=== PATIENT | female | born 1950 | race Caucasian/White ===

== ENCOUNTER 2016-11-18 12:02 | Emergency (ER) | payer MEDICARE, MEDICAID ==
[2016-11-18] MEDS ORDERED: SODIUM CHLORIDE 0.9% 1,000 ML IV ONE (12:18)
[2016-11-18] MEDS ORDERED: IOPAMIDOL-300 100 ML VIAL IVP ONE (14:05)
[2016-11-18] MEDS ORDERED: metroNIDAZOLE 250 MG TABLET PO STA (16:40)
[2016-11-18] MEDS ORDERED: CIPROFLOXACIN 250 MG TABLET PO STA (16:40)
[2016-11-18] MEDS ORDERED: metroNIDAZOLE 250 MG TABLET PO ONE (16:45)
[2016-11-18] MEDS ORDERED: CIPROFLOXACIN 250 MG TABLET PO ONE (16:45)
== END 2016-11-18 17:10 | disposition home or self-care (01) ==
DX: K52.9 Noninfective gastroenteritis and colitis, unspecified (principal); I45.10 Unspecified right bundle-branch block; R03.0 Elevated blood-pressure reading, without diagnosis of hypertension; K44.9 Diaphragmatic hernia without obstruction or gangrene; K64.4 Residual hemorrhoidal skin tags
CPT/HCPCS: 36415; 74174; 80053; 81003; 83605; 83690; 85025; 86850; 86900; 86901; 93005; 93010; 99284; A9270; Q9967

== ENCOUNTER 2016-11-20 08:56 | Outpatient (CLI) | payer MEDICAID, MEDICARE | END 2016-11-20 08:57 | disposition home or self-care (01) | DX: R19.7 Diarrhea, unspecified (principal) ==

== ENCOUNTER 2018-07-19 14:41 | Outpatient (CLI) | payer MEDICARE ==
[2018-07-19 19:26] LABS: BASOPHILS # (AUTO) 0.1 10^3/uL (0.0-0.1); EOSINOPHILS # (AUTO) 0.2 10^3/uL (0.0-0.7); EOSINOPHILS % (AUTO) 2.2 %; HGB - HEMOGLOBIN 14.6 g/dL (12.0-16.0); LYMPHOCYTES # (AUTO) 0.8 10^3/uL (1.5-3.5); LYMPHOCYTES % (AUTO) 10.8 %; MEAN CORPUSCULAR HEMOGLOBIN 29.5 pg (27.0-31.0); MEAN CORPUSCULAR HGB CONC 31.9 g/dL (32.0-36.0); MEAN CORPUSCULAR VOLUME 92.3 fL (81.0-99.0); MONOCYTES # (AUTO) 0.4 10^3/uL (0.0-1.0); MONOCYTES % (AUTO) 5.7 %; NEUTROPHILS # (AUTO) 6.1 10^3/uL (1.5-6.6); NEUTROPHILS % (AUTO) 80.3 %; PLT - PLATELET COUNT 256 10^3/uL (130-450); RED BLOOD COUNT 4.94 10^6/uL (4.20-5.40); RED CELL DISTRIBUTION WIDTH 13.5 % (12.0-15.0); WHITE BLOOD COUNT 7.7 x10^3/uL (4.8-10.8)
[2018-07-19 19:50] LABS: BUN - BLOOD UREA NITROGEN 14 mg/dL (6-20); CALCIUM 9.1 mg/dL (8.5-10.3); CARBON DIOXIDE - CO2 29 mmol/L (21-32); CHLORIDE 99 mmol/L (101-111); CHOL/HDL RATIO 3.4 (<4.4); CHOLESTEROL 188 mg/dL; CREATININE 0.7 mg/dL (0.4-1.0); GFR - MDRD 83 (>89); GLUCOSE 109 mg/dL (70-100); HDL CHOLESTEROL 55 mg/dL; LDL CHOLESTEROL,CALCULATED 120 mg/dL; LDL/HDL RATIO 2.2 (<4.4); SODIUM 136 mmol/L (135-145); VLDL CHOLESTEROL 13 mg/dL
== END 2018-07-19 23:59 | disposition home or self-care (01) ==
LOC: LAB.N 14:41
PROVIDERS: ATTEND Physician Assistant Medical
DX: Z00.00 Encounter for general adult medical examination without abnormal findings (principal); I10 Essential (primary) hypertension
CPT/HCPCS: 36415; 80048; 80061; 83721; 84443; 85025

== ENCOUNTER 2019-08-09 13:16 | Emergency (ER) | payer MEDICARE ==
[2019-08-09 13:30] VITALS: BP 215/100
[2019-08-09] MEDS ORDERED: ERYTHROMYCIN BASE DR 250 MG TABLET PO STA (13:35)
--- NOTE | 2019-08-09 13:38 | ED Physician Documentation ---
PD HPI WOUND RECHECK - Stated complaint Stated Complaint: R FINGER INJ - Chief complaint Chief Complaint: Wound - Histroy obtained from History obtained from: Patient (She has recurrent paronychia due to cutting her nails too short and has had 1 for the last 3 days on the right index finger. No fevers.) PD PAST MEDICAL HISTORY - Past Surgical History Past Surgical History: Yes General: Appendectomy HEENT: Tonsil/Adenoidectomy - Present Medications Home Medications: Ambulatory Orders Medication Instructions Recorded Confirmed Ciprofloxacin HCl [Cipro] 500 mg PO BID #19 tablet 11/18/16 Metronidazole [Flagyl] 500 mg PO BID #20 tablet 11/18/16 Saccharomyces Boulardii [Florastor] 250 mg PO BID #40 capsule 11/18/16 Erythromycin Base [Oni-Tab] 500 mg PO TID #30 tablet. 08/09/19 - Allergies Allergies/Adverse Reactions: Allergies Allergy/AdvReac Type Severity Reaction Status Date / Time Penicillins Allergy Unknown Verified 08/09/19 13:23 - Social History Does the pt smoke?: No Smoking Status: Never smoker Does the pt drink ETOH?: No Does the pt have substance abuse?: No PD ED PE NORMAL - Vitals Vital signs reviewed: Yes - General General: Alert and oriented X 3, Other (Blood pressure is noted, she has a prescription waiting for her at the pharmacy for her blood pressure medicines, she has not taken them today.) - Extremities Extremities: Other (She is a paronychia of the ulnar side of the right index finger) - Neuro Neuro: Alert and oriented X 3, Normal speech Results - Vitals Vitals: Vital Signs - 24 hr 08/09/19 13:23 Temperature 36.6 C Heart Rate 103 H Respiratory 16 Rate Blood Pressure 215/100 H O2 Saturation 96 Oxygen O2 Source Room air Procedures - Abscess I&D (location) R 2nd finger paronychia Preparation: Topical spray Incision: Incised with scalpel, Purulent drainage, Culture obtained Other: Pt tolerated well, Dressing applied, Antibiotic prescribed Departure - Departure Disposition: 01 Home, Self Care Clinical Impression: Paronychia Condition: Good Record reviewed to determine appropriate education?: Yes Instructions: ED Fingernail Infec Prescriptions: Erythromycin Base [Oni-Tab] 500 mg PO TID #30 tablet. Comments: We are performing a wound culture, the results should be done in 48-72 hours. If antibiotic change is necessary we will call you. Return if worse in the meantime, especially if you develop increased pain, fevers, cannot keep down the medication. Otherwise follow-up with your physician in approximately 2-3 days. Your blood pressure was elevated today on check into the emergency department. This does not mean that you have hypertension, it is a common phenomenon to come to the emergency department and have elevated blood pressure. I recommend that you see your primary care physician within the week to have it rechecked when you are feeling better.
== END 2019-08-09 14:00 | disposition home or self-care (01) ==
LOC: ED 13:16
DX: L03.011 Cellulitis of right finger (principal); Z88.0 Allergy status to penicillin; R03.0 Elevated blood-pressure reading, without diagnosis of hypertension
CPT/HCPCS: 10060; 87070; 87181; 87205; 99281; 99283; A9270

== ENCOUNTER 2020-04-02 10:22 | Inpatient (IN) | payer MEDICAID, MEDICARE ==
[2020-04-02 11:13] LABS: BASOPHILS % (AUTO) 0.5 %; LYMPHOCYTES # (AUTO) 0.6 10^3/uL (1.5-3.5); MEAN CORPUSCULAR HEMOGLOBIN 29.8 pg (27.0-31.0); MEAN CORPUSCULAR HGB CONC 32.4 g/dL (32.0-36.0); MEAN CORPUSCULAR VOLUME 91.9 fL (81.0-99.0); MEAN PLATELET VOLUME 9.7 fL (7.9-10.8); MONOCYTES # (AUTO) 0.3 10^3/uL (0.0-1.0); MONOCYTES % (AUTO) 3.3 %; NEUTROPHILS # (AUTO) 7.8 10^3/uL (1.5-6.6); NEUTROPHILS % (AUTO) 88.7 %; PLT - PLATELET COUNT 235 10^3/uL (130-450); WHITE BLOOD COUNT 8.8 x10^3/uL (4.8-10.8)
[2020-04-02 11:23] LABS: ALBUMIN/GLOBULIN RATIO 1.1 (1.0-2.2); BILIRUBIN,TOTAL 0.7 mg/dL (0.2-1.0); CALCIUM 9.3 mg/dL (8.5-10.3); CREATININE 0.9 mg/dL (0.4-1.0); TOTAL PROTEIN 7.6 g/dL (6.7-8.2)
--- NOTE | 2020-04-02 11:42 | ED Physician Documentation ---
PD HPI ABD PAIN - Stated complaint Stated Complaint: ABD PX/CONSTIPATED/VOMITING - Chief complaint Chief Complaint: Abd Pain - History obtained from History obtained from: Patient - History of Present Illness Timing - onset: How many days ago (3-4) Timing - duration: Days (3-4) Timing - details: Gradual onset Quality: Cramping, Aching (The patient says she has had diminished stool for the last week or so but still having bowel movements. She states she had had little to no bowel movement over the last 2 to 3 days and feeling lower abdominal cramping. Last night nausea and vomiting couple times.), Fullness/distended (for 2 days) Location: Other (lower abd) Radiation: Lower back. No: Chest Improved by: Laying still. No: Eating Worsened by: Eating, Moving. No: Breathing Associated symptoms: Nausea, Vomiting (couple times since last night), Constipation (for 2-3 days, with less output for maybe just a week. Normal BMs prior to that.). No: Fever, Diarrhea Similar symptoms before: Diagnosis (She states the lower abdominal cramping is similar to an episode of diverticulitis she had about 3 years ago) Recently seen: Not recently seen Review of Systems Constitutional: denies: Fever, Chills Nose: denies: Rhinorrhea / runny nose, Congestion Throat: denies: Sore throat Cardiac: denies: Chest pain / pressure Respiratory: denies: Dyspnea, Cough GI: reports: Abdominal Pain, Nausea, Vomiting, Constipation. denies: Diarrhea, Hematemesis, Bloody / black stool : denies: Dysuria Neurologic: reports: Generalized weakness. denies: Focal weakness, Numbness, Near syncope, Headache PD PAST MEDICAL HISTORY - Past Medical History Past Medical History: No Cardiovascular: None Endocrine/Autoimmune: None GI: Diverticulitis (One episode in 2017 treated nonsurgically) - Past Surgical History Past Surgical History: Yes General: Appendectomy HEENT: Tonsil/Adenoidectomy - Present Medications Home Medications: Ambulatory Orders Medication Instructions Recorded Confirmed Ciprofloxacin HCl [Cipro] 500 mg PO BID #19 tablet 11/18/16 Saccharomyces Boulardii [Florastor] 250 mg PO BID #40 capsule 11/18/16 metroNIDAZOLE [Flagyl] 500 mg PO BID #20 tablet 11/18/16 Erythromycin Base [Oni-Tab] 500 mg PO TID #30 tablet.dr 08/09/19 - Allergies Allergies/Adverse Reactions: Allergies Allergy/AdvReac Type Severity Reaction Status Date / Time Penicillins Allergy Unknown Verified 04/02/20 10:36 - Living Situation Living Situation: reports: Alone Living Arrangement: reports: At home - Social History Does the pt smoke?: No Smoking Status: Never smoker Does the pt drink ETOH?: No Does the pt have substance abuse?: No PD ED PE NORMAL - Vitals Vital signs reviewed: Yes - General General: Alert and oriented X 3, Well developed/nourished - HEENT HEENT: Moist mucous membranes, Pharynx benign - Cardiac Cardiac: RRR, No murmur - Respiratory Respiratory: Clear bilaterally - Abdomen Abdomen: Soft, No organomegaly, Other (Tender in the lower abdomen with some d istention. Bowel sounds are present and hyperactive. No percussion or rebound tenderness). No: Normal bowel sounds - Female Female : Deferred - Rectal Rectal: Deferred - Back Back: No CVA TTP - Derm Derm: Normal color - Extremities Extremities: No tenderness to palpate, Normal ROM s pain, No edema, No calf tenderness / cord - Neuro Neuro: Alert and oriented X 3, No motor deficit, Normal speech Results - Vitals Vitals: Vital Signs - 24 hr 04/02/20 04/02/20 10:29 14:00 Temperature 36.6 C Heart Rate 105 H 100 Respiratory 18 18 Rate Blood Pressure 167/111 H 193/110 H O2 Saturation 96 99 Oxygen O2 Source Room air - Labs Labs: Laboratory Tests 04/02/20 04/02/20 04/02/20 11:04 11:04 11:46 WBC 8.8 RBC 4.70 Hgb 14.0 Hct 43.2 MCV 91.9 MCH 29.8 MCHC 32.4 RDW 13.0 Plt Count 235 MPV 9.7 Neut # (Auto) 7.8 H Lymph # (Auto) 0.6 L Gooding # (Auto) 0.3 Eos # (Auto) 0.0 Baso # (Auto) 0.0 Absolute Nucleated RBC 0.00 Nucleated RBC % 0.0 Sodium 135 Potassium 3.9 Chloride 97 L Carbon Dioxide 26 Anion Gap 12.0 BUN 13 Creatinine 0.9 Estimated GFR (MDRD) 62 L Glucose 122 H Calcium 9.3 Total Bilirubin 0.7 AST 15 ALT 12 Alkaline Phosphatase 63 Total Protein 7.6 Albumin 4.0 Globulin 3.6 Albumin/Globulin Ratio 1.1 Lipase 20 L Urine Color DARK YELLOW Urine Clarity CLEAR Urine pH 5.0 Ur Specific Lithia >=1.030 H Urine Protein TRACE Urine Glucose (UA) NEGATIVE Urine Ketones 40 H Urine Occult Blood SMALL H Urine Nitrite NEGATIVE Urine Bilirubin NEGATIVE Urine Urobilinogen 0.2 (NORMAL) Ur Leukocyte Esterase NEGATIVE Urine RBC 0-5 Urine WBC 0-3 Ur Squamous Epith Cells FEW Squamous Amorphous Sediment Rare Urine Bacteria Few Ur Microscopic Review INDICATED Urine Culture Comments NOT INDICATED - Rads (name of study) abd CT Radiology: Prelim report reviewed (Circumferential wall thickening and i nflammation without any stranding in the mid sigmoid. Upstream partial bowel obstruction pattern. No perforation or abscess), See rad report PD MEDICAL DECISION MAKING - ED course Complexity details: reviewed results (There is some circumferential swelling and narrowing in the mid sigmoid located similar to an area of diverticulitis 3 years ago. She had been having normal stools up until just this past week so sounds like an acute infectious process rather than a malignant process), considered differential (Several days to a week at most of decreased stool output but largely just 3 days of abdominal lower pains with bloating and now today nausea and vomiting since last night), d/w patient Departure - Departure Disposition: 66 [facility] DC/Xfer Clinical Impression: Acute colitis Partial bowel obstruction Qualifiers: Intestinal obstruction type: other intestinal obstruction Qualified Code(s): K56.690 - Other partial intestinal obstruction Condition: Stable Record reviewed to determine appropriate education?: Yes
[2020-04-02 11:59] LABS: GLUCOSE, URINE (UA) NEGATIVE (NEGATIVE); KETONES,URINE (UA) 40 mg/dL (NEGATIVE); LEUKOCYTE ESTERASE, URINE NEGATIVE (NEGATIVE); NITRITE,URINE NEGATIVE (NEGATIVE); OCCULT BLOOD,URINE SMALL (NEGATIVE); PROTEIN,URINE TRACE mg/dL (NEGATIVE); UROBILINOGEN,URINE 0.2 (NORMAL) E.U./dL (NORMAL)
[2020-04-02] MEDS ORDERED: MORPHINE 2 MG/ML CARPUJECT IVP STA (12:00)
[2020-04-02] MEDS ORDERED: ONDANSETRON 4 MG/2 ML VIAL IVP STA (12:00)
[2020-04-02] MEDS ORDERED: SODIUM CHLORIDE 0.9% 1,000 ML IV STA (12:00)
[2020-04-02 12:02] LABS: CLARITY,URINE CLEAR (CLEAR)
[2020-04-02 12:03] LABS: BILIRUBIN,URINE NEGATIVE (NEGATIVE); ICTOTEST,URINE NEGATIVE
[2020-04-02 12:17] LABS: AMORPHOUS SEDIMENT,UR Rare /LPF; BACTERIA,URINE Few /HPF (None Seen); RBC,URINE 0-5 /HPF (0-5); SQUAMOUS EPITHELIAL CELL,UR FEW Squamous (<= Few)
[2020-04-02] MEDS ORDERED: IOVERSOL 320 100 ML VIAL IVP ONE ×2 (12:31→15:12)
--- NOTE | 2020-04-02 13:10 | CT Report ---
PROCEDURE: Abdomen/Pelvis W INDICATIONS: lower abd pain, cramps, vomiting CONTRAST: IV CONTRAST: Optiray 320 ml: 100 PO CONTRAST: *NO PO CONTRAST TECHNIQUE: After the administration of IV contrast, 5 mm thick sections acquired from the diaphragms to the symp hysis. 5 mm thick coronal and sagittal reformats were acquired. For radiation dose reduction, the f ollowing was used: automated exposure control, adjustment of mA and/or kV according to patient size. COMPARISON: 11/18/2016. FINDINGS: Image quality: Excellent. ABDOMEN: Lung bases: Heart size is normal. Large hiatal hernia is again seen with compressive atelectasis in posterior medial aspect of left lung base. Herniation sac contains stomach and long segment of trans verse colon. No pleural effusion or pneumothorax. Solid organs: Liver and spleen are normal in size and enhancement. Gallbladder is within normal alvarez its Biliary system is non dilated. Pancreas enhances normally. No adrenal nodules. Kidneys demons trate normal size and enhancement, without hydronephrosis. Peritoneum and bowel: Air and fluid distended distal small bowel loops and colon loops are seen with fecal material seen in dependent portion of distended colonic loops extending to the level of proxima l to mid sigmoid colon with suggestion of circumferential wall thickening and high-grade stenosis inv olving 9 cm segment of mid to distal sigmoid colon. No significant adjacent mesenteric fat stranding is seen. Finding is concerning for circumferential mass involving sigmoid colon versus inflammatory o r infectious colitis in this region with resultant distal colonic obstruction at this level. No perit kapadia free fluid or free air. Nodes and vessels: No retroperitoneal or mesenteric adenopathy by size criteria. Aorta and inferior vena cava are normal in size. Miscellaneous: No ventral hernias. PELVIS: Genitourinary: Bladder wall thickness is normal. Miscellaneous: No inguinal hernias or adenopathy. Bones: No suspicious bony lesions. No vertebral body compression fractures. Degenerative disc disea se throughout lower thoracic and lumbar spine is seen. IMPRESSION: 1. 9 cm segment of high-grade stenosis involving mid to distal sigmoid colon with suggestion of marke d circumferential wall thickening and resultant distal colonic obstruction at this level. Finding is concerning for circumferential mass in this area versus changes related to infectious or inflammatory colitis. Endoscopic correlation is recommended. 2. No other area of abnormal bowel wall thickening. No free fluid or free air. 3. Large hiatal hernia containing stomach lumen and a segment of transverse colon. No evidence of inc arceration. Reviewed by: Bernardo Simpson MD on 04/02/2020 1:09 PM PDT Approved by: Bernardo Simpson MD on 04/02/2020 1:09 PM PDT Station ID: [id number]
[2020-04-02] MEDS ORDERED: KETOROLAC 30 MG/ML VIAL IVP STA (13:45)
[2020-04-02] MEDS ORDERED: cefTRIAXone 1 GM VIAL IVP STA (13:45)
[2020-04-02] MEDS ORDERED: metroNIDAZOLE 500 MG/100 ML 500 MG/100 ML BAG IV ONE (13:45)
[2020-04-02] MEDS ORDERED: PROCHLORPERAZINE 10 MG/2 ML VIAL IVP PRN (15:08)
[2020-04-02 15:42] LABS: INR 1.2 (0.8-1.2); PT - PROTHROMBIN TIME 13.5 secs (9.9-12.6)
--- NOTE | 2020-04-02 15:46 | PHARMACY PROGRESS NOTE ---
- Best Possible Medication History Admit Date and Time: 04/02/20 1505 Processed by: Pharmacy Medication History completed: Yes Patient Interview: Completed Secondary Source(s): Pharmacy records, Insurance records (PATIENT INTERVIEWED BY [employer]. PATIENT ABLE TO CONFIRM HOME MEDICATIONS. PATIENT ALSO STATES SHE TAKES OTC IRON, POTASSIUM, AND GARLIC ) As the person ultimately responsible for medication therapy, providers are able to order a medication from an existing home medication list in [facility] via the "Reconcile Routine" prior to Confirmation of that medication by student support advisor. Such practice is discouraged except when the physician, in their clinical judgment, deems that a medical need exists for a medication without regard to previous use.
[2020-04-02] MEDS ORDERED: D5NS W/20 MEQ KCL 1,000 ML IV SCH (16:00)
[2020-04-02] MEDS: D5NS W/20 MEQ KCL 1,000 ML IV SCH (16:21)
[2020-04-02] MEDS: ONDANSETRON 4 MG/2 ML VIAL IVP PRN (16:21)
[2020-04-02] MEDS: SODIUM CHLORIDE FLUSH 0.9% 10 ML SYRINGE IVP SCH (16:21)
[2020-04-02] MEDS ORDERED: BENZOCAINE SPRAY MM PRN (16:26)
--- NOTE | 2020-04-02 19:44 | HISTORY & PHYSICAL EXAMINATION ---
Chief Complaint - Chief Complaint Chief Complaint: Abdominal pain History of Present Illness - Admitted From Admitted From:: Home - History Obtained From Records Reviewed: Yes History obtained from: Patient, ER Physician, EMR - History of Present Illness HPI Comment/Other: This is a 69-year-old female with a past medical history significant for hype rtension, iron deficiency anemia who presents today complaining of lower abdominal pain and constipation. She states her symptoms began about 5 days ago but over the past 2 days she has severe lower abdominal cramping and pain that has been a 10 out of 10. She has had associated constipation and had a bowel movement in 2 days. She reports no nausea but has had multiple episodes of nonbloody emesis. She currently feels that her pain has improved. She reports a similar episode about 3 years ago but that it felt a little bit different at that time. She was supposed to get a colonoscopy then but unfortunately due to insurance problems, she never followed up and has never had a colonoscopy in her life. She reports a prior history of appendectomy otherwise no other surgical history. She is adopted and is unaware of her family history. She reports no weight loss. In the emergency department, she underwent a CT of the abdomen and pelvis which showed a 9 cm segment of high-grade stenosis involving the mid to distal sigmoid colon with suggestion of marked circumferential wall thickening and resultant distal colonic obstruction. This was concerning for a circumferential mass versus infectious or inflammatory colitis. She was given ceftriaxone and Flagyl IV as well as Toradol. Given these findings, medicine was consulted for admission. I did discuss goals of care with patient she would like to be a full code. History - Past Medical History Cardiovascular: reports: Hypertension Respiratory: reports: None Neuro: reports: None Endocrine/Autoimmune: reports: None GI: reports: None : reports: None Psych: reports: None Musculoskeletal: reports: None Derm: reports: None MRSA Hx?: No - Past Surgical History General: reports: Appendectomy HEENT: reports: Tonsil/Adenoidectomy - Family & Social History Family History Comment/Other: She is adopted and is unaware of her family histo ry. Living arrangement: At home Living Situation: Alone Social History Notes: She has lived in [facility] for over 30 years. 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 She does not smoke and denies any alcohol use or illicit drug use. Meds/Allgy - Home Medications Home Medications: Ambulatory Orders Medication Instructions Recorded Confirmed Aspirin EC [Ecotrin] 81 mg PO DAILY 04/02/20 04/02/20 Ferrous Sulfate 325 mg PO DAILY 04/02/20 04/02/20 Lisinopril [Zestril] 60 mg PO DAILY 04/02/20 04/02/20 hydroCHLOROthiazide 25 mg PO DAILY 04/02/20 04/02/20 [Hydrochlorothiazide] - Allergies Allergies/Adverse Reactions: Allergies Allergy/AdvReac Type Severity Reaction Status Date / Time Penicillins Allergy Unknown Verified 04/02/20 10:36 Review of Systems - Constitutional Constitutional: reports: Poor appetite. denies: Fatigue, Fever, Chills, Malaise, Weight loss - Ears, Nose & Throat Ears, Nose & Throat: reports: Sore throat. denies: Nasal discharge, Nasal c ongestion - Cardiovascular Cariovascular: reports: Lightheadedness. denies: Chest pain, Edema - Respiratory Respiratory: reports: SOB at rest - Gastrointestinal Gastrointestinal: reports: Abdominal pain, Constipation, Change in bowel habits, Vomiting, Bloating, Poor appetite. denies: Diarrhea, Black stools, Bloody stools, Nausea - Genitourinary Genitourinary: denies: Dysuria, Frequency - Neurological Neurological: reports: General weakness, Dizziness. denies: Focal weakness, Numbness - Hematologic/Lymphatic Hematologic/Lymphatic: reports: Anemia. denies: Bleeding tendencies - All Other Systems All Other Systems: reports: Reviewed and negative Prior Level of Functionality: She is independent with her ADLs. Exam - Vital Signs Reviewed Vital Signs: Yes Vital Signs: Vital Signs x48h Temp Pulse Pulse Resp BP BP Pulse Ox 04/02/20 17:11 37.1 C 100 18 98 04/02/20 15:46 37.1 C 108 H 18 184/113 H 97 04/02/20 15:24 100 18 171/111 H 100 04/02/20 14:00 100 18 193/110 H 99 - Physical Exam General Appearance: positive: Alert, Mild distress Eyes Bilateral: positive: Normal inspection, Conjunctivae nml ENT: positive: ENT inspection nml Neck: positive: Nml inspection Respiratory: positive: No respiratory distress. negative: Wheezes, Rales Cardiovascular: positive: No murmur, Tachycardia. negative: Systolic murmur Abdomen: positive: Tenderness (Mild tenderness in the left lower quadrant and suprapubic region.), Abnml bowel sounds (Hypoactive bowel sounds.). negative: Non-tender, Guarding, Rebound Skin: positive: No rash, Warm, Dry Extremities: positive: Full ROM, No pedal edema Neurologic/Psychiatric: positive: Oriented x3, Motor nml. negative: Disoriented to person, Disoriented to place, Disoriented to time Conclusion/Plan - Problem List (1) Partial bowel obstruction Conclusion/Plan: She presents with abdominal cramping and emesis along with constipation. Imaging is concerning for high-grade stenosis in the mid to distal sigmoid colon which could be due to a mass or infectious/inflammatory colitis. She has had a similar episode in the past but has never had a colonoscopy. We will empirically start her on ceftriaxone and Flagyl IV for possible infectious colit is. Maintain n.p.o. status. Controlled morphine IV as needed. Zofran as needed for nausea. Continue IV fluids. General surgery consult for likely colonoscopy. Qualifiers: Intestinal obstruction type: other intestinal obstruction Qualified Code(s): K56.690 - Other partial intestinal obstruction (2) Hypertension Conclusion/Plan: Her blood pressures currently elevated with systolic in the 160s to 170s. Given she is n.p.o., we will start her on labetalol IV every 4 hours as needed. We will resume her home medications when she is taking p.o. Qualifiers: Hypertension type: essential hypertension Qualified Code(s): I10 - Essential (primary) hypertension (3) History of iron deficiency Conclusion/Plan: Hemoglobin is stable. We will continue her on iron supplementation once she is taking p.o. - Lab Results Lab results reviewed: Yes Fish Bones: 04/02/20 11:04 04/02/20 11:04 - Diagnostic Imaging Results Diagnostic Imaging Results: positive: Final report reviewed Core Measures - Anticipated LOS I expect patient to be DC'd or transferred within 96 hours.: Yes - Issues Hospital Issues and Management Plan: 69-year-old female presents with abdominal pain found to have a partial bowel obstruction on imaging of the sigmoid colon. Concern is for infectious/enteric colitis or an underlying mass. Will admit for IV antibiotics and general surgery consult for colonoscopy. - DVT/VTE - Prophylaxis VTE/DVT Device ordered at admit?: Yes VTE/DVT Prophylaxis med ordered at admit?: Yes
[2020-04-02] MEDS ORDERED: MORPHINE 2 MG/ML CARPUJECT IVP PRN (19:47)
[2020-04-02] MEDS ORDERED: LABETALOL 20 MG/4 ML SYRINGE IVP PRN ×2 (20:04→22:00)
[2020-04-02] MEDS: metroNIDAZOLE 500 MG/100 ML 500 MG/100 ML BAG IV SCH (21:49)
[2020-04-02] MEDS: FAMOTIDINE 20 MG/2 ML SYRINGE IVP SCH (21:49)
[2020-04-03] MEDS: SODIUM CHLORIDE FLUSH 0.9% 10 ML SYRINGE IVP SCH ×3 (01:07→16:02)
[2020-04-03] MEDS: D5NS W/20 MEQ KCL 1,000 ML IV SCH ×2 (01:59→12:52)
[2020-04-03] MEDS: ONDANSETRON 4 MG/2 ML VIAL IVP PRN ×3 (02:21→16:02)
[2020-04-03 05:48] LABS: BASOPHILS % (AUTO) 0.3 %; HGB - HEMOGLOBIN 14.5 g/dL (12.0-16.0); LYMPHOCYTES # (AUTO) 0.6 10^3/uL (1.5-3.5); LYMPHOCYTES % (AUTO) 4.7 %; MEAN CORPUSCULAR HEMOGLOBIN 30.1 pg (27.0-31.0); MEAN CORPUSCULAR HGB CONC 32.7 g/dL (32.0-36.0); MEAN CORPUSCULAR VOLUME 92.1 fL (81.0-99.0); MEAN PLATELET VOLUME 9.5 fL (7.9-10.8); MONOCYTES # (AUTO) 0.5 10^3/uL (0.0-1.0); MONOCYTES % (AUTO) 3.9 %; NEUTROPHILS # (AUTO) 11.9 10^3/uL (1.5-6.6); NEUTROPHILS % (AUTO) 90.6 %; PLT - PLATELET COUNT 268 10^3/uL (130-450); RED BLOOD COUNT 4.81 10^6/uL (4.20-5.40); RED CELL DISTRIBUTION WIDTH 13.2 % (12.0-15.0); WHITE BLOOD COUNT 13.1 x10^3/uL (4.8-10.8)
[2020-04-03 05:59] LABS: CALCIUM 8.9 mg/dL (8.5-10.3); CREATININE 0.7 mg/dL (0.4-1.0)
[2020-04-03] MEDS: metroNIDAZOLE 500 MG/100 ML 500 MG/100 ML BAG IV SCH ×3 (06:03→21:10)
[2020-04-03] MEDS: hydrALAZINE INJ 20 MG/ML VIAL IVP PRN (06:07)
[2020-04-03] MEDS: SODIUM CHLORIDE FLUSH 0.9% 10 ML SYRINGE IVP PRN ×2 (06:11→06:19)
[2020-04-03] MEDS: FAMOTIDINE 20 MG/2 ML SYRINGE IVP SCH ×2 (09:26→21:11)
[2020-04-03] MEDS: ENOXAPARIN 40 MG/0.4 ML SYRINGE SUBQ SCH (09:27)
[2020-04-03] MEDS: cefTRIAXone 1 GM in SODIUM CHLORIDE 0.9% MINIBAG 100 ML IV SCH (09:27)
[2020-04-03] MEDS ORDERED: PEG 3350/NA SULF,BICARB,CL/KCL 4,000 ML BOTTLE PO ONE (13:56)
--- NOTE | 2020-04-03 15:39 | PROVIDER PROGRESS NOTE ---
Assessment/Plan - Problem List (1) Partial bowel obstruction Qualifiers: Intestinal obstruction type: other intestinal obstruction Qualified Code(s): K56.690 - Other partial intestinal obstruction Assessment/Plan: Patient report abdominal pain is better control, she had a big bowel movement in the morning then she had several small bowel movements. Imaging is concerning for high-grade stenosis in the mid to distal sigmoid colon which could be due to a mass or infectious/inflammatory colitis. GI surgeon plan to have colonoscopy on tomorrow. Continue pain control, continue antiemesis as needed, continue intravenous IV fluids. (2) HTN We will continue home medication lisinopril and HCTZ, Continue vital signs monitor, Continue IV labetalol every 4 hours as needed. (3) History of iron deficiency Conclusion/Plan: Hemoglobin is stable. We will continue her on iron supplementation once she is taking p.o. - Current Meds Current Meds: Current Medications Generic Name Dose Route Start Last Admin Trade Name Freq PRN Reason Stop Dose Admin Benzocaine 1 sprays 04/02/20 16:26 04/02/20 16:30 Hurricaine MM 1 spr Q4HR PRN Administration Mouth Sore Pain Enoxaparin Sodium 40 mg 04/03/20 09:00 04/03/20 09:27 Lovenox SUBQ 40 mg DAILY YASMEEN Administration Famotidine 20 mg 04/02/20 21:00 04/03/20 09:26 Pepcid IVP 20 mg BID YASMEEN Administration Hydralazine HCl 10 mg 04/02/20 22:00 04/03/20 06:07 Apresoline Inj IVP 10 mg Q4HR PRN Administration NEEDED PER PROVIDER ORDERS Ceftriaxone Sodium 1 gm/ 100 mls @ 200 mls/hr 04/03/20 09:00 04/03/20 10:00 Sodium Chloride IV Infused DAILY YASMEEN Infusion Metronidazole 500 mg in 100 mls @ 100 mls/hr 04/02/20 22:00 04/03/20 14:52 Flagyl 500 Mg/100 Ml IV Infused Q8H YASMEEN Infusion Potassium Chloride/Dextrose/Sod Cl 1,000 mls @ 125 mls/hr 04/02/20 16:00 04/03/20 14:53 IV 125 mls/hr .Q8H YASMEEN Infusion Ondansetron HCl 4 mg 04/02/20 15:08 08/18/20 09:25 Zofran Inj IVP 4 mg Q6HR PRN Administration Nausea / Vomiting Sodium Chloride 10 ml 04/02/20 15:08 04/03/20 06:19 Normal Saline Flush 0.9% IVP 10 ml PRN PRN Administration NEEDED PER PROVIDER ORDERS Sodium Chloride 10 ml 04/02/20 17:00 04/03/20 07:53 Normal Saline Flush 0.9% IVP 10 ml 0100,0900,1700 YASMEEN Administration - Lab Result Fish Bone Diagrams: 04/03/20 05:30 04/03/20 05:30 - Additional Planning My Orders: My Active Orders 04/03/20 16:00 lisinopriL [Zestril] 60 mg PO DAILY 04/04/20 09:00 Aspirin EC [Ecotrin] 81 mg PO DAILY hydroCHLOROthiazide [Hydrodiuril] 25 mg PO DAILY Subjective - Subjective Patient Reports: Feeling Better Objective Vital Signs: Vital Signs - 24 hr 04/02/20 04/02/20 04/02/20 15:46 17:11 19:56 Temperature 37.1 C 37.1 C Heart Rate 100 Heart Rate [ 108 H 101 H Brachial] Respiratory 18 18 Rate Blood Pressure Blood Pressure 184/113 H 173/86 H [Left Brachial artery] Blood Pressure [Right Brachial artery] O2 Saturation 97 98 04/02/20 04/02/20 04/02/20 20:46 20:52 20:55 Temperature 36.7 C Heart Rate Heart Rate [ 98 84 84 Brachial] Respiratory 18 Rate Blood Pressure Blood Pressure 189/93 H 145/85 H [Left Brachial artery] Blood Pressure 145/85 H [Right Brachial artery] O2 Saturation 97 04/02/20 04/02/20 04/02/20 21:00 21:05 21:10 Temperature Heart Rate Heart Rate [ 83 82 89 Brachial] Respiratory Rate Blood Pressure Blood Pressure [Left Brachial artery] Blood Pressure 145/85 H 164/83 H 154/92 H [Right Brachial artery] O2 Saturation 04/02/20 04/02/20 04/02/20 21:25 21:48 22:50 Temperature Heart Rate Heart Rate [ 84 85 Brachial] Respiratory Rate Blood Pressure Blood Pressure [Left Brachial artery] Blood Pressure 183/87 H 192/85 H 149/99 H [Right Brachial artery] O2 Saturation 04/03/20 04/03/20 04/03/20 00:48 05:47 05:51 Temperature 37.5 C 37.4 C Heart Rate Heart Rate [ 88 99 Brachial] Respiratory 18 16 Rate Blood Pressure Blood Pressure 161/92 H 178/91 H 164/90 H [Left Brachial artery] Blood Pressure [Right Brachial artery] O2 Saturation 94 93 04/03/20 04/03/20 04/03/20 06:07 06:16 06:21 Temperature Heart Rate Heart Rate [ 86 Brachial] Respiratory Rate Blood Pressure 207/95 H Blood Pressure 201/94 H 181/96 H [Left Brachial artery] Blood Pressure [Right Brachial artery] O2 Saturation 04/03/20 04/03/20 04/03/20 06:26 06:32 06:37 Temperature Heart Rate Heart Rate [ Brachial] Respiratory Rate Blood Pressure 167/87 H Blood Pressure 177/81 H 168/81 H [Left Brachial artery] Blood Pressure [Right Brachial artery] O2 Saturation 04/03/20 04/03/20 04/03/20 06:46 07:54 10:35 Temperature 37.2 C 37.2 C Heart Rate 91 Heart Rate [ 91 Brachial] Respiratory 18 18 Rate Blood Pressure Blood Pressure 167/87 H 157/85 H [Left Brachial artery] Blood Pressure [Right Brachial artery] O2 Saturation 93 94 04/03/20 11:30 Temperature 36.3 C L Heart Rate Heart Rate [ 87 Brachial] Respiratory 18 Rate Blood Pressure Blood Pressure 167/99 H [Left Brachial artery] Blood Pressure [Right Brachial artery] O2 Saturation 99 Oxygen O2 Source Room air I&O (Last 24 Hrs): Intake and Output Totals x24h 04/01/20 04/02/20 04/03/20 23:59 23:59 23:59 Intake Total 7062.824 6417.500 Output Total 100 Balance 0993.100 0111.500 General: Alert, Oriented x3, No acute distress HEENT: Atraumatic Neck: Supple Lymphatic: no adenopathy Neuro: Alert, Non Focal, Oriented Times 3 Cardiovascular: Regular rate, Normal S1, Normal S2 Respiratory: Chest non-tender, No respiratory distress, Breath sounds nml Abdomen: Normal bowel sounds, Soft, No tenderness Extremities: Normal pulses - Results Results: Laboratory Results WBC 13.1 x10^3/uL (4.8-10.8) H 04/03/20 05:30 RBC 4.81 10^6/uL (4.20-5.40) 04/03/20 05:30 Hgb 14.5 g/dL (12.0-16.0) 04/03/20 05:30 Hct 44.3 % (37.0-47.0) 04/03/20 05:30 MCV 92.1 fL (81.0-99.0) 04/03/20 05:30 MCH 30.1 pg (27.0-31.0) 04/03/20 05:30 MCHC 32.7 g/dL (32.0-36.0) 04/03/20 05:30 RDW 13.2 % (12.0-15.0) 04/03/20 05:30 Plt Count 268 10^3/uL (130-450) 04/03/20 05:30 MPV 9.5 fL (7.9-10.8) 04/03/20 05:30 Neut # (Auto) 11.9 10^3/uL (1.5-6.6) H 04/03/20 05:30 Lymph # (Auto) 0.6 10^3/uL (1.5-3.5) L 04/03/20 05:30 [place] # (Auto) 0.5 10^3/uL (0.0-1.0) 04/03/20 05:30 Eos # (Auto) 0.0 10^3/uL (0.0-0.7) 04/03/20 05:30 Baso # (Auto) 0.0 10^3/uL (0.0-0.1) 04/03/20 05:30 Absolute Nucleated RBC 0.00 x10^3/uL 04/03/20 05:30 Nucleated RBC % 0.0 /100WBC 04/03/20 05:30 PT 13.5 secs (9.9-12.6) H 04/02/20 11:04 INR 1.2 (0.8-1.2) 04/02/20 11:04 Sodium 135 mmol/L (135-145) 04/03/20 05:30 Potassium 4.4 mmol/L (3.5-5.0) 04/03/20 05:30 Chloride 105 mmol/L (101-111) 04/03/20 05:30 Carbon Dioxide 22 mmol/L (21-32) 04/03/20 05:30 Anion Gap 8.0 (6-13) 04/03/20 05:30 BUN 12 mg/dL (6-20) 04/03/20 05:30 Creatinine 0.7 mg/dL (0.4-1.0) 04/03/20 05:30 Estimated GFR (MDRD) 83 (>89) L 04/03/20 05:30 Glucose 177 mg/dL (70-100) H 04/03/20 05:30 Calcium 8.9 mg/dL (8.5-10.3) 04/03/20 05:30 Total Bilirubin 0.7 mg/dL (0.2-1.0) 04/02/20 11:04 AST 15 IU/L (10-42) 04/02/20 11:04 ALT 12 IU/L (10-60) 04/02/20 11:04 Alkaline Phosphatase 63 IU/L (42-121) 04/02/20 11:04 Total Protein 7.6 g/dL (6.7-8.2) 04/02/20 11:04 Albumin 4.0 g/dL (3.2-5.5) 04/02/20 11:04 Globulin 3.6 g/dL (2.1-4.2) 04/02/20 11:04 Albumin/Globulin Ratio 1.1 (1.0-2.2) 04/02/20 11:04 Lipase 20 U/L (22-51) L 04/02/20 11:04 Urine Color DARK YELLOW 04/02/20 11:46 Urine Clarity CLEAR (CLEAR) 04/02/20 11:46 Urine pH 5.0 PH (5.0-7.5) 04/02/20 11:46 Ur Specific [place] >=1.030 (1.002-1.030) H 04/02/20 11:46 Urine Protein TRACE mg/dL (NEGATIVE) 04/02/20 11:46 Urine Glucose (UA) NEGATIVE mg/dL (NEGATIVE) 04/02/20 11:46 Urine Ketones 40 mg/dL (NEGATIVE) H 04/02/20 11:46 Urine Occult Blood SMALL (NEGATIVE) H 04/02/20 11:46 Urine Nitrite NEGATIVE (NEGATIVE) 04/02/20 11:46 Urine Bilirubin NEGATIVE (NEGATIVE) 04/02/20 11:46 Urine Urobilinogen 0.2 (NORMAL) E.U./dL (NORMAL) 04/02/20 11:46 Ur Leukocyte Esterase NEGATIVE (NEGATIVE) 04/02/20 11:46 Urine RBC 0-5 /HPF (0-5) 04/02/20 11:46 Urine WBC 0-3 /HPF (0-5) 04/02/20 11:46 Ur Squamous Epith Cells FEW Squamous (<= Few) 04/02/20 11:46 Amorphous Sediment Rare /LPF 04/02/20 11:46 Urine Bacteria Few /HPF (None Seen) 04/02/20 11:46 Ur Microscopic Review INDICATED 04/02/20 11:46 Urine Culture Comments NOT INDICATED 04/02/20 11:46 ABX Reporting Has patient been on IV antibiotics over the past 48 hours?: Yes Current Medications - Current Medications Current Medications: Active Medications Aspirin (Ecotrin) 81 mg PO DAILY [facility] Benzocaine (Hurricaine) 1 sprays MM Q4HR PRN PRN Reason: Mouth Sore Pain Last Admin: 04/02/20 16:30 Dose: 1 spr Documented by: Enoxaparin Sodium (Lovenox) 40 mg SUBQ DAILY [facility] Last Admin: 04/03/20 09:27 Dose: 40 mg Documented by: Famotidine (Pepcid) 20 mg IVP BID [facility] Last Admin: 04/03/20 09:26 Dose: 20 mg Documented by: Ferrous Sulfate (Feosol) 325 mg PO DAILY [facility] Hydralazine HCl (Apresoline Inj) 10 mg IVP Q4HR PRN PRN Reason: NEEDED PER PROVIDER ORDERS Last Admin: 04/03/20 06:07 Dose: 10 mg Documented by: Hydrochlorothiazide (Hydrodiuril) 25 mg PO DAILY [facility] Ceftriaxone Sodium 1 gm/ (Sodium Chloride) 100 mls @ 200 mls/hr IV DAILY [facility] Last Infusion: 04/03/20 10:00 Dose: Infused Documented by: Metronidazole (Flagyl 500 Mg/100 Ml) 500 mg in 100 mls @ 100 mls/hr IV Q8H [facility] Last Infusion: 04/03/20 14:52 Dose: Infused Documented by: Potassium Chloride/Dextrose/Sod Cl () 1,000 mls @ 125 mls/hr IV .Q8H [facility] Last Infusion: 04/03/20 14:53 Dose: 125 mls/hr Documented by: Labetalol HCl (Trandate Syringe) 10 mg IVP Q2HR PRN PRN Reason: NEEDED PER PROVIDER ORDERS Lisinopril (Zestril) 60 mg PO DAILY [facility] Morphine Sulfate (Morphine (Carpuject)) 2 mg IVP Q2HR PRN PRN Reason: PAIN Ondansetron HCl (Zofran Inj) 4 mg IVP Q6HR PRN PRN Reason: Nausea / Vomiting Last Admin: 04/03/20 09:25 Dose: 4 mg Documented by: Prochlorperazine Edisylate (Compazine Inj) 10 mg IVP Q6HR PRN PRN Reason: Nausea / Vomiting Sodium Chloride (Normal Saline Flush 0.9%) 10 ml IVP PRN PRN PRN Reason: NEEDED PER PROVIDER ORDERS Last Admin: 04/03/20 06:19 Dose: 10 ml Documented by: Sodium Chloride (Normal Saline Flush 0.9%) 10 ml IVP 0100,0900,1700 [facility] Last Admin: 04/03/20 07:53 Dose: 10 ml Documented by: Aspirin EC [Ecotrin] 81 mg PO DAILY 04/02/20 Ferrous Sulfate 325 mg PO DAILY 04/02/20 Lisinopril [Zestril] 60 mg PO DAILY 04/02/20 hydroCHLOROthiazide [Hydrochlorothiazide] 25 mg PO DAILY 04/02/20
[2020-04-03] MEDS: lisinopriL 20 MG TABLET PO SCH (16:02)
[2020-04-03] MEDS ORDERED: SODIUM CHLORIDE 0.9% 1,000 ML IV SCH (19:00)
--- NOTE | 2020-04-03 19:17 | CONSULTATION NOTE ---
Referring Provider Name of Referring Provider:: Dr. Tima Davis Consult Date: 04/03/20 Chief Complaint - Chief Complaint Chief Complaint: Constipation, nausea and vomiting History of Present Illness - Admitted From Admitted From:: ED - History Obtained From Records Reviewed: provider's notes from this and prior admission History obtained from: patient and provider notes Exam Limitations: none - History of Present Illness HPI Comment/Other: Nimco is a 69 year old lady who was admitted to the Hospitalist service last evening after presenting to the ED with nausea, vomiting, and constipation. Shortly after admission, she had a large bowel movement and the nausea began to improve. She reports she has had constant diarrhea for the past 3 or 4 years. She was seen in our hospital in November of 2016. She presented at that time with abdominal pain and lower GI hemorrhage. CT scan during that admission revealed a 20 segment of inflammation in the sigmoid colon. She was discharged after the episode with referral for colonoscopy. She reports it was scheduled but "life happened" and the colonoscopy was cancelled. She has had frequent lower abdominal pain since that time. She says that over the past couple of years, it has been increasingly difficulty to have a bowel movement and, when she does, it is almost always diarrhea. At the time of her presentation to our ED, CT revealed a 9 cm high grade stricture in the sigmoid colon. There is no evidence of metastatic disease. I have been consulted regarding colonoscopy during this admission. Nimco is not aware of any family history of colorectal cancer. History - Past Medical History Cardiovascular: reports: Hypertension Respiratory: reports: None Neuro: reports: None Endocrine/Autoimmune: reports: None GI: reports: None : reports: None HEENT: reports: Chronic vision loss, Other (Very concerned about vision loss and has a preop appointment scheduled for cataract extraction) Psych: reports: None Musculoskeletal: reports: None Derm: reports: None MRSA Hx?: No - Past Surgical History General: reports: Appendectomy HEENT: reports: Tonsil/Adenoidectomy - Family & Social History Family History Comment/Other: She is adopted and is unaware of her family history. Living arrangement: At home Living Situation: Alone Social History Notes: She has lived in [facility] for over 30 years. 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 She does not smoke and denies any alcohol use or illicit drug use. Meds/Allgy - Home Medications Home Medications: Ambulatory Orders Medication Instructions Recorded Confirmed Aspirin EC [Ecotrin] 81 mg PO DAILY 04/02/20 04/02/20 Ferrous Sulfate 325 mg PO DAILY 04/02/20 04/02/20 Lisinopril [Zestril] 60 mg PO DAILY 04/02/20 04/02/20 hydroCHLOROthiazide 25 mg PO DAILY 04/02/20 04/02/20 [Hydrochlorothiazide] - Allergies Allergies/Adverse Reactions: Allergies Allergy/AdvReac Type Severity Reaction Status Date / Time Penicillins Allergy Unknown Verified 04/02/20 10:36 Review of Systems - Constitutional Constitutional: reports: Fatigue - Eyes Eyes: reports: Other (glare) - Cardiovascular Cariovascular: reports: Lightheadedness, Decr. exercise tolerance. denies: Palpitations, Chest pain, Edema - Respiratory Respiratory: denies: Cough, Wheezing - Gastrointestinal Gastrointestinal: reports: Abdominal pain, Diarrhea, Change in bowel habits, Nausea, Vomiting - Genitourinary Genitourinary: denies: Dysuria, Urgency, Flank pain - Neurological Neurological: denies: Focal weakness - All Other Systems All Other Systems: reports: Reviewed and negative Exam - Vital Signs Vital Signs: Vital Signs x48h Temp Pulse Resp BP Pulse Ox 04/03/20 17:15 95 160/90 H 04/03/20 15:46 36.9 C 104 H 20 184/104 H 95 04/03/20 11:30 36.3 C L 87 18 167/99 H 99 - Physical Exam General Appearance: positive: No acute distress, Alert Eyes Bilateral: positive: Normal inspection ENT: positive: ENT inspection nml Neck: positive: Nml inspection Respiratory: positive: Chest non-tender, No respiratory distress, Breath sounds nml Cardiovascular: positive: Regular rate & rhythm, No murmur Peripheral Pulses: positive: 0 Abdomen: positive: Tenderness (periumbilical), Other (Hyperactive bowel tones). negative: Guarding, Rebound, Mass Back: positive: Nml inspection. negative: CVA tenderness (R), CVA tenderness (L) Skin: positive: Color nml Extremities: positive: Non-tender Neurologic/Psychiatric: positive: Oriented x3 Conclusion and Plan - Lab Results Laboratory Results 04/03/20 05:30: Sodium 135, Potassium 4.4, Chloride 105, Carbon Dioxide 22, Anion Gap 8.0, BUN 12, Creatinine 0.7, Estimated GFR (MDRD) 83 L, Glucose 177 H, Calcium 8.9 04/03/20 05:30: WBC 13.1 H, RBC 4.81, Hgb 14.5, Hct 44.3, MCV 92.1, MCH 30.1, MCHC 32.7, RDW 13.2, Plt Count 268, MPV 9.5, Neut # (Auto) 11.9 H, Lymph # (Auto) 0.6 L, [place] # (Auto) 0.5, Eos # (Auto) 0.0, Baso # (Auto) 0.0, Absolute Nucleated RBC 0.00, Nucleated RBC % 0.0 04/02/20 11:46: Urine Color DARK YELLOW, Urine Clarity CLEAR, Urine pH 5.0, Ur Specific [place] >=1.030 H, Urine Protein TRACE, Urine Glucose (UA) NEGATIVE, Urine Ketones 40 H, Urine Occult Blood SMALL H, Urine Nitrite NEGATIVE, Urine Bilirubin NEGATIVE, Urine Urobilinogen 0.2 (NORMAL), Ur Leukocyte Esterase NEGATIVE, Urine RBC 0-5, Urine WBC 0-3, Ur Squamous Epith Cells FEW Squamous, Amorphous Sediment Rare, Urine Bacteria Few, Ur Microscopic Review INDICATED, Urine Culture Comments NOT INDICATED 04/02/20 11:04: PT 13.5 H, INR 1.2 04/02/20 11:04: Sodium 135, Potassium 3.9, Chloride 97 L, Carbon Dioxide 26, Anion Gap 12.0, BUN 13, Creatinine 0.9, Estimated GFR (MDRD) 62 L, Glucose 122 H, Calcium 9.3, Total Bilirubin 0.7, AST 15, ALT 12, Alkaline Phosphatase 63, Total Protein 7.6, Albumin 4.0, Globulin 3.6, Albumin/Globulin Ratio 1.1, Lipase 20 L 04/02/20 11:04: WBC 8.8, RBC 4.70, Hgb 14.0, Hct 43.2, MCV 91.9, MCH 29.8, MCHC 32.4, RDW 13.0, Plt Count 235, MPV 9.7, Neut # (Auto) 7.8 H, Lymph # (Auto) 0.6 L, [place] # (Auto) 0.3, Eos # (Auto) 0.0, Baso # (Auto) 0.0, Absolute Nucleated RBC 0.00, Nucleated RBC % 0.0 - Diagnostic Imaging Results Diagnostic Imaging Results: positive: Final report reviewed Diagnostic Imaging Results Comments: As per HPI - Diagnosis Diagnosis: Sigmoid colon stricture of unknown etiology - Plan Plan: Gentle bowel prep today with plans for colonoscopy in the AM. The procedure is scheduled for 729
[2020-04-03] MEDS: KETOROLAC 15 MG/ML VIAL IVP PRN (21:39)
[2020-04-04] MEDS: SODIUM CHLORIDE FLUSH 0.9% 10 ML SYRINGE IVP SCH ×3 (01:54→19:44)
[2020-04-04 06:07] LABS: BASOPHILS # (AUTO) 0.1 10^3/uL (0.0-0.1); BASOPHILS % (AUTO) 0.7 %; EOSINOPHILS % (AUTO) 0.5 %; LYMPHOCYTES # (AUTO) 0.8 10^3/uL (1.5-3.5); LYMPHOCYTES % (AUTO) 9.3 %; MEAN CORPUSCULAR HEMOGLOBIN 30.8 pg (27.0-31.0); MEAN CORPUSCULAR HGB CONC 32.8 g/dL (32.0-36.0); MEAN CORPUSCULAR VOLUME 94.1 fL (81.0-99.0); MEAN PLATELET VOLUME 9.7 fL (7.9-10.8); MONOCYTES # (AUTO) 0.7 10^3/uL (0.0-1.0); MONOCYTES % (AUTO) 8.7 %; NEUTROPHILS # (AUTO) 6.8 10^3/uL (1.5-6.6); NEUTROPHILS % (AUTO) 80.3 %; PLT - PLATELET COUNT 265 10^3/uL (130-450); RED BLOOD COUNT 4.54 10^6/uL (4.20-5.40); RED CELL DISTRIBUTION WIDTH 13.6 % (12.0-15.0); WHITE BLOOD COUNT 8.4 x10^3/uL (4.8-10.8)
[2020-04-04 06:18] LABS: CALCIUM 8.8 mg/dL (8.5-10.3); CREATININE 0.7 mg/dL (0.4-1.0)
[2020-04-04] MEDS: metroNIDAZOLE 500 MG/100 ML 500 MG/100 ML BAG IV SCH (07:00)
--- NOTE | 2020-04-04 07:33 | ANESTHESIA ---
Pre-Anesthesia VS, & Labs - Diagnosis Diagnosis Sigmoid colon stricture of unknown etiology - Procedure colonoscopy Vital Signs: Temp Pulse Resp BP Pulse Ox 37.2 C 94 16 142/97 H 94 04/04/20 03:33 04/04/20 03:33 04/04/20 03:33 04/04/20 03:33 04/04/20 03:33 Height 5 ft 5 in Weight (kg) 74.5 kg Body Mass Index 27.3 - NPO >8 hours - Is Patient ?: No - Lab Results Current Lab Results: Laboratory Tests 04/04/20 05:50: Sodium 136, Potassium 4.1, Chloride 107, Carbon Dioxide 22, Anion Gap 7.0, BUN 12, Creatinine 0.7, Estimated GFR (MDRD) 83 L, Glucose 132 H, Calcium 8.8 04/04/20 05:50: WBC 8.4, RBC 4.54, Hgb 14.0, Hct 42.7, MCV 94.1, MCH 30.8, MCHC 32.8, RDW 13.6, Plt Count 265, MPV 9.7, Neut # (Auto) 6.8 H, Lymph # (Auto) 0.8 L, [place] # (Auto) 0.7, Eos # (Auto) 0.0, Baso # (Auto) 0.1, Absolute Nucleated RBC 0.00, Nucleated RBC % 0.0 04/03/20 05:30: Sodium 135, Potassium 4.4, Chloride 105, Carbon Dioxide 22, Anion Gap 8.0, BUN 12, Creatinine 0.7, Estimated GFR (MDRD) 83 L, Glucose 177 H, Calcium 8.9 04/03/20 05:30: WBC 13.1 H, RBC 4.81, Hgb 14.5, Hct 44.3, MCV 92.1, MCH 30.1, MCHC 32.7, RDW 13.2, Plt Count 268, MPV 9.5, Neut # (Auto) 11.9 H, Lymph # (Auto) 0.6 L, [place] # (Auto) 0.5, Eos # (Auto) 0.0, Baso # (Auto) 0.0, Absolute Nucleated RBC 0.00, Nucleated RBC % 0.0 04/02/20 11:04: PT 13.5 H, INR 1.2 04/02/20 11:04: Sodium 135, Potassium 3.9, Chloride 97 L, Carbon Dioxide 26, Anion Gap 12.0, BUN 13, Creatinine 0.9, Estimated GFR (MDRD) 62 L, Glucose 122 H , Calcium 9.3, Total Bilirubin 0.7, AST 15, ALT 12, Alkaline Phosphatase 63, Total Protein 7.6, Albumin 4.0, Globulin 3.6, Albumin/Globulin Ratio 1.1, Lipase 20 L 04/02/20 11:04: WBC 8.8, RBC 4.70, Hgb 14.0, Hct 43.2, MCV 91.9, MCH 29.8, MCHC 32.4, RDW 13.0, Plt Count 235, MPV 9.7, Neut # (Auto) 7.8 H, Lymph # (Auto) 0.6 L, [place] # (Auto) 0.3, Eos # (Auto) 0.0, Baso # (Auto) 0.0, Absolute Nucleated RBC 0.00, Nucleated RBC % 0.0 Fish Bones: 04/04/20 05:50 04/04/20 05:50 Home Medications and Allergies Home Medications: Ambulatory Orders Aspirin EC [Ecotrin] 81 mg PO DAILY 04/02/20 Ferrous Sulfate 325 mg PO DAILY 04/02/20 Lisinopril [Zestril] 60 mg PO DAILY 04/02/20 hydroCHLOROthiazide [Hydrochlorothiazide] 25 mg PO DAILY 04/02/20 Active Medications Aspirin (Ecotrin) 81 mg PO DAILY [facility] Benzocaine (Hurricaine) 1 sprays MM Q4HR PRN PRN Reason: Mouth Sore Pain Last Admin: 04/02/20 16:30 Dose: 1 spr Documented by: Enoxaparin Sodium (Lovenox) 40 mg SUBQ DAILY [facility] Last Admin: 04/03/20 09:27 Dose: 40 mg Documented by: Famotidine (Pepcid) 20 mg IVP BID [facility] Last Admin: 04/03/20 21:11 Dose: 20 mg Documented by: Ferrous Sulfate (Feosol) 325 mg PO DAILY [facility] Hydralazine HCl (Apresoline Inj) 10 mg IVP Q4HR PRN PRN Reason: NEEDED PER PROVIDER ORDERS Last Admin: 04/03/20 06:07 Dose: 10 mg Documented by: Hydrochlorothiazide (Hydrodiuril) 25 mg PO DAILY [facility] Ceftriaxone Sodium 1 gm/ (Sodium Chloride) 100 mls @ 200 mls/hr IV DAILY [facility] Last Infusion: 04/03/20 10:00 Dose: Infused Documented by: Metronidazole (Flagyl 500 Mg/100 Ml) 500 mg in 100 mls @ 100 mls/hr IV Q8H [facility] Last Admin: 04/04/20 07:00 Dose: 100 mls/hr Documented by: Sodium Chloride (Normal Saline 0.9%) 1,000 mls @ 83.333 mls/hr IV .Q12H [facility] Last Infusion: 04/03/20 22:11 Dose: 83 mls/hr Documented by: Ketorolac Tromethamine (Toradol Inj (15mg)) 15 mg IVP Q6HR PRN PRN Reason: PAIN Stop: 04/08/20 17:15 Last Admin: 04/03/20 21:39 Dose: 15 mg Documented by: Labetalol HCl (Trandate Syringe) 10 mg IVP Q2HR PRN PRN Reason: NEEDED PER PROVIDER ORDERS Lisinopril (Zestril) 60 mg PO DAILY [facility] Last Admin: 04/03/20 16:02 Dose: 60 mg Documented by: Morphine Sulfate (Morphine (Carpuject)) 2 mg IVP Q2HR PRN PRN Reason: PAIN Ondansetron HCl (Zofran Inj) 4 mg IVP Q6HR PRN PRN Reason: Nausea / Vomiting Last Admin: 04/03/20 16:02 Dose: 4 mg Documented by: Prochlorperazine Edisylate (Compazine Inj) 10 mg IVP Q6HR PRN PRN Reason: Nausea / Vomiting Last Admin: 04/03/20 21:39 Dose: 10 mg Documented by: Sodium Chloride (Normal Saline Flush 0.9%) 10 ml IVP PRN PRN PRN Reason: NEEDED PER PROVIDER ORDERS Last Admin: 04/03/20 06:19 Dose: 10 ml Documented by: Sodium Chloride (Normal Saline Flush 0.9%) 10 ml IVP 0100,0900,1700 [facility] Last Admin: 04/04/20 01:54 Dose: Not Given Documented by: Aspirin EC [Ecotrin] 81 mg PO DAILY 04/02/20 Ferrous Sulfate 325 mg PO DAILY 04/02/20 Lisinopril [Zestril] 60 mg PO DAILY 04/02/20 hydroCHLOROthiazide [Hydrochlorothiazide] 25 mg PO DAILY 04/02/20 Allergies/Adverse Reactions: Allergies Allergy/AdvReac Type Severity Reaction Status Date / Time Penicillins Allergy Unknown Verified 04/02/20 10:36 Anes History & Medical History - Anesthetic History Anesthesia Complications: reports: No previous complications - Medical History Cardiovascular: reports: Hypertension Pulmonary: reports: None Gastrointestinal: reports: None Urinary: reports: None Neuro: reports: None Musculoskeletal: reports: None Endocrine/Autoimmune: reports: None Blood Disorders: reports: None Skin: reports: None Smoking Status: Former smoker - Surgical History General: Appendectomy Eyes Ears Nose Throat (EENT): Tonsil/Adenoidectomy Exam General: Alert Dental: WNL Mouth Opening: Greater than 4 Fingerbreadths Neck Mobility: Normal Mallampati classification: II Respiratory: Lungs clear Cardiovascular: Regular rate Plan Anesthesia Type: MAC Consent for Procedure(s) Verified and Reviewed: Yes Code Status: Attempt Resuscitation ASA classification: 2-Mild systemic disease Is this case an emergency?: No
[2020-04-04] MEDS ORDERED: PROPOFOL 200 MG/20 ML VIAL IVP ONE ×2 (07:46→13:50)
[2020-04-04] MEDS ORDERED: KETAMINE 500 MG/10 ML VIAL IVP ONE (07:46)
[2020-04-04] MEDS ORDERED: LIDOCAINE-MPF 2% 5 ML VIAL IM ONE (07:46)
--- NOTE | 2020-04-04 08:31 | ANESTHESIA POST OP EVALUATION ---
Anesthesia Post Eval - Post Anesthesia Eval Vitals: Last Vital Signs Temp 36.8 C 04/04/20 08:28 Pulse 106 H 04/04/20 08:28 Resp 20 04/04/20 08:28 BP 146/81 H 04/04/20 08:28 Pulse Ox 91 L 04/04/20 08:28 CV Function Including HR & BP: positive: Stable Pain Control: positive: Satisfactory Nausea & Vomiting: positive: Negative Mental Status: positive: Baseline Respiratory Status: Airway Patent Hydration Status: Satisfactory Anesthesia Complications: positive: None
[2020-04-04] MEDS ORDERED: METOPROLOL 5 MG/5 ML VIAL IVP PRN (08:51)
[2020-04-04] MEDS ORDERED: FERROUS SULFATE 325 MG TABLET PO SCH (09:00)
[2020-04-04] MEDS ORDERED: D5.45NS W/20 MEQ KCL 1,000 ML IV SCH ×2 (09:00→12:01)
[2020-04-04] MEDS: ENOXAPARIN 40 MG/0.4 ML SYRINGE SUBQ SCH (09:05)
--- NOTE | 2020-04-04 09:14 | PROVIDER PROGRESS NOTE ---
Subjective - Prog Note Date Prog Note Date: 04/04/20 Prog Note Time: 09:04 - Subjective Pt reports feeling: Worse Subjective: Attempted colonoscopy revealed and very tight and impassable stricture at 35 cm in the sigmoid colon. Mucosa was hyperglandular in appearance. I have recommended urgent sigmoid colectomy this afternoon with diverting ileostomy. Objective - Vital Signs/Intake & Output Vital Signs: Vital Signs x48h Temp Pulse Resp BP Pulse Ox 04/04/20 08:28 36.8 C 106 H 20 146/81 H 91 L 04/04/20 07:40 36.4 C L 103 H 18 159/99 H 92 04/04/20 03:33 37.2 C 94 16 142/97 H 94 Intake & Output: Intake & Output 04/01/20 04/02/20 04/03/20 04/04/20 23:59 23:59 23:59 23:59 Intake Total 0990.116 4824.389 831.783 Output Total 550 Balance 0593.073 6752.389 831.783 - Lab Results Fish Bones: 04/04/20 05:50 04/04/20 05:50 Other Labs: Lab Results x24hrs 04/04/20 04/04/20 04/04/20 Range/Units 05:50 05:50 05:50 WBC 8.4 (4.8-10.8) x10^3/uL RBC 4.54 (4.20-5.40) 10^6/uL Hgb 14.0 (12.0-16.0) g/dL Hct 42.7 (37.0-47.0) % MCV 94.1 (81.0-99.0) fL MCH 30.8 (27.0-31.0) pg MCHC 32.8 (32.0-36.0) g/dL RDW 13.6 (12.0-15.0) % Plt Count 265 (130-450) 10^3/uL MPV 9.7 (7.9-10.8) fL Neut # (Auto) 6.8 H (1.5-6.6) 10^3/uL Lymph # (Auto) 0.8 L (1.5-3.5) 10^3/uL [place] # (Auto) 0.7 (0.0-1.0) 10^3/uL Eos # (Auto) 0.0 (0.0-0.7) 10^3/uL Baso # (Auto) 0.1 (0.0-0.1) 10^3/uL Absolute Nucleated RBC 0.00 x10^3/uL Nucleated RBC % 0.0 /100WBC Sodium 136 (135-145) mmol/L Potassium 4.1 (3.5-5.0) mmol/L Chloride 107 (101-111) mmol/L Carbon Dioxide 22 (21-32) mmol/L Anion Gap 7.0 (6-13) BUN 12 (6-20) mg/dL Creatinine 0.7 (0.4-1.0) mg/dL Estimated GFR (MDRD) 83 L (>89) Glucose 132 H (70-100) mg/dL Calcium 8.8 (8.5-10.3) mg/dL Troponin I High Sens 18.9 H* (2.3-14.8) ng/L
[2020-04-04] MEDS: FAMOTIDINE 20 MG/2 ML SYRINGE IVP SCH ×2 (09:40→21:23)
[2020-04-04] MEDS: cefTRIAXone 1 GM in SODIUM CHLORIDE 0.9% MINIBAG 100 ML IV SCH (09:40)
[2020-04-04] MEDS: lisinopriL 20 MG TABLET PO SCH (10:00)
[2020-04-04] MEDS: hydroCHLOROthiazide 25 MG TABLET PO SCH (10:00)
[2020-04-04] MEDS: ASPIRIN EC 81 MG TABLET PO SCH (10:00)
[2020-04-04] MEDS: ONDANSETRON 4 MG/2 ML VIAL IVP PRN (10:06)
--- NOTE | 2020-04-04 10:58 | PROVIDER PROGRESS NOTE ---
Subjective - Prog Note Date Prog Note Date: 04/04/20 - Subjective Pt reports feeling: Worse Subjective: Patient reported she still feel some abdominal pain and discomfortable on her abdomen. She denies chest pain, fever, chill. Patient reported she had emesis on yesterday but she does not have emesis on today. Patient denies history of cardiac problem including she has no GA or CAD in her history. She report she was adopted so she does not know her family medical history. She did report she has murmur for many years. Patient's troponin, EKG, echo was ordered. Current Medications - Current Medications Current Medications: Active Medications Aspirin (Ecotrin) 81 mg PO DAILY [facility] Last Admin: 04/04/20 10:00 Dose: 81 mg Documented by: Benzocaine (Hurricaine) 1 sprays MM Q4HR PRN PRN Reason: Mouth Sore Pain Last Admin: 04/02/20 16:30 Dose: 1 spr Documented by: Enoxaparin Sodium (Lovenox) 40 mg SUBQ DAILY [facility] Last Admin: 04/04/20 09:05 Dose: Not Given Documented by: Famotidine (Pepcid) 20 mg IVP BID [facility] Last Admin: 04/04/20 09:40 Dose: 20 mg Documented by: Ferrous Sulfate (Feosol) 325 mg PO DAILY [facility] Last Admin: 04/04/20 10:00 Dose: 325 mg Documented by: Hydralazine HCl (Apresoline Inj) 10 mg IVP Q4HR PRN PRN Reason: NEEDED PER PROVIDER ORDERS Last Admin: 04/03/20 06:07 Dose: 10 mg Documented by: Hydrochlorothiazide (Hydrodiuril) 25 mg PO DAILY [facility] Last Admin: 04/04/20 10:00 Dose: 25 mg Documented by: Ceftriaxone Sodium 1 gm/ (Sodium Chloride) 100 mls @ 200 mls/hr IV DAILY [facility] Last Infusion: 04/04/20 10:15 Dose: Infused Documented by: Metronidazole (Flagyl 500 Mg/100 Ml) 500 mg in 100 mls @ 100 mls/hr IV Q8H [facility] Last Infusion: 04/04/20 08:00 Dose: Infused Documented by: Potassium Chloride/Dextrose/Sod Cl (D5.45ns W/20 Meq Kcl) 1,000 mls @ 100 mls/hr IV .Q10H [facility] Stop: 04/05/20 04:59 Last Infusion: 04/04/20 10:15 Dose: 100 mls/hr Documented by: Ketorolac Tromethamine (Toradol Inj (15mg)) 15 mg IVP Q6HR PRN PRN Reason: PAIN Stop: 04/08/20 17:15 Last Admin: 04/03/20 21:39 Dose: 15 mg Documented by: Labetalol HCl (Trandate Syringe) 10 mg IVP Q2HR PRN PRN Reason: NEEDED PER PROVIDER ORDERS Lisinopril (Zestril) 60 mg PO DAILY [facility] Last Admin: 04/04/20 10:00 Dose: 60 mg Documented by: Metoprolol Tartrate (Lopressor Inj) 5 mg IVP Q6H PRN PRN Reason: Tachycardia Morphine Sulfate (Morphine (Carpuject)) 2 mg IVP Q2HR PRN PRN Reason: PAIN Ondansetron HCl (Zofran Inj) 4 mg IVP Q6HR PRN PRN Reason: Nausea / Vomiting Last Admin: 04/04/20 10:06 Dose: 4 mg Documented by: Prochlorperazine Edisylate (Compazine Inj) 10 mg IVP Q6HR PRN PRN Reason: Nausea / Vomiting Last Admin: 04/03/20 21:39 Dose: 10 mg Documented by: Sodium Chloride (Normal Saline Flush 0.9%) 10 ml IVP PRN PRN PRN Reason: NEEDED PER PROVIDER ORDERS Last Admin: 04/03/20 06:19 Dose: 10 ml Documented by: Sodium Chloride (Normal Saline Flush 0.9%) 10 ml IVP 0100,0900,1700 [facility] Last Admin: 04/04/20 09:35 Dose: 10 ml Documented by: Aspirin EC [Ecotrin] 81 mg PO DAILY 04/02/20 Ferrous Sulfate 325 mg PO DAILY 04/02/20 Lisinopril [Zestril] 60 mg PO DAILY 04/02/20 hydroCHLOROthiazide [Hydrochlorothiazide] 25 mg PO DAILY 04/02/20 Objective - Vital Signs/Intake & Output Vital Signs: Vital Signs x48h Temp Pulse Resp BP Pulse Ox 04/04/20 10:00 97 182/95 H 04/04/20 08:28 36.8 C 106 H 20 146/81 H 91 L 04/04/20 07:40 36.4 C L 103 H 18 159/99 H 92 04/04/20 03:33 37.2 C 94 16 142/97 H 94 Intake & Output: Intake & Output 04/01/20 04/02/20 04/03/20 04/04/20 23:59 23:59 23:59 23:59 Intake Total 9354.912 2689.389 1019.783 Output Total 550 Balance 2494.213 9013.389 1019.783 - Objective General Appearance: positive: Alert, Mild distress. negative: Lethargic Eyes Bilateral: positive: Normal inspection, PERRL, No lid inflammation ENT: positive: ENT inspection nml, No signs of dehydration. negative: Purulent nasal drainage Neck: positive: Nml inspection, Thyroid nml, Trachea midline. negative: T hyromegaly, Stiff neck, Tracheal deviation Respiratory: positive: Chest non-tender, No respiratory distress, Breath sounds nml. negative: Wheezes, Rales, Rhonchi Cardiovascular: positive: Regular rate & rhythm, Systolic murmur. negative: No murmur, Tachycardia, Bradycardia Peripheral Pulses: 2+ Radial (R), 2+ Radial (L), 2+ Dorsalis pedis (R), 2+ Dorsalis pedis (L) Abdomen: positive: Non-tender, Nml bowel sounds, No distention. negative: Tenderness, Guarding, Rebound Back: positive: Nml inspection. negative: CVA tenderness (R), CVA tenderness (L) Skin: positive: Color nml, No rash, Warm, Dry. negative: Cyanosis, Diaphoresis, Pallor Extremities: positive: Non-tender, Full ROM, Nml appearance. negative: Calf ten derness, Nini's sign/cords Neurologic/Psychiatric: positive: Oriented x3, Motor nml, Sensation nml, Mood/affect nml. negative: Weakness, Sensory loss, Facial droop, Slurred/abnml speech, Depressed mood/affect - Lab Results Fish Bones: 04/04/20 05:50 04/04/20 05:50 Other Labs: Lab Results x24hrs 04/04/20 04/04/20 04/04/20 Range/Units 05:50 05:50 05:50 WBC 8.4 (4.8-10.8) x10^3/uL RBC 4.54 (4.20-5.40) 10^6/uL Hgb 14.0 (12.0-16.0) g/dL Hct 42.7 (37.0-47.0) % MCV 94.1 (81.0-99.0) fL MCH 30.8 (27.0-31.0) pg MCHC 32.8 (32.0-36.0) g/dL RDW 13.6 (12.0-15.0) % Plt Count 265 (130-450) 10^3/uL MPV 9.7 (7.9-10.8) fL Neut # (Auto) 6.8 H (1.5-6.6) 10^3/uL Lymph # (Auto) 0.8 L (1.5-3.5) 10^3/uL [place] # (Auto) 0.7 (0.0-1.0) 10^3/uL Eos # (Auto) 0.0 (0.0-0.7) 10^3/uL Baso # (Auto) 0.1 (0.0-0.1) 10^3/uL Absolute Nucleated RBC 0.00 x10^3/uL Nucleated RBC % 0.0 /100WBC Sodium 136 (135-145) mmol/L Potassium 4.1 (3.5-5.0) mmol/L Chloride 107 (101-111) mmol/L Carbon Dioxide 22 (21-32) mmol/L Anion Gap 7.0 (6-13) BUN 12 (6-20) mg/dL Creatinine 0.7 (0.4-1.0) mg/dL Estimated GFR (MDRD) 83 L (>89) Glucose 132 H (70-100) mg/dL Calcium 8.8 (8.5-10.3) mg/dL Troponin I High Sens 18.9 H* (2.3-14.8) ng/L ABX Reporting Has patient been on IV antibiotics over the past 48 hours?: Yes Assessment/Plan - Problem List (1) Partial bowel obstruction Impression: 04/04 Per surgeon report, she attempted to have a colonoscopy for patient but patient has very tight and impassable stricture in the sigmoid colon. surgeon recommended urgent sigmoid colectomy this afternoon with diverting ileostomy. O rder PICC line for patient, Patient might need TPN status post of surgery. NPO with intravenous IV fluids. Will follow up with s/p care for surgery. (2)pre-operation assessment Patient report she has no previous cardiac medical hx beside of HTN. revised cardiac risk index (Bogdan Criteria) is 0.9%, low risk. pt's troponin, EKG and ECHO were ordered (3)heart murmur Patient report she had hx of heart murmur. ECHO is ordered. 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 (4) HTN We will continue home medication lisinopril and HCTZ, Continue vital signs monitor, Continue IV hydralazine PRN. (5) History of iron deficiency Conclusion/Plan: Hemoglobin is stable. We will continue her on iron supplementation once she is taking p.o. Qualifiers: Intestinal obstruction type: other intestinal obstruction Qualified Code(s): K56.690 - Other partial intestinal obstruction
--- NOTE | 2020-04-04 11:13 | ANESTHESIA ---
Pre-Anesthesia VS, & Labs - Diagnosis Diagnosis Sigmoid colon stricture of unknown etiology - Procedure Sigmoid Colectomy, ope ileostomy Vital Signs: Temp Pulse Resp BP Pulse Ox 36.8 C 97 20 182/95 H 91 L 04/04/20 08:28 04/04/20 10:00 04/04/20 08:28 04/04/20 10:00 04/04/20 08:28 Height 5 ft 5 in Weight (kg) 74.5 kg Body Mass Index 27.3 - NPO >8 hours - Is Patient ?: No - Lab Results Current Lab Results: Laboratory Tests 04/04/20 05:50: Troponin I High Sens 18.9 H* 04/04/20 05:50: Sodium 136, Potassium 4.1, Chloride 107, Carbon Dioxide 22, Anion Gap 7.0, BUN 12, Creatinine 0.7, Estimated GFR (MDRD) 83 L, Glucose 132 H, Calcium 8.8 04/04/20 05:50: WBC 8.4, RBC 4.54, Hgb 14.0, Hct 42.7, MCV 94.1, MCH 30.8, MCHC 32.8, RDW 13.6, Plt Count 265, MPV 9.7, Neut # (Auto) 6.8 H, Lymph # (Auto) 0.8 L, [place] # (Auto) 0.7, Eos # (Auto) 0.0, Baso # (Auto) 0.1, Absolute Nucleated RBC 0.00, Nucleated RBC % 0.0 04/03/20 05:30: Sodium 135, Potassium 4.4, Chloride 105, Carbon Dioxide 22, Anion Gap 8.0, BUN 12, Creatinine 0.7, Estimated GFR (MDRD) 83 L, Glucose 177 H, Calcium 8.9 04/03/20 05:30: WBC 13.1 H, RBC 4.81, Hgb 14.5, Hct 44.3, MCV 92.1, MCH 30.1, MCHC 32.7, RDW 13.2, Plt Count 268, MPV 9.5, Neut # (Auto) 11.9 H, Lymph # (Auto) 0.6 L, [place] # (Auto) 0.5, Eos # (Auto) 0.0, Baso # (Auto) 0.0, Absolute Nucleated RBC 0.00, Nucleated RBC % 0.0 04/02/20 11:04: PT 13.5 H, INR 1.2 04/02/20 11:04: Sodium 135, Potassium 3.9, Chloride 97 L, Carbon Dioxide 26, Anion Gap 12.0, BUN 13, Creatinine 0.9, Estimated GFR (MDRD) 62 L, Glucose 122 H , Calcium 9.3, Total Bilirubin 0.7, AST 15, ALT 12, Alkaline Phosphatase 63, Total Protein 7.6, Albumin 4.0, Globulin 3.6, Albumin/Globulin Ratio 1.1, Lipase 20 L 04/02/20 11:04: WBC 8.8, RBC 4.70, Hgb 14.0, Hct 43.2, MCV 91.9, MCH 29.8, MCHC 32.4, RDW 13.0, Plt Count 235, MPV 9.7, Neut # (Auto) 7.8 H, Lymph # (Auto) 0.6 L, [place] # (Auto) 0.3, Eos # (Auto) 0.0, Baso # (Auto) 0.0, Absolute Nucleated RBC 0.00, Nucleated RBC % 0.0 Lab results reviewed: Yes Fish Bones: 04/04/20 05:50 04/04/20 05:50 Home Medications and Allergies Home Medications: Ambulatory Orders Aspirin EC [Ecotrin] 81 mg PO DAILY 04/02/20 Ferrous Sulfate 325 mg PO DAILY 04/02/20 Lisinopril [Zestril] 60 mg PO DAILY 04/02/20 hydroCHLOROthiazide [Hydrochlorothiazide] 25 mg PO DAILY 04/02/20 Active Medications Aspirin (Ecotrin) 81 mg PO DAILY [facility] Last Admin: 04/04/20 10:00 Dose: 81 mg Documented by: Benzocaine (Hurricaine) 1 sprays MM Q4HR PRN PRN Reason: Mouth Sore Pain Last Admin: 04/02/20 16:30 Dose: 1 spr Documented by: Enoxaparin Sodium (Lovenox) 40 mg SUBQ DAILY [facility] Last Admin: 04/04/20 09:05 Dose: Not Given Documented by: Famotidine (Pepcid) 20 mg IVP BID [facility] Last Admin: 04/04/20 09:40 Dose: 20 mg Documented by: Ferrous Sulfate (Feosol) 325 mg PO DAILY [facility] Last Admin: 04/04/20 10:00 Dose: 325 mg Documented by: Hydralazine HCl (Apresoline Inj) 10 mg IVP Q4HR PRN PRN Reason: NEEDED PER PROVIDER ORDERS Last Admin: 04/03/20 06:07 Dose: 10 mg Documented by: Hydrochlorothiazide (Hydrodiuril) 25 mg PO DAILY [facility] Last Admin: 04/04/20 10:00 Dose: 25 mg Documented by: Ceftriaxone Sodium 1 gm/ (Sodium Chloride) 100 mls @ 200 mls/hr IV DAILY [facility] Last Infusion: 04/04/20 10:15 Dose: Infused Documented by: Metronidazole (Flagyl 500 Mg/100 Ml) 500 mg in 100 mls @ 100 mls/hr IV Q8H [facility] Last Infusion: 04/04/20 08:00 Dose: Infused Documented by: Potassium Chloride/Dextrose/Sod Cl (D5.45ns W/20 Meq Kcl) 1,000 mls @ 100 mls/hr IV .Q10H [facility] Stop: 04/05/20 04:59 Last Infusion: 04/04/20 10:15 Dose: 100 mls/hr Documented by: Ketorolac Tromethamine (Toradol Inj (15mg)) 15 mg IVP Q6HR PRN PRN Reason: PAIN Stop: 04/08/20 17:15 Last Admin: 04/03/20 21:39 Dose: 15 mg Documented by: Labetalol HCl (Trandate Syringe) 10 mg IVP Q2HR PRN PRN Reason: NEEDED PER PROVIDER ORDERS Lisinopril (Zestril) 60 mg PO DAILY [facility] Last Admin: 04/04/20 10:00 Dose: 60 mg Documented by: Metoprolol Tartrate (Lopressor Inj) 5 mg IVP Q6H PRN PRN Reason: Tachycardia Morphine Sulfate (Morphine (Carpuject)) 2 mg IVP Q2HR PRN PRN Reason: PAIN Ondansetron HCl (Zofran Inj) 4 mg IVP Q6HR PRN PRN Reason: Nausea / Vomiting Last Admin: 04/04/20 10:06 Dose: 4 mg Documented by: Prochlorperazine Edisylate (Compazine Inj) 10 mg IVP Q6HR PRN PRN Reason: Nausea / Vomiting Last Admin: 04/03/20 21:39 Dose: 10 mg Documented by: Sodium Chloride (Normal Saline Flush 0.9%) 10 ml IVP PRN PRN PRN Reason: NEEDED PER PROVIDER ORDERS Last Admin: 04/03/20 06:19 Dose: 10 ml Documented by: Sodium Chloride (Normal Saline Flush 0.9%) 10 ml IVP 0100,0900,1700 [facility] Last Admin: 04/04/20 09:35 Dose: 10 ml Documented by: Aspirin EC [Ecotrin] 81 mg PO DAILY 04/02/20 Ferrous Sulfate 325 mg PO DAILY 04/02/20 Lisinopril [Zestril] 60 mg PO DAILY 04/02/20 hydroCHLOROthiazide [Hydrochlorothiazide] 25 mg PO DAILY 04/02/20 Allergies/Adverse Reactions: Allergies Allergy/AdvReac Type Severity Reaction Status Date / Time Penicillins Allergy Unknown Verified 04/02/20 10:36 Anes History & Medical History - Anesthetic History Anesthesia Complications: reports: No previous complications Family history of Anesthesia Complications: Denies Family history of Malignant Hyperthermia: Denies - Medical History Cardiovascular: reports: Hypertension Pulmonary: reports: None Gastrointestinal: reports: None Urinary: reports: None Neuro: reports: None Musculoskeletal: reports: None Endocrine/Autoimmune: reports: None Blood Disorders: reports: None Skin: reports: None Smoking Status: Former smoker Psychosocial: reports: Other (history of etoh abuse and drug abuse) - Surgical History General: Appendectomy Eyes Ears Nose Throat (EENT): Tonsil/Adenoidectomy Exam General: Alert, Oriented x3, Cooperative, No acute distress Dental: Poor dentition Mouth Openin Fingerbreadth Neck Mobility: Normal Mallampati classification: II Respiratory: Lungs clear, Normal breath sounds, No respiratory distress, No accessory muscle use Cardiovascular: Regular rate, Normal S1, Normal S2 Plan Anesthesia Type: General (discussed and consented for PICC line placement), Epidural Regional Block: Per Surgeon's request for Post Op pain control Consent for Procedure(s) Verified and Reviewed: Yes Code Status: Attempt Resuscitation ASA classification: 3-Severe systemic disease (discussed and consented for PICC line placement as well.) Is this case an emergency?: No
[2020-04-04] MEDS: KETOROLAC 15 MG/ML VIAL IVP PRN (12:06)
[2020-04-04] MEDS: hydrALAZINE INJ 20 MG/ML VIAL IVP PRN (12:06)
[2020-04-04] MEDS ORDERED: MIDAZOLAM 2 MG/2 ML VIAL IVP ONE (13:50)
[2020-04-04] MEDS ORDERED: SODIUM CHLORIDE 0.9% 100ML 100 ML IV ONE (13:50)
[2020-04-04] MEDS ORDERED: fentaNYL 100 MCG/2 ML VIAL IVP ONE (13:50)
[2020-04-04] MEDS ORDERED: VASOPRESSIN 20 UNIT/ML VIAL IVP ONE (13:50)
[2020-04-04] MEDS ORDERED: ONDANSETRON 4 MG/2 ML VIAL IVP ONE (13:50)
[2020-04-04] MEDS ORDERED: PHENYLEPHRINE 10 MG/ML VIAL IV ONE (13:50)
[2020-04-04] MEDS ORDERED: DEXAMETHASONE 4 MG/ML VIAL IVP ONE (13:50)
[2020-04-04] MEDS ORDERED: HYDROmorphone 0.5 MG/0.5 ML SYRINGE IVP PRN (13:56)
[2020-04-04] MEDS ORDERED: METOCLOPRAMIDE 10 MG/2 ML VIAL IVP PRN (13:56)
[2020-04-04] MEDS ORDERED: ePHEDrine 50 MG/ML VIAL IVP PRN (13:56)
[2020-04-04] MEDS ORDERED: fentaNYL 100 MCG/2 ML VIAL IVP PRN (13:56)
[2020-04-04] MEDS ORDERED: NALOXONE 0.4 MG/ML VIAL IVP PRN (13:56)
[2020-04-04] MEDS ORDERED: ATROPINE ABBOJECT 1 MG/10 ML SYRINGE IVP PRN (13:56)
[2020-04-04] MEDS ORDERED: ONDANSETRON 4 MG/2 ML VIAL IVP PRN ×2 (13:56→16:27)
[2020-04-04] MEDS ORDERED: MORPHINE 2 MG/ML CARPUJECT IVP PRN (13:56)
[2020-04-04] MEDS ORDERED: LACTATED RINGERS 1,000 ML IV SCH (14:00)
[2020-04-04] MEDS ORDERED: CEFOTETAN DISODIUM 1 GM in SODIUM CHLORIDE 0.9% MINIBAG 100 ML IV ONE (14:40)
[2020-04-04] MEDS ORDERED: CEFOTETAN DISODIUM 1 GM VIAL ONE (14:50)
[2020-04-04] MEDS ORDERED: METHYLENE BLUE 0.5% 50 MG/10 ML AMPULE ONE (16:22)
[2020-04-04] MEDS ORDERED: NALBUPHINE 10 MG/ML AMP IVP PRN (16:27)
[2020-04-04] MEDS ORDERED: ROPIVACAINE 0.2% 200 MG/100 ML BAG EP PRN ×3 (16:27→20:54)
[2020-04-04] MEDS ORDERED: diphenhydrAMINE INJ 50 MG/ML VIAL IVP PRN (16:27)
[2020-04-04] MEDS ORDERED: ROPIVACAINE 0.2% 200 MG/100 ML BAG EP ONE (16:58)
[2020-04-04] MEDS ORDERED: ACETAMINOPHEN 1,000 MG/100 ML 100 ML IV ONE (17:25)
[2020-04-04] MEDS ORDERED: methocarbamoL 500 MG TABLET PO PRN (17:30)
[2020-04-04] MEDS ORDERED: METHYLENE BLUE 0.5% 50 MG/10 ML AMPULE IR ONE (17:49)
--- NOTE | 2020-04-04 18:12 | ANESTHESIA PROCEDURE NOTE ---
Anesth Central Line Template - Central Line Central Line Preparation: Consent Obtained, Time out completed, Ultrasound used, Sterile prep and drape Central line location: Right Basilic Central line type: PICC Double Lumen (Catheter length 42cm, 2cm exposed.) Central line catheter tip site resides: Superior vena cava (SVC) Central line aftercare: Secured, Placement confirmed, No complications, Pt tolerated well Other Info/Details: At the termination of the surgical procedure, a PICC line was placed as requested by surgeon for TPN. The right arm was prepped with chlorohexadine and full drape with sterile gown, gloves and mask utilized. The right basilic vein was identified under ultrasound and accessed with a 20G needle. Wire was advanced with ease. Sheath was placed, wire removed and a 42 cm 5Fr double lumen PICC was inserted. Tip tracker indicated the tip was directed to the heart and placement was confirmed using p-wave confirmation. Copy of p-wave confirmation is located on page 2 of the anesthesia record. PICC was secured with 2cm exposed (40cm in the body). All ports aspirate and flush with ease. Patient was awaken at the end of procedure.
[2020-04-04] MEDS ORDERED: LACTATED RINGERS 1,000 ML IV ONE ×2 (18:15→22:20)
--- NOTE | 2020-04-04 19:01 | ANESTHESIA POST OP EVALUATION ---
Anesthesia Post Eval - Post Anesthesia Eval Vitals: Last Vital Signs Temp 37.6 C H 04/04/20 18:54 Pulse 108 H 04/04/20 18:54 Resp 23 04/04/20 18:54 BP 131/90 H 04/04/20 18:54 Pulse Ox 94 04/04/20 18:54 CV Function Including HR & BP: positive: Stable Pain Control: positive: Satisfactory Nausea & Vomiting: positive: Negative Mental Status: positive: Baseline Respiratory Status: Airway Patent Hydration Status: Satisfactory Anesthesia Complications: positive: None
[2020-04-04] MEDS ORDERED: SODIUM CHLORIDE 0.9% 1,000 ML IV ONE ×2 (19:40→19:44)
[2020-04-04] MEDS: DEXTROSE 5%-0.9% NACL 1,000 ML IV SCH (19:45)
[2020-04-04] MEDS ORDERED: SODIUM CHLORIDE 0.9% 1,000 ML IV SCH (20:00)
[2020-04-04] MEDS: CEFOTETAN DISODIUM 1 GM in SODIUM CHLORIDE 0.9% MINIBAG 100 ML IV SCH (20:15)
[2020-04-04] MEDS: ROPIVACAINE 0.2% 200 MG/100 ML BAG EP PRN ×2 (20:57→20:59)
[2020-04-04] MEDS ORDERED: LACTATED RINGERS 500 ML IV ONE (21:15)
--- NOTE | 2020-04-04 21:50 | XRAY Report ---
PROCEDURE: Chest for Line Placement INDICATIONS: NGT TECHNIQUE: One view of the chest was acquired. COMPARISON: None FINDINGS: Surgical changes and devices: NG tube is seen projecting in left retrocardiac region. Lungs and pleura: There is suggestion of trace left pleural effusion versus pleural thickening. Left basilar atelectasis is noted. Mediastinum: Mediastinal contours appear normal. Heart size is enlarg ed. Bones and chest wall: Large hiatal hernia is seen. No suspicious bony lesions. Overlying soft tissue s appear unremarkable. IMPRESSION: NG tube tip is in stomach lumen with patient's known large hiatal hernia. No pneumothorax. Pleural th ickening versus trace pleural effusion and left lung base. Left basilar atelectasis. Reviewed by: Bernardo Simpson MD on 04/04/2020 9:49 PM PDT Approved by: Bernardo Simpson MD on 04/04/2020 9:49 PM PDT Station ID: [id number]
[2020-04-04] MEDS: GABAPENTIN 300 MG CAPSULE PO SCH (22:17)
[2020-04-05] MEDS: SODIUM CHLORIDE FLUSH 0.9% 10 ML SYRINGE IVP SCH ×3 (00:23→18:19)
[2020-04-05] MEDS: PHENOL THROAT SPRAY 177 ML MM PRN ×2 (03:50→07:41)
[2020-04-05 05:48] LABS: BASOPHILS % (AUTO) 0.2 %; EOSINOPHILS % (AUTO) 0.5 %; LYMPHOCYTES % (AUTO) 3.5 %; MEAN CORPUSCULAR HEMOGLOBIN 29.8 pg (27.0-31.0); MEAN CORPUSCULAR HGB CONC 31.2 g/dL (32.0-36.0); MEAN CORPUSCULAR VOLUME 95.7 fL (81.0-99.0); MEAN PLATELET VOLUME 9.9 fL (7.9-10.8); MONOCYTES % (AUTO) 4.5 %; PLT - PLATELET COUNT 178 10^3/uL (130-450); RED BLOOD COUNT 3.69 10^6/uL (4.20-5.40); RED CELL DISTRIBUTION WIDTH 13.8 % (12.0-15.0); WHITE BLOOD COUNT 13.1 x10^3/uL (4.8-10.8)
[2020-04-05 05:55] LABS: ABNORMAL LYMPHS % (MANUAL) 0 %
[2020-04-05 05:59] LABS: ALBUMIN 2.3 g/dL (3.2-5.5); ALKALINE PHOSPHATASE 31 IU/L (42-121); ALT ALANINE AMINOTRANSFERASE 11 IU/L (10-60); AST ASPARTATE AMINOTRANSFERASE 18 IU/L (10-42); BILIRUBIN,TOTAL 0.4 mg/dL (0.2-1.0); BUN - BLOOD UREA NITROGEN 12 mg/dL (6-20); CALCIUM 7.7 mg/dL (8.5-10.3); CARBON DIOXIDE - CO2 23 mmol/L (21-32); CHLORIDE 108 mmol/L (101-111); CREATININE 0.9 mg/dL (0.4-1.0); GLUCOSE 183 mg/dL (70-100); SODIUM 137 mmol/L (135-145); TOTAL PROTEIN 4.7 g/dL (6.7-8.2)
[2020-04-05 06:04] LABS: VBG PH 7.304 (7.31-7.41)
[2020-04-05] MEDS: CEFOTETAN DISODIUM 1 GM in SODIUM CHLORIDE 0.9% MINIBAG 100 ML IV SCH ×2 (06:20→18:17)
[2020-04-05] MEDS: DEXTROSE 5%-0.9% NACL 1,000 ML IV SCH ×3 (06:41→16:38)
[2020-04-05 07:17] LABS: BAND NEUTROPHILS % (MANUAL) 38 %; LYMPHOCYTES # (MANUAL) 0.4 10^3/uL (1.5-3.5); LYMPHOCYTES % (MANUAL) 1 %; METAMYELOCYTES % (MANUAL) 1 %; MONOCYTES # (MANUAL) 0.7 10^3/uL (0.0-1.0)
[2020-04-05 07:18] LABS: DIFFERENTIAL COMMENT MANUAL DIFFERENTIAL
[2020-04-05] MEDS: FAMOTIDINE 20 MG/2 ML SYRINGE IVP SCH ×2 (09:35→21:14)
[2020-04-05] MEDS: hydroCHLOROthiazide 25 MG TABLET PO SCH (09:35)
[2020-04-05] MEDS: ENOXAPARIN 40 MG/0.4 ML SYRINGE SUBQ SCH (09:35)
[2020-04-05] MEDS: GABAPENTIN 300 MG CAPSULE PO SCH ×2 (09:35→21:13)
[2020-04-05] MEDS: ASPIRIN EC 81 MG TABLET PO SCH (09:35)
--- NOTE | 2020-04-05 09:38 | XRAY Report ---
PROCEDURE: Chest 1 View X-Ray INDICATIONS: SOB TECHNIQUE: One view of the chest was acquired. COMPARISON: Prior CT abdomen/pelvis from 11/18/2016 documents a very large hiatal hernia behind the he art containing viscus. FINDINGS: Surgical changes and devices: There is what appears to be a PICC line from right-sided approach cross ing into the mediastinum area, and patient rotation and prominently reduced inspiratory volume render s accurate assessment for the exact tip positioning was not possible from this plain film. Additional ly an esophagogastric tube has an unusual course through the mid and lower chest, which is an expecte d circumstance given what appears to be a very large hiatal hernia containing viscus distorting the m ediastinum on the prior CT scanning. A thin radiodense line overlies the right chest diagonally, wrap ping over the left supraclavicular fossa, and extending downwards, indeterminant etiology. Please cor relate clinically. Lungs and pleura: No pleural effusions or pneumothorax. Lungs are difficult to accurately assess du e to reduced inspiratory volume, body habitus, and the distortion of the mediastinum by a very large hiatal hernia previously documented. Mediastinum: Mediastinal contours appear normal. Heart size is normal. Bones and chest wall: No suspicious bony lesions. Overlying soft tissues appear unremarkable. IMPRESSION: Limited evaluation of the chest as discussed above with prominent distortion of the mediastinum in th is patient who has a prior CT documenting presence of a very large viscus containing hiatal hernia oc cupying a significant portion of the lower chest. This causes prominent atelectasis, over the lower l eft hemithorax and a portion of the right medial lung base. This structure may produce impingement on the cardiac chambers, to the degree that cardiac function may be compromised. CT scanning of the lexx st and upper abdomen may be warranted depending on the clinical status. Reviewed by: Scott Tovar MD on 04/05/2020 9:36 AM PDT Approved by: Scott Tovar MD on 04/05/2020 9:36 AM PDT Station ID: [id number]
[2020-04-05] MEDS ORDERED: METOPROLOL TARTRATE 25 MG TABLET PO SCH ×2 (12:00→21:00)
[2020-04-05] MEDS ORDERED: ENOXAPARIN 80 MG/0.8 ML SYRINGE SUBQ SCH (12:00)
--- NOTE | 2020-04-05 12:35 | CT Report ---
PROCEDURE: CHEST WO INDICATIONS: SOB, large hiatal hernia, PICC if at location Additional information: Per discussion with the referring provider, patient underwent abdominal surge ry after the prior CT abdomen/pelvis from 04/02/2020. TECHNIQUE: Noncontrast 5 mm thick sections acquired from the pulmonary apices to the posterior costophrenic angl es. 7 mm thick coronal and sagittal MIP reformats were then acquired. For radiation dose reduction, the following was used: automated exposure control, adjustment of mA and/or kV according to patient size. COMPARISON: Chest radiograph dated 04/05/2020. CT abdomen/pelvis 04/02/2020. FINDINGS: Image quality: Excellent. Surgical items: a right PICC is seen terminating in appropriate position at the superior cavoatrial j unction. Lungs and pleura: Mild centrilobular emphysema is seen in the lung apices. Small bilateral pleural e ffusions are seen with atelectasis at the lung bases. Additionally, there is a large hiatal hernia wi th atelectasis of the adjacent portion of the left lung base. No acute airspace consolidation is seen . There is no pneumothorax. Central and peripheral airways are patent and normal in caliber. Mediastinum: The heart is anteriorly displaced. No significant compression of the cardiac chambers is seen. Coronary artery calcifications are noted. No pericardial effusion. No mediastinal adenopathy by size criteria. Thoracic aorta and central pulmonary arteries are normal in size. Bones and chest wall: No suspicious bony lesions. Mildly exaggerated thoracic kyphosis is seen witho ut a vertebral body compression fracture. No axillary or supraclavicular adenopathy by size criteria. A calcified lesion is seen in the left lobe of the thyroid. An additional low-density 1.3 cm nodule is seen in the right thyroid. Abdomen: A large hiatal hernia is present that contains the entirety of the stomach. Additionally, p eritoneal fat and a nondistended loop of large bowel are seen extending into the hiatal hernia. Mildl y distended loops of small bowel are seen in the included portions of the upper abdomen. Intra-abdomi nal free air is seen in the upper abdomen and extending into the hiatal hernia but is likely related to the recent abdominal surgery. IMPRESSION: 1. Right-sided PICC in appropriate position with tip at the right cavoatrial junction. 2. Large hiatal hernia contains the entire stomach and a nondistended loop of large bowel as well as peritoneal fat. Free air within the upper abdomen and within the hernia is likely related to the rec ent abdominal surgery. Mildly dilated loops of air-filled small bowel are again seen in the included left upper quadrant. 3. Small bilateral pleural effusions. There is atelectasis of the lung bases adjacent to the pleural effusions and the large hiatal hernia. 4. Calcified and noncalcified thyroid nodules are seen. [facility]. Reviewed by: Alonso Fuentes MD on 04/05/2020 12:34 PM PDT Approved by: Alonso Fuentes MD on 04/05/2020 12:34 PM PDT Station ID: [id number]
[2020-04-05] MEDS ORDERED: SODIUM CHLORIDE 0.9% 500 ML IV ONE (12:48)
--- NOTE | 2020-04-05 13:53 | PROVIDER PROGRESS NOTE ---
Subjective - Prog Note Date Prog Note Date: 04/05/20 - Subjective Pt reports feeling: Worse Subjective: Patient denies chest pain, fever, chill. Surgeon removal NG tubal, and start with clear diet. Nurse reported patient's blood pressure is low SBP at 85. ordered Patient troponin is 175. EKG did not reveal significant change from previous, Did not indicate ST variation. Patient was given a 500 bolus of normal saline and her blood pressure is rise to SBP 135, still with mild ST at HR 105. Patient is alert, orientated plus III. Discussed with the patient for the CODE STATUS, patient still want full code. Patient report she has no family member, she was adopted. She would like her friend lenore Garza as her decision- maker. consult with social worker masters to finish the DPOA file. Current Medications - Current Medications Current Medications: Active Medications Aspirin (Ecotrin) 81 mg PO DAILY [facility] Last Admin: 04/05/20 09:35 Dose: 81 mg Documented by: Atorvastatin Calcium (Lipitor) 40 mg PO QPM [facility] Benzocaine (Hurricaine) 1 sprays MM Q4HR PRN PRN Reason: Mouth Sore Pain Last Admin: 04/02/20 16:30 Dose: 1 spr Documented by: Enoxaparin Sodium (Lovenox) 80 mg SUBQ BID [facility] Famotidine (Pepcid) 20 mg IVP BID [facility] Last Admin: 04/05/20 09:35 Dose: 20 mg Documented by: Gabapentin (Neurontin) 300 mg PO BID [facility] Last Admin: 04/05/20 09:35 Dose: 300 mg Documented by: Hydralazine HCl (Apresoline Inj) 10 mg IVP Q4HR PRN PRN Reason: NEEDED PER PROVIDER ORDERS Last Admin: 04/04/20 12:06 Dose: 10 mg Documented by: Acetaminophen (Ofirmev) 100 mls @ 400 mls/hr IV Q6HR PRN PRN Reason: PAIN Cefotetan Disodium 1 gm/ (Sodium Chloride) 100 mls @ 200 mls/hr IV Q12H [facility] Stop: 04/05/20 18:00 Last Infusion: 04/05/20 07:00 Dose: Infused Documented by: Ropivacaine (Naropin 0.2%) 200 mg in 100 mls @ 0 mls/hr EP PRN PRN; Protocol PRN Reason: PAIN Dextrose/Sodium Chloride (D5ns) 1,000 mls @ 100 mls/hr IV .Q10H [facility] Stop: 04/06/20 03:59 Last Infusion: 04/05/20 13:50 Dose: 100 mls/hr Documented by: Labetalol HCl (Trandate Syringe) 10 mg IVP Q2HR PRN PRN Reason: NEEDED PER PROVIDER ORDERS Methocarbamol (Robaxin) 500 mg PO Q6HR PRN PRN Reason: Spasms Nalbuphine HCl (Nubain) 2.5 - 5 mg IVP Q4H PRN PRN Reason: Severe Itching Ondansetron HCl (Zofran Inj) 4 mg IVP Q6HR PRN PRN Reason: Nausea / Vomiting Last Admin: 04/04/20 10:06 Dose: 4 mg Documented by: Phenol/Menthol (Chloraseptic) 2 sprays MM Q2HR PRN PRN Reason: Throat Pain Last Admin: 04/05/20 07:41 Dose: 2 sprays Documented by: Prochlorperazine Edisylate (Compazine Inj) 10 mg IVP Q6HR PRN PRN Reason: Nausea / Vomiting Last Admin: 04/03/20 21:39 Dose: 10 mg Documented by: Sodium Chloride (Normal Saline Flush 0.9%) 10 ml IVP PRN PRN PRN Reason: NEEDED PER PROVIDER ORDERS Last Admin: 04/03/20 06:19 Dose: 10 ml Documented by: Sodium Chloride (Normal Saline Flush 0.9%) 10 ml IVP 0100,0900,1700 [facility] Last Admin: 04/05/20 09:35 Dose: 10 ml Documented by: Aspirin EC [Ecotrin] 81 mg PO DAILY 04/02/20 Ferrous Sulfate 325 mg PO DAILY 04/02/20 Lisinopril [Zestril] 60 mg PO DAILY 04/02/20 hydroCHLOROthiazide [Hydrochlorothiazide] 25 mg PO DAILY 04/02/20 Objective - Vital Signs/Intake & Output Vital Signs: Vital Signs x48h Temp Pulse Resp BP BP Pulse Ox 04/05/20 13:50 105 H 137/71 H 04/05/20 13:22 107 H 114/62 04/05/20 12:37 90/56 L 04/05/20 12:32 82/50 L 04/05/20 12:29 36.8 C 105 H 18 85/55 L 92 04/05/20 09:34 108 H 107/68 04/05/20 07:40 36.8 C 98 18 118/63 96 Intake & Output: Intake & Output 04/02/20 04/03/20 04/04/20 04/05/20 23:59 23:59 23:59 23:59 Intake Total 7886.681 9171.389 4402.175 1769.833 Output Total 637 887 7997 Balance 9629.280 7168.389 3907.175 366.833 - Objective General Appearance: positive: No acute distress, Alert. negative: Lethargic Eyes Bilateral: positive: Normal inspection, PERRL, No lid inflammation ENT: positive: ENT inspection nml, No signs of dehydration. negative: Purulent nasal drainage Neck: positive: Nml inspection, Thyroid nml, Trachea midline. negative: Thyromegaly, Stiff neck, Tracheal deviation Respiratory: positive: Chest non-tender, No respiratory distress. negative: Wheezes, Rales Cardiovascular: positive: Irregularly irregular, Tachycardia, Systolic murmur. negative: No murmur, Bradycardia Peripheral Pulses: 2+ Radial (R), 2+ Radial (L), 2+ Dorsalis pedis (R), 2+ Dorsalis pedis (L) Abdomen: positive: Non-tender, No distention, Other (diminished bowel sound). negative: Nml bowel sounds, Guarding, Rebound Back: positive: Nml inspection. negative: CVA tenderness (R), CVA tenderness (L) Skin: positive: No rash, Warm, Dry. negative: Cyanosis, Diaphoresis, Pallor Extremities: positive: Non-tender, Full ROM, Nml appearance. negative: Calf tenderness, Nini's sign/cords Neurologic/Psychiatric: positive: Oriented x3, Motor nml, Sensation nml, M ood/affect nml. negative: Weakness, Sensory loss, Facial droop, Slurred/abnml speech, Depressed mood/affect - Lab Results Fish Bones: 04/05/20 05:27 04/05/20 05:27 Other Labs: Lab Results x24hrs 04/05/20 04/05/20 04/05/20 Range/Units 10:45 05:42 05:27 WBC (4.8-10.8) x10^3/uL RBC (4.20-5.40) 10^6/uL Hgb (12.0-16.0) g/dL Hct (37.0-47.0) % MCV (81.0-99.0) fL MCH (27.0-31.0) pg MCHC (32.0-36.0) g/dL RDW (12.0-15.0) % Plt Count (130-450) 10^3/uL MPV (7.9-10.8) fL Neut # (Auto) Lymph # (Auto) [place] # (Auto) Eos # (Auto) Baso # (Auto) Absolute Nucleated RBC Total Counted Band Neuts % (Manual) (0 - 10) % Reactive Lymphs % (Man) % Abnorm Lymph % (Manual) % Metamyelocytes % ( - 0) % Nucleated RBC % Neutrophils # (Manual) (1.5-6.6) 10^3/uL Lymphocytes # (Manual) (1.5-3.5) 10^3/uL Monocytes # (Manual) (0.0-1.0) 10^3/uL Eosinophils # (Manual) (0-0.7) 10^3/uL Basophils # (Manual) (0-0.1) 10^3/uL Differential Comment VBG pH 7.304 L (7.31-7.41) Ionized Calcium 1.11 L (1.15-1.33) mmol/L Sodium (135-145) mmol/L Potassium (3.5-5.0) mmol/L Chloride (101-111) mmol/L Carbon Dioxide (21-32) mmol/L Anion Gap (6-13) BUN (6-20) mg/dL Creatinine (0.4-1.0) mg/dL Estimated GFR (MDRD) (>89) Glucose (70-100) mg/dL POC Whole Bld Glucose 175 H (70 - 100) mg/dL Calcium (8.5-10.3) mg/dL Total Bilirubin (0.2-1.0) mg/dL AST (10-42) IU/L ALT (10-60) IU/L Alkaline Phosphatase (42-121) IU/L Troponin I High Sens 175.1 H* (2.3-14.8) ng/L Total Protein (6.7-8.2) g/dL Albumin (3.2-5.5) g/dL Globulin (2.1-4.2) g/dL Albumin/Globulin Ratio (1.0-2.2) Carcinoembryonic Ag ng/mL 04/05/20 04/05/20 04/04/20 Range/Units 05:27 05:27 23:28 WBC 13.1 H (4.8-10.8) x10^3/uL RBC 3.69 L (4.20-5.40) 10^6/uL Hgb 11.0 L (12.0-16.0) g/dL Hct 35.3 L (37.0-47.0) % MCV 95.7 (81.0-99.0) fL MCH 29.8 (27.0-31.0) pg MCHC 31.2 L (32.0-36.0) g/dL RDW 13.8 (12.0-15.0) % Plt Count 178 (130-450) 10^3/uL MPV 9.9 (7.9-10.8) fL Neut # (Auto) Not Reportable Lymph # (Auto) Not Reportable [place] # (Auto) Not Reportable Eos # (Auto) Not Reportable Baso # (Auto) Not Reportable Absolute Nucleated RBC Not Reportable Total Counted 100 Band Neuts % (Manual) 38 H (0 - 10) % Reactive Lymphs % (Man) 2 % Abnorm Lymph % (Manual) 0 % Metamyelocytes % 1 H ( - 0) % Nucleated RBC % Not Reportable Neutrophils # (Manual) 11.9 H (1.5-6.6) 10^3/uL Lymphocytes # (Manual) 0.4 L (1.5-3.5) 10^3/uL Monocytes # (Manual) 0.7 (0.0-1.0) 10^3/uL Eosinophils # (Manual) 0.0 (0-0.7) 10^3/uL Basophils # (Manual) 0.0 (0-0.1) 10^3/uL Differential Comment MANUAL DIFFERENTIAL VBG pH (7.31-7.41) Ionized Calcium YES (1.15-1.33) mmol/L Sodium 137 (135-145) mmol/L Potassium 4.1 (3.5-5.0) mmol/L Chloride 108 (101-111) mmol/L Carbon Dioxide 23 (21-32) mmol/L Anion Gap 6.0 (6-13) BUN 12 (6-20) mg/dL Creatinine 0.9 (0.4-1.0) mg/dL Estimated GFR (MDRD) 62 L (>89) Glucose 183 H (70-100) mg/dL POC Whole Bld Glucose 138 H (70 - 100) mg/dL Calcium 7.7 L (8.5-10.3) mg/dL Total Bilirubin 0.4 (0.2-1.0) mg/dL AST 18 (10-42) IU/L ALT 11 (10-60) IU/L Alkaline Phosphatase 31 L (42-121) IU/L Troponin I High Sens (2.3-14.8) ng/L Total Protein 4.7 L (6.7-8.2) g/dL Albumin 2.3 L (3.2-5.5) g/dL Globulin 2.4 (2.1-4.2) g/dL Albumin/Globulin Ratio 1.0 (1.0-2.2) Carcinoembryonic Ag ng/mL / Range/Units 15:08 WBC (4.8-10.8) x10^3/uL RBC (4.20-5.40) 10^6/uL Hgb (12.0-16.0) g/dL Hct (37.0-47.0) % MCV (81.0-99.0) fL MCH (27.0-31.0) pg MCHC (32.0-36.0) g/dL RDW (12.0-15.0) % Plt Count (130-450) 10^3/uL MPV (7.9-10.8) fL Neut # (Auto) Lymph # (Auto) [place] # (Auto) Eos # (Auto) Baso # (Auto) Absolute Nucleated RBC Total Counted Band Neuts % (Manual) (0 - 10) % Reactive Lymphs % (Man) % Abnorm Lymph % (Manual) % Metamyelocytes % ( - 0) % Nucleated RBC % Neutrophils # (Manual) (1.5-6.6) 10^3/uL Lymphocytes # (Manual) (1.5-3.5) 10^3/uL Monocytes # (Manual) (0.0-1.0) 10^3/uL Eosinophils # (Manual) (0-0.7) 10^3/uL Basophils # (Manual) (0-0.1) 10^3/uL Differential Comment VBG pH (7.31-7.41) Ionized Calcium (1.15-1.33) mmol/L Sodium (135-145) mmol/L Potassium (3.5-5.0) mmol/L Chloride (101-111) mmol/L Carbon Dioxide (21-32) mmol/L Anion Gap (6-13) BUN (6-20) mg/dL Creatinine (0.4-1.0) mg/dL Estimated GFR (MDRD) (>89) Glucose (70-100) mg/dL POC Whole Bld Glucose (70 - 100) mg/dL Calcium (8.5-10.3) mg/dL Total Bilirubin (0.2-1.0) mg/dL AST (10-42) IU/L ALT (10-60) IU/L Alkaline Phosphatase (42-121) IU/L Troponin I High Sens (2.3-14.8) ng/L Total Protein (6.7-8.2) g/dL Albumin (3.2-5.5) g/dL Globulin (2.1-4.2) g/dL Albumin/Globulin Ratio (1.0-2.2) Carcinoembryonic Ag 1.4 ng/mL ABX Reporting Has patient been on IV antibiotics over the past 48 hours?: Yes Assessment/Plan - Problem List (1) Non-STEMI (non-ST elevated myocardial infarction) Impression: Patient Troponin is 175, S Blood pressure is down today 85. But the patient denies chest pain. EKG has no ST variation, as her baseline.Patient likely has NONSTEMI follow s/p surgery. Discussed the risk of ,including but not limited to acute MS or even cardiac collapse before the surgery with the patient, the patient wanted continue to have surgery on yesterday. Discussed CODE STATUS with the patient, patient want to continue to have full code. Continue aspirin, add Lovenox twice daily, Start with a statin. Because the patient blood pressure is low, we will hold metoprolol and other BP meds order 500 cc normal saline intravenous bolus for patient. Continue telemetry and vital signs monitor (2) Partial bowel obstruction Impression: 04/05,Patient had sigmoid colectomy on Yesterday. NG tube is removed on today. Patient was started with clear diet on today Per surgeon. Pain was controlled by FIELD PRODUCER pump. Continue follow-up with surgeon, Pain control, If patient can tolerate clear or even advance diet, We will hold TPN. 04/04 Per surgeon report, she attempted to have a colonoscopy for patient but patient has very tight and impassable stricture in the sigmoid colon. surgeon recommended urgent sigmoid colectomy this afternoon with diverting ileostomy. Order PICC line for patient, Patient might need TPN status post of surgery. NPO with intravenous IV fluids. Will follow up with s/p care for surgery. (3)pre-operation assessment Patient report she has no previous cardiac medical hx beside of HTN. revised cardiac risk index (Bogdan Criteria) is 0.9%, low risk. pt's troponin, EKG and ECHO were ordered (4)heart murmur Patient report she had hx of heart murmur. ECHO is ordered. called clinical laboratory technician and nia pt had ECHO done before surgery. (5) HTN 04/05, Patient blood pressure is low, Hold blood pressure medicine. Continue vital signs monitor. We will continue home medication lisinopril and HCTZ, Continue vital signs monitor, Continue IV hydralazine PRN. (6) History of iron deficiency Conclusion/Plan: Hemoglobin is stable. We will continue her on iron supplementation once she is taking p.o. (5) hx of alcohol abuse Patient report he have history of alcohol abuse, but he quit couple years ago. (2) Partial bowel obstruction Qualifiers: Intestinal obstruction type: other intestinal obstruction Qualified Code(s): K56.690 - Other partial intestinal obstruction
[2020-04-05] MEDS: ROPIVACAINE 0.2% 200 MG/100 ML BAG EP PRN ×2 (14:30→15:27)
--- NOTE | 2020-04-05 14:35 | ANESTHESIA PROCEDURE NOTE ---
Anesthesia Epidural Template - Patient Report Patient Reports: positive: Inadequate control (Patient has had episodes of hypotension. Rate had been turned down. Patient now reports pain.) - Exam Epidural Medication Information: Epidural Medications Medication Ropivicaine Continuous Infusion Rate (mL/ 5 hr) Demand Dose Setting 2 Bolus Amount 7 Infused Amount 25 - Plan Plan: positive: Other (Increased rate to 5ml/hr. Continue with same PCEA) - Other Comments Other Comments: Site clear.
--- NOTE | 2020-04-05 16:43 | OPERATIVE REPORT ---
Operative Report - General Admit Date: 04/02/20 Planned Procedure: Open sigmoid colectomy Pre-Op Diagnosis: Large bowel obstruction Procedure Performed: Open sigmoid colectomy with extensive lysis of adhesions (greater than 2 hours), coloproctostomy and loop ileostomy Post Op Diagnosis: Large bowel obstruction - Procedure Note Primary Surgeon: Brenda Secondary Surgeon: Michaela Anesthesia Provider: GARTH Mar Anesthesia Technique: Epidural, General ET tube Pathology: Segment of colon to pathology with attached mesentery Estimated Blood Loss (mL): 300 Drain/Tube Type: Andres drain (1 19French Andres in the pelvis) Indications: Near complete intestinal obstruction at 35 cm from the anal verge Findings: 1. Severe pelvic adhesive diseases with scarring and thickened tissue fusing the sigmoid colon to the bladder anteriorly and the pelvic floor. 2. No evidence of purulent peritonitis 3. No palpable or visible mesenteric adenopathy 4. Thickened and edematous small bowel Complications: None apparent - Other Other Information/Narrative: After obtaining informed consent, the patient was taken to the operating room and an epidural infusion catheter placed by anesthesia. She was placed in the supine position on the operating table with the legs placed in Morris stirrups. Following successful induction of general endotracheal anesthesia, appropriate padding of all bony prominences and placement of appropriate monitors, a loredo catheter was placed and the abdomen and perianal region was prepped and draped in the standard surgical fashion. A Time Out was held per S[facility]AP protocol. All elements of the surgical safety checklist were followed before, during and after the procedure. A midline incision was created from just above the umbilicus to the pubis and carried through the skin and subcutaneous tissue to reveal the fascia and then the peritoneum. The peritoneum was opened sharply revealing clear peritoneal fluid with no foul odor. The large Wilton retractor was placed in the patients abdominal cavity. The small bowel was notably distended and edematous. Examination of revealed no mass in the small bowel. The colon was examined from the cecum to the sigmoid colon and was without masses or lesions. No palpably enlarge lymph nodes or other lesions consistent with metastatic disease were appreciated. In the pelvis toward the right lateral pelvic side wall, a large, woody mass was appreciated. Further inspection revealed no natural tissues planes. We began a careful lysis of the surrounding adhesions to define the colonic structures, the right and left ureter, and the surface of the bladder. Owing to the hostile nature of the pelvis, we were not able to identify the inferior mesenteric artery or sigmoid artery with certainty. The window was created in the mesentery of la sigmoid colon at the junction of the descending and sigmoid colons. A 75 mm MILLY device was used to divide the colon at this location. The peritoneal reflection was opened sharply allowing us to determine that the affected portion of the sigmoid colon was folded on itself and adherent to the bladder and the right side of the pelvic floor. We continued our dissection for greater than 2 hours to free the colon from the surrounding structures. The sigmoid colon was finally delivered into the field with associated inflammatory tissue and scar. To get below the inflammed area, we elected to divide the sigmoid colon at the opened peritoneal reflection. The Ligasure was used to divide the mesentery of the sigmoid colon just beyond its root. The specimen was passed from the table. We now turned our attention to re-establishing the continuity of the GI tract. We addressed the proximal colon stump for length. The white line of Toldt was opened to provide greater length for a tension free anastamosis. We elected to perform an end to side stapled anastamosis using a 31 mm EEA stapling divice. An atraumatic bowel clamp was place proximal to the cut end of the colon. The end of the colon was then opened and decompressed successfully without spillage of intestinal contents into the wound. The anvil of the stapling device was place in the proximal end of the colon and it was reclosed with the MILLY stapler. Dr. Jennings went to position between the patients legs. The stapling device was lub ricated and passed into the anal canal and advance as far as possible into the rectum leaving a 4 cm blind pouch at the proximal end. The EEA stapler was opened and the probe passed through the anterior wall of the distal stump under direct vision. The EEA stapler was closed but we were unable to reach the appropriate tissue thickness for effective firing. The device was withdrawn and additional dissection undertaken to decrease the thickness of the desmoplastic tissue on the surface of the distal colon stump. The device was passed once again into the anal canal and the anvil attached. A reassuring click was heard. The device was closed and an appropriate tissue thickness was indicated by the green pippa on the device. The stapler was fired and then gently removed. It was immediately apparent that only the posterior wall was in tact. We performed the anterior wall was repaired with interrupted 3-0 Vicryl suture. The bowel clamp was released and the distal colon immediately filled with retained bowel prep. It appeared tension free, well vascularized and without leak. I decided at this time to perform a protective and diverting loop ileostomy. Diliute methylene blue was injected into the Loredo catheter to fill the bladder and the catheter was clamped. The abdomen was carefully inspected for blue dye and none was appreciated. The catheter us unclamped and allowed to drain. The wound was checked for hemostasis and irrigated with warm saline solution. It was aspirated free of all fluid and particulate matter. At a convenient site in the right upper quadrant, a circular portion of skin was removed and the subcutaneous tissue opened in a cruciate fashion to reveal the underlying muscle. The muscle was then pulled to each side with retractors revealed the posterior fascia. The surgeons had was placed in the abdominal cavity directly under the ostomy. The fascia and peritoneum were opened directly on the finger. The small Wilton retractro was place in this opening. The distal ileum was identified. A window was created in the mesentery just proximal to the cecum. A red rubber catheter was placed through this opening. This was used to deliver the ileum through the abdominal wall at the site of the small retractor in the right upper quadrant. The afferent and efferent limbs of the ileum were carefully noted. A complete lap and intrument count revealed all counts correct. The midline wound was closed in a running fashion with looped PDS suture and the skin closed with surgical skin clips. The midline incision was covered with a dry towel and the ostomy was addressed. The ostomy was opened horizontally and the afferent limb matured in the [place] fashion. The efferent limb was sewn to the dermis in an interrupted fashion. The red rubber catheter was trimmed and the end sewn together to create a small afognak. An ostomy applience was applied. A Aquacel dressing was applied to the midline incision. All sponge, needle and instrument counts were again correct at the conclusion of the case. The patient was allowed to awaken from anesthesia and taken to the post anesthesia care unit in good condition.
[2020-04-05] MEDS: METOPROLOL TARTRATE 25 MG TABLET PO SCH (18:18)
[2020-04-05] MEDS: ATORVASTATIN 40 MG TABLET PO SCH (21:13)
[2020-04-05] MEDS: ENOXAPARIN 80 MG/0.8 ML SYRINGE SUBQ SCH (21:14)
[2020-04-06] MEDS: ACETAMINOPHEN 1,000 MG/100 ML 100 ML IV PRN (00:03)
[2020-04-06] MEDS: SODIUM CHLORIDE FLUSH 0.9% 10 ML SYRINGE IVP SCH ×3 (00:03→20:18)
[2020-04-06] MEDS ORDERED: SODIUM CHLORIDE 0.9% 1,000 ML IV ONE (03:07)
[2020-04-06 05:43] LABS: BASOPHILS % (AUTO) 0.3 %; EOSINOPHILS # (AUTO) 0.1 10^3/uL (0.0-0.7); EOSINOPHILS % (AUTO) 1.2 %; HGB - HEMOGLOBIN 9.7 g/dL (12.0-16.0); LYMPHOCYTES # (AUTO) 0.7 10^3/uL (1.5-3.5); LYMPHOCYTES % (AUTO) 6.2 %; MEAN CORPUSCULAR HGB CONC 31.4 g/dL (32.0-36.0); MEAN CORPUSCULAR VOLUME 95.7 fL (81.0-99.0); MONOCYTES # (AUTO) 0.6 10^3/uL (0.0-1.0); NEUTROPHILS # (AUTO) 9.6 10^3/uL (1.5-6.6); NEUTROPHILS % (AUTO) 86.7 %; PLT - PLATELET COUNT 151 10^3/uL (130-450); RED BLOOD COUNT 3.23 10^6/uL (4.20-5.40); RED CELL DISTRIBUTION WIDTH 14.1 % (12.0-15.0)
[2020-04-06 05:52] LABS: CALCIUM 7.7 mg/dL (8.5-10.3); CREATININE 0.8 mg/dL (0.4-1.0)
[2020-04-06] MEDS: ENOXAPARIN 80 MG/0.8 ML SYRINGE SUBQ SCH ×2 (07:59→21:27)
[2020-04-06] MEDS: ASPIRIN EC 81 MG TABLET PO SCH (08:00)
[2020-04-06] MEDS: METOPROLOL TARTRATE 25 MG TABLET PO SCH ×3 (08:00→21:26)
[2020-04-06] MEDS: GABAPENTIN 300 MG CAPSULE PO SCH ×2 (08:00→21:25)
[2020-04-06] MEDS: FAMOTIDINE 20 MG/2 ML SYRINGE IVP SCH (08:01)
[2020-04-06] MEDS: ROPIVACAINE 0.2% 200 MG/100 ML BAG EP PRN (10:27)
--- NOTE | 2020-04-06 10:49 | PROVIDER PROGRESS NOTE ---
Subjective - General Admit Date: 04/02/20 Procedure Date: 04/04/20 Post Op Days: 2 Procedure Performed: Sigmoid colectomy and diverting ileostomy. - Review of Systems Wound/Incisions: positive: Dressing dry and intact, Other (ostomy is viable and working.) Drain Type: Andres Drain Output Description: serosanguinous General: positive: Weakness, Fatigue HEENT: negative: Headaches Pulmonary: positive: Shortness of breath Cardiovascular: positive: Dyspnea on exertion Gastrointestinal: positive: Other (No nausea. Mild abdominal pain but improved from last evening.). negative: Nausea, Vomiting All Other Systems: positive: Reviewed and negative - Other Other Information/Narrative: NSTEMI post op. Stable today. Pain is under control. Does not feel hungry. Objective - Patient Data Reviewed Vital Signs: Yes Vital Signs: Vital Signs x48h Temp Pulse Resp BP BP Pulse Ox 04/06/20 08:00 132/91 H 04/06/20 07:54 37.4 C 96 16 132/91 H 96 04/06/20 04:30 36.9 C 84 16 112/60 96 04/06/20 04:00 36.9 C 84 16 112/60 96 Intake & Output: Intake and Output Totals x24h 04/04/20 04/05/20 04/06/20 23:59 23:59 23:59 Intake Total 4402.175 3061.500 1700 Output Total 495 2668 470 Balance 3907.175 952.297 4486 - Lab Results Lab Results: 04/06/20 05:05 04/06/20 05:05 Other Lab Results: Lab Results x24hrs 04/06/20 04/06/20 04/05/20 Range/Units 05:05 05:05 22:50 WBC 11.0 H (4.8-10.8) x10^3/uL RBC 3.23 L (4.20-5.40) 10^6/uL Hgb 9.7 L (12.0-16.0) g/dL Hct 30.9 L (37.0-47.0) % MCV 95.7 (81.0-99.0) fL MCH 30.0 (27.0-31.0) pg MCHC 31.4 L (32.0-36.0) g/dL RDW 14.1 (12.0-15.0) % Plt Count 151 (130-450) 10^3/uL MPV 10.0 (7.9-10.8) fL Neut # (Auto) 9.6 H (1.5-6.6) 10^3/uL Lymph # (Auto) 0.7 L (1.5-3.5) 10^3/uL [place] # (Auto) 0.6 (0.0-1.0) 10^3/uL Eos # (Auto) 0.1 (0.0-0.7) 10^3/uL Baso # (Auto) 0.0 (0.0-0.1) 10^3/uL Absolute Nucleated RBC 0.00 x10^3/uL Nucleated RBC % 0.0 /100WBC Sodium 136 (135-145) mmol/L Potassium 3.6 (3.5-5.0) mmol/L Chloride 106 (101-111) mmol/L Carbon Dioxide 25 (21-32) mmol/L Anion Gap 5.0 L (6-13) BUN 15 (6-20) mg/dL Creatinine 0.8 (0.4-1.0) mg/dL Estimated GFR (MDRD) 71 L (>89) Glucose 106 H (70-100) mg/dL Calcium 7.7 L (8.5-10.3) mg/dL Troponin I High Sens 106.4 H* (2.3-14.8) ng/L 04/05/20 04/05/20 Range/Units 17:07 10:45 WBC (4.8-10.8) x10^3/uL RBC (4.20-5.40) 10^6/uL Hgb (12.0-16.0) g/dL Hct (37.0-47.0) % MCV (81.0-99.0) fL MCH (27.0-31.0) pg MCHC (32.0-36.0) g/dL RDW (12.0-15.0) % Plt Count (130-450) 10^3/uL MPV (7.9-10.8) fL Neut # (Auto) (1.5-6.6) 10^3/uL Lymph # (Auto) (1.5-3.5) 10^3/uL [place] # (Auto) (0.0-1.0) 10^3/uL Eos # (Auto) (0.0-0.7) 10^3/uL Baso # (Auto) (0.0-0.1) 10^3/uL Absolute Nucleated RBC x10^3/uL Nucleated RBC % /100WBC Sodium (135-145) mmol/L Potassium (3.5-5.0) mmol/L Chloride (101-111) mmol/L Carbon Dioxide (21-32) mmol/L Anion Gap (6-13) BUN (6-20) mg/dL Creatinine (0.4-1.0) mg/dL Estimated GFR (MDRD) (>89) Glucose (70-100) mg/dL Calcium (8.5-10.3) mg/dL Troponin I High Sens 120.0 H* 175.1 H* (2.3-14.8) ng/L - Current Medications Current Medications: Current Medications Generic Name Dose Route Start Last Admin Trade Name Freq PRN Reason Stop Dose Admin Aspirin 81 mg 04/04/20 09:00 04/06/20 08:00 Ecotrin PO 81 mg DAILY YASMEEN Administration Atorvastatin Calcium 40 mg 04/05/20 21:00 04/05/20 21:13 Lipitor PO 40 mg QPM YASMEEN Administration Benzocaine 1 sprays 04/02/20 16:26 04/02/20 16:30 Hurricaine MM 1 spr Q4HR PRN Administration Mouth Sore Pain Enoxaparin Sodium 80 mg 04/05/20 21:00 04/06/20 07:59 Lovenox SUBQ 80 mg BID YASMEEN Administration Famotidine 20 mg 04/02/20 21:00 04/06/20 08:01 Pepcid IVP 20 mg BID YASMEEN Administration Gabapentin 300 mg 04/04/20 21:00 04/06/20 08:00 Neurontin PO 300 mg BID YASMEEN Administration Hydralazine HCl 10 mg 04/02/20 22:00 04/04/20 12:06 Apresoline Inj IVP 10 mg Q4HR PRN Administration NEEDED PER PROVIDER ORDERS Acetaminophen 100 mls @ 400 mls/hr 04/04/20 17:25 04/06/20 00:18 Ofirmev IV Infused Q6HR PRN Infusion PAIN Ropivacaine 200 mg in 100 mls @ 0 mls/hr 04/05/20 14:33 04/06/20 10:27 Naropin 0.2% EP 100 mls/hr PRN PRN Administration PAIN Protocol Per Protocol Ondansetron HCl 4 mg 04/02/20 15:08 04/04/20 10:06 Zofran Inj IVP 4 mg Q6HR PRN Administration Nausea / Vomiting Phenol/Menthol 2 sprays 04/05/20 03:16 04/05/20 07:41 Chloraseptic MM 2 sprays Q2HR PRN Administration Throat Pain Prochlorperazine Edisylate 10 mg 04/02/20 15:08 04/03/20 21:39 Compazine Inj IVP 10 mg Q6HR PRN Administration Nausea / Vomiting Sodium Chloride 10 ml 04/02/20 15:08 04/03/20 06:19 Normal Saline Flush 0.9% IVP 10 ml PRN PRN Administration NEEDED PER PROVIDER ORDERS Sodium Chloride 10 ml 04/02/20 17:00 04/06/20 08:03 Normal Saline Flush 0.9% IVP 10 ml 0100,0900,1700 YASMEEN Administration - Physical Exam Wound/Incisions: positive: Dressing dry and intact General Appearance: positive: Lethargic Eyes Bilateral: positive: Normal inspection Neck: positive: Nml inspection Respiratory: positive: No respiratory distress Cardiovascular: positive: Regular rate & rhythm Abdomen: positive: Other (soft, distended, active bowel sounds, ostomy viable and working) ABX Reporting Has patient been on IV antibiotics over the past 48 hours?: Yes Impression/Plan - Problem List Problem List: 1. Appreciate Medicine service so much. 2. Will offer soft diet today. Patient says she is not hungry but Chocolate Ensure sounds good to her. 3. Antibiotics discontinued 4. Ostomy nurse consulted for teaching
[2020-04-06 11:22] LABS: MAGNESIUM 1.6 mg/dL (1.7-2.8); PHOSPHORUS 2.7 mg/dL (2.5-4.6)
[2020-04-06] MEDS: PIPERACILLIN/TAZOBACTAM 3.375 GM in SODIUM CHLORIDE 0.9% MINIBAG 100 ML IV SCH ×2 (13:27→20:18)
[2020-04-06] MEDS ORDERED: MAGNESIUM SULFATE 2 GRAM 2 GM/50 ML BAG IV ONE (13:31)
--- NOTE | 2020-04-06 13:34 | PROVIDER PROGRESS NOTE ---
Assessment/Plan - Problem List (1) Non-STEMI (non-ST elevated myocardial infarction) Assessment/Plan: 821,Patient reported she feel much better on today. Patient's hemodynamic is stable, blood pressure and HR is in the normal arrange. Patient denies chest pain. Troponin is the flat. We will continue baby aspirin, Lovenox, beta- shanda, statin. 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 But the patient denies chest pain. EKG has no ST variation, as her baseline.Patient likely has NONSTEMI follow s/p surgery. Discussed the risk of ,including but not limited to acute ME or even cardiac collapse before the surgery with the patient, the patient wanted continue to have surgery on yesterday. Discussed CODE STATUS with the patient, patient want to continue to have full code. Continue aspirin, add Lovenox twice daily, Start with a statin. Because the patient blood pressure is low, we will hold metoprolol and other BP meds order 500 cc normal saline intravenous bolus for patient. Continue telemetry and vital signs monitor (2) Partial bowel obstruction Impression: 821, This is day 2 of status post of surgery. Patient reported no passed gas or bowel movement yet. patient reported abdominal pain is controlled. Patient tolerated clear diet. We will continue follow-up with surgeon, Per surgeon recommendation, will add Ensure for patient. 04/05,Patient had sigmoid colectomy on Yesterday. NG tube is removed on today. Patient was started with clear diet on today Per surgeon. Pain was controlled by [employer] pump. Continue follow-up with surgeon, Pain control, If patient can tolerate clear or even advance diet, We will hold TPN. 04/04 Per surgeon report, she attempted to have a colonoscopy for patient but patient has very tight and impassable stricture in the sigmoid colon. surgeon re commended urgent sigmoid colectomy this afternoon with diverting ileostomy. Order PICC line for patient, Patient might need TPN status post of surgery. NPO with intravenous IV fluids. Will follow up with s/p care for surgery. (3)fever 04/06, Patient has low degree fever last night and a temperature 38.2, And a slightly elevated WBC. Unknown etiology to cause patient has a fever but this is day 2 status post of surgery. use Zosyn for patient now, add probiotics as well. We will add urinalysis, now pt has no respiratory distress. We will do blood culture. (4)pre-operation assessment Patient report she has no previous cardiac medical hx beside of HTN. revised cardiac risk index (Bogdan Criteria) is 0.9%, low risk. pt's troponin, EKG and ECHO were ordered (5) diastolic heart failure with heart murmur 821, patient was found to have moderate pulmonary hypertension and moderate abnormal pressure in right heart, and mild aortic stenosis. We will precaution fluids overloaded, will continue aspirin, beta-shanda, statin for patient. Patient report she had hx of heart murmur. ECHO is ordered. called scanning tech and hope pt had ECHO done before surgery. (6) HTN 04/05, Patient blood pressure is low, Hold blood pressure medicine. Continue vital signs monitor. We will continue home medication lisinopril and HCTZ, Continue vital signs monitor, Continue IV hydralazine PRN. (7) History of iron deficiency Conclusion/Plan: Hemoglobin is stable. We will continue her on iron supplementation once she is taking p.o. (8) hx of alcohol abuse Patient report he have history of alcohol abuse, but he quit couple years ago. (2) Partial bowel obstruction Qualifiers: Intestinal obstruction type: other intestinal obstruction Qualified Code(s): K56.690 - Other partial intestinal obstruction - Current Meds Current Meds: Current Medications Generic Name Dose Route Start Last Admin Trade Name Freq PRN Reason Stop Dose Admin Aspirin 81 mg 04/04/20 09:00 04/06/20 08:00 Ecotrin PO 81 mg DAILY YASMEEN Administration Atorvastatin Calcium 40 mg 04/05/20 21:00 04/05/20 21:13 Lipitor PO 40 mg QPM YASMEEN Administration Benzocaine 1 sprays 04/02/20 16:26 04/02/20 16:30 Hurricaine MM 1 spr Q4HR PRN Administration Mouth Sore Pain Enoxaparin Sodium 80 mg 04/05/20 21:00 04/06/20 07:59 Lovenox SUBQ 80 mg BID YASMEEN Administration Gabapentin 300 mg 04/04/20 21:00 04/06/20 08:00 Neurontin PO 300 mg BID YASMEEN Administration Hydralazine HCl 10 mg 04/02/20 22:00 04/04/20 12:06 Apresoline Inj IVP 10 mg Q4HR PRN Administration NEEDED PER PROVIDER ORDERS Acetaminophen 100 mls @ 400 mls/hr 04/04/20 17:25 04/06/20 00:18 Ofirmev IV Infused Q6HR PRN Infusion PAIN Ropivacaine 200 mg in 100 mls @ 0 mls/hr 04/05/20 14:33 04/06/20 10:27 Naropin 0.2% EP 100 mls/hr PRN PRN Administration PAIN Protocol Per Protocol Piperacillin Sod/Tazobactam 100 mls @ 25 mls/hr 04/06/20 12:00 04/06/20 13:27 Sod 3.375 gm/ Sodium Chloride IV 25 mls/hr Q8H YASMEEN Administration Metoprolol Tartrate 25 mg 04/06/20 09:00 04/06/20 13:26 Lopressor PO 12.5 mg BID YASMEEN Administration Ondansetron HCl 4 mg 04/02/20 15:08 04/04/20 10:06 Zofran Inj IVP 4 mg Q6HR PRN Administration Nausea / Vomiting Phenol/Menthol 2 sprays 04/05/20 03:16 04/05/20 07:41 Chloraseptic MM 2 sprays Q2HR PRN Administration Throat Pain Prochlorperazine Edisylate 10 mg 04/02/20 15:08 04/03/20 21:39 Compazine Inj IVP 10 mg Q6HR PRN Administration Nausea / Vomiting Sodium Chloride 10 ml 04/02/20 15:08 04/03/20 06:19 Normal Saline Flush 0.9% IVP 10 ml PRN PRN Administration NEEDED PER PROVIDER ORDERS Sodium Chloride 10 ml 04/02/20 17:00 04/06/20 08:03 Normal Saline Flush 0.9% IVP 10 ml 0100,0900,1700 YASMEEN Administration - Lab Result Fish Bone Diagrams: 04/06/20 05:05 04/06/20 05:05 - Additional Planning My Orders: My Active Orders 04/05/20 21:00 Atorvastatin [Lipitor] 40 mg PO QPM Enoxaparin [Lovenox] 80 mg SUBQ BID 04/06/20 08:17 Blood Culture [CULTURE, BLOOD #1] [] Urgent 04/06/20 08:19 Blood Culture [CULTURE, BLOOD #2] [] Urgent 04/06/20 09:00 Metoprolol Tartrate [Lopressor] 25 mg PO BID 04/06/20 10:24 Out of bed 3+ hours today [RC] TID 04/06/20 12:00 Piperacillin/Tazobactam [Zosyn] 3.375 gm Sodium Chloride 0.9% Minibag [Normal Saline 0.9% Minibag] 100 ml IV Q8H 04/06/20 13:31 Magnesium Sulfate 2 Gram [Magnesium Sulfate] 2 gm in 50 ml IV ONCE 04/06/20 17:00 Saccharomyces Boulardii [Florastor] 250 mg PO BIDWM 04/07/20 05:00 BMP - BASIC METABOLIC PANEL [CHEM] DAILYLAB CBC - COMP BLD CT W/AUTO DIFF [HEME] DAILYLAB 04/08/20 05:00 BMP - BASIC METABOLIC PANEL [CHEM] DAILYLAB CBC - COMP BLD CT W/AUTO DIFF [HEME] DAILYLAB 04/09/20 05:00 BMP - BASIC METABOLIC PANEL [CHEM] DAILYLAB CBC - COMP BLD CT W/AUTO DIFF [HEME] DAILYLAB 04/10/20 05:00 BMP - BASIC METABOLIC PANEL [CHEM] DAILYLAB CBC - COMP BLD CT W/AUTO DIFF [HEME] DAILYLAB Subjective - Subjective Patient Reports: Feeling Better Objective Vital Signs: Vital Signs - 24 hr 04/05/20 04/05/20 04/05/20 13:50 14:31 16:00 Temperature Heart Rate [ 105 H 105 H 111 H Brachial] Respiratory Rate Blood Pressure Blood Pressure 137/71 H 142/67 H 116/65 [Left Brachial artery] O2 Saturation 04/05/20 04/05/20 04/05/20 16:15 16:30 16:45 Temperature 36.8 C Heart Rate [ 111 H 110 H 108 H Brachial] Respiratory 16 Rate Blood Pressure Blood Pressure 104/63 108/59 L 100/54 L [Left Brachial artery] O2 Saturation 97 04/05/20 04/05/20 04/05/20 17:00 20:14 23:50 Temperature 36.3 C L 38.2 C H Heart Rate [ 111 H 94 91 Brachial] Respiratory 22 16 Rate Blood Pressure Blood Pressure 100/56 L 98/57 L 101/58 L [Left Brachial artery] O2 Saturation 99 95 04/06/20 04/06/20 04/06/20 00:00 00:48 04:00 Temperature 38.2 C H 36.9 C 36.9 C Heart Rate [ 91 84 Brachial] Respiratory 16 16 Rate Blood Pressure Blood Pressure 101/58 L 112/60 [Left Brachial artery] O2 Saturation 95 96 04/06/20 04/06/20 04/06/20 04:30 07:54 08:00 Temperature 36.9 C 37.4 C Heart Rate [ 84 96 Brachial] Respiratory 16 16 Rate Blood Pressure 132/91 H Blood Pressure 112/60 132/91 H [Left Brachial artery] O2 Saturation 96 96 04/06/20 13:08 Temperature 37.4 C Heart Rate [ 96 Brachial] Respiratory 22 Rate Blood Pressure Blood Pressure 114/74 [Left Brachial artery] O2 Saturation 93 Oxygen O2 Source Room air I&O (Last 24 Hrs): Intake and Output Totals x24h 04/04/20 04/05/20 04/06/20 23:59 23:59 23:59 Intake Total 4402.175 3061.500 1700 Output Total 495 2668 470 Balance 3907.175 055.013 3288 General: Alert, Oriented x3, No acute distress HEENT: Atraumatic Neck: Supple Lymphatic: no adenopathy Neuro: Alert, Non Focal, Oriented Times 3 Cardiovascular: Normal S1, Normal S2 Respiratory: Chest non-tender, No respiratory distress Abdomen: Normal bowel sounds, Soft Extremities: Normal pulses - Results Results: Laboratory Results WBC 11.0 x10^3/uL (4.8-10.8) H 04/06/20 05:05 RBC 3.23 10^6/uL (4.20-5.40) L 04/06/20 05:05 Hgb 9.7 g/dL (12.0-16.0) L 04/06/20 05:05 Hct 30.9 % (37.0-47.0) L 04/06/20 05:05 MCV 95.7 fL (81.0-99.0) 04/06/20 05:05 MCH 30.0 pg (27.0-31.0) 04/06/20 05:05 MCHC 31.4 g/dL (32.0-36.0) L 04/06/20 05:05 RDW 14.1 % (12.0-15.0) 04/06/20 05:05 Plt Count 151 10^3/uL (130-450) 04/06/20 05:05 MPV 10.0 fL (7.9-10.8) 04/06/20 05:05 Neut # (Auto) 9.6 10^3/uL (1.5-6.6) H 04/06/20 05:05 Lymph # (Auto) 0.7 10^3/uL (1.5-3.5) L 04/06/20 05:05 [place] # (Auto) 0.6 10^3/uL (0.0-1.0) 04/06/20 05:05 Eos # (Auto) 0.1 10^3/uL (0.0-0.7) 04/06/20 05:05 Baso # (Auto) 0.0 10^3/uL (0.0-0.1) 04/06/20 05:05 Absolute Nucleated RBC 0.00 x10^3/uL 04/06/20 05:05 Total Counted 100 04/05/20 05:27 Band Neuts % (Manual) 38 % (0-10) H 04/05/20 05:27 Reactive Lymphs % (Man) 2 % 04/05/20 05:27 Abnorm Lymph % (Manual) 0 % 04/05/20 05:27 Metamyelocytes % 1 % (-0) H 04/05/20 05:27 Nucleated RBC % 0.0 /100WBC 04/06/20 05:05 Neutrophils # (Manual) 11.9 10^3/uL (1.5-6.6) H 04/05/20 05:27 Lymphocytes # (Manual) 0.4 10^3/uL (1.5-3.5) L 04/05/20 05:27 Monocytes # (Manual) 0.7 10^3/uL (0.0-1.0) 04/05/20 05:27 Eosinophils # (Manual) 0.0 10^3/uL (0-0.7) 04/05/20 05:27 Basophils # (Manual) 0.0 10^3/uL (0-0.1) 04/05/20 05:27 Differential Comment MANUAL DIFFERENTIAL 04/05/20 05:27 PT 13.5 secs (9.9-12.6) H 04/02/20 11:04 INR 1.2 (0.8-1.2) 04/02/20 11:04 VBG pH 7.304 (7.31-7.41) L 04/05/20 05:27 Ionized Calcium 1.11 mmol/L (1.15-1.33) L 04/05/20 05:27 Sodium 136 mmol/L (135-145) 04/06/20 05:05 Potassium 3.6 mmol/L (3.5-5.0) 04/06/20 05:05 Chloride 106 mmol/L (101-111) 04/06/20 05:05 Carbon Dioxide 25 mmol/L (21-32) 04/06/20 05:05 Anion Gap 5.0 (6-13) L 04/06/20 05:05 BUN 15 mg/dL (6-20) 04/06/20 05:05 Creatinine 0.8 mg/dL (0.4-1.0) 04/06/20 05:05 Estimated GFR (MDRD) 71 (>89) L 04/06/20 05:05 Glucose 106 mg/dL (70-100) H 04/06/20 05:05 POC Whole Bld Glucose 175 mg/dL (70 - 100) H 04/05/20 05:42 Calcium 7.7 mg/dL (8.5-10.3) L 04/06/20 05:05 Ionized Calcium YES 04/05/20 05:27 Phosphorus 2.7 mg/dL (2.5-4.6) 04/06/20 11:00 Magnesium 1.6 mg/dL (1.7-2.8) L 04/06/20 11:00 Total Bilirubin 0.4 mg/dL (0.2-1.0) 04/05/20 05:27 AST 18 IU/L (10-42) 04/05/20 05:27 ALT 11 IU/L (10-60) 04/05/20 05:27 Alkaline Phosphatase 31 IU/L (42-121) L 04/05/20 05:27 Troponin I High Sens 117.5 ng/L (2.3-14.8) H* 04/06/20 11:00 Total Protein 4.7 g/dL (6.7-8.2) L 04/05/20 05:27 Albumin 2.3 g/dL (3.2-5.5) L 04/05/20 05:27 Globulin 2.4 g/dL (2.1-4.2) 04/05/20 05:27 Albumin/Globulin Ratio 1.0 (1.0-2.2) 04/05/20 05:27 Lipase 20 U/L (22-51) L 04/02/20 11:04 Carcinoembryonic Ag 1.4 ng/mL 04/04/20 15:08 Urine Color DARK YELLOW 04/02/20 11:46 Urine Clarity CLEAR (CLEAR) 04/02/20 11:46 Urine pH 5.0 PH (5.0-7.5) 04/02/20 11:46 Ur Specific [place] >=1.030 (1.002-1.030) H 04/02/20 11:46 Urine Protein TRACE mg/dL (NEGATIVE) 04/02/20 11:46 Urine Glucose (UA) NEGATIVE mg/dL (NEGATIVE) 04/02/20 11:46 Urine Ketones 40 mg/dL (NEGATIVE) H 04/02/20 11:46 Urine Occult Blood SMALL (NEGATIVE) H 04/02/20 11:46 Urine Nitrite NEGATIVE (NEGATIVE) 04/02/20 11:46 Urine Bilirubin NEGATIVE (NEGATIVE) 04/02/20 11:46 Urine Urobilinogen 0.2 (NORMAL) E.U./dL (NORMAL) 04/02/20 11:46 Ur Leukocyte Esterase NEGATIVE (NEGATIVE) 04/02/20 11:46 Urine RBC 0-5 /HPF (0-5) 04/02/20 11:46 Urine WBC 0-3 /HPF (0-5) 04/02/20 11:46 Ur Squamous Epith Cells FEW Squamous (<= Few) 04/02/20 11:46 Amorphous Sediment Rare /LPF 04/02/20 11:46 Urine Bacteria Few /HPF (None Seen) 04/02/20 11:46 Ur Microscopic Review INDICATED 04/02/20 11:46 Urine Culture Comments NOT INDICATED 04/02/20 11:46 ABX Reporting Has patient been on IV antibiotics over the past 48 hours?: Yes Current Medications - Current Medications Current Medications: Active Medications Aspirin (Ecotrin) 81 mg PO DAILY [facility] Last Admin: 04/06/20 08:00 Dose: 81 mg Documented by: Atorvastatin Calcium (Lipitor) 40 mg PO QPM [facility] Last Admin: 04/05/20 21:13 Dose: 40 mg Documented by: Benzocaine (Hurricaine) 1 sprays MM Q4HR PRN PRN Reason: Mouth Sore Pain Last Admin: 04/02/20 16:30 Dose: 1 spr Documented by: Enoxaparin Sodium (Lovenox) 80 mg SUBQ BID [facility] Last Admin: 04/06/20 07:59 Dose: 80 mg Documented by: Famotidine (Pepcid) 20 mg PO DAILY [facility] Gabapentin (Neurontin) 300 mg PO BID [facility] Last Admin: 04/06/20 08:00 Dose: 300 mg Documented by: Hydralazine HCl (Apresoline Inj) 10 mg IVP Q4HR PRN PRN Reason: NEEDED PER PROVIDER ORDERS Last Admin: 04/04/20 12:06 Dose: 10 mg Documented by: Acetaminophen (Ofirmev) 100 mls @ 400 mls/hr IV Q6HR PRN PRN Reason: PAIN Last Infusion: 04/06/20 00:18 Dose: Infused Documented by: Ropivacaine (Naropin 0.2%) 200 mg in 100 mls @ 0 mls/hr EP PRN PRN; Protocol PRN Reason: PAIN Last Admin: 04/06/20 10:27 Dose: 100 mls/hr Documented by: Piperacillin Sod/Tazobactam (Sod 3.375 gm/ Sodium Chloride) 100 mls @ 25 mls/hr IV Q8H [facility] Last Infusion: 04/06/20 14:45 Dose: Infused Documented by: Labetalol HCl (Trandate Syringe) 10 mg IVP Q2HR PRN PRN Reason: NEEDED PER PROVIDER ORDERS Methocarbamol (Robaxin) 500 mg PO Q6HR PRN PRN Reason: Spasms Metoprolol Tartrate (Lopressor) 25 mg PO BID [facility] Last Admin: 04/06/20 13:26 Dose: 12.5 mg Documented by: Nalbuphine HCl (Nubain) 2.5 - 5 mg IVP Q4H PRN PRN Reason: Severe Itching Ondansetron HCl (Zofran Inj) 4 mg IVP Q6HR PRN PRN Reason: Nausea / Vomiting Last Admin: 04/04/20 10:06 Dose: 4 mg Documented by: Phenol/Menthol (Chloraseptic) 2 sprays MM Q2HR PRN PRN Reason: Throat Pain Last Admin: 04/05/20 07:41 Dose: 2 sprays Documented by: Prochlorperazine Edisylate (Compazine Inj) 10 mg IVP Q6HR PRN PRN Reason: Nausea / Vomiting Last Admin: 04/03/20 21:39 Dose: 10 mg Documented by: Saccharomyces Boulardii (Florastor) 250 mg PO BIDWM [facility] Sodium Chloride (Normal Saline Flush 0.9%) 10 ml IVP PRN PRN PRN Reason: NEEDED PER PROVIDER ORDERS Last Admin: 04/03/20 06:19 Dose: 10 ml Documented by: Sodium Chloride (Normal Saline Flush 0.9%) 10 ml IVP 0100,0900,1700 [facility] Last Admin: 04/06/20 08:03 Dose: 10 ml Documented by: Aspirin EC [Ecotrin] 81 mg PO DAILY 04/02/20 Ferrous Sulfate 325 mg PO DAILY 04/02/20 Lisinopril [Zestril] 60 mg PO DAILY 04/02/20 hydroCHLOROthiazide [Hydrochlorothiazide] 25 mg PO DAILY 04/02/20
[2020-04-06 17:17] LABS: BILIRUBIN,URINE NEGATIVE (NEGATIVE); GLUCOSE, URINE (UA) NEGATIVE (NEGATIVE); KETONES,URINE (UA) NEGATIVE (NEGATIVE); LEUKOCYTE ESTERASE, URINE NEGATIVE (NEGATIVE); NITRITE,URINE NEGATIVE (NEGATIVE); OCCULT BLOOD,URINE LARGE (NEGATIVE); PH,URINE 5.5 PH (5.0-7.5); PROTEIN,URINE 30 mg/dL (NEGATIVE); UROBILINOGEN,URINE 0.2 (NORMAL) E.U./dL (NORMAL)
[2020-04-06] MEDS: SACCHAROMYCES BOULARDII 250 MG CAPSULE PO SCH (17:17)
[2020-04-06 17:31] LABS: BACTERIA,URINE Few /HPF (None Seen); CLARITY,URINE HAZY (CLEAR); RBC,URINE TNTC /HPF (0-5); SQUAMOUS EPITHELIAL CELL,UR RARE Squamous (<= Few); WBC CLUMPS,URINE PRESENT
[2020-04-06] MEDS: ATORVASTATIN 40 MG TABLET PO SCH (21:26)
[2020-04-07] MEDS: SODIUM CHLORIDE FLUSH 0.9% 10 ML SYRINGE IVP SCH ×3 (00:37→16:41)
[2020-04-07] MEDS: PIPERACILLIN/TAZOBACTAM 3.375 GM in SODIUM CHLORIDE 0.9% MINIBAG 100 ML IV SCH ×3 (03:38→19:44)
[2020-04-07] MEDS ORDERED: ROPIVACAINE EP ONE (04:04)
[2020-04-07] MEDS: ROPIVACAINE 0.2% 200 MG/100 ML BAG EP PRN ×2 (04:28→20:48)
[2020-04-07 06:51] LABS: BASOPHILS % (AUTO) 0.3 %; EOSINOPHILS # (AUTO) 0.3 10^3/uL (0.0-0.7); EOSINOPHILS % (AUTO) 2.6 %; HGB - HEMOGLOBIN 9.4 g/dL (12.0-16.0); LYMPHOCYTES # (AUTO) 0.7 10^3/uL (1.5-3.5); LYMPHOCYTES % (AUTO) 5.1 %; MEAN CORPUSCULAR HEMOGLOBIN 30.3 pg (27.0-31.0); MEAN CORPUSCULAR HGB CONC 32.2 g/dL (32.0-36.0); MEAN CORPUSCULAR VOLUME 94.2 fL (81.0-99.0); MONOCYTES # (AUTO) 0.6 10^3/uL (0.0-1.0); MONOCYTES % (AUTO) 4.3 %; NEUTROPHILS # (AUTO) 11.4 10^3/uL (1.5-6.6); PLT - PLATELET COUNT 179 10^3/uL (130-450); RED CELL DISTRIBUTION WIDTH 13.9 % (12.0-15.0); WHITE BLOOD COUNT 13.1 x10^3/uL (4.8-10.8)
[2020-04-07 07:00] LABS: CALCIUM 7.9 mg/dL (8.5-10.3); CREATININE 0.7 mg/dL (0.4-1.0)
[2020-04-07] MEDS: METOPROLOL TARTRATE 25 MG TABLET PO SCH ×2 (08:43→20:45)
[2020-04-07] MEDS: GABAPENTIN 300 MG CAPSULE PO SCH ×2 (08:43→20:47)
[2020-04-07] MEDS: FAMOTIDINE 20 MG TABLET PO SCH (08:44)
[2020-04-07] MEDS: MULTIVITAMIN W/MINERALS TABLET PO SCH (08:44)
[2020-04-07] MEDS: SACCHAROMYCES BOULARDII 250 MG CAPSULE PO SCH ×2 (08:44→16:41)
[2020-04-07] MEDS: ASPIRIN EC 81 MG TABLET PO SCH (08:44)
[2020-04-07] MEDS: ENOXAPARIN 80 MG/0.8 ML SYRINGE SUBQ SCH (08:45)
--- NOTE | 2020-04-07 10:27 | PROVIDER PROGRESS NOTE ---
Subjective - Prog Note Date Prog Note Date: 04/07/20 - Subjective Pt reports feeling: Improved (denies nausea. no appetite yet.) Objective - Vital Signs/Intake & Output Vital Signs: Vital Signs x48h Temp Pulse Resp BP Pulse Ox 04/07/20 08:16 36.9 C 91 20 142/73 H 94 04/07/20 04:03 37.3 C 90 16 131/71 H 95 Intake & Output: Intake & Output 04/04/20 04/05/20 04/06/20 04/07/20 23:59 23:59 23:59 23:59 Intake Total 4402.175 3061.500 2350 400 Output Total 495 2668 1775 1100 Balance 3907.175 393.500 575 -700 - Objective General Appearance: positive: No acute distress, Alert Eyes Bilateral: positive: Normal inspection, PERRL, EOMI ENT: positive: No signs of dehydration Neck: positive: No JVD Respiratory: positive: No respiratory distress Abdomen: positive: Non-tender, No distention, Other (stoma pink and working. bag nearly full thin liquid) Extremities: positive: No pedal edema Neurologic/Psychiatric: positive: Oriented x3 - Lab Results Fish Bones: 04/07/20 06:40 04/07/20 06:40 Other Labs: Lab Results x24hrs 04/07/20 04/07/20 04/07/20 Range/Units 06:40 06:40 05:40 WBC 13.1 H (4.8-10.8) x10^3/uL RBC 3.10 L (4.20-5.40) 10^6/uL Hgb 9.4 L (12.0-16.0) g/dL Hct 29.2 L (37.0-47.0) % MCV 94.2 (81.0-99.0) fL MCH 30.3 (27.0-31.0) pg MCHC 32.2 (32.0-36.0) g/dL RDW 13.9 (12.0-15.0) % Plt Count 179 (130-450) 10^3/uL MPV 10.0 (7.9-10.8) fL Neut # (Auto) 11.4 H (1.5-6.6) 10^3/uL Lymph # (Auto) 0.7 L (1.5-3.5) 10^3/uL [place] # (Auto) 0.6 (0.0-1.0) 10^3/uL Eos # (Auto) 0.3 (0.0-0.7) 10^3/uL Baso # (Auto) 0.0 (0.0-0.1) 10^3/uL Absolute Nucleated RBC 0.00 x10^3/uL Nucleated RBC % 0.0 /100WBC Sodium 134 L (135-145) mmol/L Potassium 3.5 (3.5-5.0) mmol/L Chloride 103 (101-111) mmol/L Carbon Dioxide 25 (21-32) mmol/L Anion Gap 6.0 (6-13) BUN 14 (6-20) mg/dL Creatinine 0.7 (0.4-1.0) mg/dL Estimated GFR (MDRD) 83 L (>89) Glucose 118 H (70-100) mg/dL Calcium 7.9 L (8.5-10.3) mg/dL Phosphorus (2.5-4.6) mg/dL Magnesium 1.9 (1.7-2.8) mg/dL Troponin I High Sens (2.3-14.8) ng/L Urine Color Urine Clarity (CLEAR) Urine pH (5.0-7.5) PH Ur Specific [place] (1.002-1.030) Urine Protein (NEGATIVE) mg/dL Urine Glucose (UA) (NEGATIVE) mg/dL Urine Ketones (NEGATIVE) mg/dL Urine Occult Blood (NEGATIVE) Urine Nitrite (NEGATIVE) Urine Bilirubin (NEGATIVE) Urine Urobilinogen (NORMAL) E.U./dL Ur Leukocyte Esterase (NEGATIVE) Urine RBC (0-5) /HPF Urine WBC (0-5) /HPF Urine WBC Clumps Ur Squamous Epith Cells (<= Few) Urine Bacteria (None Seen) /HPF Urine Culture Comments 04/06/20 04/06/20 04/06/20 Range/Units 17:00 11:00 11:00 WBC (4.8-10.8) x10^3/uL RBC (4.20-5.40) 10^6/uL Hgb (12.0-16.0) g/dL Hct (37.0-47.0) % MCV (81.0-99.0) fL MCH (27.0-31.0) pg MCHC (32.0-36.0) g/dL RDW (12.0-15.0) % Plt Count (130-450) 10^3/uL MPV (7.9-10.8) fL Neut # (Auto) (1.5-6.6) 10^3/uL Lymph # (Auto) (1.5-3.5) 10^3/uL [place] # (Auto) (0.0-1.0) 10^3/uL Eos # (Auto) (0.0-0.7) 10^3/uL Baso # (Auto) (0.0-0.1) 10^3/uL Absolute Nucleated RBC x10^3/uL Nucleated RBC % /100WBC Sodium (135-145) mmol/L Potassium (3.5-5.0) mmol/L Chloride (101-111) mmol/L Carbon Dioxide (21-32) mmol/L Anion Gap (6-13) BUN (6-20) mg/dL Creatinine (0.4-1.0) mg/dL Estimated GFR (MDRD) (>89) Glucose (70-100) mg/dL Calcium (8.5-10.3) mg/dL Phosphorus 2.7 (2.5-4.6) mg/dL Magnesium 1.6 L (1.7-2.8) mg/dL Troponin I High Sens 117.5 H* (2.3-14.8) ng/L Urine Color YELLOW Urine Clarity HAZY (CLEAR) Urine pH 5.5 (5.0-7.5) PH Ur Specific [place] >=1.030 H (1.002-1.030) Urine Protein 30 H (NEGATIVE) mg/dL Urine Glucose (UA) NEGATIVE (NEGATIVE) mg/dL Urine Ketones NEGATIVE (NEGATIVE) mg/dL Urine Occult Blood LARGE H (NEGATIVE) Urine Nitrite NEGATIVE (NEGATIVE) Urine Bilirubin NEGATIVE (NEGATIVE) Urine Urobilinogen 0.2 (NORMAL) (NORMAL) E.U./dL Ur Leukocyte Esterase NEGATIVE (NEGATIVE) Urine RBC TNTC H (0-5) /HPF Urine WBC 11-25 H (0-5) /HPF Urine WBC Clumps PRESENT Ur Squamous Epith Cells RARE Squamous (<= Few) Urine Bacteria Few (None Seen) /HPF Urine Culture Comments INDICATED Assessment/Plan - Problem List (1) Partial bowel obstruction Impression: Doing well after surgery now. continue present care. clears for now. path pending Qualifiers: Intestinal obstruction type: other intestinal obstruction Qualified Code(s): K56.690 - Other partial intestinal obstruction
--- NOTE | 2020-04-07 11:37 | PROVIDER PROGRESS NOTE ---
Subjective - Prog Note Date Prog Note Date: 04/07/20 Prog Note Time: 11:40 - Subjective Subjective: When I walked in this morning she was out of bed, slowly walk to the bedside commode with 2 person assist. Got out of the commode and then sat in her chair. The effort left her winded, but quickly recovered. Slightly diaphoretic requiring a tissue to wipe her face. Main complaint was incisional pain but is controlled by the epidural. Denies chest pain, palpitations. Tired. Ostomy bag has a slow steady input of stool. Current Medications - Current Medications Current Medications: Active Medications Aspirin (Ecotrin) 81 mg PO DAILY ON LICENSE OF [facility] Last Admin: 04/07/20 08:44 Dose: 81 mg Documented by: Atorvastatin Calcium (Lipitor) 40 mg PO QPM ON LICENSE OF [facility] Last Admin: 04/06/20 21:26 Dose: 40 mg Documented by: Benzocaine (Hurricaine) 1 sprays MM Q4HR PRN PRN Reason: Mouth Sore Pain Last Admin: 04/02/20 16:30 Dose: 1 spr Documented by: Enoxaparin Sodium (Lovenox) 80 mg SUBQ BID ON LICENSE OF [facility] Last Admin: 04/07/20 08:45 Dose: 80 mg Documented by: Famotidine (Pepcid) 20 mg PO DAILY ON LICENSE OF [facility] Last Admin: 04/07/20 08:44 Dose: 20 mg Documented by: Gabapentin (Neurontin) 300 mg PO BID ON LICENSE OF [facility] Last Admin: 04/07/20 08:43 Dose: 300 mg Documented by: Hydralazine HCl (Apresoline Inj) 10 mg IVP Q4HR PRN PRN Reason: NEEDED PER PROVIDER ORDERS Last Admin: 04/04/20 12:06 Dose: 10 mg Documented by: Acetaminophen (Ofirmev) 100 mls @ 400 mls/hr IV Q6HR PRN PRN Reason: PAIN Last Infusion: 04/06/20 00:18 Dose: Infused Documented by: Ropivacaine (Naropin 0.2%) 200 mg in 100 mls @ 0 mls/hr EP PRN PRN; Protocol PRN Reason: PAIN Last Admin: 04/07/20 04:28 Dose: 5 mls/hr Documented by: Piperacillin Sod/Tazobactam (Sod 3.375 gm/ Sodium Chloride) 100 mls @ 25 mls/hr IV Q8H ON LICENSE OF [facility] Last Infusion: 04/07/20 07:45 Dose: Infused Documented by: Labetalol HCl (Trandate Syringe) 10 mg IVP Q2HR PRN PRN Reason: NEEDED PER PROVIDER ORDERS Methocarbamol (Robaxin) 500 mg PO Q6HR PRN PRN Reason: Spasms Metoprolol Tartrate (Lopressor) 25 mg PO BID ON LICENSE OF [facility] Last Admin: 04/07/20 08:43 Dose: 25 mg Documented by: Multivitamins/Minerals (Theragran M) 1 tab PO DAILYWM ON LICENSE OF [facility] Last Admin: 04/07/20 08:44 Dose: 1 tab Documented by: Nalbuphine HCl (Nubain) 2.5 - 5 mg IVP Q4H PRN PRN Reason: Severe Itching Ondansetron HCl (Zofran Inj) 4 mg IVP Q6HR PRN PRN Reason: Nausea / Vomiting Last Admin: 04/04/20 10:06 Dose: 4 mg Documented by: Phenol/Menthol (Chloraseptic) 2 sprays MM Q2HR PRN PRN Reason: Throat Pain Last Admin: 04/05/20 07:41 Dose: 2 sprays Documented by: Prochlorperazine Edisylate (Compazine Inj) 10 mg IVP Q6HR PRN PRN Reason: Nausea / Vomiting Last Admin: 04/03/20 21:39 Dose: 10 mg Documented by: Saccharomyces Boulardii (Florastor) 250 mg PO BIDWM ON LICENSE OF [facility] Last Admin: 04/07/20 08:44 Dose: 250 mg Documented by: Sodium Chloride (Normal Saline Flush 0.9%) 10 ml IVP PRN PRN PRN Reason: NEEDED PER PROVIDER ORDERS Last Admin: 04/03/20 06:19 Dose: 10 ml Documented by: Sodium Chloride (Normal Saline Flush 0.9%) 10 ml IVP 0100,0900,1700 ON LICENSE OF [facility] Last Admin: 04/07/20 00:37 Dose: Not Given Documented by: Aspirin EC [Ecotrin] 81 mg PO DAILY 04/02/20 Ferrous Sulfate 325 mg PO DAILY 04/02/20 Lisinopril [Zestril] 60 mg PO DAILY 04/02/20 hydroCHLOROthiazide [Hydrochlorothiazide] 25 mg PO DAILY 04/02/20 Objective - Vital Signs/Intake & Output Reviewed Vital Signs: Yes Vital Signs: Vital Signs x48h Temp Pulse Resp BP Pulse Ox 04/07/20 08:16 36.9 C 91 20 142/73 H 94 04/07/20 04:03 37.3 C 90 16 131/71 H 95 Intake & Output: Intake & Output 04/04/20 04/05/20 04/06/20 04/07/20 23:59 23:59 23:59 23:59 Intake Total 4402.175 3061.500 2350 400 Output Total 495 2668 1775 1100 Balance 3907.175 393.500 575 -700 - Objective General Appearance: positive: Alert, Mild distress, Other (5 feet 5 inches female, 74.5 kg, slightly kyphotic posturing that may be due to her abdominal pain incision.) Eyes Bilateral: positive: PERRL ENT: positive: Pharynx nml, No signs of dehydration Neck: positive: No JVD. negative: Stiff neck Respiratory: positive: Chest non-tender. negative: Wheezes, Rales, Rhonchi Cardiovascular: positive: Regular rate & rhythm, Systolic murmur. negative: Gallop/S4, Friction rub Abdomen: positive: Nml bowel sounds, Other (Still with slightly distended abdominal wall.). negative: Guarding, Rebound Skin: positive: Warm, Diaphoresis, Pallor Extremities: positive: Non-tender, No pedal edema Neurologic/Psychiatric: positive: Oriented x3, CN's nml (2-12), Motor nml - Lab Results Fish Bones: 04/07/20 06:40 04/07/20 06:40 Other Labs: Lab Results x24hrs 04/07/20 04/07/20 04/07/20 Range/Units 06:40 06:40 05:40 WBC 13.1 H (4.8-10.8) x10^3/uL RBC 3.10 L (4.20-5.40) 10^6/uL Hgb 9.4 L (12.0-16.0) g/dL Hct 29.2 L (37.0-47.0) % MCV 94.2 (81.0-99.0) fL MCH 30.3 (27.0-31.0) pg MCHC 32.2 (32.0-36.0) g/dL RDW 13.9 (12.0-15.0) % Plt Count 179 (130-450) 10^3/uL MPV 10.0 (7.9-10.8) fL Neut # (Auto) 11.4 H (1.5-6.6) 10^3/uL Lymph # (Auto) 0.7 L (1.5-3.5) 10^3/uL [place] # (Auto) 0.6 (0.0-1.0) 10^3/uL Eos # (Auto) 0.3 (0.0-0.7) 10^3/uL Baso # (Auto) 0.0 (0.0-0.1) 10^3/uL Absolute Nucleated RBC 0.00 x10^3/uL Nucleated RBC % 0.0 /100WBC Sodium 134 L (135-145) mmol/L Potassium 3.5 (3.5-5.0) mmol/L Chloride 103 (101-111) mmol/L Carbon Dioxide 25 (21-32) mmol/L Anion Gap 6.0 (6-13) BUN 14 (6-20) mg/dL Creatinine 0.7 (0.4-1.0) mg/dL Estimated GFR (MDRD) 83 L (>89) Glucose 118 H (70-100) mg/dL Calcium 7.9 L (8.5-10.3) mg/dL Magnesium 1.9 (1.7-2.8) mg/dL Troponin I High Sens (2.3-14.8) ng/L Urine Color Urine Clarity (CLEAR) Urine pH (5.0-7.5) PH Ur Specific [place] (1.002-1.030) Urine Protein (NEGATIVE) mg/dL Urine Glucose (UA) (NEGATIVE) mg/dL Urine Ketones (NEGATIVE) mg/dL Urine Occult Blood (NEGATIVE) Urine Nitrite (NEGATIVE) Urine Bilirubin (NEGATIVE) Urine Urobilinogen (NORMAL) E.U./dL Ur Leukocyte Esterase (NEGATIVE) Urine RBC (0-5) /HPF Urine WBC (0-5) /HPF Urine WBC Clumps Ur Squamous Epith Cells (<= Few) Urine Bacteria (None Seen) /HPF Urine Culture Comments 04/06/20 04/06/20 Range/Units 17:00 11:00 WBC (4.8-10.8) x10^3/uL RBC (4.20-5.40) 10^6/uL Hgb (12.0-16.0) g/dL Hct (37.0-47.0) % MCV (81.0-99.0) fL MCH (27.0-31.0) pg MCHC (32.0-36.0) g/dL RDW (12.0-15.0) % Plt Count (130-450) 10^3/uL MPV (7.9-10.8) fL Neut # (Auto) (1.5-6.6) 10^3/uL Lymph # (Auto) (1.5-3.5) 10^3/uL [place] # (Auto) (0.0-1.0) 10^3/uL Eos # (Auto) (0.0-0.7) 10^3/uL Baso # (Auto) (0.0-0.1) 10^3/uL Absolute Nucleated RBC x10^3/uL Nucleated RBC % /100WBC Sodium (135-145) mmol/L Potassium (3.5-5.0) mmol/L Chloride (101-111) mmol/L Carbon Dioxide (21-32) mmol/L Anion Gap (6-13) BUN (6-20) mg/dL Creatinine (0.4-1.0) mg/dL Estimated GFR (MDRD) (>89) Glucose (70-100) mg/dL Calcium (8.5-10.3) mg/dL Magnesium (1.7-2.8) mg/dL Troponin I High Sens 117.5 H* (2.3-14.8) ng/L Urine Color YELLOW Urine Clarity HAZY (CLEAR) Urine pH 5.5 (5.0-7.5) PH Ur Specific [place] >=1.030 H (1.002-1.030) Urine Protein 30 H (NEGATIVE) mg/dL Urine Glucose (UA) NEGATIVE (NEGATIVE) mg/dL Urine Ketones NEGATIVE (NEGATIVE) mg/dL Urine Occult Blood LARGE H (NEGATIVE) Urine Nitrite NEGATIVE (NEGATIVE) Urine Bilirubin NEGATIVE (NEGATIVE) Urine Urobilinogen 0.2 (NORMAL) (NORMAL) E.U./dL Ur Leukocyte Esterase NEGATIVE (NEGATIVE) Urine RBC TNTC H (0-5) /HPF Urine WBC 11-25 H (0-5) /HPF Urine WBC Clumps PRESENT Ur Squamous Epith Cells RARE Squamous (<= Few) Urine Bacteria Few (None Seen) /HPF Urine Culture Comments INDICATED ABX Reporting Has patient been on IV antibiotics over the past 48 hours?: Yes Assessment/Plan - Problem List (1) Non-STEMI (non-ST elevated myocardial infarction) Impression: 04/06: Patient reported she feel much better on today. Patient's hemodynamic is stable, blood pressure and HR is in the normal arrange. Patient denies chest pain. Troponin is the flat. We will continue baby aspirin, Lovenox, beta- shanda, statin. 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 Pain is her main issue with regards to her incisional site. But no chest pain, palpitations. Gets diaphoretic with effort as she gets out of the bed and sits in the chair or tries to sit on the toilet. Tolerating statin, beta-shanda baby aspirin, and Lovenox. Telemetry stable. Blood pressure was 110 216 yesterday. 109 systolic at midnight. This morning 131/71. 95% on 1 L oxygen. Telemetry is sinus with occasional PVCs. Echocardiogram was done preopera tively and she had an ejection fraction of 75%, hyperdynamic and felt to be fluid depleted. Mild aortic stenosis at 31/17 mmHg. Aortic valve area 1.16 cm. Today there will be no new orders for this. Patient Troponin is 175, S Blood pressure is down today 85. But the patient denies chest pain. EKG has no ST variation, as her baseline.Patient likely has NONSTEMI follow s/p surgery. Discussed the risk of ,including but not limited to acute MO or even cardiac collapse before the surgery with the patient, the patient wanted continue to have surgery on yesterday. Discussed CODE STATUS with the patient, patient want to continue to have full code. Continue aspirin, add Lovenox twice daily, Start with a statin. Because the patient blood pressure is low, we will hold metoprolol and other BP meds order 500 cc normal saline intravenous bolus for patient. Continue telemetry and vital signs monitor (2) Partial bowel obstruction Impression: 04/07:Postoperative day #3. Putting quite a bit of stool through her bag. Sort of a slow steady leak. She is on clear liquids, Ensure. Pain is increased when she tries to get out of bed but otherwise controlled. No new orders from surgery.She is seen the ostomy teaching nurse yesterday and will see them today. Still having difficulty with that. Still clearly deconditioned and needing a two-person assist to get out of bed. We are hoping that she will be able to go home with home health and wound care. At this time she does not need enough therapy to warrant physical therapy. We will continue to assess 821, This is day 2 of status post of surgery. Patient reported no passed gas or bowel movement yet. patient reported abdominal pain is controlled. Patient tolerated clear diet. We will continue follow-up with surgeon, Per surgeon recommendation, will add Ensure for patient. 04/05,Patient had sigmoid colectomy on Yesterday. NG tube is removed on today. Patient was started with clear diet on today Per surgeon. Pain was controlled by GERMINATION WORKER pump. Continue follow-up with surgeon, Pain control, If patient can tolerate clear or even advance diet, We will hold TPN. 04/04 Per surgeon report, she attempted to have a colonoscopy for patient but patient has very tight and impassable stricture in the sigmoid colon. surgeon recommended urgent sigmoid colectomy this afternoon with diverting ileostomy. Order PICC line for patient, Patient might need TPN status post of surgery. NPO with intravenous IV fluids. Will follow up with s/p care for surgery. (3)fever 04/07:T-max April 05 was 38.2, that continued into the rehabilitation medicine physician hours of April 06. Since then her temperatures come down and the highest she has been is 37.3 today. Other than Tylenol, no further intervention. We worry about postsurgical complications such as pneumonia, UTI or bowel dehiscence. Abd exam stable. White cell count has remained elevated. 13.1 went to 11 yesterday and is back to 13.1 today. We will continue to monitor. Zosyn day #2. 04/06, Patient has low degree fever last night and a temperature 38.2, And a slightly elevated WBC. Unknown etiology to cause patient has a fever but this is day 2 status post of surgery. use Zosyn for patient now, add probiotics as well. We will add urinalysis, now pt has no respiratory distress. We will do blood culture. (4)pre-operation assessment Patient report she has no previous cardiac medical hx beside of HTN. revised cardiac risk index (Bogdan Criteria) is 0.9%, low risk. pt's troponin, EKG and ECHO were ordered (5) diastolic heart failure with Aortic stenosis 04/07: Overall fluid status as of this note is (+)[id number] with (-) 700cc this am. She is tachypneic w effort getting out of bed to bedside commode and then chair as I watch her but recovers quickly within a minute. She is on meds for NSTEMI. At home she was on Lisinopril/HCTZ. Will resume HCTZ. 821, patient was found to have moderate pulmonary hypertension and moderate abnormal pressure in right heart, and mild aortic stenosis. We will precaution fluids overloaded, will continue aspirin, beta-shanda, statin for patient. Patient report she had hx of heart murmur. ECHO is ordered. called project technician and hope pt had ECHO done before surgery. (6) HTN 04/07: 130s this am. On Lisinopril, betablocker, resume HCTZ. 04/05, Patient blood pressure is low, Hold blood pressure medicine. Continue vit al signs monitor. We will continue home medication lisinopril and HCTZ, Continue vital signs monitor, Continue IV hydralazine PRN. (7) History of iron deficiency Conclusion/Plan: Hemoglobin is stable. We will continue her on iron supplementation once she is taking p.o. (8) hx of alcohol abuse Patient report he have history of alcohol abuse, but he quit couple years ago.
[2020-04-07] MEDS: hydroCHLOROthiazide 25 MG TABLET PO SCH (13:11)
--- NOTE | 2020-04-07 13:17 | ANESTHESIA PROCEDURE NOTE ---
Anesthesia Epidural Template - Patient Report Patient Reports: positive: Pain controlled - Exam Epidural Medication Information: Epidural Medications Medication Ropivicaine Continuous Infusion Rate (mL/ 5 hr) Demand Dose Setting 2 Bolus Amount 7 Infused Amount 22 - Plan Plan: positive: Continue current management - Other Comments Other Comments: Pt awake and alert sitting up in bed for clear liquid lunch. Denies pain associated with incision but states she is tired of being in bed. VSS, able to move B LE. Sensory t-10. AM dose of Lovenox was given so unable to pull epidural at this time. Requested AM dose of Lovenox be held for cath removal tomorrow.
[2020-04-07] MEDS: SODIUM CHLORIDE 0.9% 500 ML IV PRN (19:45)
[2020-04-07] MEDS: ATORVASTATIN 40 MG TABLET PO SCH (20:47)
[2020-04-08] MEDS: SODIUM CHLORIDE FLUSH 0.9% 10 ML SYRINGE IVP SCH ×3 (02:34→16:17)
[2020-04-08] MEDS: PIPERACILLIN/TAZOBACTAM 3.375 GM in SODIUM CHLORIDE 0.9% MINIBAG 100 ML IV SCH ×3 (03:51→19:35)
[2020-04-08 04:51] LABS: BASOPHILS % (AUTO) 0.4 %; EOSINOPHILS # (AUTO) 0.4 10^3/uL (0.0-0.7); EOSINOPHILS % (AUTO) 3.3 %; HGB - HEMOGLOBIN 9.3 g/dL (12.0-16.0); LYMPHOCYTES # (AUTO) 0.8 10^3/uL (1.5-3.5); LYMPHOCYTES % (AUTO) 6.9 %; MEAN CORPUSCULAR HEMOGLOBIN 29.8 pg (27.0-31.0); MEAN CORPUSCULAR HGB CONC 32.4 g/dL (32.0-36.0); MEAN PLATELET VOLUME 9.6 fL (7.9-10.8); MONOCYTES # (AUTO) 0.6 10^3/uL (0.0-1.0); MONOCYTES % (AUTO) 5.6 %; NEUTROPHILS # (AUTO) 9.4 10^3/uL (1.5-6.6); PLT - PLATELET COUNT 208 10^3/uL (130-450); RED BLOOD COUNT 3.12 10^6/uL (4.20-5.40); RED CELL DISTRIBUTION WIDTH 13.6 % (12.0-15.0); WHITE BLOOD COUNT 11.4 x10^3/uL (4.8-10.8)
[2020-04-08 05:03] LABS: CALCIUM 8.1 mg/dL (8.5-10.3); CREATININE 0.7 mg/dL (0.4-1.0)
[2020-04-08] MEDS: FAMOTIDINE 20 MG TABLET PO SCH (07:46)
[2020-04-08] MEDS: METOPROLOL TARTRATE 25 MG TABLET PO SCH ×2 (07:46→20:29)
[2020-04-08] MEDS: SACCHAROMYCES BOULARDII 250 MG CAPSULE PO SCH ×2 (07:46→16:16)
[2020-04-08] MEDS: GABAPENTIN 300 MG CAPSULE PO SCH ×2 (07:46→20:29)
[2020-04-08] MEDS: hydroCHLOROthiazide 25 MG TABLET PO SCH (07:47)
[2020-04-08] MEDS: MULTIVITAMIN W/MINERALS TABLET PO SCH (07:47)
[2020-04-08] MEDS: ASPIRIN EC 81 MG TABLET PO SCH (07:47)
[2020-04-08] MEDS: POTASSIUM CHLOR 10 MEQ/100 ML 10 MEQ/100 ML BAG IV SCH ×4 (08:08→11:20)
[2020-04-08] MEDS: SODIUM CHLORIDE 0.9% 500 ML IV PRN (11:20)
[2020-04-08] MEDS ORDERED: MORPHINE 2 MG/ML CARPUJECT IVP PRN (11:36)
[2020-04-08] MEDS ORDERED: oxyCODONE 5 MG TABLET PO PRN (11:36)
[2020-04-08] MEDS ORDERED: HYDROcod/ACETAM 5/325 MG TABLET PO PRN (11:46)
--- NOTE | 2020-04-08 11:51 | PROVIDER PROGRESS NOTE ---
Subjective - Prog Note Date Prog Note Date: 04/08/20 - Subjective Pt reports feeling: Improved (appetite returning. is burping some) Objective - Vital Signs/Intake & Output Vital Signs: Vital Signs x48h Temp Pulse Resp BP Pulse Ox 04/08/20 11:22 37.2 C 87 18 137/72 H 94 04/08/20 07:41 36.9 C 97 18 150/85 H 92 04/08/20 04:03 36.9 C 93 20 131/99 H 95 Intake & Output: Intake & Output 04/05/20 04/06/20 04/07/20 04/08/20 23:59 23:59 23:59 23:59 Intake Total 3061.500 2350 745 916.667 Output Total 2668 1775 2435 2200 Balance 393.500 287 -3705 -8273.284 - Objective General Appearance: positive: No acute distress, Alert Eyes Bilateral: positive: PERRL, EOMI ENT: positive: No signs of dehydration Neck: positive: No JVD Respiratory: positive: No respiratory distress Abdomen: positive: Non-tender, No distention, Other (dressing c/d/i. demario scant sanguinous stoma pink) Neurologic/Psychiatric: positive: Oriented x3 - Lab Results Fish Bones: 04/08/20 04:35 04/08/20 04:35 Other Labs: Lab Results x24hrs 04/08/20 04/08/20 Range/Units 04:35 04:35 WBC 11.4 H (4.8-10.8) x10^3/uL RBC 3.12 L (4.20-5.40) 10^6/uL Hgb 9.3 L (12.0-16.0) g/dL Hct 28.7 L (37.0-47.0) % MCV 92.0 (81.0-99.0) fL MCH 29.8 (27.0-31.0) pg MCHC 32.4 (32.0-36.0) g/dL RDW 13.6 (12.0-15.0) % Plt Count 208 (130-450) 10^3/uL MPV 9.6 (7.9-10.8) fL Neut # (Auto) 9.4 H (1.5-6.6) 10^3/uL Lymph # (Auto) 0.8 L (1.5-3.5) 10^3/uL [place] # (Auto) 0.6 (0.0-1.0) 10^3/uL Eos # (Auto) 0.4 (0.0-0.7) 10^3/uL Baso # (Auto) 0.0 (0.0-0.1) 10^3/uL Absolute Nucleated RBC 0.00 x10^3/uL Nucleated RBC % 0.0 /100WBC Sodium 134 L (135-145) mmol/L Potassium 3.1 L (3.5-5.0) mmol/L Chloride 97 L (101-111) mmol/L Carbon Dioxide 28 (21-32) mmol/L Anion Gap 9.0 (6-13) BUN 12 (6-20) mg/dL Creatinine 0.7 (0.4-1.0) mg/dL Estimated GFR (MDRD) 83 L (>89) Glucose 114 H (70-100) mg/dL Calcium 8.1 L (8.5-10.3) mg/dL Assessment/Plan - Problem List (1) Partial bowel obstruction Impression: doing well. full liquid diet. discharge planning for [facility] facility she lives alone and has a diverting ileostomy. Qualifiers: Intestinal obstruction type: other intestinal obstruction Qualified Code(s): K56.690 - Other partial intestinal obstruction
[2020-04-08] MEDS ORDERED: ENOXAPARIN 80 MG/0.8 ML SYRINGE SUBQ SCH (12:00)
[2020-04-08] MEDS: ENOXAPARIN 80 MG/0.8 ML SYRINGE SUBQ SCH (16:16)
--- NOTE | 2020-04-08 18:10 | PROVIDER PROGRESS NOTE ---
Subjective - Prog Note Date Prog Note Date: 04/08/20 Prog Note Time: 18:14 - Subjective Pt reports feeling: No change Subjective: Valiantly working with nurses to get up out of bed. But ignoring her ostomy bag. Is too unsure and insecure to change it on her self and relying on nurses. Current Medications - Current Medications Current Medications: Active Medications Hydrocodone Bitart/Acetaminophen ([place] 5/325) 1 tab PO Q4HR PRN PRN Reason: PAIN Last Admin: 04/08/20 16:14 Dose: 1 tab Documented by: Aspirin (Ecotrin) 81 mg PO DAILY [facility] Last Admin: 04/08/20 07:47 Dose: 81 mg Documented by: Atorvastatin Calcium (Lipitor) 40 mg PO QPM [facility] Last Admin: 04/07/20 20:47 Dose: 40 mg Documented by: Benzocaine (Hurricaine) 1 sprays MM Q4HR PRN PRN Reason: Mouth Sore Pain Last Admin: 04/02/20 16:30 Dose: 1 spr Documented by: Enoxaparin Sodium (Lovenox) 80 mg SUBQ BID [facility] Last Admin: 04/08/20 16:16 Dose: 80 mg Documented by: Famotidine (Pepcid) 20 mg PO DAILY [facility] Last Admin: 04/08/20 07:46 Dose: 20 mg Documented by: Gabapentin (Neurontin) 300 mg PO BID [facility] Last Admin: 04/08/20 07:46 Dose: 300 mg Documented by: Hydralazine HCl (Apresoline Inj) 10 mg IVP Q4HR PRN PRN Reason: NEEDED PER PROVIDER ORDERS Last Admin: 04/04/20 12:06 Dose: 10 mg Documented by: Hydrochlorothiazide (Hydrodiuril) 25 mg PO DAILY [facility] Last Admin: 04/08/20 07:47 Dose: 25 mg Documented by: Acetaminophen (Ofirmev) 100 mls @ 400 mls/hr IV Q6HR PRN PRN Reason: PAIN Last Infusion: 04/06/20 00:18 Dose: Infused Documented by: Piperacillin Sod/Tazobactam (Sod 3.375 gm/ Sodium Chloride) 100 mls @ 25 mls/hr IV Q8H [facility] Last Infusion: 04/08/20 15:38 Dose: Infused Documented by: Sodium Chloride (Normal Saline 0.9%) 500 mls @ 0 mls/hr IV Q24H PRN PRN Reason: TKO RATE Last Admin: 04/08/20 11:20 Dose: 20 mls/hr Documented by: Labetalol HCl (Trandate Syringe) 10 mg IVP Q2HR PRN PRN Reason: NEEDED PER PROVIDER ORDERS Methocarbamol (Robaxin) 500 mg PO Q6HR PRN PRN Reason: Spasms Metoprolol Tartrate (Lopressor) 25 mg PO BID [facility] Last Admin: 04/08/20 07:46 Dose: 25 mg Documented by: Morphine Sulfate (Morphine (Carpuject)) 2 mg IVP Q2HR PRN PRN Reason: PAIN Multivitamins/Minerals (Theragran M) 1 tab PO DAILYWM [facility] Last Admin: 04/08/20 07:47 Dose: 1 tab Documented by: Nalbuphine HCl (Nubain) 2.5 - 5 mg IVP Q4H PRN PRN Reason: Severe Itching Ondansetron HCl (Zofran Inj) 4 mg IVP Q6HR PRN PRN Reason: Nausea / Vomiting Last Admin: 04/04/20 10:06 Dose: 4 mg Documented by: Oxycodone HCl (Roxicodone) 5 mg PO Q4HR PRN PRN Reason: PAIN Phenol/Menthol (Chloraseptic) 2 sprays MM Q2HR PRN PRN Reason: Throat Pain Last Admin: 04/05/20 07:41 Dose: 2 sprays Documented by: Prochlorperazine Edisylate (Compazine Inj) 10 mg IVP Q6HR PRN PRN Reason: Nausea / Vomiting Last Admin: 04/03/20 21:39 Dose: 10 mg Documented by: Saccharomyces Boulardii (Florastor) 250 mg PO BIDWM [facility] Last Admin: 04/08/20 16:16 Dose: 250 mg Documented by: Sodium Chloride (Normal Saline Flush 0.9%) 10 ml IVP PRN PRN PRN Reason: NEEDED PER PROVIDER ORDERS Last Admin: 04/03/20 06:19 Dose: 10 ml Documented by: Sodium Chloride (Normal Saline Flush 0.9%) 10 ml IVP 0100,0900,1700 [facility] Last Admin: 04/08/20 16:17 Dose: 10 ml Documented by: Aspirin EC [Ecotrin] 81 mg PO DAILY 04/02/20 Ferrous Sulfate 325 mg PO DAILY 04/02/20 Lisinopril [Zestril] 60 mg PO DAILY 04/02/20 hydroCHLOROthiazide [Hydrochlorothiazide] 25 mg PO DAILY 04/02/20 Objective - Vital Signs/Intake & Output Reviewed Vital Signs: Yes Vital Signs: Vital Signs x48h Temp Pulse Resp BP Pulse Ox 04/08/20 15:38 37.0 C 94 20 148/83 H 96 04/08/20 11:22 37.2 C 87 18 137/72 H 94 Intake & Output: Intake & Output 04/05/20 04/06/20 04/07/20 04/08/20 23:59 23:59 23:59 23:59 Intake Total 3061.500 2350 745 1896.667 Output Total 2668 1775 2435 3150 Balance 393.500 572 -2369 -1203.333 - Objective General Appearance: positive: No acute distress, Alert Eyes Bilateral: positive: PERRL ENT: positive: No signs of dehydration Neck: positive: No JVD. negative: Stiff neck Respiratory: positive: Chest non-tender. negative: Wheezes, Rales, Rhonchi Cardiovascular: positive: Regular rate & rhythm, Systolic murmur, Gallop/S4, Friction rub Abdomen: positive: No organomegaly, Nml bowel sounds, Tenderness, Other (Her ostomy has leaked several times in the last 48 hours. Unfortunately the anatomy of her abdominal wall is interfering with a good seal. We will see what ostomy nurse has for the patient tomorrow.) Skin: positive: Warm, Dry, Pallor Extremities: positive: Non-tender, No pedal edema Neurologic/Psychiatric: positive: Oriented x3, CN's nml (2-12), Motor nml - Lab Results Fish Bones: 04/08/20 04:35 04/08/20 04:35 Other Labs: Lab Results x24hrs 04/08/20 04/08/20 Range/Units 04:35 04:35 WBC 11.4 H (4.8-10.8) x10^3/uL RBC 3.12 L (4.20-5.40) 10^6/uL Hgb 9.3 L (12.0-16.0) g/dL Hct 28.7 L (37.0-47.0) % MCV 92.0 (81.0-99.0) fL MCH 29.8 (27.0-31.0) pg MCHC 32.4 (32.0-36.0) g/dL RDW 13.6 (12.0-15.0) % Plt Count 208 (130-450) 10^3/uL MPV 9.6 (7.9-10.8) fL Neut # (Auto) 9.4 H (1.5-6.6) 10^3/uL Lymph # (Auto) 0.8 L (1.5-3.5) 10^3/uL Villalba # (Auto) 0.6 (0.0-1.0) 10^3/uL Eos # (Auto) 0.4 (0.0-0.7) 10^3/uL Baso # (Auto) 0.0 (0.0-0.1) 10^3/uL Absolute Nucleated RBC 0.00 x10^3/uL Nucleated RBC % 0.0 /100WBC Sodium 134 L (135-145) mmol/L Potassium 3.1 L (3.5-5.0) mmol/L Chloride 97 L (101-111) mmol/L Carbon Dioxide 28 (21-32) mmol/L Anion Gap 9.0 (6-13) BUN 12 (6-20) mg/dL Creatinine 0.7 (0.4-1.0) mg/dL Estimated GFR (MDRD) 83 L (>89) Glucose 114 H (70-100) mg/dL Calcium 8.1 L (8.5-10.3) mg/dL ABX Reporting Has patient been on IV antibiotics over the past 48 hours?: Yes Assessment/Plan - Problem List (1) Non-STEMI (non-ST elevated myocardial infarction) Impression: 04/08: Still no chest pain. Lovenox will be stopped today.Epidural has been pulled. Lovenox was held for 24 hours before it was pulled. It is been 48 hours. Continue statin, beta-shanda. 04/07: Patient reported she feel much better on today. Patient's hemodynamic is stable, blood pressure and HR is in the normal arrange. Patient denies chest pain. Troponin is the flat. We will continue baby aspirin, Lovenox, beta- shanda, statin. 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 Pain is her main issue with regards to her incisional site. But no chest pain, palpitations. Gets diaphoretic with effort as she gets out of the bed and sits in the chair or tries to sit on the toilet. Tolerating statin, beta-shanda baby aspirin, and Lovenox. Telemetry stable. Blood pressure was 110 216 yesterday. 109 systolic at midnight. This morning 131/71. 95% on 1 L oxygen. Telemetry is sinus with occasional PVCs. Echocardiogram was done preoperatively and she had an ejection fraction of 75%, hyperdynamic and felt to be fluid depleted. Mild aortic stenosis at 31/17 mmHg. Aortic valve area 1.16 cm. Today there will be no new orders for this. Patient Troponin is 175, S Blood pressure is down today 85. But the patient chelsy es chest pain. EKG has no ST variation, as her baseline.Patient likely has NONSTEMI follow s/p surgery. Discussed the risk of ,including but not limited to acute PR or even cardiac collapse before the surgery with the patient, the patient wanted continue to have surgery on yesterday. Discussed CODE STATUS with the patient, patient want to continue to have full code. Continue aspirin, add Lovenox twice daily, Start with a statin. Because the patient blood pressure is low, we will hold metoprolol and other BP meds order 500 cc normal saline intravenous bolus for patient. Continue telemetry and vital signs monitor (2) Partial bowel obstruction Impression: 04/08:Postoperative day #4. Dr. Mary states that he thinks that she should be going to a intermediate facility and not home. She is not addressing her ostomy bag in spite of teaching. Does not want to do it. Still significantly weak. Cooperates with nurses very well. But not able to take care of her self. I have let discharge planning know. Epidural pulled today.On full liquid diet . 04/07:Postoperative day #3. Putting quite a bit of stool through her bag. Sort of a slow steady leak. She is on clear liquids, Ensure. Pain is increased when she tries to get out of bed but otherwise controlled. No new orders from surgery.She is seen the ostomy teaching nurse yesterday and will see them today. Still having difficulty with that. Still clearly deconditioned and needing a two-person assist to get out of bed. We are hoping that she will be able to go home with home health and wound care. At this time she does not need enough therapy to warrant physical therapy. We will continue to assess 821, This is day 2 of status post of surgery. Patient reported no passed gas or bowel movement yet. patient reported abdominal pain is controlled. Patient tolerated clear diet. We will continue follow-up with surgeon, Per surgeon recommendation, will add Ensure for patient. 04/05,Patient had sigmoid colectomy on Yesterday. NG tube is removed on today. Patient was started with clear diet on today Per surgeon. Pain was controlled by CLOUD ENGINEER pump. Continue follow-up with surgeon, Pain control, If patient can tolerate clear or even advance diet, We will hold TPN. 04/04 Per surgeon report, she attempted to have a colonoscopy for patient but patient has very tight and impassable stricture in the sigmoid colon. surgeon recommended urgent sigmoid colectomy this afternoon with diverting ileostomy. Order PICC line for patient, Patient might need TPN status post of surgery. NPO with intravenous IV fluids. Will follow up with s/p care for surgery. (3)fever 04/08: Started on Zosyn for fever. She is now day #3. White cell count is down to 11.4 today. No fever since April 06 noted. I will most likely continue for 5 days of empiric therapy and then stop. 04/07:T-max April 05 was 38.2, that continued into the circuit breaker mechanic hours of April 06. Since then her temperatures come down and the highest she has been is 37.3 today. Other than Tylenol, no further intervention. We worry about postsurgical complications such as pneumonia, UTI or bowel dehiscence. Abd exam stable. White cell count has remained elevated. 13.1 went to 11 yesterday and is back to 13.1 today. We will continue to monitor. Zosyn day #2. 04/06, Patient has low degree fever last night and a temperature 38.2, And a slightly elevated WBC. Unknown etiology to cause patient has a fever but this is day 2 status post of surgery. use Zosyn for patient now, add probiotics as well. We will add urinalysis, now pt has no respiratory distress. We will do blood culture. (4)pre-operation assessment Patient report she has no previous cardiac medical hx beside of HTN. revised cardiac risk index (Bogdan Criteria) is 0.9%, low risk. pt's troponin, EKG and ECHO were ordered (5) diastolic heart failure with Aortic stenosis 04/08: April 07, 2024 balance was -1690 cc. Today she is -1253 cc so far. Mobilizing fluids on her own. I did add hydrochlorothiazide and will keep that on board. Make sure that she does not get dehydrated. Labs today show a stable creatinine of 0.7. 04/07: Overall fluid status as of this note is (+)8680 with (-) 700cc this am. She is tachypneic w effort getting out of bed to bedside commode and then chair as I watch her but recovers quickly within a minute. She is on meds for NSTEMI. At home she was on Lisinopril/HCTZ. Will resume HCTZ. 821, patient was found to have moderate pulmonary hypertension and moderate abnormal pressure in right heart, and mild aortic stenosis. We will precaution fluids overloaded, will continue aspirin, beta-shanda, statin for patient. Patient report she had hx of heart murmur. ECHO is ordered. called psych tech and hope pt had ECHO done before surgery. (6) HTN 04/08:131 systolic ranging up to 150 systolic today. Staying in acceptable range for a postoperative patient. No change in medication today. 04/07: 130s this am. On Lisinopril, betablocker, resume HCTZ. 04/05, Patient blood pressure is low, Hold blood pressure medicine. Continue vital signs monitor. We will continue home medication lisinopril and HCTZ, Continue vital signs monitor, Continue IV hydralazine PRN. (7) History of iron deficiency Conclusion/Plan: Hemoglobin is stable. We will continue her on iron supplementation once she is taking p.o. (8) hx of alcohol abuse Patient report he have history of alcohol abuse, but he quit couple years ago. (9) Hypokalemia. Given 40 mEq this morning via rider. Will start daily p.o. supplementation of 20 mEq. Recheck tomorrow.
[2020-04-08] MEDS: ATORVASTATIN 40 MG TABLET PO SCH (20:29)
[2020-04-09] MEDS: ENOXAPARIN 80 MG/0.8 ML SYRINGE SUBQ SCH (00:25)
[2020-04-09] MEDS: SODIUM CHLORIDE FLUSH 0.9% 10 ML SYRINGE IVP SCH ×3 (00:28→17:07)
[2020-04-09] MEDS: PIPERACILLIN/TAZOBACTAM 3.375 GM in SODIUM CHLORIDE 0.9% MINIBAG 100 ML IV SCH (04:08)
[2020-04-09] MEDS: SODIUM CHLORIDE FLUSH 0.9% 10 ML SYRINGE IVP PRN ×4 (04:59→06:58)
[2020-04-09 05:17] LABS: BASOPHILS # (AUTO) 0.1 10^3/uL (0.0-0.1); BASOPHILS % (AUTO) 0.6 %; EOSINOPHILS # (AUTO) 0.6 10^3/uL (0.0-0.7); EOSINOPHILS % (AUTO) 6.3 %; HGB - HEMOGLOBIN 9.1 g/dL (12.0-16.0); LYMPHOCYTES # (AUTO) 0.9 10^3/uL (1.5-3.5); LYMPHOCYTES % (AUTO) 9.5 %; MEAN CORPUSCULAR HEMOGLOBIN 30.2 pg (27.0-31.0); MEAN CORPUSCULAR HGB CONC 32.9 g/dL (32.0-36.0); MEAN PLATELET VOLUME 9.6 fL (7.9-10.8); MONOCYTES # (AUTO) 0.8 10^3/uL (0.0-1.0); MONOCYTES % (AUTO) 8.3 %; NEUTROPHILS # (AUTO) 6.8 10^3/uL (1.5-6.6); NEUTROPHILS % (AUTO) 74.6 %; PLT - PLATELET COUNT 203 10^3/uL (130-450); RED BLOOD COUNT 3.01 10^6/uL (4.20-5.40); RED CELL DISTRIBUTION WIDTH 13.4 % (12.0-15.0); WHITE BLOOD COUNT 9.1 x10^3/uL (4.8-10.8)
[2020-04-09 05:26] LABS: CREATININE 0.7 mg/dL (0.4-1.0)
[2020-04-09] MEDS ORDERED: POTASSIUM CHLORIDE 20 MEQ TABLET PO ONE (06:22)
[2020-04-09] MEDS: POTASSIUM CHLOR 10 MEQ/100 ML 10 MEQ/100 ML BAG IV SCH ×4 (06:58→11:02)
[2020-04-09] MEDS: ACETAMINOPHEN 1,000 MG/100 ML 100 ML IV PRN (07:50)
[2020-04-09] MEDS: SACCHAROMYCES BOULARDII 250 MG CAPSULE PO SCH ×2 (07:57→17:07)
[2020-04-09] MEDS: MULTIVITAMIN W/MINERALS TABLET PO SCH (07:57)
[2020-04-09] MEDS: hydroCHLOROthiazide 25 MG TABLET PO SCH (09:56)
[2020-04-09] MEDS: GABAPENTIN 300 MG CAPSULE PO SCH ×2 (09:56→21:27)
[2020-04-09] MEDS: METOPROLOL TARTRATE 25 MG TABLET PO SCH ×2 (09:56→21:27)
[2020-04-09] MEDS: ASPIRIN EC 81 MG TABLET PO SCH (09:56)
[2020-04-09] MEDS: FAMOTIDINE 20 MG TABLET PO SCH (09:56)
[2020-04-09] MEDS: DIPHENOX/ATROPINE 2.5/0.025 MG TABLET PO PRN (12:47)
--- NOTE | 2020-04-09 13:43 | PROVIDER PROGRESS NOTE ---
Subjective - Prog Note Date Prog Note Date: 04/09/20 Prog Note Time: 13:50 - Subjective Subjective: alert, able to get up but can't quite get into bed. can get up to commode but can't get up out of it to bed. overwhelmed with ostomy training. just can't do it. no cp, no sob. just really tired and worn out. ostomy output just under 1500 cc for 24 hours. Current Medications - Current Medications Current Medications: Active Medications Hydrocodone Bitart/Acetaminophen ([place] 5/325) 1 tab PO Q4HR PRN PRN Reason: PAIN Last Admin: 04/08/20 16:14 Dose: 1 tab Documented by: Aspirin (Ecotrin) 81 mg PO DAILY [facility] Last Admin: 04/09/20 09:56 Dose: 81 mg Documented by: Atorvastatin Calcium (Lipitor) 40 mg PO QPM [facility] Last Admin: 04/08/20 20:29 Dose: 40 mg Documented by: Benzocaine (Hurricaine) 1 sprays MM Q4HR PRN PRN Reason: Mouth Sore Pain Last Admin: 04/02/20 16:30 Dose: 1 spr Documented by: Diphenoxylate HCl/Atropine (Lomotil) 1 tab PO QID PRN PRN Reason: Diarrhea Last Admin: 04/09/20 12:47 Dose: 1 tab Documented by: Famotidine (Pepcid) 20 mg PO DAILY [facility] Last Admin: 04/09/20 09:56 Dose: 20 mg Documented by: Gabapentin (Neurontin) 300 mg PO BID [facility] Last Admin: 04/09/20 09:56 Dose: 300 mg Documented by: Hydralazine HCl (Apresoline Inj) 10 mg IVP Q4HR PRN PRN Reason: NEEDED PER PROVIDER ORDERS Last Admin: 04/04/20 12:06 Dose: 10 mg Documented by: Hydrochlorothiazide (Hydrodiuril) 25 mg PO DAILY [facility] Last Admin: 04/09/20 09:56 Dose: 25 mg Documented by: Sodium Chloride (Normal Saline 0.9%) 500 mls @ 0 mls/hr IV Q24H PRN PRN Reason: TKO RATE Last Infusion: 04/09/20 00:29 Dose: 20 mls/hr Documented by: Labetalol HCl (Trandate Syringe) 10 mg IVP Q2HR PRN PRN Reason: NEEDED PER PROVIDER ORDERS Methocarbamol (Robaxin) 500 mg PO Q6HR PRN PRN Reason: Spasms Metoprolol Tartrate (Lopressor) 25 mg PO BID [facility] Last Admin: 04/09/20 09:56 Dose: 25 mg Documented by: Morphine Sulfate (Morphine (Carpuject)) 2 mg IVP Q2HR PRN PRN Reason: PAIN Multivitamins/Minerals (Theragran M) 1 tab PO DAILYWM [facility] Last Admin: 04/09/20 07:57 Dose: 1 tab Documented by: Nalbuphine HCl (Nubain) 2.5 - 5 mg IVP Q4H PRN PRN Reason: Severe Itching Ondansetron HCl (Zofran Inj) 4 mg IVP Q6HR PRN PRN Reason: Nausea / Vomiting Last Admin: 04/04/20 10:06 Dose: 4 mg Documented by: Oxycodone HCl (Roxicodone) 5 mg PO Q4HR PRN PRN Reason: PAIN Phenol/Menthol (Chloraseptic) 2 sprays MM Q2HR PRN PRN Reason: Throat Pain Last Admin: 04/05/20 07:41 Dose: 2 sprays Documented by: Prochlorperazine Edisylate (Compazine Inj) 10 mg IVP Q6HR PRN PRN Reason: Nausea / Vomiting Last Admin: 04/03/20 21:39 Dose: 10 mg Documented by: Saccharomyces Boulardii (Florastor) 250 mg PO BIDWM [facility] Last Admin: 04/09/20 07:57 Dose: 250 mg Documented by: Sodium Chloride (Normal Saline Flush 0.9%) 10 ml IVP PRN PRN PRN Reason: NEEDED PER PROVIDER ORDERS Last Admin: 04/09/20 06:58 Dose: 10 ml Documented by: Sodium Chloride (Normal Saline Flush 0.9%) 10 ml IVP 0100,0900,1700 [facility] Last Admin: 04/09/20 09:56 Dose: Not Given Documented by: Aspirin EC [Ecotrin] 81 mg PO DAILY 04/02/20 Ferrous Sulfate 325 mg PO DAILY 04/02/20 Lisinopril [Zestril] 60 mg PO DAILY 04/02/20 hydroCHLOROthiazide [Hydrochlorothiazide] 25 mg PO DAILY 04/02/20 Objective - Vital Signs/Intake & Output Reviewed Vital Signs: Yes Vital Signs: Vital Signs x48h Temp Pulse BP BP Pulse Ox 04/09/20 09:56 144/79 H 04/09/20 08:13 36.7 C 98 144/79 H 94 Intake & Output: Intake & Output 04/06/20 04/07/20 04/08/20 04/09/20 23:59 23:59 23:59 23:59 Intake Total 2350 745 2362.334 1530 Output Total 1775 2435 3640 2900 Balance 575 -1290 -1277.666 -1370 - Objective General Appearance: positive: No acute distress, Alert, Other (thin female looks older than stated age.) Eyes Bilateral: positive: PERRL, EOMI ENT: positive: No signs of dehydration Neck: positive: No JVD. negative: Stiff neck Respiratory: positive: Chest non-tender, No respiratory distress. negative: Wheezes, Rales, Rhonchi Cardiovascular: positive: Regular rate & rhythm, Tachycardia (when she gets up), Systolic murmur. negative: Gallop/S4, Friction rub Abdomen: positive: No organomegaly, Nml bowel sounds (at times hyperactive), Other (distension stable). negative: Guarding, Rebound Skin: positive: Warm, Dry, Pallor Extremities: positive: Full ROM, No pedal edema Neurologic/Psychiatric: positive: Oriented x3, CN's nml (2-12), Motor nml (just with diffuse generalized weakness) - Lab Results Fish Bones: 04/09/20 05:02 04/09/20 05:02 Other Labs: Lab Results x24hrs 04/09/20 04/09/20 04/09/20 Range/Units 05:02 05:02 05:00 WBC 9.1 (4.8-10.8) x10^3/uL RBC 3.01 L (4.20-5.40) 10^6/uL Hgb 9.1 L (12.0-16.0) g/dL Hct 27.7 L (37.0-47.0) % MCV 92.0 (81.0-99.0) fL MCH 30.2 (27.0-31.0) pg MCHC 32.9 (32.0-36.0) g/dL RDW 13.4 (12.0-15.0) % Plt Count 203 (130-450) 10^3/uL MPV 9.6 (7.9-10.8) fL Neut # (Auto) 6.8 H (1.5-6.6) 10^3/uL Lymph # (Auto) 0.9 L (1.5-3.5) 10^3/uL [place] # (Auto) 0.8 (0.0-1.0) 10^3/uL Eos # (Auto) 0.6 (0.0-0.7) 10^3/uL Baso # (Auto) 0.1 (0.0-0.1) 10^3/uL Absolute Nucleated RBC 0.00 x10^3/uL Nucleated RBC % 0.0 /100WBC Sodium 132 L (135-145) mmol/L Potassium 3.1 L (3.5-5.0) mmol/L Chloride 93 L (101-111) mmol/L Carbon Dioxide 33 H (21-32) mmol/L Anion Gap 6.0 (6-13) BUN 8 (6-20) mg/dL Creatinine 0.7 (0.4-1.0) mg/dL Estimated GFR (MDRD) 83 L (>89) Glucose 126 H (70-100) mg/dL Calcium 8.0 L (8.5-10.3) mg/dL Vitamin B12 228 (180-914) pg/mL Coronavirus (PCR) 04/08/20 Range/Units 13:35 WBC (4.8-10.8) x10^3/uL RBC (4.20-5.40) 10^6/uL Hgb (12.0-16.0) g/dL Hct (37.0-47.0) % MCV (81.0-99.0) fL MCH (27.0-31.0) pg MCHC (32.0-36.0) g/dL RDW (12.0-15.0) % Plt Count (130-450) 10^3/uL MPV (7.9-10.8) fL Neut # (Auto) (1.5-6.6) 10^3/uL Lymph # (Auto) (1.5-3.5) 10^3/uL [place] # (Auto) (0.0-1.0) 10^3/uL Eos # (Auto) (0.0-0.7) 10^3/uL Baso # (Auto) (0.0-0.1) 10^3/uL Absolute Nucleated RBC x10^3/uL Nucleated RBC % /100WBC Sodium (135-145) mmol/L Potassium (3.5-5.0) mmol/L Chloride (101-111) mmol/L Carbon Dioxide (21-32) mmol/L Anion Gap (6-13) BUN (6-20) mg/dL Creatinine (0.4-1.0) mg/dL Estimated GFR (MDRD) (>89) Glucose (70-100) mg/dL Calcium (8.5-10.3) mg/dL Vitamin B12 (180-914) pg/mL Coronavirus (PCR) NEGATIVE ABX Reporting Has patient been on IV antibiotics over the past 48 hours?: Yes Assessment/Plan - Problem List (1) Non-STEMI (non-ST elevated myocardial infarction) Impression: 04/09: no chest pain, 2-3 beats of wide complex tachycardia yesterday. no symptoms stop lovenox. continue statin and betablocker.. 04/08: Still no chest pain. Lovenox will be stopped today.Epidural has been pulled. Lovenox was held for 24 hours before it was pulled. It is been 48 hours. Continue statin, beta-shanda. 04/07: Patient reported she feel much better on today. Patient's hemodynamic is stable, blood pressure and HR is in the normal arrange. Patient denies chest pain. Troponin is the flat. We will continue baby aspirin, Lovenox, beta- shanda, statin. Continue telemetry and medical laboratory technologist patient. Pain is her main issue with regards to her incisional site. But no chest pain, palpitations. Gets diaphoretic with effort as she gets out of the bed and sits in the chair or tries to sit on the toilet. Tolerating statin, beta-shanda baby aspirin, and Lovenox. Telemetry stable. Blood pressure was 110 216 yesterday. 109 systolic at midnight. This morning 131/71. 95% on 1 L oxygen. Telemetry is sinus with occasional PVCs. Echocardiogram was done preoperatively and she had an ejection fraction of 75%, hyperdynamic and felt to be fluid depleted. Mild aortic stenosis at 31/17 mmHg. Aortic valve area 1.16 cm. Today there will be no new orders for this. Patient Troponin is 175, S Blood pressure is down today 85. But the patient denies chest pain. EKG has no ST variation, as her baseline.Patient likely has NONSTEMI follow s/p surgery. Discussed the risk of ,including but not limited to acute VT or even cardiac collapse before the surgery with the patient, the patient wanted continue to have surgery on yesterday. Discussed CODE STATUS with the patient, patient want to continue to have full code. Continue aspirin, add Lovenox twice daily, Start with a statin. Because the patient blood pressure is low, we will hold metoprolol and other BP meds order 500 cc normal saline intravenous bolus for patient. Continue telemetry and vital signs monitor (2) Partial bowel obstruction Impression: 04/09:POD #5. Dr. Gutierrez, today's surgeon agrees that she will need SNF. She is weak. I will advance diet. Order PT eval with OT. DC IVF and DC IV abx. From a surgical perspective she is almost ready to go. Wound will be looked at and if stable, may be ready for transfer to SNF tomorrow. 04/08:Postoperative day #4. Dr. Mary states that he thinks that she should be going to a long-term facility and not home. She is not addressing her ostomy bag in spite of teaching. Does not want to do it. Still significantly weak. Cooperates with nurses very well. But not able to take care of her self. I have let discharge planning know. Epidural pulled today.On full liquid diet. 04/07:Postoperative day #3. Putting quite a bit of stool through her bag. Sort of a slow steady leak. She is on clear liquids, Ensure. Pain is increased when she tries to get out of bed but otherwise controlled. No new orders from surgery.She is seen the ostomy teaching nurse yesterday and will see them today. Still having difficulty with that. Still clearly deconditioned and needing a two-person assist to get out of bed. We are hoping that she will be able to go home with home health and wound care. At this time she does not need enough therapy to warrant physical therapy. We will continue to assess 821, This is day 2 of status post of surgery. Patient reported no passed gas or bowel movement yet. patient reported abdominal pain is controlled. Patient tolerated clear diet. We will continue follow-up with surgeon, Per surgeon recommendation, will add Ensure for patient. 04/05,Patient had sigmoid colectomy on Yesterday. NG tube is removed on today. Patient was started with clear diet on today Per surgeon. Pain was controlled by WORKGROUP LEADER pump. Continue follow-up with surgeon, Pain control, If patient can tolerate clear or even advance diet, We will hold TPN. 04/04 Per surgeon report, she attempted to have a colonoscopy for patient but patient has very tight and impassable stricture in the sigmoid colon. surgeon recommended urgent sigmoid colectomy this afternoon with diverting ileostomy. Order PICC line for patient, Patient might need TPN status post of surgery. NPO with intravenous IV fluids. Will follow up with s/p care for surgery. (3)fever 04/09: Day #4 abx. I plannned to stop tomorrows after 5 days but pharmacy did stop it today. WBC 9.1 04/08: Started on Zosyn for fever. She is now day #3. White cell count is down to 11.4 today. No fever since April 06 noted. I will most likely continue for 5 days of empiric therapy and then stop. 04/07:T-max April 05 was 38.2, that continued into the legal secretary receptionist hours of April 06. Since then her temperatures come down and the highest she has been is 37.3 today. Other than Tylenol, no further intervention. We worry about postsurgical complications such as pneumonia, UTI or bowel dehiscence. Abd exam stable. White cell count has remained elevated. 13.1 went to 11 yesterday and is back to 13.1 today. We will continue to monitor. Zosyn day #2. 04/06, Patient has low degree fever last night and a temperature 38.2, And a slightly elevated WBC. Unknown etiology to cause patient has a fever but this is day 2 status post of surgery. use Zosyn for patient now, add probiotics as well. We will add urinalysis, now pt has no respiratory distress. We will do blood culture. (4)pre-operation assessment Patient report she has no previous cardiac medical hx beside of HTN. revised cardiac risk index (Bogdan Criteria) is 0.9%, low risk. pt's troponin, EKG and ECHO were ordered (5) diastolic heart failure with Aortic stenosis 04/09: April 08 balance was -1277 so she is definitely mobilizing. 144/79 BP with this so tolerating it. BUN/creat are stable. 04/08: April 07, 2024 balance was -1690 cc. Today she is -1253 cc so far. Mobilizing fluids on her own. I did add hydrochlorothiazide and will keep that on board. Make sure that she does not get dehydrated. Labs today show a stable creatinine of 0.7. 04/07: Overall fluid status as of this note is (+)8680 with (-) 700cc this am. She is tachypneic w effort getting out of bed to bedside commode and then chair as I watch her but recovers quickly within a minute. She is on meds for NSTEMI. At home she was on Lisinopril/HCTZ. Will resume HCTZ. 821, patient was found to have moderate pulmonary hypertension and moderate abnormal pressure in right heart, and mild aortic stenosis. We will precaution fluids overloaded, will continue aspirin, beta-shanda, statin for patient. Patient report she had hx of heart murmur. ECHO is ordered. called multimedia technician and hope pt had ECHO done before surgery. (6) HTN 04/09: stable BP. no change. 04/08:131 systolic ranging up to 150 systolic today. Staying in acceptable range for a postoperative patient. No change in medication today. 04/07: 130s this am. On Lisinopril, betablocker, resume HCTZ. 04/05, Patient blood pressure is low, Hold blood pressure medicine. Continue vital signs monitor. We will continue home medication lisinopril and HCTZ, Continue vital signs mon itor, Continue IV hydralazine PRN. (7) History of iron deficiency Conclusion/Plan: Hemoglobin is stable. We will continue her on iron supplementation once she is taking p.o. (8) hx of alcohol abuse Patient report he have history of alcohol abuse, but he quit couple years ago. (9) Hypokalemia. 04/09: still low at 3.1, will suplement again. 04/08: Given 40 mEq this morning via rider. Will start daily p.o. supplementation of 20 mEq. Recheck tomorrow.
--- NOTE | 2020-04-09 15:12 | PROVIDER PROGRESS NOTE ---
Subjective - General Admit Date: 04/02/20 Procedure Date: 04/04/20 Post Op Days: 5 Procedure Performed: Sigmoid colectomy and diverting ileostomy. - Review of Systems Wound/Incisions: positive: Dressing dry and intact Drain Type: Andres Drain Output Description: serosanguinous General: positive: Weakness, Fatigue HEENT: negative: Headaches Pulmonary: positive: Shortness of breath Cardiovascular: positive: Dyspnea on exertion Gastrointestinal: positive: Other (No nausea. Mild abdominal pain but improved from last evening.). negative: Nausea, Vomiting All Other Systems: positive: Reviewed and negative - Other Other Information/Narrative: Feeling much better than when I last saw her Thursday. She is bright and talkative. Trying to work with the ostomy nurse but still overwhelmed. Reports her abdominal pain is well controlled. Happy to go to retirement for a little while. Feels overwhelmed with it all and lives alone. Appetite is still a bit of an issue but is slowly returning. Still prefers Ensure to food but is free to try anything she would like. Objective - Patient Data Reviewed Vital Signs: Yes Vital Signs: Vital Signs x48h Temp Pulse BP BP BP Pulse Ox 04/09/20 14:00 36.6 C 91 113/80 98 04/09/20 09:56 144/79 H 04/09/20 08:13 36.7 C 98 144/79 H 94 Intake & Output: Intake and Output Totals x24h 04/07/20 04/08/20 04/09/20 23:59 23:59 23:59 Intake Total 745 2362.334 1530 Output Total 2435 3640 2900 Balance -1690 -1277.666 -1370 - Lab Results Lab Results: 04/09/20 05:02 04/09/20 05:02 Other Lab Results: Lab Results x24hrs 04/09/20 04/09/20 04/09/20 Range/Units 05:02 05:02 05:00 WBC 9.1 (4.8-10.8) x10^3/uL RBC 3.01 L (4.20-5.40) 10^6/uL Hgb 9.1 L (12.0-16.0) g/dL Hct 27.7 L (37.0-47.0) % MCV 92.0 (81.0-99.0) fL MCH 30.2 (27.0-31.0) pg MCHC 32.9 (32.0-36.0) g/dL RDW 13.4 (12.0-15.0) % Plt Count 203 (130-450) 10^3/uL MPV 9.6 (7.9-10.8) fL Neut # (Auto) 6.8 H (1.5-6.6) 10^3/uL Lymph # (Auto) 0.9 L (1.5-3.5) 10^3/uL [place] # (Auto) 0.8 (0.0-1.0) 10^3/uL Eos # (Auto) 0.6 (0.0-0.7) 10^3/uL Baso # (Auto) 0.1 (0.0-0.1) 10^3/uL Absolute Nucleated RBC 0.00 x10^3/uL Nucleated RBC % 0.0 /100WBC Sodium 132 L (135-145) mmol/L Potassium 3.1 L (3.5-5.0) mmol/L Chloride 93 L (101-111) mmol/L Carbon Dioxide 33 H (21-32) mmol/L Anion Gap 6.0 (6-13) BUN 8 (6-20) mg/dL Creatinine 0.7 (0.4-1.0) mg/dL Estimated GFR (MDRD) 83 L (>89) Glucose 126 H (70-100) mg/dL Calcium 8.0 L (8.5-10.3) mg/dL Vitamin B12 228 (180-914) pg/mL Coronavirus (PCR) 04/08/20 Range/Units 13:35 WBC (4.8-10.8) x10^3/uL RBC (4.20-5.40) 10^6/uL Hgb (12.0-16.0) g/dL Hct (37.0-47.0) % MCV (81.0-99.0) fL MCH (27.0-31.0) pg MCHC (32.0-36.0) g/dL RDW (12.0-15.0) % Plt Count (130-450) 10^3/uL MPV (7.9-10.8) fL Neut # (Auto) (1.5-6.6) 10^3/uL Lymph # (Auto) (1.5-3.5) 10^3/uL [place] # (Auto) (0.0-1.0) 10^3/uL Eos # (Auto) (0.0-0.7) 10^3/uL Baso # (Auto) (0.0-0.1) 10^3/uL Absolute Nucleated RBC x10^3/uL Nucleated RBC % /100WBC Sodium (135-145) mmol/L Potassium (3.5-5.0) mmol/L Chloride (101-111) mmol/L Carbon Dioxide (21-32) mmol/L Anion Gap (6-13) BUN (6-20) mg/dL Creatinine (0.4-1.0) mg/dL Estimated GFR (MDRD) (>89) Glucose (70-100) mg/dL Calcium (8.5-10.3) mg/dL Vitamin B12 (180-914) pg/mL Coronavirus (PCR) NEGATIVE - Current Medications Current Medications: Current Medications Generic Name Dose Route Start Last Admin Trade Name Freq PRN Reason Stop Dose Admin Hydrocodone Bitart/Acetaminophen 1 tab 04/08/20 11:46 04/08/20 16:14 [place] 5/325 PO 1 tab Q4HR PRN Administration PAIN Aspirin 81 mg 04/04/20 09:00 04/09/20 09:56 Ecotrin PO 81 mg DAILY YASME[facility] Administration Atorvastatin Calcium 40 mg 04/05/20 21:00 04/08/20 20:29 Lipitor PO 40 mg QPM YASME[facility] Administration Benzocaine 1 sprays 04/02/20 16:26 04/02/20 16:30 Hurricaine MM 1 spr Q4HR PRN Administration Mouth Sore Pain Diphenoxylate HCl/Atropine 1 tab 04/09/20 12:19 04/09/20 12:47 Lomotil PO 1 tab QID PRN Administration Diarrhea Famotidine 20 mg 04/07/20 09:00 04/09/20 09:56 Pepcid PO 20 mg DAILY YASMEEN Administration Gabapentin 300 mg 04/04/20 21:00 04/09/20 09:56 Neurontin PO 300 mg BID YASMEEN Administration Hydralazine HCl 10 mg 04/02/20 22:00 04/04/20 12:06 Apresoline Inj IVP 10 mg Q4HR PRN Administration NEEDED PER PROVIDER ORDERS Hydrochlorothiazide 25 mg 04/07/20 13:00 04/09/20 09:56 Hydrodiuril PO 25 mg DAILY [facility]AS[facility] Administration Sodium Chloride 500 mls @ 0 mls/hr 04/07/20 17:03 04/09/20 00:29 Normal Saline 0.9% IV 20 mls/hr Q24H PRN Infusion TKO RATE TKO Metoprolol Tartrate 25 mg 04/06/20 09:00 04/09/20 09:56 Lopressor PO 25 mg BID YASMEEN Administration Multivitamins/Minerals 1 tab 04/07/20 08:00 04/09/20 07:57 Theragran M PO 1 tab DAILYWM [facility] Administration Ondansetron HCl 4 mg 04/02/20 15:08 04/04/20 10:06 Zofran Inj IVP 4 mg Q6HR PRN Administration Nausea / Vomiting Phenol/Menthol 2 sprays 04/05/20 03:16 04/05/20 07:41 Chloraseptic MM 2 sprays Q2HR PRN Administration Throat Pain Prochlorperazine Edisylate 10 mg 04/02/20 15:08 04/03/20 21:39 Compazine Inj IVP 10 mg Q6HR PRN Administration Nausea / Vomiting Saccharomyces Boulardii 250 mg 04/06/20 17:00 04/09/20 07:57 Florastor PO 250 mg BIDWM [facility]AS[facility] Administration Sodium Chloride 10 ml 04/02/20 15:08 04/09/20 06:58 Normal Saline Flush 0.9% IVP 10 ml PRN PRN Administration NEEDED PER PROVIDER ORDERS Sodium Chloride 10 ml 04/02/20 17:00 04/09/20 09:56 Normal Saline Flush 0.9% IVP Not Given 0100,0900,1700 [facility] - Physical Exam Wound/Incisions: positive: Healing well General Appearance: positive: No acute distress Abdomen: positive: No distention, Other (Active bowel sounds and the ostomy is high output. It is just porximal to the cecum so I am hopeful it may slow down with time. It is viable and functioning and the red rubber catheter is still in place.) Skin: positive: Pallor Neurologic/Psychiatric: positive: Oriented x3 Impression/Plan - Problem List Problem List: Agree with all of Dr. Day's plans. She is ready for discharge to SNF for a surgical perspective.
[2020-04-09] MEDS ORDERED: ACETAMINOPHEN 325 MG TABLET PO PRN (16:22)
[2020-04-09] MEDS: ATORVASTATIN 40 MG TABLET PO SCH (21:27)
[2020-04-10 05:25] LABS: BASOPHILS # (AUTO) 0.1 10^3/uL (0.0-0.1); BASOPHILS % (AUTO) 0.5 %; EOSINOPHILS # (AUTO) 0.6 10^3/uL (0.0-0.7); EOSINOPHILS % (AUTO) 5.2 %; HGB - HEMOGLOBIN 9.6 g/dL (12.0-16.0); LYMPHOCYTES # (AUTO) 0.8 10^3/uL (1.5-3.5); LYMPHOCYTES % (AUTO) 7.2 %; MEAN CORPUSCULAR HEMOGLOBIN 30.3 pg (27.0-31.0); MEAN CORPUSCULAR HGB CONC 32.9 g/dL (32.0-36.0); MEAN CORPUSCULAR VOLUME 92.1 fL (81.0-99.0); MEAN PLATELET VOLUME 9.2 fL (7.9-10.8); MONOCYTES # (AUTO) 0.8 10^3/uL (0.0-1.0); MONOCYTES % (AUTO) 7.5 %; NEUTROPHILS # (AUTO) 8.7 10^3/uL (1.5-6.6); NEUTROPHILS % (AUTO) 78.7 %; PLT - PLATELET COUNT 261 10^3/uL (130-450); RED BLOOD COUNT 3.17 10^6/uL (4.20-5.40); RED CELL DISTRIBUTION WIDTH 13.6 % (12.0-15.0)
[2020-04-10] MEDS: SODIUM CHLORIDE FLUSH 0.9% 10 ML SYRINGE IVP SCH ×3 (05:34→16:41)
[2020-04-10 05:37] LABS: CALCIUM 8.4 mg/dL (8.5-10.3); CREATININE 0.6 mg/dL (0.4-1.0)
[2020-04-10] MEDS: GABAPENTIN 300 MG CAPSULE PO SCH (08:25)
[2020-04-10] MEDS: METOPROLOL TARTRATE 50 MG TABLET PO SCH ×2 (08:25→21:16)
[2020-04-10] MEDS: ASPIRIN EC 81 MG TABLET PO SCH (08:26)
[2020-04-10] MEDS: SACCHAROMYCES BOULARDII 250 MG CAPSULE PO SCH ×2 (08:26→16:41)
[2020-04-10] MEDS: MULTIVITAMIN W/MINERALS TABLET PO SCH (08:26)
[2020-04-10] MEDS: PSYLLIUM PACKET PO SCH ×2 (09:18→21:17)
[2020-04-10] MEDS: FAMOTIDINE 20 MG TABLET PO SCH (09:18)
[2020-04-10] MEDS ORDERED: CYANOCOBALAMIN 1,000 MCG/ML VIAL IM ONE (09:30)
[2020-04-10] MEDS ORDERED: SODIUM CHLORIDE 0.9% 250 ML IV ONE (11:15)
[2020-04-10] MEDS: SODIUM CHLORIDE FLUSH 0.9% 10 ML SYRINGE IVP PRN ×2 (11:15→13:39)
--- NOTE | 2020-04-10 12:03 | Discharge Plan ---
"Discharge Plan for SNF / [facility] - Discharge Plan And Transition Orders Problem Reviewed?: Yes Disposition: 03 SNF DC/Xfer Condition: Stable Allergies and Adverse Reactions: Allergies Allergy/AdvReac Type Severity Reaction Status Date / Time Penicillins Allergy Unknown Verified 04/02/20 10:36 - SNF / INTERMEDIATE Transition Orders Admit to (Facility): [facility] Discharge Diagnosis: 1) status post colectomy and diverting iliostomy for obstructing mass/partial bowel osbtruction 04/05, Day 5 post op Goal; euvolemic fluid balance with ostomy output Tolerating PO diet advance, 1.5 ostomy teaching: 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 Patient had been reluctant to be involved with ostomy. Still needs to become independent with care/ emptying/ monitoring contents/ volume etc. On 04/10 she is at least looking at ostomy bag, verbalizes understanding of need to monitor output volume and compensate with oral liquids (eventually will have ostomy takedown, at least 3 mos out 2) High output ostomy: as above added metamucil bid to bulk stool on 04/10 If in a few days that has not helped with adding bulk to output/ still liquid, can consider loperamide 4 mg bid or tid) or lomotil 2.5 mg tid with meals Is on H2 shanda to help reduce secretions Surgeon (Dr Gutierrez) noted resection just proximal to cecum so volume should reduce with time 3) postoperative NSTEMI Patient had NSTEMI after colostomy on 04/04, max troponin Preop echo Mild concentri LVH hyperdynamic systolic function w EF > 75%, Mild w/ peak/mean presure gradient , AoVa 1.69 Cm No WMA Post NSTEMI echo Was on lovenox x 5 days, stopped 24 hrs before epidural pulled Started ASA , statin, beta shanda Metoprolol dose was increased on 04/10 to 25 mg bid needs outpatient stess test and cardiology follow up 4) Deconditioning Patient evaluated by PT who recommended SNF Aortic stenosis; Mild on echo w/ A0V area 1.69 Reheck echo 1 year to rassess Medicare Certification Statement: I certify that Post Hospital snf care is medically necessary on a continuing basis for any of the conditions for which she/he is receiving care during hospitalization. Notify PCP of admission and forward orders to primary provider for signature. Other Notification Orders: Call PCP immediately if patient develops dyspnea, chest pain/tightness or edema. House Bowel Program: No Additional Bowel Program Orders: If no BM after 2 days, nurse may give M.O.M. 30ml PO PRN and/or ducolax Supp 1 ID and/or BRITTANY 250mg P.O., and/or senna 1-2 tabs PO. On day 3 nurse may give repeat above order until residents constipation is resolved. Annual Influenza Vaccine (between Apr 17 and November 14): Yes Two-step PPD per [facility] 248-235 or approved exception documents: Yes Treatments & Other Orders: Daily ostomy bag assessment for intactness. Daily wound check. Daily I/O and daily weights. Encourage PO Medication Orders: PLEASE REFER TO THE DISCHARGE MEDICATION LIST. - Diet Texture: Regular (4 oz Ensure Enlive with meals (3x day)) Liquids: Thin - Therapies | Activity Therapy: Evaluation | Treat if indicated: PT Rehabilitation Potential: Maximize functional status, Return to independent living Activity: Activity as Tolerated Weight Bearing: Full Weight Assistance Devices: Walker"
[2020-04-10] MEDS: SODIUM CHLORIDE 0.9% 1,000 ML IV SCH (13:39)
--- NOTE | 2020-04-10 13:43 | PROVIDER PROGRESS NOTE ---
Subjective - General Admit Date: 04/02/20 Procedure Date: 04/04/20 Post Op Days: 6 Procedure Performed: Sigmoid colectomy and diverting ileostomy. - Review of Systems Wound/Incisions: positive: Healing well Drain Type: Andres Drain Output Description: serosanguinous General: positive: Weakness, Fatigue HEENT: negative: Headaches Pulmonary: positive: Shortness of breath Cardiovascular: positive: Dyspnea on exertion Gastrointestinal: positive: Other (No nausea. Mild abdominal pain but improved from last evening.). negative: Nausea, Vomiting All Other Systems: positive: Reviewed and negative - Other Other Information/Narrative: Feeling better each day. Feels she is ready to go to SNF. Anxious for ostomy reversal but knows it will be a few weeks. Appetite is improving. We discussed her pathology which revealed acute and chronic diverticulitis with stricture. No malignancy. Nimco says she saved a brownie and a carton of milk to celebrate. Objective - Patient Data Reviewed Vital Signs: Yes Vital Signs: Vital Signs x48h Temp Pulse Pulse Pulse Resp BP BP 04/10/20 11:02 99 101/62 04/10/20 10:15 103 H 97 87/51 L 04/10/20 07:44 37.4 C 93 18 125/73 BP Pulse Ox 04/10/20 11:02 04/10/20 10:15 123/70 04/10/20 07:44 99 Intake & Output: Intake and Output Totals x24h 04/08/20 04/09/20 04/10/20 23:59 23:59 23:59 Intake Total 2362.334 1928 1184.333 Output Total 3640 4105 2200 Balance -1277.666 -2177 -1015.667 - Lab Results Lab Results: 04/10/20 05:10 04/10/20 05:10 Other Lab Results: Lab Results x24hrs 04/10/20 04/10/20 Range/Units 05:10 05:10 WBC 11.0 H (4.8-10.8) x10^3/uL RBC 3.17 L (4.20-5.40) 10^6/uL Hgb 9.6 L (12.0-16.0) g/dL Hct 29.2 L (37.0-47.0) % MCV 92.1 (81.0-99.0) fL MCH 30.3 (27.0-31.0) pg MCHC 32.9 (32.0-36.0) g/dL RDW 13.6 (12.0-15.0) % Plt Count 261 (130-450) 10^3/uL MPV 9.2 (7.9-10.8) fL Neut # (Auto) 8.7 H (1.5-6.6) 10^3/uL Lymph # (Auto) 0.8 L (1.5-3.5) 10^3/uL [place] # (Auto) 0.8 (0.0-1.0) 10^3/uL Eos # (Auto) 0.6 (0.0-0.7) 10^3/uL Baso # (Auto) 0.1 (0.0-0.1) 10^3/uL Absolute Nucleated RBC 0.00 x10^3/uL Nucleated RBC % 0.0 /100WBC Sodium 132 L (135-145) mmol/L Potassium 3.9 (3.5-5.0) mmol/L Chloride 93 L (101-111) mmol/L Carbon Dioxide 34 H (21-32) mmol/L Anion Gap 5.0 L (6-13) BUN 9 (6-20) mg/dL Creatinine 0.6 (0.4-1.0) mg/dL Estimated GFR (MDRD) 99 (>89) Glucose 120 H (70-100) mg/dL Calcium 8.4 L (8.5-10.3) mg/dL - Current Medications Current Medications: Current Medications Generic Name Dose Route Start Last Admin Trade Name Freq PRN Reason Stop Dose Admin Hydrocodone Bitart/Acetaminophen 1 tab 04/08/20 11:46 04/08/20 16:14 [place] 5/325 PO 1 tab Q4HR PRN Administration PAIN Aspirin 81 mg 04/04/20 09:00 04/10/20 08:26 Ecotrin PO 81 mg DAILY YASMEEN Administration Atorvastatin Calcium 40 mg 04/05/20 21:00 04/09/20 21:27 Lipitor PO 40 mg QPM YASMEEN Administration Benzocaine 1 sprays 04/02/20 16:26 04/02/20 16:30 Hurricaine MM 1 spr Q4HR PRN Administration Mouth Sore Pain Diphenoxylate HCl/Atropine 1 tab 04/09/20 12:19 04/09/20 12:47 Lomotil PO 1 tab QID PRN Administration Diarrhea Famotidine 20 mg 04/10/20 09:00 04/10/20 09:18 Pepcid PO 20 mg DAILY YASMEEN Administration Gabapentin 300 mg 04/04/20 21:00 04/10/20 08:25 Neurontin PO 300 mg BID YASMEEN Administration Hydralazine HCl 10 mg 04/02/20 22:00 04/04/20 12:06 Apresoline Inj IVP 10 mg Q4HR PRN Administration NEEDED PER PROVIDER ORDERS Sodium Chloride 500 mls @ 0 mls/hr 04/07/20 17:03 04/10/20 06:36 Normal Saline 0.9% IV Infused Q24H PRN Infusion TKO RATE TKO Sodium Chloride 1,000 mls @ 83.333 mls/hr 04/10/20 13:00 04/10/20 13:39 Normal Saline 0.9% IV 83.333 mls/hr .Q12H YASMEEN Administration Metoprolol Tartrate 50 mg 04/10/20 09:00 04/10/20 08:25 Lopressor PO 50 mg BID YASMEEN Administration Multivitamins/Minerals 1 tab 04/07/20 08:00 04/10/20 08:26 Theragran M PO 1 tab DAILYWM YASMEEN Administration Ondansetron HCl 4 mg 04/02/20 15:08 04/04/20 10:06 Zofran Inj IVP 4 mg Q6HR PRN Administration Nausea / Vomiting Phenol/Menthol 2 sprays 04/05/20 03:16 04/05/20 07:41 Chloraseptic MM 2 sprays Q2HR PRN Administration Throat Pain Prochlorperazine Edisylate 10 mg 04/02/20 15:08 04/03/20 21:39 Compazine Inj IVP 10 mg Q6HR PRN Administration Nausea / Vomiting Psyllium Hydrophilic Mucilloid 1 packet 04/10/20 09:00 04/10/20 09:18 Metamucil PO 1 packet BID YASMEEN Administration Saccharomyces Boulardii 250 mg 04/06/20 17:00 04/10/20 08:26 Florastor PO 250 mg BIDWM YASMEEN Administration Sodium Chloride 10 ml 04/02/20 15:08 04/10/20 13:39 Normal Saline Flush 0.9% IVP 10 ml PRN PRN Administration NEEDED PER PROVIDER ORDERS Sodium Chloride 10 ml 04/02/20 17:00 04/10/20 08:26 Normal Saline Flush 0.9% IVP 10 ml 0100,0900,1700 YASMEEN Administration - Physical Exam Wound/Incisions: positive: Healing well, Drainage (Serosanguinous and scant. The drain was removed and a dry dressing applied. Dressing over the midline wound was removed as well. Clean and well approximated. No erythema) General Appearance: positive: No acute distress, Alert Eyes Bilateral: positive: Normal inspection Respiratory: positive: Chest non-tender, No respiratory distress, Breath sounds nml Cardiovascular: positive: Regular rate & rhythm, No murmur Abdomen: positive: Other (Appropriately tender to palpation with active bowel sounds) Skin: positive: Color nml Extremities: positive: Non-tender Neurologic/Psychiatric: positive: Oriented x3 ABX Reporting Has patient been on IV antibiotics over the past 48 hours?: No Impression/Plan - Problem List Problem List: Chronic, recurrent diverticulitis with stricture and obstruction now status post sigmoid colectomy and diverting ileostomy. She is appropriate for discharge from a surgical perspective. I will see her back in my office in 2-4 weeks. At that time we can plan colonscopy and ostomy reversal.
[2020-04-10] MEDS: DIPHENOX/ATROPINE 2.5/0.025 MG TABLET PO SCH ×2 (13:44→21:17)
--- NOTE | 2020-04-10 14:00 | PROVIDER PROGRESS NOTE ---
Subjective - Prog Note Date Prog Note Date: 04/10/20 Prog Note Time: 14:07 (seen several x today) - Subjective Pt reports feeling: Improved ("look, I ate everything" (ate full breakfast x rubbery crust of maori toast" "I am looking at the ostomy, cant see it past my boobs", no nausea, no abd pain) Current Medications - Current Medications Current Medications: Active Medications Generic Name Dose Route Start Last Admin Trade Name Freq PRN Reason Stop Dose Admin Acetaminophen 650 mg 04/09/20 16:22 Tylenol PO Q4HR PRN Pain or Fever > 38C (100.4F) Hydrocodone Bitart/Acetaminophen 1 tab 04/08/20 11:46 04/08/20 16:14 [place] 5/325 PO 1 tab Q4HR PRN Administration PAIN Aspirin 81 mg 04/04/20 09:00 04/10/20 08:26 Ecotrin PO 81 mg DAILY YASMEEN Administration Atorvastatin Calcium 40 mg 04/05/20 21:00 04/09/20 21:27 Lipitor PO 40 mg QPM YASMEEN Administration Benzocaine 1 sprays 04/02/20 16:26 04/02/20 16:30 Hurricaine MM 1 spr Q4HR PRN Administration Mouth Sore Pain Diphenoxylate HCl/Atropine 1 tab 04/09/20 12:19 04/09/20 12:47 Lomotil PO 1 tab QID PRN Administration Diarrhea Diphenoxylate HCl/Atropine 1 tab 04/10/20 13:00 04/10/20 13:44 Lomotil PO 1 tab BID YASMEEN Administration Famotidine 20 mg 04/10/20 09:00 04/10/20 09:18 Pepcid PO 20 mg DAILY YASMEEN Administration Gabapentin 300 mg 04/04/20 21:00 04/10/20 08:25 Neurontin PO 300 mg BID YASMEEN Administration Hydralazine HCl 10 mg 04/02/20 22:00 04/04/20 12:06 Apresoline Inj IVP 10 mg Q4HR PRN Administration NEEDED PER PROVIDER ORDERS Sodium Chloride 500 mls @ 0 mls/hr 04/07/20 17:03 04/10/20 06:36 Normal Saline 0.9% IV Infused Q24H PRN Infusion TKO RATE TKO Sodium Chloride 1,000 mls @ 83.333 mls/hr 04/10/20 13:00 04/10/20 13:39 Normal Saline 0.9% IV 83.333 mls/hr .Q12H YASMEEN Administration Labetalol HCl 10 mg 04/02/20 22:00 Trandate Syringe IVP Q2HR PRN NEEDED PER PROVIDER ORDERS Methocarbamol 500 mg 04/04/20 17:30 Robaxin PO Q6HR PRN Spasms Metoprolol Tartrate 50 mg 04/10/20 09:00 04/10/20 08:25 Lopressor PO 50 mg BID YASMEEN Administration Morphine Sulfate 2 mg 04/08/20 11:36 Morphine (Carpuject) IVP Q2HR PRN PAIN Multivitamins/Minerals 1 tab 04/07/20 08:00 04/10/20 08:26 Theragran M PO 1 tab DAILYWM YASMEEN Administration Nalbuphine HCl 2.5 - 5 mg 04/04/20 16:27 Nubain IVP Q4H PRN Severe Itching Ondansetron HCl 4 mg 04/02/20 15:08 04/04/20 10:06 Zofran Inj IVP 4 mg Q6HR PRN Administration Nausea / Vomiting Oxycodone HCl 5 mg 04/08/20 11:36 Roxicodone PO Q4HR PRN PAIN Phenol/Menthol 2 sprays 04/05/20 03:16 04/05/20 07:41 Chloraseptic MM 2 sprays Q2HR PRN Administration Throat Pain Prochlorperazine Edisylate 10 mg 04/02/20 15:08 04/03/20 21:39 Compazine Inj IVP 10 mg Q6HR PRN Administration Nausea / Vomiting Psyllium Hydrophilic Mucilloid 1 packet 04/10/20 09:00 04/10/20 09:18 Metamucil PO 1 packet BID YASMEEN Administration Saccharomyces Boulardii 250 mg 04/06/20 17:00 04/10/20 08:26 Florastor PO 250 mg BIDWM YASMEEN Administration Sodium Chloride 10 ml 04/02/20 15:08 04/10/20 13:39 Normal Saline Flush 0.9% IVP 10 ml PRN PRN Administration NEEDED PER PROVIDER ORDERS Sodium Chloride 10 ml 04/02/20 17:00 04/10/20 08:26 Normal Saline Flush 0.9% IVP 10 ml 0100,0900,1700 YASMEEN Administration Aspirin EC [Ecotrin] 81 mg PO DAILY 04/02/20 Ferrous Sulfate 325 mg PO DAILY 04/02/20 Lisinopril [Zestril] 60 mg PO DAILY 04/02/20 hydroCHLOROthiazide [Hydrochlorothiazide] 25 mg PO DAILY 04/02/20 Objective - Vital Signs/Intake & Output Vital Signs: Vital Signs x48h Temp Pulse Pulse Pulse Resp BP BP 04/10/20 11:02 99 101/62 04/10/20 10:15 103 H 97 87/51 L 04/10/20 07:44 37.4 C 93 18 125/73 BP Pulse Ox 04/10/20 11:02 04/10/20 10:15 123/70 04/10/20 07:44 99 Intake & Output: Intake & Output 04/07/20 04/08/20 04/09/20 04/10/20 23:59 23:59 23:59 23:59 Intake Total 745 2362.334 1928 1184.333 Output Total 2435 3640 4105 2200 Balance -1690 -1277.666 -2177 -1015.667 - Objective General Appearance: positive: Alert (up in chair having finished breakfast) Eyes Bilateral: positive: Normal inspection, EOMI Respiratory: positive: Chest non-tender, No respiratory distress, Breath sounds nml Cardiovascular: positive: Regular rate & rhythm, Gallop/S4. negative: No murmur (2-3/6 mid peaking murmur S4 s1S2 (confirmed by Dr Reza)) Abdomen: positive: Non-tender, No distention, Other ( Right ostomy bag with watery brown stool, large volume, ostomy itself seen later w/ bag change by Eugenio Wilson, healthy (bag tape was not adhering medially initially. Subsequent to start of miralax, scheduled lomotil, stool much less watery late in day)). negative: Tenderness, Guarding (midline incision w/ sundar intact, no drinage, redness or tenderness) Back: negative: CVA tenderness (R), CVA tenderness (L) Skin: positive: Warm, Dry, Other (ostomy as above) Extremities: negative: No pedal edema Neurologic/Psychiatric: positive: Oriented x3, Motor nml, Mood/affect nml - Lab Results Fish Bones: 04/11/20 06:15 04/11/20 06:15 Other Labs: Lab Results x24hrs 04/10/20 04/10/20 Range/Units 05:10 05:10 WBC 11.0 H (4.8-10.8) x10^3/uL RBC 3.17 L (4.20-5.40) 10^6/uL Hgb 9.6 L (12.0-16.0) g/dL Hct 29.2 L (37.0-47.0) % MCV 92.1 (81.0-99.0) fL MCH 30.3 (27.0-31.0) pg MCHC 32.9 (32.0-36.0) g/dL RDW 13.6 (12.0-15.0) % Plt Count 261 (130-450) 10^3/uL MPV 9.2 (7.9-10.8) fL Neut # (Auto) 8.7 H (1.5-6.6) 10^3/uL Lymph # (Auto) 0.8 L (1.5-3.5) 10^3/uL [place] # (Auto) 0.8 (0.0-1.0) 10^3/uL Eos # (Auto) 0.6 (0.0-0.7) 10^3/uL Baso # (Auto) 0.1 (0.0-0.1) 10^3/uL Absolute Nucleated RBC 0.00 x10^3/uL Nucleated RBC % 0.0 /100WBC Sodium 132 L (135-145) mmol/L Potassium 3.9 (3.5-5.0) mmol/L Chloride 93 L (101-111) mmol/L Carbon Dioxide 34 H (21-32) mmol/L Anion Gap 5.0 L (6-13) BUN 9 (6-20) mg/dL Creatinine 0.6 (0.4-1.0) mg/dL Estimated GFR (MDRD) 99 (>89) Glucose 120 H (70-100) mg/dL Calcium 8.4 L (8.5-10.3) mg/dL Assessment/Plan - Problem List (1) Non-STEMI (non-ST elevated myocardial infarction) Impression: Impression: s/p NSTEMI after colonoscopy on 04/04. Max troponin was 175 . Was identified due to hypotension. There was no chest pain, sob, + diaphoresis No prior history . Preop echo; hyperdynamic EF, mild , no WMA No post event Echo Echo ordered today; ASA , beta blocjer and statin added after event Patient did elect to go ahead with colectomy, and tolerated subsequent surgery without difficulty Was on lovenox x 5 days, held x 24 hrs before epidural removed. 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 Midline incision healing well, seen by DR Gutierrez earlier. High output ostomy (see below) Deconditioned due to surgery, and NSTEMI; evaluated by PT and recommended SNF ([facility] planned, [facility]) Will continue ensure w/ meals Patient still needs to start actively participating in ostomy care. / has been reluctant # High output ileostomy Patient chemistry w/ progressive metabolic alkalosis, (bicarb 25-28-33-34 last 4 days) due to ostomy output also orthostatic this am. Although HCTZ was resumed due to volume overload post op, I/O greater out last 4 days (-1690, -1277, -2177, -1165) w/ ostomy output largely contributing (2025 ml stool 04/09, 1150 already today) Stop HCTZ has prn lomotil ordered but has only gotten 1 dose) -Added scheduled bid lomotil today (will increase to tid if no change in stool consistency) -Added metamucil bid for bulking no change in orthostatis after 250cc bolus, resuming fluid at 83 cc/hr. (metoprolol dose was increased due to HR ~ 100 post NSTEMI, likely compensatory HR w/ volume depletion; metop COULD be contributing to redued BP but suspect more likley due to volume will reeval later Addendum; Stool output much less watery late in day and orthostasis much improved #fever Patient had been empirically started on zosyn Day 2 post op for fever 38.2, mild leukocytosis, neg urine, neg evident pulm infxn, leukocytosis may have been related to surgery had inteded 5 days empiric ABX Zosyn stopped 04/09Stopped as no clear infection, neg cultures No recurrent fever, today 04/10 WBC 11K suspect due to hemoconcentration Recheck WBC in am # HTN 04/10; on lisinopril HCTZ at home As per #1; for NSTEMI; added BB, holding ACEI until establish BB dose, hold HCTZ due to high output ostomy As above, orthostasis today presumed due to volume depletion/ostomy loss Progress notes indicate on lisinopril (but held since 04/05 hypotension d/c prn iv hydralazien; no indication for acute BP lowering Continue to monitor # History of iron deficiency Conclusion/Plan: Resume home iron # Hypokalemia. due to GI losses from ileiostomy required supplementtion 04/08 40 meq, , 04/09 3.1 3.9 today following 20 meq yestrday (started daily 20 meq on 04/08 orders. Recheck in am. If successful slowing down ostomy output w/ lomotil, metamucil, will have reduced repletion needs
[2020-04-10] MEDS ORDERED: ACETAMINOPHEN 325 MG TABLET PO PRN (18:22)
[2020-04-10] MEDS ORDERED: GABAPENTIN 300 MG CAPSULE PO SCH (21:00)
[2020-04-10] MEDS: ATORVASTATIN 40 MG TABLET PO SCH (21:17)
[2020-04-11] MEDS: SODIUM CHLORIDE 0.9% 1,000 ML IV SCH (00:30)
[2020-04-11] MEDS: SODIUM CHLORIDE FLUSH 0.9% 10 ML SYRINGE IVP SCH ×2 (00:32→10:46)
[2020-04-11 06:29] LABS: HGB - HEMOGLOBIN 9.4 g/dL (12.0-16.0); MEAN CORPUSCULAR HEMOGLOBIN 29.8 pg (27.0-31.0); MEAN CORPUSCULAR HGB CONC 31.8 g/dL (32.0-36.0); MEAN PLATELET VOLUME 9.1 fL (7.9-10.8); RED BLOOD COUNT 3.15 10^6/uL (4.20-5.40); RED CELL DISTRIBUTION WIDTH 13.9 % (12.0-15.0); WHITE BLOOD COUNT 11.2 x10^3/uL (4.8-10.8)
[2020-04-11 06:39] LABS: CALCIUM 8.2 mg/dL (8.5-10.3); CREATININE 0.5 mg/dL (0.4-1.0)
[2020-04-11] MEDS ORDERED: FERROUS SULFATE 325 MG TABLET PO SCH (08:00)
[2020-04-11] MEDS ORDERED: GABAPENTIN 300 MG CAPSULE PO SCH ×2 (08:00→12:00)
[2020-04-11] MEDS: DIPHENOX/ATROPINE 2.5/0.025 MG TABLET PO SCH ×2 (08:09→14:10)
[2020-04-11] MEDS: FAMOTIDINE 20 MG TABLET PO SCH (08:09)
[2020-04-11] MEDS: SACCHAROMYCES BOULARDII 250 MG CAPSULE PO SCH (08:09)
[2020-04-11] MEDS: METOPROLOL TARTRATE 50 MG TABLET PO SCH (08:10)
[2020-04-11] MEDS: MULTIVITAMIN W/MINERALS TABLET PO SCH (08:11)
[2020-04-11] MEDS: DIPHENOX/ATROPINE 2.5/0.025 MG TABLET PO PRN (08:11)
[2020-04-11] MEDS: PSYLLIUM PACKET PO SCH (08:16)
[2020-04-11] MEDS: ASPIRIN EC 81 MG TABLET PO SCH (08:16)
[2020-04-11] MEDS ORDERED: SUMAtriptan 25 MG TABLET PO ONE (08:51)
--- NOTE | 2020-04-11 08:53 | PROVIDER PROGRESS NOTE ---
Subjective - Prog Note Date Prog Note Date: 04/11/20 Prog Note Time: 08:51 Current Medications - Current Medications Current Medications: Active Medications Generic Name Dose Route Start Last Admin Trade Name Freq PRN Reason Stop Dose Admin Acetaminophen 650 mg 04/09/20 16:22 04/10/20 16:40 Tylenol PO 650 mg Q4HR PRN Administration Pain or Fever > 38C (100.4F) Acetaminophen 650 mg 04/10/20 18:22 Tylenol PO Q4HR PRN Pain or Fever > 38C (100.4F) Hydrocodone Bitart/Acetaminophen 1 tab 04/08/20 11:46 04/08/20 16:14 [place] 5/325 PO 1 tab Q4HR PRN Administration PAIN Aspirin 81 mg 04/04/20 09:00 04/11/20 08:16 Ecotrin PO 81 mg DAILY YASMEEN Administration Atorvastatin Calcium 40 mg 04/05/20 21:00 04/10/20 21:17 Lipitor PO 40 mg QPM YASMEEN Administration Benzocaine 1 sprays 04/02/20 16:26 04/02/20 16:30 Hurricaine MM 1 spr Q4HR PRN Administration Mouth Sore Pain Diphenoxylate HCl/Atropine 1 tab 04/09/20 12:19 04/11/20 08:11 Lomotil PO 1 tab QID PRN Administration Diarrhea Diphenoxylate HCl/Atropine 1 tab 04/11/20 08:00 04/11/20 08:09 Lomotil PO 1 tab TID YASMEEN Administration Famotidine 20 mg 04/10/20 09:00 04/11/20 08:09 Pepcid PO 20 mg DAILY YASMEEN Administration Ferrous Sulfate 325 mg 04/11/20 08:00 04/11/20 08:11 Feosol PO 325 mg DAILYWM YASMEEN Administration Gabapentin 300 mg 04/11/20 08:00 04/11/20 08:11 Neurontin PO 300 mg 0800 YASMEEN Administration Gabapentin 300 mg 04/11/20 12:00 Neurontin PO 1200 YASMEEN Gabapentin 600 mg 04/10/20 21:00 04/10/20 21:17 Neurontin PO 600 mg QPM YASMEEN Administration Sodium Chloride 500 mls @ 0 mls/hr 04/07/20 17:03 04/10/20 06:36 Normal Saline 0.9% IV Infused Q24H PRN Infusion TKO RATE TKO Sodium Chloride 1,000 mls @ 83.333 mls/hr 04/10/20 13:00 04/11/20 00:30 Normal Saline 0.9% IV 83.333 mls/hr .Q12H YASMEEN Administration Labetalol HCl 10 mg 04/02/20 22:00 Trandate Syringe IVP Q2HR PRN NEEDED PER PROVIDER ORDERS Methocarbamol 500 mg 04/04/20 17:30 Robaxin PO Q6HR PRN Spasms Metoprolol Tartrate 50 mg 04/10/20 09:00 04/11/20 08:10 Lopressor PO 50 mg BID YASMEEN Administration Morphine Sulfate 2 mg 04/08/20 11:36 Morphine (Carpuject) IVP Q2HR PRN PAIN Multivitamins/Minerals 1 tab 04/07/20 08:00 04/11/20 08:11 Theragran M PO 1 tab DAILYWM YASMEEN Administration Nalbuphine HCl 2.5 - 5 mg 04/04/20 16:27 Nubain IVP Q4H PRN Severe Itching Ondansetron HCl 4 mg 04/02/20 15:08 04/04/20 10:06 Zofran Inj IVP 4 mg Q6HR PRN Administration Nausea / Vomiting Oxycodone HCl 5 mg 04/08/20 11:36 Roxicodone PO Q4HR PRN PAIN Phenol/Menthol 2 sprays 04/05/20 03:16 04/05/20 07:41 Chloraseptic MM 2 sprays Q2HR PRN Administration Throat Pain Prochlorperazine Edisylate 10 mg 04/02/20 15:08 04/03/20 21:39 Compazine Inj IVP 10 mg Q6HR PRN Administration Nausea / Vomiting Psyllium Hydrophilic Mucilloid 1 packet 04/10/20 09:00 04/11/20 08:16 Metamucil PO 1 packet BID YASMEEN Administration Saccharomyces Boulardii 250 mg 04/06/20 17:00 04/11/20 08:09 Florastor PO 250 mg BIDWM YASMEEN Administration Sodium Chloride 10 ml 04/02/20 15:08 04/10/20 13:39 Normal Saline Flush 0.9% IVP 10 ml PRN PRN Administration NEEDED PER PROVIDER ORDERS Sodium Chloride 10 ml 04/02/20 17:00 04/11/20 00:32 Normal Saline Flush 0.9% IVP Not Given 0100,0900,1700 YASMEEN Sumatriptan Succinate 25 mg 04/11/20 08:51 Imitrex PO 04/11/20 08:52 ONCE ONE Aspirin EC [Ecotrin] 81 mg PO DAILY 04/02/20 Ferrous Sulfate 325 mg PO DAILY 04/02/20 Lisinopril [Zestril] 60 mg PO DAILY 04/02/20 hydroCHLOROthiazide [Hydrochlorothiazide] 25 mg PO DAILY 04/02/20 Objective - Vital Signs/Intake & Output Vital Signs: Vital Signs x48h Temp Pulse Resp BP BP Pulse Ox 04/11/20 08:10 107/73 04/11/20 07:45 37.1 C 93 18 132/73 H 95 Intake & Output: Intake & Output 04/08/20 04/09/20 04/10/20 04/11/20 23:59 23:59 23:59 23:59 Intake Total 2362.334 1928 2950.719 707.777 Output Total 3640 4105 3800 1450 Balance -1277.666 -2177 -849.281 -742.223 - Lab Results Fish Bones: 04/11/20 06:15 04/11/20 06:15 Other Labs: Lab Results x24hrs 04/11/20 04/11/20 Range/Units 06:15 06:15 WBC 11.2 H (4.8-10.8) x10^3/uL RBC 3.15 L (4.20-5.40) 10^6/uL Hgb 9.4 L (12.0-16.0) g/dL Hct 29.6 L (37.0-47.0) % MCV 94.0 (81.0-99.0) fL MCH 29.8 (27.0-31.0) pg MCHC 31.8 L (32.0-36.0) g/dL RDW 13.9 (12.0-15.0) % Plt Count 324 (130-450) 10^3/uL MPV 9.1 (7.9-10.8) fL Sodium 134 L (135-145) mmol/L Potassium 4.4 (3.5-5.0) mmol/L Chloride 97 L (101-111) mmol/L Carbon Dioxide 30 (21-32) mmol/L Anion Gap 7.0 (6-13) BUN 13 (6-20) mg/dL Creatinine 0.5 (0.4-1.0) mg/dL Estimated GFR (MDRD) 122 (>89) Glucose 120 H (70-100) mg/dL Calcium 8.2 L (8.5-10.3) mg/dL
--- NOTE | 2020-04-11 09:12 | Discharge Plan ---
Discharge Plan Problem Reviewed?: Yes Disposition: 03 SNF DC/Xfer Condition: Stable Diet: Regular (Liquid intake, measure stool output, if liquid, Ms Kinsey should drink enough liquid to match at least 1/2 of stool output) Activity Restrictions: OOB to chair for meals Weight Bearing: Full Weight Plan of Treatment: (1) Non-STEMI (non-ST elevated myocardial infarction) Impression: Impression: s/p NSTEMI after colonoscopy on 04/04. Max troponin was 175 . Was identified due to hypotension and some diaphoresis, there was no associated chest pain, SOB, jaw or L arm pain No prior history of CAD . Preop echo; hyperdynamic EF,no WMA , mild AoVarea 1.69 cm, mean presure gradient 31mm/ 17mmHg , Repeat Echo post NSTEMI 04/10 ; continues w/ hyperdynamic EF, EF > 75%, No WMA On ASA, beta shanda (dose titrated to 50 mg bid on 04/10), statin Patient did elect to proceed w/ colectomy, and tolerated subsequent colectomy without complication Was on lovenox x 5 days, held x 24 hrs before epidural removed. Orthostasis noted 04/09 due to volume depletion from ostomy output ; see #3 Should have outpatient stress test once ostomy output stabilized. 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 Midline incision healing well, seen by DR Gutierrez earlier. High output o stomy (see below) Deconditioned due to surgery, and NSTEMI; evaluated by PT and recommended SNF ([facility] planned, ostomy supplies to be delivered to [facility]) Will continue ensure w/ meals Patient still needs to start actively participating in ostomy care. / has been reluctant # High output ileostomy (1) Non-STEMI (non-ST elevated myocardial infarction) Impression: Impression: s/p NSTEMI after colonoscopy on 04/04. Max troponin was 175 . Was identified due to hypotension. There was no chest pain, sob, + diaphoresis No prior history . Preop echo; hyperdynamic EF, mild , no WMA No post event Echo Echo ordered today; ASA , beta blocjer and statin added after event Patient did elect to go ahead with colectomy, and tolerated subseequen surgery without difficulty Was on lovenox x 5 days, held x 24 hrs before epidural removed. no ischemic symptoms, I suspect her orthostasis is related to volume depletion, (improved in afternoon w/ improved stool output see #2, echo still pending 04/07: Patient reported she feel much better on today. Patient's hemodynamic is stable, blood pressure and HR is in the normal arrange. Patient denies chest jordi n. Troponin is the flat. We will continue baby aspirin, Lovenox, beta-shanda, statin. 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 Pain is her main issue with regards to her incisional site. But no chest pain, palpitations. Gets diaphoretic with effort as she gets out of the bed and sits in the chair or tries to sit on the toilet. Tolerating statin, beta-shanda baby aspirin, and Lovenox. Telemetry stable. Blood pressure was 110 216 yesterday. 109 systolic at midnight. This morning 131/71. 95% on 1 L oxygen. Telemetry is sinus with occasional PVCs. Echocardiogram was done preoperatively and she had an ejection fraction of 75%, hyperdynamic and felt to be fluid depleted. Mild aortic stenosis at 31/17 mmHg. Aortic valve area 1.16 cm. Today there will be no new orders for this. 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 Midline incision healing well, seen by DR Gutierrez earlier. High output ostomy (see below) Deconditioned due to surgery, and NSTEMI; evaluated by PT and recommended SNF ([facility] planned, ostomy supplies to be delivered to [facility]) Will continue ensure w/ meals Patient still needs to start actively participating in ostomy care. / has been reluctant # High output ileostomy Patient chemistry w/ progressive metabolic alkalosis after diet advance, (bicarb 25-28-33-34 last 4 days) due to ostomy output and was also orthostatic 04/10 with mismatched I/O over several days (down ~ 6liters by 04/10) -lomotil startd on 04/10 and increased to TID scheduled dosing on 04/11 - Added metamucil bid for bulking HCTZ which was resumed post op stopped Gentle IVF overnight 04/10 with improving labs (bicarb 30 - no change in orthostatis after 250cc bolus, resuming fluid at 83 cc/hr. (metoprolol dose was increased due to HR ~ 100 post NSTEMI, likely compensatory HR w/ volume depletion; metop COULD be contributing to redued BP but suspect more likley due to volume will reeval later Addendum; Stool output much less watery late in day and orthostasis much improved #fever Patient had been empirically started on zosyn Day 2 post op for fever 38.2, mild leukocytosis, neg urine, neg evident pulm infxn, leukocytosis may have been related to surgery had inteded 5 days empiric ABX Zosyn stopped 04/09Stopped as no clear infection, neg cultures No recurrent fever, today 04/10 WBC 11K suspect due to hemoconcentration Recheck WBC in am # HTN 04/10; on lisinopril HCTZ at home As per #1; for NSTEMI; added BB, holding ACEI until establish BB dose, hold HCTZ due to high output ostomy As above, orthostasis today presumed due to volume depletion/ostomy loss Progress notes indicate on lisinopril (but held since 04/05 hypotension d/c prn iv hydralazien; no indication for acute BP lowering Continue to monitor # History of iron deficiency Conclusion/Plan: Resume home iron # Hypokalemia. due to GI losses from ileiostomy required supplementtion 04/08 40 meq, , 04/09 3.1 3.9 today following 20 meq yestrday (started daily 20 meq on 04/08 orders. Recheck in am. If successful slowing down ostomy output w/ lomotil, metamucil, will have reduced repletion needs chemistry w/ progressive metabolic alkalosis, (bicarb 25-28-33-34 last 4 days) due to ostomy output also orthostatic this am. Although HCTZ was resumed due to volume overload post op, I/O greater out last 4 days (-1690, -1277, -2177, -1165) w/ ostomy output largely contributing (2025 ml stool 04/09, 1150 already today) Stop HCTZ has prn lomotil ordered but has only gotten 1 dose) -Added scheduled bid lomotil today (will increase to tid if no change in stool consistency) -Added metamucil bid for bulking no change in orthostatis after 250cc bolus, resuming fluid at 83 cc/hr. (metoprolol dose was increased due to HR ~ 100 post NSTEMI, likely compensatory HR w/ volume depletion; metop COULD be contributing to redued BP but suspect more likley due to volume will reeval later Addendum; Stool output much less watery late in day and orthostasis much improved #fever Patient had been empirically started on zosyn Day 2 post op for fever 38.2, mild leukocytosis, neg urine, neg evident pulm infxn, leukocytosis may have been related to surgery had inteded 5 days empiric ABX Zosyn stopped 04/09Stopped as no clear infection, neg cultures No recurrent fever, today 04/10 WBC 11K suspect due to hemoconcentration Recheck WBC in am # HTN 04/10; on lisinopril HCTZ at home As per #1; for NSTEMI; added BB, holding ACEI until establish BB dose, hold HCTZ due to high output ostomy As above, orthostasis today presumed due to volume depletion/ostomy loss Progress notes indicate on lisinopril (but held since 04/05 hypotension d/c prn iv hydralazien; no indication for acute BP lowering Continue to monitor # History of iron deficiency Conclusion/Plan: Resume home iron # Hypokalemia. due to GI losses from ileiostomy required supplementtion 04/08 40 meq, , 04/09 3.1 3.9 today following 20 meq yestrday (started daily 20 meq on 04/08 orders. Recheck in am. If successful slowing down ostomy output w/ lomotil, metamucil, will have reduced repletion needs " No Smoking: If you smoke, Please STOP! Call for help. Follow-up with: JAY MUELLER MD [Primary Care Provider] -
[2020-04-11] MEDS ORDERED: LOPERAMIDE 2 MG CAPSULE PO PRN (10:03)
[2020-04-11] MEDS ORDERED: LOPERAMIDE 2 MG CAPSULE PO ONE (10:03)
--- NOTE | 2020-04-11 12:15 | Discharge Plan ---
Discharge Plan for SNF / [facility] - Discharge Plan And Transition Orders Problem Reviewed?: Yes Disposition: 03 SNF DC/Xfer Condition: Stable Allergies and Adverse Reactions: Allergies Allergy/AdvReac Type Severity Reaction Status Date / Time Penicillins Allergy Unknown Verified 04/02/20 10:36 Plan of Treatment: (1) Non-STEMI (non-ST elevated myocardial infarction) Impression: s/p NSTEMI after colonoscopy on 04/04. Max troponin was 175 . Was identified due to hypotension and some diaphoresis, there was no associated chest pain, SOB, jaw or L arm pain No prior history of CAD . Preop echo; hyperdynamic EF,no WMA , mild AoVarea 1.69 cm, mean presure gradient 31mm/ 17mmHg , Repeat Echo post NSTEMI 04/10 ; continues w/ hyperdynamic EF, EF > 75%, No WMA On ASA, beta shanda (dose titrated to 50 mg bid on 04/10), statin Patient did elect to proceed w/ colectomy, and tolerated subsequent colectomy without complication Was on lovenox x 5 days, held x 24 hrs before epidural removed. Orthostasis noted 04/09 due to volume depletion from ostomy output (not cardiac cause); see #3 Should have outpatient stress test once ostomy output stabilized. Dr. 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 Midline incision healing well, Per Dr Gutierrez, sundar can be removed in 10 days High output ostomy (see below) Patient still needs to start actively participating in ostomy care. / has been reluctant Due to habitus, ostomy with leaking issues at 3 :00 position; Tiffanie Pearson checking again before discharge Most recent ostomy nurse note Leaking 3:00, replaced w/1 pce ActiveLife, wide barrier ring, pressure held at 3:00. Peristomal skin intact. Still not emptying herself. Only able to send one ostomy bagbags withh patient.. [facility] will need to order # High output ileostomy Patient chemistry w/ progressive metabolic alkalosis after diet advance, (bicarb 25-28-33-34 last 4 days reflecting contraction) due to ostomy output and was also orthostatic 04/10 with mismatched I/O over several days (down ~ 6liters by 04/10) orthostasis much improved after IV fluids given 04/10-04/11 with improved labs (bicarb 30) -lomotil startd on 04/10 and increased to TID scheduled dosing on 04/11 - Added metamucil bid for bulking -Imodium started 04/10 HCTZ (previously a home med) had been resumedd post op was discontinued 04/10. Would recommend NOT resuming HCTZ until after ostomy take down if even needed Gentle IVF overnight 04/10 with improving labs (bicarb 30 Nutrition/ Angelique recommended replace ostomy volume output during waking hours every 6 hours with oral liquid intake (At least 1 32 oz bottle of gatorade is helpful as part of this fluid repletion (the rest can be water, broths, unsweetened tea etc) Patient given a dose of 1000mg IM B12 04/10. Will start 1000mg PO daily. Recheck B12 ~ 2 weeks # Physical Deconditioning Deconditioned due to surgery, and NSTEMI; evaluated by PT and recommended SNF Discharge to [facility] on 04/11, Will continue ensure w/ meals # Hypokalemia. due to GI losses from ileiostomy daily KCL 20 meq until ostomy output slows down consider recheck BMP by Thursday # HTN Hypertension not an issue currently was on lisinopril 60 daily and HCTZ pre admit HCTZ stopped due to high output ostomy Lisinopril on hold (was NSTEMI, not STEMI, so no absolute indication to resume) BP stable on metoprolol 50 mg po bid (for rate control post NSTEMI If SBP under 110, check orthostatics and evaluate I/O's Encourage PO fluid as above to match 1:1 # History of iron deficiency Conclusion/Plan: continues home iron #fever/leukocytosis Patient had been empirically started on zosyn Day 2 post op for fever 38.2, mild leukocytosis, neg urine, neg evident pulm infxn, leukocytosis may have been related to surgery had intended 5 days empiric ABX Zosyn stopped opped as no infection identified, neg cultures, WBC stable, unchanged at 11K, no bands Aortic Stenosis mild Repeat Echo ~ 1 yr " - SNF / INTERMEDIATE Transition Orders Admit to (Facility): [facility] Discharge Diagnosis: 1) perioperative NSTEMI stable 2) Day 6 s/p sigmoid colectomy and KADE and diverting ileostomy 3) High output ileostomy 4) hypokalemia 5) hypertension 6) Iron deficiency anemia Medicare Certification Statement: I certify that [facility] longterm care is medically necessary on a continuing basis for any of the conditions for which she/he is receiving care during hospitalization. Notify PCP of admission and forward orders to primary provider for signature. Weight on admission and: Weekly Other Notification Orders: Call PCP immediately if patient develops dyspnea, chest pain/tightness or edema. House Bowel Program: No Additional Bowel Program Orders: If no BM after 2 days, nurse may give M.O.M. 30ml PO PRN and/or ducolax Supp 1 [place] and/or BRITTANY 250mg P.O., and/or senna 1-2 tabs PO. On day 3 nurse may give repeat above order until residents constipation is resolved. Annual Influenza Vaccine (between Apr 17 and November 14): Yes Two-step PPD per [facility] [id number] or approved exception documents: Yes Treatments & Other Orders: Measure ostomy output every 6 hours during waking hours. Replace ostomy output 1:1 with PO liquid (as above 32 oz /1 quart of this replacement PO volume daily ideally in form of gatorade if a friend could get gatorade). Other liquid can be soup, broth, tea etc.1). Can removed sundar in 10 days (abdomen) per surgeon. If SBP is 110 or less, check orthostatics. - Taylor salt intake currently (or can add 3/4 tsp salt to gatorade daily). - Ostomy care; as per Ostomy nurse instructionsreplaced w/1 pce ActiveLife, wide barrier ring. - if problems with appliance fitting Ms. Kinsey can see [facility] as outpatient at [facility] for ostomy appliance refitting. Ostomy care as needed with 1 pce Active Life, wide barrier ring. Several bags sent with patient. If needed, Ms Kinsey can se CWOCN as outpatient at SNF for ostomy appliance refitting Lab Tests or X-ray Orders: BMP on Friday 04/13 (eval sodium , bicarb, K, renal function w/ ostomy output). Recheck serum B12 ~ 2 weeks to eval if high dose PO B12 effectively being absorbed Medication Orders: PLEASE REFER TO THE DISCHARGE MEDICATION LIST. Insulin Orders?: No - Medications New Prescriptions: Atorvastatin [Lipitor] 40 mg PO QPM #30 tablet - Diet Type: Regular Texture: Regular Liquids: Thin Supplements: Ensure Life with meals May have monthly special meal: Yes - Therapies | Activity Therapy: Evaluation | Treat if indicated: PT, OT Rehabilitation Potential: Maximize functional status, Return to independent living Activity: Activity as Tolerated Weight Bearing: Full Weight Assistance Devices: Walker Follow Up: Patient to follow up in surgery clinic in [address] Gutierrez (needs to be scheduled) As above, if [facility] able to remove sundar, per Dr Gutierrez ok to remove in 10 days ~ 04/20
[2020-04-11 14:15] VITALS: BP 115/63
--- NOTE | 2020-04-11 14:38 | Discharge Plan ---
Discharge Plan for SNF / [facility] - Discharge Plan And Transition Orders Disposition: 03 SNF DC/Xfer Condition: Stable Allergies and Adverse Reactions: Allergies Allergy/AdvReac Type Severity Reaction Status Date / Time Penicillins Allergy Unknown Verified 04/02/20 10:36 Plan of Treatment: (1) Non-STEMI (non-ST elevated myocardial infarction) Impression: s/p NSTEMI after colonoscopy on 04/04. Max troponin was 175 . Was identified due to hypotension and some diaphoresis, there was no associated chest pain, SOB, jaw or L arm pain No prior history of CAD . Preop echo; hyperdynamic EF,no WMA , mild AoVarea 1.69 cm, mean presure gradient 31mm/ 17mmHg , Repeat Echo post NSTEMI 04/10 ; continues w/ hyperdynamic EF, EF > 75%, No WMA On ASA, beta shanda (dose titrated to 50 mg bid on 04/10), statin Patient did elect to proceed w/ colectomy, and tolerated subsequent colectomy without complication Was on lovenox x 5 days, held x 24 hrs before epidural removed. Orthostasis noted 04/09 due to volume depletion from ostomy output (not cardiac cause); see #3 Should have outpatient stress test once ostomy output stabilized. Dr. 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 Midline incision healing well, Per Dr Gutierrez, sundar can be removed in 10 days High output ostomy (see below) Patient still needs to start actively participating in ostomy care. / has been reluctant Due to habitus, ostomy with leaking issues at 3 :00 position; Tiffanie Pearson checking again before discharge Most recent ostomy nurse note Leaking 3:00, replaced w/1 pce ActiveLife, wide barrier ring, pressure held at 3:00. Peristomal skin intact. Still not emptying herself. Only able to send one ostomy bagbags withh patient.. [facility] will need to order # High output ileostomy Patient chemistry w/ progressive metabolic alkalosis after diet advance, (bicarb 25-28-33-34 last 4 days reflecting contraction) due to ostomy output and was also orthostatic 04/10 with mismatched I/O over several days (down ~ 6liters by 04/10) orthostasis much improved after IV fluids given 04/10-04/11 with improved labs (bicarb 30) -lomotil startd on 04/10 and increased to TID scheduled dosing on 04/11 - Added metamucil bid for bulking -Imodium started 04/10 HCTZ (previously a home med) had been resumedd post op was discontinued 04/10. Would recommend NOT resuming HCTZ until after ostomy take down if even needed Gentle IVF overnight 04/10 with improving labs (bicarb 30 Nutrition/ Angelique recommended replace ostomy volume output during waking hours every 6 hours with oral liquid intake (At least 1 32 oz bottle of gatorade is helpful as part of this fluid repletion (the rest can be water, broths, unsweetened tea etc) Patient given a dose of 1000mg IM B12 04/10. Will start 1000mg PO daily. Recheck B12 ~ 2 weeks # Physical Deconditioning Deconditioned due to surgery, and NSTEMI; evaluated by PT and recommended SNF Discharge to [facility] on 04/11, Will continue ensure w/ meals # Hypokalemia. due to GI losses from ileiostomy daily KCL 20 meq until ostomy output slows down consider recheck BMP by Thursday # HTN Hypertension not an issue currently was on lisinopril 60 daily and HCTZ pre admit HCTZ stopped due to high output ostomy Lisinopril on hold (was NSTEMI, not STEMI, so no absolute indication to resume) BP stable on metoprolol 50 mg po bid (for rate control post NSTEMI If SBP under 110, check orthostatics and evaluate I/O's Encourage PO fluid as above to match 1:1 # History of iron deficiency Conclusion/Plan: continues home iron #fever/leukocytosis Patient had been empirically started on zosyn Day 2 post op for fever 38.2, mild leukocytosis, neg urine, neg evident pulm infxn, leukocytosis may have been related to surgery had intended 5 days empiric ABX Zosyn stopped opped as no infection identified, neg cultures, WBC stable, unchanged at 11K, no bands Aortic Stenosis mild Repeat Echo ~ 1 yr " - SNF / [facility] Transition Orders Medicare Certification Statement: I certify that [facility] senior living care is medically necessary on a continuing basis for any of the conditions for which she/he is receiving care during hospitalization. Notify PCP of admission and forward orders to primary provider for signature. Other Notification Orders: Call PCP immediately if patient develops dyspnea, chest pain/tightness or edema. Additional Bowel Program Orders: If no BM after 2 days, nurse may give M.O.M. 30ml PO PRN and/or ducolax Supp 1 [place] and/or BRITTANY 250mg P.O., and/or senna 1-2 tabs PO. On day 3 nurse may give repeat above order until residents constipation is resolved. Medication Orders: PLEASE REFER TO THE DISCHARGE MEDICATION LIST. - Medications New Prescriptions: Atorvastatin [Lipitor] 40 mg PO QPM #30 tablet - Diet Type: Regular
--- NOTE | 2020-04-11 17:47 | DISCHARGE SUMMARY ---
Discharge Summary Admit Date: 04/02/20 Discharge Date: 04/11/20 Discharging Provider: JAZMIN Serrano Primary Care Provider: Dr. Niles Bledsoe Code Status: Attempt Resuscitation Condition at Discharge: Stable Discharge Disposition: 03 SNF DC/Xfer Discharge Facility Name: [facility] - DIAGNOSES Admission Diagnoses: 1) Partial bowel obstruction 2) Hypertension 3) History of iron deficiency Discharge Diagnoses with Status of Each Condition: 1) Partial bowel obstruction resolved, found due to inflammatory diverticulitis, stricture 2) day 6 status post colostomy, extensive Lysis of adhesions and diverting ileostomy 3) NSTEMI; perioperative, stable, Echo; no WMA, normal EF,mild 4) high output ostomy; stable, improving, likely takedown surgery ~ 3 mos 5)) Hypertension; stable holding home ACEi and HCTZ now on metoprolol s/p perioperative NSTEMI 6) hypokalemia; stable, recheck BMP Thursday, on daily 20 meq KCL 7) History of iron deficiency stable , continues home iron 8)Fever; resolved, leukocytosis, WBC unchanged ~ 11K with no evident infection 9)Aortic Stenosis, mild, repeat echo ~ 1 yr - HPI History of Present Illness: This is a 69-year-old female with a past medical history significant for hypertension, iron deficiency anemia who presents today complaining of lower abdominal pain and constipation. She states her symptoms began about 5 days ago but over the past 2 days she has severe lower abdominal cramping and pain that has been a 10 out of 10. She has had associated constipation and had a bowel movement in 2 days. She reports no nausea but has had multiple episodes of nonbloody emesis. She currently feels that her pain has improved. She reports a similar episode about 3 years ago but that it felt a little bit different at that time. She was supposed to get a colonoscopy then but unfortunately due to insurance problems, she never followed up and has never had a colonoscopy in her life. She reports a prior history of appendectomy otherwise no other surgical history. She is adopted and is unaware of her family history. She reports no weight loss. In the emergency department, she underwent a CT of the abdomen and pelvis which showed a 9 cm segment of high-grade stenosis involving the mid to distal sigmoid colon with suggestion of marked circumferential wall thickening and resultant d istal colonic obstruction. This was concerning for a circumferential mass versus infectious or inflammatory colitis. She was given ceftriaxone and Flagyl IV as well as Toradol. Given these findings, medicine was consulted for admission. Full code discussed w/ patient on admission - CONSULTS | PROCEDURES Consultations: General surgery, Dr Gutierrez, Procedures: 04/04 unsuccessful colonoscopy due to stricture sigmoid colon (Dr Gutierrez) 04/04 sigmoid colectomy, Lysis of adhesions (required 2 hours), diverting ileostomy (Dr Gutierrez) - HOSPITAL COURSE Hospital Course: (1 Partial bowel obstruction due to active diverticulitis w/ fibroinflammatory mass s/p resection 04/05 Impression: 04/11 POD #7 04/04 sigmoid colectomy, extensive KADE (greater than 2 hrs) and diverting ileostomy (Surgeon attempted 04/04 colonoscopy w/ tight impassable stricture sigmoid colon) Pathology result 04/09; active dirverticulitis w/ fibroinflammmatory mass , No malignancy Epidural out 04/09 NG out 04/05 Oral/diet intake much improved after diet advance 04/09 from clears (but incre ased ostomy output . Midline incision healing well, Per Dr Gutierrez, sundar can be removed in 10 days High output ostomy (see below) Patient still needs to start actively participating in ostomy care. / has been reluctant Due to habitus, ostomy with leaking issues at 3 :00 position; Tiffanie Pearson checking again before discharge Most recent ostomy nurse note Leaking 3:00, replaced w/1 pce [employer], wide barrier ring, pressure held at 3:00. Peristomal skin intact. Still not emptying herself. Only able to send one ostomy bagbags withh patient.. [facility] will need to order 2 Non-STEMI (non-ST elevated myocardial infarction) Impression: s/p NSTEMI after surgery on 04/04. Max troponin was 175 on 04/05. Was identified due to hypotension and some diaphoresis, there was no associated chest pain, SOB, jaw or L arm pain No prior history of CAD . Preop echo; hyperdynamic EF,no WMA , mild AoVarea 1.69 cm, mean presure gradient 31mm/ 17mmHg , Repeat Echo post NSTEMI 04/10 ; continues w/ hyperdynamic EF, EF > 75%, No WMA On ASA, beta shanda (dose titrated to 50 mg bid on 04/10), statin Patient did elect to proceed w/ colectomy, and tolerated subsequent colectomy without complication Was on lovenox x 5 days, held x 24 hrs before epidural removed. Orthostasis noted 04/09 due to volume depletion from ostomy output (not cardiac cause); see #3 Should have outpatient stress test once ostomy output stabilized. Dr. Gutierrez anticipates takedown surgery ~ 3 mos 3 High output ileostomy Patient chemistry w/ progressive metabolic alkalosis after diet advance, (bicarb 25-28-33-34 last 4 days reflecting contraction) due to ostomy output and was also orthostatic 04/10 with mismatched I/O over several days (down ~ 6liters by 04/10) orthostasis much improved after IV fluids given 04/10-04/11 with improved labs (bicarb 30) -lomotil startd on 04/10 and increased to TID scheduled dosing on 04/11 - Added metamucil bid for bulking -Imodium started 04/10 HCTZ (previously a home med) had been resumedd post op was discontinued 04/10. Would recommend NOT resuming HCTZ until after ostomy take down if even needed Gentle IVF overnight 04/10 with improving labs (bicarb 30 Nutrition/ Angelique recommended replace ostomy volume output during waking hours every 6 hours with oral liquid intake (At least 1 32 oz bottle of gatorade is helpful as part of this fluid repletion (the rest can be water, broths, unsweetened tea etc) Patient given a dose of 1000mg IM B12 04/10. Will start 1000mg PO daily. Recheck B12 ~ 2 weeks 4 Physical Deconditioning Deconditioned due to surgery, and NSTEMI; evaluated by PT and recommended SNF Discharge to [facility] on 04/11, Will continue ensure w/ meals # Hypokalemia. due to GI losses from ileiostomy daily KCL 20 meq until ostomy output slows down consider recheck BMP by Thursday # HTN Hypertension not an issue currently was on lisinopril 60 daily and HCTZ pre admit HCTZ stopped due to high output ostomy Lisinopril on hold (was NSTEMI, not STEMI, so no absolute indication to resume) BP stable on metoprolol 50 mg po bid (for rate control post NSTEMI If SBP under 110, check orthostatics and evaluate I/O's Encourage PO fluid as above to match 1:1 # History of iron deficiency Conclusion/Plan: continues home iron #fever/leukocytosis Patient had been empirically started on zosyn Day 2 post op for fever 38.2, mild leukocytosis, neg urine, neg evident pulm infxn, leukocytosis may have been related to surgery had intended 5 days empiric ABX Zosyn stopped 04/09Stopped as no infection identified, neg cultures, WBC stable, unchanged at 11K, no bands Aortic Stenosis mild, Aortic valve area 1.69 cm, peak /catherine pressure gradient 31mm/17mmHg Repeat echo ~ 1 yr Code status; full code - ALLERGIES Allergies/Adverse Reactions: Allergies Allergy/AdvReac Type Severity Reaction Status Date / Time Penicillins Allergy Unknown Verified 04/02/20 10:36 - MEDICATIONS Home Medications: Ambulatory Orders Medication Instructions Recorded Confirmed Aspirin EC [Ecotrin] 81 mg PO DAILY 04/02/20 04/02/20 Ferrous Sulfate 325 mg PO DAILY 04/02/20 04/02/20 Acetaminophen [Tylenol] 650 mg PO Q4HR PRN tablet 04/11/20 Atorvastatin [Lipitor] 40 mg PO QPM #30 tablet 04/11/20 Cyanocobalamin [Vitamin B-12] 1,000 mcg PO DAILY tablet 04/11/20 Diphenoxylate/Atropine [Lomotil] 1 tab PO QID PRN tablet 04/11/20 Diphenoxylate/Atropine [Lomotil] 1 tab PO TID tablet 04/11/20 Famotidine [Pepcid] 20 mg PO DAILY tablet 04/11/20 Loperamide [Imodium] 2 mg PO QID PRN capsule 04/11/20 Metoprolol Tartrate [Lopressor] 50 mg PO BID tablet 04/11/20 Multivitamin W/Minerals [Theragran 1 tab PO DAILYWM tablet 04/11/20 M] Potassium Chloride [K-Dur] 20 meq PO DAILYWM tablet 04/11/20 Psyllium [Metamucil] 1 packet PO BID packet 04/11/20 - PHYSICAL EXAM AT DISCHARGE General Appearance: positive: No acute distress, Alert, Other (participates in conversation, animated) Eyes Bilateral: positive: PERRL, EOMI Neck: positive: Nml inspection Respiratory: positive: No respiratory distress, Breath sounds nml Cardiovascular: positive: Regular rate & rhythm, Systolic murmur (2/6 harsh midpeaking, S4S1S2, ), Other (no peripheral edema, + 2 radial, pedal pulses). negative: Extrasystoles, Tachycardia Peripheral Pulses: positive: 2+ Abdomen: positive: Nml bowel sounds, No distention, Other (ileostomy with 1000 cc out since midnight, some solid material, watery brown,ostomy leaking , wafer "bent" ~ 3:00 position, ). negative: Tenderness (midline sundar intact, no erythema, no drainage, small L lower abd incision w/ 2x2, no drainage) Skin: positive: Warm, Dry, Other (sundar intact midline incision abdomen, small 2x2 over R incision) Extremities: positive: Other (RUE PICC). negative: Pedal edema Neurologic/Psychiatric: positive: Oriented x3, Motor nml, Sensation nml, Mood/affect nml, Other (got up to bathroom without walker (advised to use walker)) - LABS Result Diagrams: 04/11/20 06:15 04/11/20 06:15 - DIAGNOSTIC IMAGING Diagnostic Imaging Results Comments: Preop echo; hyperdynamic EF,no WMA , mild AoVarea 1.69 cm, mean presure gradient 31mm/ 17mmHg , Repeat Echo post NSTEMI 04/10 ; continues w/ hyperdynamic EF, EF > 75%, No WMA 1: Abdomen / Pelvis CT 04/02 : 9 cm segment of high grade stenosis involving mid-distal sigmoid colon w/ suggestion of marked circumferential wall thickening and resulltant distal colonic obstruction at that level. Large hiatal hernia, heriation sac contains stomach and long segment of transverse colon. Air and d compressive atelectasis posterior left lung base, 2)Chest X ray; NG in stomach lumen, Tr left pleural effusion vs pleural thickening, L basilar atelectasis Chest X ray 04/05; PICC placement noted; due to patient rotation, and hiatal heria interfering w/ visualization PICC placement required CT scan to confirm placement at the superior cavoatrial junction Surgical Pathology from 04/04/2020 1) colonic diverticulosis, 2) Active diverticulitis w/ fibroinflammatory mass, 3) No malignancy, no colitis, no dysplasia - FOLLOW UP Follow Up: Patient to follow up with Dr. Gutierrez in 3 weeks in surgery clinic (needs to be scheduled) - TIME SPENT Time Spent in Discharge (Minutes): 50 (over 45 minutes arranging discharge needs, contacting surgeon re: follow up plan, discussing plan with nutrition for electrolyte and volume management with highoutput ostomy, contacting ostomy nurse as ostomy leaking still, modifiying treatment plan for discharge for highoutput ostomy)
[2020-04-12] MEDS ORDERED: POTASSIUM CHLORIDE 20 MEQ TABLET PO SCH (08:00)
[2020-04-12] MEDS ORDERED: CYANOCOBALAMIN 500 MCG TABLET PO SCH (09:00)
--- NOTE | 2020-04-12 11:27 | PROVIDER PROGRESS NOTE ---
Subjective - Prog Note Date Prog Note Date: 04/12/20 (late entry from 04/11) Prog Note Time: 11:25 - Subjective Pt reports feeling: No change (See full discharge summary dated 04/11 late entry progress note Patient without complaints, slept well, wasnt aware ostomy wafer had become loose again medial portion, no pain, no sob) Objective - Vital Signs/Intake & Output Intake & Output: Intake & Output 04/09/20 04/10/20 04/11/20 04/12/20 23:59 23:59 23:59 23:59 Intake Total 1928 2950.719 2347.777 Output Total 4105 3800 2350 Balance -2177 -849.281 -2.223 - Objective General Appearance: positive: Other (patient napping ~ noon, easily aroused to name, alert, oriented , aware of plans for day for [facility], indicates she can call a friend to bring [place] to [facility]) Eyes Bilateral: positive: Normal inspection, EOMI (eyes track evenly) Respiratory: positive: No respiratory distress, Breath sounds nml Cardiovascular: positive: Regular rate & rhythm (S4S1S2), Systolic murmur (2/6 mid peaking murmur), Other (radial pulses +2,) Abdomen: positive: Other (rounded abd, soft + BS, midline sundar unremarkable, R ostomy with small volume watery brown stool, some undigested food, sl dislodgement of ostomy wafer at 3:00, , surrounding skin unremakrable) Skin: positive: Warm, Dry, Other ( RUE picc) Extremities: negative: Pedal edema - Lab Results Fish Bones: 04/11/20 06:15 04/11/20 06:15 Assessment/Plan - Problem List (1) Non-STEMI (non-ST elevated myocardial infarction) Impression: See discharge summary for details on plan for [facility] Discharge post colost yamini/high output ileostomy, NSTEMI, Unintended medication given to patient; I discussed with Ms Kinsey that I noted that an order for gabapentin 600 mg po q pm, and 300 mg po q am had been ordered inadvertently into her record rather than the intended patient by myself on the pm of 04/10.. She (Ms Kinsey) did receive the PM dose 04/10, and the AM dose 04/11. She is oriented and appropriate and denies any sensation of confusion or grogginess having received those. She commented "we all make mistakes," and somewhat joked it may have been the reason she slept. I noted to her that even though she thankfully had no untoward effects from the medication, that that was an error on my part and that it was a reminder to remain vigilant when entering electronic orders, especially when looking thru multiple different patient electronic medical records to verify which patient's chart I am in when entering an isolated order.
== END 2020-04-11 15:09 | DRG 329 ==
LOC: ED 10:22 → MS2 15:05
PROVIDERS: ADMIT Internal Medicine; ATTEND Nurse Practitioner
PROC: 0DJD8ZZ Inspection of Lower Intestinal Tract, Via Natural or Artificial Opening Endoscopic (ICD-10-PCS; 2020-04-04)
PROC: 02HV33Z Insertion of Infusion Device into Superior Vena Cava, Percutaneous Approach (ICD-10-PCS; 2020-04-04)
PROC: 0DBN0ZZ Excision of Sigmoid Colon, Open Approach (ICD-10-PCS; principal; 2020-04-05)
PROC: 0DNW0ZZ Release Peritoneum, Open Approach (ICD-10-PCS; 2020-04-05)
PROC: 0D1B0Z4 Bypass Ileum to Cutaneous, Open Approach (ICD-10-PCS; 2020-04-05)
DX: K56.690 Other partial intestinal obstruction (principal); K52.9 Noninfective gastroenteritis and colitis, unspecified; Z87.19 Personal history of other diseases of the digestive system; K57.32 Diverticulitis of large intestine without perforation or abscess without bleeding; I21.4 Non-ST elevation (NSTEMI) myocardial infarction; K56.51 Intestinal adhesions [bands], with partial obstruction; E87.3 Alkalosis; K94.19 Other complications of enterostomy; I50.30 Unspecified diastolic (congestive) heart failure; D50.9 Iron deficiency anemia, unspecified; I35.0 Nonrheumatic aortic (valve) stenosis; E87.6 Hypokalemia; D72.829 Elevated white blood cell count, unspecified; R50.9 Fever, unspecified; I95.1 Orthostatic hypotension; K44.9 Diaphragmatic hernia without obstruction or gangrene; I11.0 Hypertensive heart disease with heart failure; I27.20 Pulmonary hypertension, unspecified; T42.6X1A Poisoning by other antiepileptic and sedative-hypnotic drugs, accidental (unintentional), initial encounter; Y92.230 Patient room in hospital as the place of occurrence of the external cause; E86.9 Volume depletion, unspecified; K57.30 Diverticulosis of large intestine without perforation or abscess without bleeding; R53.1 Weakness
CPT/HCPCS: 36415; 71045; 71250; 74177; 80048; 80053; 81001; 82330; 82378; 82607; 83690; 83735; 84100; 84484; 85025; 85027; 85610; 87040; 87086; 93005; 93306; 93308; 96365; 96375; 97161; 99284; 99285; A9270; C1751; J0131; J1650; J7120; Q9967; U0004; 81003

== ENCOUNTER 2020-04-13 08:00 | Outpatient (CLI) | payer MEDICARE ==
[2020-04-13 19:50] LABS: BASOPHILS # (AUTO) 0.1 10^3/uL (0.0-0.1); BASOPHILS % (AUTO) 0.6 %; EOSINOPHILS # (AUTO) 0.3 10^3/uL (0.0-0.7); EOSINOPHILS % (AUTO) 3.1 %; HGB - HEMOGLOBIN 9.8 g/dL (12.0-16.0); LYMPHOCYTES # (AUTO) 0.7 10^3/uL (1.5-3.5); LYMPHOCYTES % (AUTO) 7.1 %; MEAN CORPUSCULAR HEMOGLOBIN 29.5 pg (27.0-31.0); MEAN CORPUSCULAR HGB CONC 30.9 g/dL (32.0-36.0); MEAN CORPUSCULAR VOLUME 95.5 fL (81.0-99.0); MEAN PLATELET VOLUME 9.2 fL (7.9-10.8); MONOCYTES # (AUTO) 0.6 10^3/uL (0.0-1.0); MONOCYTES % (AUTO) 5.5 %; NEUTROPHILS # (AUTO) 8.5 10^3/uL (1.5-6.6); NEUTROPHILS % (AUTO) 82.2 %; PLT - PLATELET COUNT 548 10^3/uL (130-450); RED BLOOD COUNT 3.32 10^6/uL (4.20-5.40); RED CELL DISTRIBUTION WIDTH 14.1 % (12.0-15.0); WHITE BLOOD COUNT 10.3 x10^3/uL (4.8-10.8)
[2020-04-13 19:52] LABS: CALCIUM 8.7 mg/dL (8.5-10.3); CREATININE 0.6 mg/dL (0.4-1.0)
== END 2020-04-13 23:59 | disposition home or self-care (01) ==
LOC: LAB.R 08:00
PROVIDERS: ATTEND Family Medicine
DX: D64.9 Anemia, unspecified (principal); E87.5 Hyperkalemia
CPT/HCPCS: 80048; 82728; 85025

== ENCOUNTER 2020-04-23 07:00 | Outpatient (CLI) | payer MEDICARE ==
[2020-04-23 15:44] LABS: CALCIUM 9.1 mg/dL (8.5-10.3); CREATININE 0.8 mg/dL (0.4-1.0)
== END 2020-04-23 23:59 | disposition home or self-care (01) ==
LOC: LAB.R 07:00
DX: R19.8 Other specified symptoms and signs involving the digestive system and abdomen (principal); Z93.2 Ileostomy status
CPT/HCPCS: 80048; 85025

== ENCOUNTER 2020-04-24 08:00 | Outpatient (CLI) | payer MEDICARE ==
[2020-04-24 11:42] LABS: BASOPHILS # (AUTO) 0.1 10^3/uL (0.0-0.1); BASOPHILS % (AUTO) 0.7 %; EOSINOPHILS # (AUTO) 0.3 10^3/uL (0.0-0.7); EOSINOPHILS % (AUTO) 3.8 %; HGB - HEMOGLOBIN 10.8 g/dL (12.0-16.0); LYMPHOCYTES % (AUTO) 12.5 %; MEAN CORPUSCULAR HEMOGLOBIN 29.5 pg (27.0-31.0); MEAN CORPUSCULAR HGB CONC 31.1 g/dL (32.0-36.0); MEAN CORPUSCULAR VOLUME 94.8 fL (81.0-99.0); MONOCYTES # (AUTO) 0.6 10^3/uL (0.0-1.0); MONOCYTES % (AUTO) 7.4 %; NEUTROPHILS # (AUTO) 6.1 10^3/uL (1.5-6.6); NEUTROPHILS % (AUTO) 74.9 %; PLT - PLATELET COUNT 456 10^3/uL (130-450); RED BLOOD COUNT 3.66 10^6/uL (4.20-5.40); RED CELL DISTRIBUTION WIDTH 14.1 % (12.0-15.0); WHITE BLOOD COUNT 8.1 x10^3/uL (4.8-10.8)
== END 2020-04-24 23:59 | disposition home or self-care (01) ==
LOC: LAB.R 08:00
PROVIDERS: ATTEND Family Medicine
DX: E87.6 Hypokalemia (principal)
CPT/HCPCS: 85025

== ENCOUNTER 2020-05-23 09:58 | Outpatient (CLI) | payer MEDICARE | END 2020-05-23 09:59 | disposition home or self-care (01) | LOC: DI 09:58 | PROVIDERS: ATTEND Family Medicine | DX: I51.7 Cardiomegaly (principal) | CPT/HCPCS: 93306 ==

== ENCOUNTER 2020-10-18 06:27 | Day surgery (SDC) | payer MEDICARE, MEDICAID ==
[2020-10-18] MEDS ORDERED: LACTATED RINGERS 1,000 ML IV ONE ×2 (06:30→08:16)
[2020-10-18] MEDS ORDERED: PROPOFOL 500 MG/50 ML 500 MG/50 ML VIAL ONE (07:17)
[2020-10-18] MEDS ORDERED: LIDOCAINE-MPF 2% 5 ML VIAL ONE (07:17)
--- NOTE | 2020-10-18 07:22 | ANESTHESIA ---
Pre-Anesthesia VS, & Labs - Diagnosis ileostomy - Procedure colonoscopy Vital Signs: Temp Pulse Resp BP Pulse Ox 36.6 C 95 18 160/95 H 99 10/18/20 06:39 10/18/20 06:39 10/18/20 06:39 10/18/20 06:39 10/18/20 06:39 Height: 5 ft 3 in Weight (kg): 64 kg Body Mass Index: 25.0 BMI Classification: Overweight - NPO >8 hours - Is Patient ?: No Home Medications and Allergies Aspirin EC [Ecotrin] 81 mg PO DAILY 04/02/20 Ferrous Sulfate 325 mg PO DAILY 04/02/20 Allergies/Adverse Reactions: Allergies Allergy/AdvReac Type Severity Reaction Status Date / Time Penicillins Allergy Nausea Verified 10/12/20 12:34 Anes History & Medical History - Anesthetic History Family history of Anesthesia Complications: Denies Family history of Malignant Hyperthermia: Denies - Medical History Cardiovascular: reports: Hypertension, [place], Murmur Pulmonary: reports: Asthma Gastrointestinal: reports: None Urinary: reports: None Neuro: reports: None Musculoskeletal: reports: None Endocrine/Autoimmune: reports: None Blood Disorders: reports: None Skin: reports: None Smoking Status: Former smoker - Surgical History General: reports: Appendectomy, Bowel surgery, Colonoscopy Eyes Ears Nose Throat (EENT): reports: Tonsil/Adenoidectomy Orthopedic: reports: Arthroscopic surgery Exam Dental: WNL Mouth Openin Fingerbreadth Neck Mobility: Normal Mallampati classification: II Thyromental Distance: 4-6 cm Respiratory: Lungs clear Cardiovascular: Normal S1 Abdomen: Normal bowel sounds Extremities: No clubbing Neurological: Normal gait Mental/Cognitive Status: Alert/Oriented X3 Cognitive Status: Within normal limits Plan Anesthesia Type: Total IV Regional Block: Per Surgeon's request for Post Op pain control Consent for Procedure(s) Verified and Reviewed: Yes Code Status: Attempt Resuscitation ASA classification: 3-Severe systemic disease Is this case an emergency?: No
[2020-10-18] MEDS ORDERED: GLYCOPYRROLATE 1 MG/5 ML VIAL ONE (07:41)
[2020-10-18] MEDS ORDERED: IOVERSOL 320 100 ML VIAL IVP ONE ×2 (08:43→13:44)
[2020-10-18] MEDS ORDERED: IOPAMIDOL-300 50 ML VIAL ONE (08:43)
[2020-10-18 09:11] LABS: CREATININE 0.8 mg/dL (0.4-1.0)
[2020-10-18 09:20] VITALS: BP 165/97
--- NOTE | 2020-10-18 10:49 | ANESTHESIA POST OP EVALUATION ---
Anesthesia Post Eval - Post Anesthesia Eval Vitals: Last Vital Signs Temp 36.6 C 10/18/20 09:19 Pulse 65 10/18/20 09:19 Resp 17 10/18/20 09:19 BP 165/97 H 10/18/20 09:19 Pulse Ox 98 10/18/20 09:19 CV Function Including HR & BP: positive: Stable Pain Control: positive: Satisfactory Nausea & Vomiting: positive: Negative Mental Status: positive: Baseline Respiratory Status: Airway Patent Hydration Status: Satisfactory Anesthesia Complications: positive: None
--- NOTE | 2020-10-18 11:41 | CT Report ---
PROCEDURE: Abdomen/Pelvis W INDICATIONS: ileostomy status CONTRAST: IV CONTRAST: Optiray 320 ml: 100 PO CONTRAST: Isovue 300 ml50 TECHNIQUE: After the administration of intravenous, oral, and rectal contrast, 5 mm thick sections acquired from the diaphragms to the symphysis. 5 mm thick coronal and sagittal reformats were acquired. For radi ation dose reduction, the following was used: automated exposure control, adjustment of mA and/or kV according to patient size. COMPARISON: CT abdomen pelvis 04/02/2020. FINDINGS: Image quality: Excellent. ABDOMEN: Lung bases: There is a large hiatal hernia and elevation of the left hemidiaphragm redemonstrated wit h associated left basilar atelectasis. Heart size is normal. Solid organs: Evaluation of the liver demonstrates no focal hepatic lesions. Gallbladder appears wit hin normal limits without calcified gallstones. Biliary system is non dilated. The spleen is normal in size. Pancreas enhances normally without peripancreatic fat stranding or fluid collections. No di screte adrenal nodules. There is thickening of the left adrenal gland redemonstrated. Kidneys demonst rate no hydronephrosis. Peritoneum and bowel: Postsurgical changes are demonstrated status post partial sigmoid colectomy. T here is focal narrowing at the colonic end to side anastomosis consistent with a stricture. Rectal co ntrast is demonstrated extending proximally throughout the colon compatible with A right lower quadra nt diverting ileostomy is present. More proximal small bowel loops demonstrate mild fluid distention in the lower abdomen measuring up to approximately 3.7 cm which may reflect a mild stricture. No high -grade obstruction. A rectal tube is present. No free fluid or air. Nodes and vessels: No retroperitoneal or mesenteric adenopathy by size criteria. Aorta and inferior vena cava are normal in size. Miscellaneous: No ventral hernias. PELVIS: Genitourinary: Bladder wall thickness is normal. Miscellaneous: No inguinal hernias or adenopathy. Bones: No suspicious bony lesions. No vertebral body compression fractures. IMPRESSION: 1. Focal narrowing at the colonic anastomosis suggestive of at least a moderate stricture. 2. Diverting ileostomy demonstrated in the right lower quadrant with mild fluid distention of small b owel loops in the lower abdomen. Findings may reflect a mild stricture without evidence of high-grade obstruction. 3. Large hiatal hernia redemonstrated with left basilar atelectasis. Reviewed by: Oni Tyalor MD on 10/18/2020 10:40 AM [facility] Approved by: Oni Taylor MD on 10/18/2020 10:40 AM [place] Station ID: [id number]
[2020-10-18] MEDS ORDERED: IOPAMIDOL-300 50 ML VIAL PO ONE (13:44)
== END 2020-10-18 06:28 | disposition home or self-care (01) ==
LOC: SDS 06:27
PROVIDERS: ATTEND Surgery
DX: Z09 Encounter for follow-up examination after completed treatment for conditions other than malignant neoplasm (principal); K56.699 Other intestinal obstruction unspecified as to partial versus complete obstruction; Z93.2 Ileostomy status; Z87.19 Personal history of other diseases of the digestive system; I10 Essential (primary) hypertension; R01.1 Cardiac murmur, unspecified; J45.909 Unspecified asthma, uncomplicated; G40.909 Epilepsy, unspecified, not intractable, without status epilepticus; D51.8 Other vitamin B12 deficiency anemias; K21.9 Gastro-esophageal reflux disease without esophagitis; K44.9 Diaphragmatic hernia without obstruction or gangrene; F10.11 Alcohol abuse, in remission; F19.11 Other psychoactive substance abuse, in remission; Z20.822 Contact with and (suspected) exposure to COVID-19; E66.3 Overweight; Z68.25 Body mass index [BMI] 25.0-25.9, adult; Z79.82 Long term (current) use of aspirin; Z79.899 Other long term (current) drug therapy; I25.2 Old myocardial infarction; Z87.891 Personal history of nicotine dependence
CPT/HCPCS: 45330; 74177; 82565; J7120; Q9967; U0004; 81599

== ENCOUNTER 2020-10-22 06:24 | Inpatient (IN) | payer MEDICARE, MEDICAID ==
[2020-10-22] MEDS ORDERED: ceFAZolin 2 GM/50 ML 2 GM/50 ML BAG IV ONE (06:29)
[2020-10-22] MEDS ORDERED: LACTATED RINGERS 1,000 ML IV ONE (06:55)
--- NOTE | 2020-10-22 07:08 | ANESTHESIA ---
Pre-Anesthesia VS, & Labs - Diagnosis Ileosotomy status, anastamotic stricture - Procedure Ileosotomy closure Vital Signs: Temp Pulse Resp BP Pulse Ox 36.6 C 92 16 157/93 H 98 10/22/20 06:40 10/22/20 06:40 10/22/20 06:40 10/22/20 06:40 10/22/20 06:40 Height: 5 ft 3 in Weight (kg): 65.7 kg Body Mass Index: 25.6 BMI Classification: Overweight - NPO >8 hours - Is Patient ?: No - Lab Results Lab results reviewed: Yes Home Medications and Allergies Aspirin EC [Ecotrin] 81 mg PO DAILY 04/02/20 Ferrous Sulfate 325 mg PO DAILY 04/02/20 Allergies/Adverse Reactions: Allergies Allergy/AdvReac Type Severity Reaction Status Date / Time Penicillins Allergy Nausea Verified 10/12/20 12:34 Anes History & Medical History - Anesthetic History Anesthesia Complications: reports: No previous complications Family history of Anesthesia Complications: Denies Family history of Malignant Hyperthermia: Denies - Medical History Cardiovascular: reports: Hypertension, [place], Murmur Pulmonary: reports: Asthma, Shortness of breath Gastrointestinal: reports: None Urinary: reports: None Neuro: reports: None Musculoskeletal: reports: None Endocrine/Autoimmune: reports: None Blood Disorders: reports: None Skin: reports: None Smoking Status: Former smoker - Surgical History General: reports: Appendectomy, Bowel surgery, Colonoscopy Eyes Ears Nose Throat (EENT): reports: Tonsil/Adenoidectomy Orthopedic: reports: Arthroscopic surgery Results - Echo Results Echo Results: Report reviewed (EF 65-70%, mild ) Exam General: Alert, Oriented x3, Cooperative, No acute distress Dental: WNL Mouth Openin Fingerbreadth Neck Mobility: Normal Mallampati classification: II Respiratory: Lungs clear, Normal breath sounds, No respiratory distress, No accessory muscle use Cardiovascular: Regular rate, Other (murmur) Plan Anesthesia Type: General, Transverse Abdominis Plane (TAP) Block Regional Block: Per Surgeon's request for Post Op pain control Consent for Procedure(s) Verified and Reviewed: Yes Code Status: Attempt Resuscitation ASA classification: 3-Severe systemic disease Is this case an emergency?: No
[2020-10-22] MEDS ORDERED: PROPOFOL 500 MG/50 ML 500 MG/50 ML VIAL ONE ×3 (07:18→10:29)
[2020-10-22] MEDS ORDERED: LIDOCAINE-MPF 2% 5 ML VIAL ONE (07:19)
[2020-10-22] MEDS ORDERED: fentaNYL 100 MCG/2 ML VIAL IVP PRN (07:47)
[2020-10-22] MEDS ORDERED: METOCLOPRAMIDE 10 MG/2 ML VIAL IVP PRN (07:47)
[2020-10-22] MEDS ORDERED: MORPHINE 2 MG/ML CARPUJECT IVP PRN (07:47)
[2020-10-22] MEDS ORDERED: ATROPINE ABBOJECT 1 MG/10 ML SYRINGE IVP PRN ×2 (07:47→12:12)
[2020-10-22] MEDS ORDERED: HYDROmorphone 0.5 MG/0.5 ML SYRINGE IVP PRN (07:47)
[2020-10-22] MEDS ORDERED: ePHEDrine 50 MG/ML VIAL IVP PRN ×2 (07:47→12:12)
[2020-10-22] MEDS ORDERED: NALOXONE 0.4 MG/ML VIAL IVP PRN ×2 (07:47→12:12)
[2020-10-22] MEDS ORDERED: ONDANSETRON 4 MG/2 ML VIAL IVP PRN ×2 (07:47→11:20)
[2020-10-22] MEDS ORDERED: LACTATED RINGERS 1,000 ML IV SCH ×2 (08:00→11:29)
[2020-10-22] MEDS ORDERED: BUPIVACAINE 0.5% PF 30 ML VIAL ONE (08:32)
[2020-10-22] MEDS ORDERED: LIDOCAINE 2%-EPI 1:100000 20 ML MDV ONE (08:32)
[2020-10-22] MEDS ORDERED: IOPAMIDOL-300 50 ML VIAL ONE ×2 (08:50→08:57)
[2020-10-22] MEDS ORDERED: IOPAMIDOL-300 50 ML VIAL PO ONE (09:19)
[2020-10-22] MEDS ORDERED: fentaNYL 100 MCG/2 ML VIAL ONE (09:22)
[2020-10-22] MEDS ORDERED: LIDOCAINE MPF 2%-EPI 1:200000 20 ML VIAL SUBQ ONE ×2 (09:31)
[2020-10-22] MEDS ORDERED: BUPIVACAINE 0.5% PF 30 ML VIAL SUBQ ONE ×2 (09:31)
[2020-10-22] MEDS ORDERED: DEXAMETHASONE 4 MG/ML VIAL ONE (09:44)
[2020-10-22] MEDS ORDERED: ROCURONIUM 50 MG/5 ML VIAL ONE (09:44)
[2020-10-22] MEDS ORDERED: ONDANSETRON 4 MG/2 ML VIAL ONE (09:44)
[2020-10-22] MEDS ORDERED: ROPIVACAINE 0.5% PF 20 ML AMPULE ONE ×2 (09:45→11:03)
--- NOTE | 2020-10-22 10:05 | CT Report ---
PROCEDURE: Abdomen/Pelvis W INDICATIONS: Anastomotic dilation CONTRAST: IV CONTRAST: *NO IV CONTRAST PO CONTRAST: Isovue 300 ml50 TECHNIQUE: After the administration of rectal contrast, 5 mm thick sections acquired from the diaphragms to the symphysis. 5 mm thick coronal and sagittal reformats were acquired. For radiation dose reduction, t he following was used: automated exposure control, adjustment of mA and/or kV according to patient s ize. COMPARISON: CT abdomen and pelvis 10/18/2020, 04/02/2020. FINDINGS: Image quality: Excellent. ABDOMEN: Lung bases: Minimal left lung base atelectasis. No effusion. Heart size is normal. The visualized sto mach is located in the thoracic cavity. Left diaphragmatic hernia. Solid organs: Liver and spleen are normal in size. Gallbladder is unremarkable. Biliary system is non dilated. Pancreas is unremarkable. No adrenal nodules. Minimal thickening of the left adrenal g land. Kidneys are normal in size. No hydronephrosis. No kidney stones. Peritoneum and bowel: Rectal contrast was administered. No extravasation of rectal contrast is seen. No free air. There is mild presacral edema, increased. There is a rectal anastomosis which appears u nchanged. Stricture suspected at the rectal anastomosis, (). Distal colonic resection. Diverticul osis. Right lower quadrant diverting ileostomy. Rectal contrast flows into the right lower quadrant ostomy bag. No small bowel obstruction identified. There is equalization in the distal ileum. No ascites. Nodes and vessels: Small lymph nodes in the pelvis are seen, (6/33, 34). Aorta and inferior vena cav a are normal in size. Moderate calcified metastatic plaque. Miscellaneous: No ventral hernias. Ventral midline scar. PELVIS: Genitourinary: Bladder is mostly decompressed. Miscellaneous: No inguinal hernias or adenopathy. Bones: No suspicious bony lesions. No vertebral body compression fractures. IMPRESSION: 1. No extravasation of rectal contrast at the colorectal anastomosis. No free air is seen. Mild ya cral edema which is increased. 2. No obstruction is demonstrated. However, suspect stricture at the colorectal anastomosis. 3. Rectal contrast flows to the level of the right lower quadrant diverting ileostomy. 4. Left diaphragmatic/hiatal hernia. Reviewed by: Asher Toro MD on 10/22/2020 10:04 AM [facility] Approved by: Asher Toro MD on 10/22/2020 10:04 AM [facility] Station ID: [id number]
[2020-10-22] MEDS ORDERED: ACETAMINOPHEN 1,000 MG/100 ML 100 ML IV PRN (11:20)
[2020-10-22] MEDS ORDERED: HYDROmorphone 1 MG/ML CARPUJECT IVP PRN (11:20)
[2020-10-22] MEDS: LABETALOL 20 MG/4 ML SYRINGE IVP PRN ×2 (11:50→12:00)
[2020-10-22] MEDS ORDERED: SUGAMMADEX 200 MG/2 ML VIAL IVP ONE (11:51)
[2020-10-22] MEDS ORDERED: LABETALOL 20 MG/4 ML SYRINGE IVP ONE (11:59)
--- NOTE | 2020-10-22 12:09 | ANESTHESIA POST OP EVALUATION ---
Anesthesia Post Eval - Post Anesthesia Eval Vitals: Last Vital Signs Temp 36.5 C 10/22/20 11:40 Pulse 71 10/22/20 12:05 Resp 15 10/22/20 12:05 BP 179/87 H 10/22/20 12:05 Pulse Ox 92 10/22/20 12:05 CV Function Including HR & BP: positive: Stable Pain Control: positive: Satisfactory Nausea & Vomiting: positive: Negative Mental Status: positive: Baseline Respiratory Status: Airway Patent Hydration Status: Satisfactory Anesthesia Complications: positive: None
[2020-10-22] MEDS: methocarbamoL 500 MG TABLET PO SCH ×2 (13:01→21:10)
[2020-10-22] MEDS: METOPROLOL TARTRATE 50 MG TABLET PO SCH ×2 (13:01→21:10)
[2020-10-22] MEDS: KETOROLAC 30 MG/ML VIAL IVP SCH ×2 (13:01→18:24)
[2020-10-22] MEDS: ceFAZolin 2 GM/50 ML 2 GM/50 ML BAG IV SCH ×2 (13:02→21:11)
[2020-10-22] MEDS: SODIUM CHLORIDE FLUSH 0.9% 10 ML SYRINGE IVP PRN ×2 (13:08→18:24)
[2020-10-22] MEDS: SODIUM CHLORIDE FLUSH 0.9% 10 ML SYRINGE IVP SCH (16:15)
--- NOTE | 2020-10-22 16:33 | PHARMACY PROGRESS NOTE ---
- Best Possible Medication History Admit Date and Time: 10/22/2024 Processed by: Pharmacy Medication History completed: Yes Patient Interview: Completed Secondary Source(s): Pharmacy records, Insurance records As the person ultimately responsible for medication therapy, providers are able to order a medication from an existing home medication list in [facility] via the "Reconcile Routine" prior to Confirmation of that medication by client application support specialist. Such practice is discouraged except when the physician, in their clinical judgment, deems that a medical need exists for a medication without regard to previous use.
[2020-10-22] MEDS ORDERED: METOPROLOL TARTRATE 50 MG TABLET PO SCH (21:00)
[2020-10-22] MEDS: INSULIN ASPART 300 UNIT/3 ML PEN SUBQ SCH (21:09)
[2020-10-22] MEDS: PREGABALIN 25 MG CAPSULE PO SCH (21:10)
[2020-10-23] MEDS: KETOROLAC 30 MG/ML VIAL IVP SCH ×4 (00:41→17:45)
[2020-10-23] MEDS: SODIUM CHLORIDE FLUSH 0.9% 10 ML SYRINGE IVP SCH ×3 (00:41→17:45)
[2020-10-23 05:20] LABS: BASOPHILS % (AUTO) 0.5 %; EOSINOPHILS % (AUTO) 0.3 %; HCT - HEMATOCRIT 35.8 % (37.0-47.0); HGB - HEMOGLOBIN 10.9 g/dL (12.0-16.0); LYMPHOCYTES # (AUTO) 0.3 10^3/uL (1.5-3.5); LYMPHOCYTES % (AUTO) 8.2 %; MEAN CORPUSCULAR HEMOGLOBIN 29.5 pg (27.0-31.0); MEAN CORPUSCULAR HGB CONC 30.4 g/dL (32.0-36.0); MEAN PLATELET VOLUME 9.4 fL (7.9-10.8); MONOCYTES # (AUTO) 0.2 10^3/uL (0.0-1.0); MONOCYTES % (AUTO) 6.1 %; NEUTROPHILS # (AUTO) 3.3 10^3/uL (1.5-6.6); NEUTROPHILS % (AUTO) 84.6 %; PLT - PLATELET COUNT 196 10^3/uL (130-450); RED BLOOD COUNT 3.69 10^6/uL (4.20-5.40); RED CELL DISTRIBUTION WIDTH 13.4 % (12.0-15.0); WHITE BLOOD COUNT 3.9 x10^3/uL (4.8-10.8)
[2020-10-23 05:29] LABS: CALCIUM 8.3 mg/dL (8.5-10.3)
[2020-10-23] MEDS: PANTOPRAZOLE 40 MG VIAL IVP SCH (06:13)
[2020-10-23] MEDS: SODIUM CHLORIDE FLUSH 0.9% 10 ML SYRINGE IVP PRN ×2 (06:14→06:27)
[2020-10-23] MEDS: methocarbamoL 500 MG TABLET PO SCH ×3 (06:27→21:17)
[2020-10-23] MEDS: PREGABALIN 25 MG CAPSULE PO SCH ×2 (08:43→21:17)
[2020-10-23] MEDS: INSULIN ASPART 300 UNIT/3 ML PEN SUBQ SCH ×4 (08:43→21:13)
[2020-10-23] MEDS: METOPROLOL TARTRATE 50 MG TABLET PO SCH ×2 (08:43→21:18)
[2020-10-23] MEDS: POTASSIUM CHLORIDE 20 MEQ TABLET PO SCH (08:44)
[2020-10-23] MEDS: ENOXAPARIN 40 MG/0.4 ML SYRINGE SUBQ SCH (08:44)
--- NOTE | 2020-10-23 19:12 | OPERATIVE REPORT ---
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 Complications: None apparent - Other Other Information/Narrative: After obtaining informed consent, the patient is brought the operating room and placed in the supine position on the operating table. Following successful induction general endotracheal anesthesia, appropriate padding of all bony prominences, and placement of appropriate monitors the abdomen is prepped and draped in the standard surgical fashion. A timeout was held per scope protocol. All elements of the surgical safety checklist were followed before, during, and after the procedure. We began the procedure by infiltrating a mixture of local anesthetics around the existing ostomy. The ostomy was then sharply excised from the abdominal wall. All adhesions were lysed with Metzenbaum scissors under direct vision.Filmy intra-abdominal adhesions were appreciated.The ileum appeared to be well vascularized.It was delivered into the field and cautery used to excise the portion used to create an ostomy.This was passed from the table.A 55 mm MILLY stapling device was then used to create a anastomosis between the 2 halves of the ileum. A second load of the same stapler was passed across the remaining defect.The opening was then checked for patency.All staple lines were then oversewn with interrupted 3-0 Vicryl sutures.The mesenteric defect was closed as well.The wound was then checked for hemostasis and the abdominal cavity irrigated with 1 L of warm saline solution. The abdomen was aspirated free of all fluid and particulate matter. The fascia was then cleared of all peritoneum and intra-abdominal fat. The remaining defect in the abdominal wall was then closed with interrupted PDS sutures followed by a layer of interrupted Vicryl sutures, followed by a layer of nylon sutures.The final layer was packed intermittently with quarter inch Nu Gauze. A dry dressing was applied. All sponge, needle, and instrument counts were correct at the conclusion of the case. The patient was let awakened anesthesia without difficulty and taken to the postanesthesia care unit in good condition.
--- NOTE | 2020-10-23 19:16 | PROVIDER PROGRESS NOTE ---
Subjective - General Admit Date: 10/22/20 Procedure Date: 10/22/20 Post Op Days: 1 Procedure Performed: Ileostomy reversal - Review of Systems Wound/Incisions: positive: Healing well General: positive: No symptoms HEENT: positive: No symptoms Pulmonary: positive: No symptoms Cardiovascular: positive: No symptoms Gastrointestinal: positive: Flatus, Diarrhea. negative: Nausea, Vomiting, Abdominal pain Genitourinary: positive: No symptoms Musculoskeletal: positive: No symptoms Skin: positive: No symptoms Objective - Patient Data Vital Signs: Vital Signs x48h Temp Pulse Resp BP Pulse Ox 10/23/20 16:16 36.9 C 84 18 121/77 92 Weight: Weight 10/21/20 10/22/20 10/23/20 23:59 23:59 23:59 Weight (kg) 65.7 kg Intake & Output: Intake and Output Totals x24h 10/21/20 10/22/20 10/23/20 23:59 23:59 23:59 Intake Total 600 710 Output Total 210 850 Balance 390 -140 - Lab Results Lab Results: 10/23/20 05:02 10/23/20 05:02 Other Lab Results: Lab Results x24hrs 10/23/20 10/23/20 10/23/20 Range/Units 11:14 07:41 05:02 WBC (4.8-10.8) x10^3/uL RBC (4.20-5.40) 10^6/uL Hgb (12.0-16.0) g/dL Hct (37.0-47.0) % MCV (81.0-99.0) fL MCH (27.0-31.0) pg MCHC (32.0-36.0) g/dL RDW (12.0-15.0) % Plt Count (130-450) 10^3/uL MPV (7.9-10.8) fL Neut # (Auto) (1.5-6.6) 10^3/uL Lymph # (Auto) (1.5-3.5) 10^3/uL Ray # (Auto) (0.0-1.0) 10^3/uL Eos # (Auto) (0.0-0.7) 10^3/uL Baso # (Auto) (0.0-0.1) 10^3/uL Absolute Nucleated RBC x10^3/uL Nucleated RBC % /100WBC Sodium 133 L (135-145) mmol/L Potassium 4.0 (3.5-5.0) mmol/L Chloride 101 (101-111) mmol/L Carbon Dioxide 25 (21-32) mmol/L Anion Gap 7.0 (6-13) BUN 20 (6-20) mg/dL Creatinine 1.0 (0.4-1.0) mg/dL Estimated GFR (MDRD) 55 L (>89) Glucose 130 H (70-100) mg/dL POC Whole Bld Glucose 101 H 124 H (70 - 100) mg/dL Calcium 8.3 L (8.5-10.3) mg/dL 10/23/20 10/22/20 Range/Units 05:02 20:57 WBC 3.9 L (4.8-10.8) x10^3/uL RBC 3.69 L (4.20-5.40) 10^6/uL Hgb 10.9 L (12.0-16.0) g/dL Hct 35.8 L (37.0-47.0) % MCV 97.0 (81.0-99.0) fL MCH 29.5 (27.0-31.0) pg MCHC 30.4 L (32.0-36.0) g/dL RDW 13.4 (12.0-15.0) % Plt Count 196 (130-450) 10^3/uL MPV 9.4 (7.9-10.8) fL Neut # (Auto) 3.3 (1.5-6.6) 10^3/uL Lymph # (Auto) 0.3 L (1.5-3.5) 10^3/uL Ray # (Auto) 0.2 (0.0-1.0) 10^3/uL Eos # (Auto) 0.0 (0.0-0.7) 10^3/uL Baso # (Auto) 0.0 (0.0-0.1) 10^3/uL Absolute Nucleated RBC 0.00 x10^3/uL Nucleated RBC % 0.0 /100WBC Sodium (135-145) mmol/L Potassium (3.5-5.0) mmol/L Chloride (101-111) mmol/L Carbon Dioxide (21-32) mmol/L Anion Gap (6-13) BUN (6-20) mg/dL Creatinine (0.4-1.0) mg/dL Estimated GFR (MDRD) (>89) Glucose (70-100) mg/dL POC Whole Bld Glucose 138 H (70 - 100) mg/dL Calcium (8.5-10.3) mg/dL - Current Medications Current Medications: Current Medications Generic Name Dose Route Start Last Admin Trade Name Freq PRN Reason Stop Dose Admin Enoxaparin Sodium 40 mg 10/23/20 09:00 10/23/20 08:44 Enoxaparin 40 Mg/0.4 Ml Syringe SUBQ 40 mg DAILY YASMEEN Administration Insulin Aspart 1 - 9 unit 10/22/20 21:00 10/23/20 16:41 Insulin Aspart 300 Unit/3 Ml Pen SUBQ Not Given 0800,1200,1700,2100 YASMEEN Protocol Ketorolac Tromethamine 30 mg 10/22/20 12:00 10/23/20 17:45 Ketorolac 30 Mg/Ml Vial IVP 10/27/20 11:59 30 mg Q6H YASMEEN Administration Methocarbamol 500 mg 10/22/20 14:00 10/23/20 14:02 Methocarbamol 500 Mg Tablet PO Not Given Q8HR YASMEEN Metoprolol Tartrate 50 mg 10/22/20 13:00 10/23/20 08:43 Metoprolol Tartrate 50 Mg Tablet PO 50 mg BID YASMEEN Administration Pantoprazole Sodium 40 mg 10/23/20 07:00 10/23/20 06:13 Pantoprazole 40 Mg Vial IVP 40 mg QDAC YASMEEN Administration Potassium Chloride 20 meq 10/23/20 08:00 10/23/20 08:44 Potassium Chloride 20 Meq Tablet PO 20 meq DAILYWM YASMEEN Administration Pregabalin 75 mg 10/22/20 21:00 10/23/20 08:43 Pregabalin 25 Mg Capsule PO Not Given BID YASMEEN Sodium Chloride 10 ml 10/22/20 17:00 10/23/20 17:45 Sodium Chloride Flush 0.9% 10 Ml Syringe IVP 10 ml 0100,0900,1700 YASMEEN Administration Sodium Chloride 10 ml 10/22/20 11:20 10/23/20 06:27 Sodium Chloride Flush 0.9% 10 Ml Syringe IVP 10 ml PRN PRN Administration NEEDED PER PROVIDER ORDERS - Physical Exam Wound/Incisions: positive: Healing well General Appearance: positive: No acute distress, Alert Eyes Bilateral: positive: Normal inspection ENT: positive: Pharynx nml Neck: positive: Nml inspection, No JVD Respiratory: positive: Chest non-tender, No respiratory distress Cardiovascular: positive: Regular rate & rhythm Abdomen: positive: Nml bowel sounds, No distention Neurologic/Psychiatric: positive: Oriented x3 ABX Reporting Has patient been on IV antibiotics over the past 48 hours?: Yes Impression/Plan - Problem List Problem List: POD #1 after re-establishment of continuity of the GI tract with ileostomy reversal. She is doing remarkably well. She has been walking in the room and having bowel movements. Would like to advance diet. Reports pain is well controlled. 1. Regular diet 2. Increase ambulation 3. Remove packing in the AM and make a decision regarding continued packing. 4. Consider discharge in the next 24 to 48 hours if she continues to do well.
[2020-10-24] MEDS: SODIUM CHLORIDE FLUSH 0.9% 10 ML SYRINGE IVP SCH ×4 (00:35→23:59)
[2020-10-24] MEDS: KETOROLAC 30 MG/ML VIAL IVP SCH ×5 (00:36→23:57)
[2020-10-24] MEDS: PANTOPRAZOLE 40 MG VIAL IVP SCH (06:21)
[2020-10-24] MEDS: methocarbamoL 500 MG TABLET PO SCH ×3 (06:21→20:53)
[2020-10-24] MEDS: INSULIN ASPART 300 UNIT/3 ML PEN SUBQ SCH (07:59)
[2020-10-24] MEDS: FERROUS GLUCONATE 324 MG TABLET PO SCH (08:42)
[2020-10-24] MEDS: POTASSIUM CHLORIDE 20 MEQ TABLET PO SCH (08:42)
[2020-10-24] MEDS: ENOXAPARIN 40 MG/0.4 ML SYRINGE SUBQ SCH (08:42)
[2020-10-24] MEDS: METOPROLOL TARTRATE 50 MG TABLET PO SCH ×2 (08:42→20:51)
[2020-10-24] MEDS: PREGABALIN 25 MG CAPSULE PO SCH ×2 (08:43→20:53)
[2020-10-24] MEDS: SODIUM CHLORIDE FLUSH 0.9% 10 ML SYRINGE IVP PRN (23:59)
[2020-10-25] MEDS ORDERED: MIN OIL/DIMETHICON/COCONUT OIL 92 GM TUBE TOP PRN (00:12)
[2020-10-25] MEDS: methocarbamoL 500 MG TABLET PO SCH ×3 (05:46→21:00)
[2020-10-25] MEDS: PANTOPRAZOLE 40 MG VIAL IVP SCH (05:48)
[2020-10-25] MEDS: KETOROLAC 30 MG/ML VIAL IVP SCH ×2 (05:48→13:17)
[2020-10-25] MEDS: ENOXAPARIN 40 MG/0.4 ML SYRINGE SUBQ SCH (09:28)
[2020-10-25] MEDS: SODIUM CHLORIDE FLUSH 0.9% 10 ML SYRINGE IVP SCH ×3 (09:28→23:38)
[2020-10-25] MEDS: POTASSIUM CHLORIDE 20 MEQ TABLET PO SCH (09:29)
[2020-10-25] MEDS: FERROUS GLUCONATE 324 MG TABLET PO SCH (09:29)
[2020-10-25] MEDS: METOPROLOL TARTRATE 50 MG TABLET PO SCH ×2 (09:29→21:01)
[2020-10-25] MEDS: PREGABALIN 25 MG CAPSULE PO SCH ×2 (09:29→21:01)
[2020-10-25] MEDS ORDERED: HYDROmorphone 0.5 MG/0.5 ML SYRINGE IVP PRN (10:56)
[2020-10-25 11:29] LABS: BASOPHILS % (AUTO) 0.7 %; EOSINOPHILS % (AUTO) 1.8 %; HCT - HEMATOCRIT 37.6 % (37.0-47.0); HGB - HEMOGLOBIN 11.7 g/dL (12.0-16.0); LYMPHOCYTES % (AUTO) 5.8 %; MEAN CORPUSCULAR HEMOGLOBIN 29.8 pg (27.0-31.0); MEAN CORPUSCULAR HGB CONC 31.1 g/dL (32.0-36.0); MEAN CORPUSCULAR VOLUME 95.9 fL (81.0-99.0); MEAN PLATELET VOLUME 9.6 fL (7.9-10.8); MONOCYTES % (AUTO) 10.3 %; NEUTROPHILS % (AUTO) 80.7 %; PLT - PLATELET COUNT 226 10^3/uL (130-450); RED BLOOD COUNT 3.92 10^6/uL (4.20-5.40); RED CELL DISTRIBUTION WIDTH 13.5 % (12.0-15.0); WHITE BLOOD COUNT 8.9 x10^3/uL (4.8-10.8)
[2020-10-25 11:34] LABS: ABNORMAL LYMPHS % (MANUAL) 0 %
[2020-10-25 11:43] LABS: ALBUMIN 3.1 g/dL (3.2-5.5); ALBUMIN/GLOBULIN RATIO 0.8 (1.0-2.2); ALKALINE PHOSPHATASE 78 IU/L (42-121); ALT ALANINE AMINOTRANSFERASE 12 IU/L (10-60); AST ASPARTATE AMINOTRANSFERASE 17 IU/L (10-42); BILIRUBIN,TOTAL 0.6 mg/dL (0.2-1.0); BUN - BLOOD UREA NITROGEN 37 mg/dL (6-20); CALCIUM 8.5 mg/dL (8.5-10.3); CARBON DIOXIDE - CO2 21 mmol/L (21-32); CHLORIDE 101 mmol/L (101-111); CREATININE 1.5 mg/dL (0.4-1.0); GFR - MDRD 34 (>89); GLUCOSE 108 mg/dL (70-100); IONIZED CALCIUM IF INDICATED NO; POTASSIUM 4.6 mmol/L (3.5-5.0); SODIUM 132 mmol/L (135-145); TOTAL PROTEIN 6.9 g/dL (6.7-8.2)
[2020-10-25 12:08] LABS: BAND NEUTROPHILS % (MANUAL) 24 %; EOSINOPHILS # (MANUAL) 0.1 10^3/uL (0-0.7); LYMPHOCYTES # (MANUAL) 0.3 10^3/uL (1.5-3.5); LYMPHOCYTES % (MANUAL) 3 %; MONOCYTES # (MANUAL) 1.2 10^3/uL (0.0-1.0); NEUTROPHILS # (MANUAL) 7.4 10^3/uL (1.5-6.6); PLATELET ESTIMATE, MANUAL NORMAL (130-450,000) (NORMAL); PLATELET MORPHOLOGY NORMAL APPEARANCE (NORMAL); RBC MORPHOLOGY (MULTIPLE) NORMAL APPEARANCE (NORMAL); WBC MORPHOLOGY (MULTIPLE) 1+ VACUOLATION (NORMAL)
[2020-10-25 12:09] LABS: DIFFERENTIAL COMMENT MANUAL DIFFERENTIAL
[2020-10-25] MEDS ORDERED: SODIUM CHLORIDE 0.9% 1,000 ML IV ONE (12:50)
[2020-10-25] MEDS: LACTATED RINGERS 1,000 ML IV SCH ×2 (13:30→16:08)
--- NOTE | 2020-10-25 14:37 | PROVIDER PROGRESS NOTE ---
Subjective - Prog Note Date Prog Note Date: 10/25/20 Prog Note Time: 14:35 - Subjective Pt reports feeling: Worse Subjective: Nimco denies any pain today but reports she felt very "unsteady" when she stood up to walk. She reports her legs feel shaky. She is sleeping well. Says her stools are becoming more solid. No fever Current Medications - Current Medications Current Medications: Active Medications Generic Name Dose Route Start Last Admin Trade Name Freq PRN Reason Stop Dose Admin Enoxaparin Sodium 40 mg 10/23/20 09:00 10/25/20 09:28 Enoxaparin 40 Mg/0.4 Ml Syringe SUBQ 40 mg DAILY YASMEEN Administration Ferrous Gluconate 324 mg 10/24/20 09:00 10/25/20 09:29 Ferrous Gluconate 324 Mg Tablet PO 324 mg DAILYWM YASMEEN Administration Hydromorphone HCl 0.5 mg 10/25/20 10:56 Hydromorphone 0.5 Mg/0.5 Ml Syringe IVP Q2HR PRN PAIN Lactated Ringer's 1,000 mls @ 83.333 mls/hr 10/25/20 13:00 10/25/20 13:30 Lr IV 83.333 mls/hr .Q12H YASMEEN Administration Ketorolac Tromethamine 30 mg 10/22/20 12:00 10/25/20 13:17 Ketorolac 30 Mg/Ml Vial IVP 10/27/20 11:59 Not Given Q6H YASMEEN Methocarbamol 500 mg 10/22/20 14:00 10/25/20 13:18 Methocarbamol 500 Mg Tablet PO Not Given Q8HR YASMEEN Metoprolol Tartrate 50 mg 10/22/20 13:00 10/25/20 09:29 Metoprolol Tartrate 50 Mg Tablet PO 50 mg BID YASMEEN Administration Mineral Oil 1 applic 10/25/20 00:12 Min Oil/Dimethicon/Coconut Oil 92 Gm Tube TOP PRN PRN Skin Care Ondansetron HCl 4 mg 10/22/20 11:20 Ondansetron 4 Mg/2 Ml Vial IVP Q6H PRN Nausea / Vomiting Pantoprazole Sodium 40 mg 10/23/20 07:00 10/25/20 05:48 Pantoprazole 40 Mg Vial IVP Not Given QDAC YASMEEN Potassium Chloride 20 meq 10/23/20 08:00 10/25/20 09:29 Potassium Chloride 20 Meq Tablet PO 20 meq DAILYWM YASMEEN Administration Pregabalin 75 mg 10/22/20 21:00 10/25/20 09:29 Pregabalin 25 Mg Capsule PO 75 mg BID YASMEEN Administration Sodium Chloride 10 ml 10/22/20 17:00 10/25/20 09:28 Sodium Chloride Flush 0.9% 10 Ml Syringe IVP 10 ml 0100,0900,1700 YASMEEN Administration Sodium Chloride 10 ml 10/22/20 11:20 10/24/20 23:59 Sodium Chloride Flush 0.9% 10 Ml Syringe IVP 10 ml PRN PRN Administration NEEDED PER PROVIDER ORDERS Aspirin EC [Ecotrin] 81 mg PO DAILY 04/02/20 Ferrous Sulfate 325 mg PO DAILY 04/02/20 Objective - Vital Signs/Intake & Output Vital Signs: Vital Signs x48h Temp Pulse Pulse Resp BP BP Pulse Ox 10/25/20 13:17 37.2 C 88 18 94 10/25/20 09:29 111/68 10/25/20 07:47 37.2 C 92 20 111/68 93 Intake & Output: Intake & Output 10/22/20 10/23/20 10/24/20 10/25/20 23:59 23:59 23:59 23:59 Intake Total 600 4586 370 3313 Output Total 210 850 650 300 Balance 390 455 344 6794 - Objective General Appearance: positive: No acute distress, Alert, Lethargic Eyes Bilateral: positive: Normal inspection, PERRL, EOMI ENT: positive: ENT inspection nml, Pharynx nml Neck: positive: Nml inspection Respiratory: positive: Chest non-tender, No respiratory distress, Breath sounds nml Cardiovascular: positive: Regular rate & rhythm Abdomen: positive: Nml bowel sounds, Other (soft, incision is clean and dry. Packing removed without difficulty) Extremities: negative: Pedal edema - Lab Results Fish Bones: 10/25/20 11:22 10/25/20 11:22 Other Labs: Lab Results x24hrs 10/25/20 10/25/20 Range/Units 11:22 11:22 WBC 8.9 (4.8-10.8) x10^3/uL RBC 3.92 L (4.20-5.40) 10^6/uL Hgb 11.7 L (12.0-16.0) g/dL Hct 37.6 (37.0-47.0) % MCV 95.9 (81.0-99.0) fL MCH 29.8 (27.0-31.0) pg MCHC 31.1 L (32.0-36.0) g/dL RDW 13.5 (12.0-15.0) % Plt Count 226 (130-450) 10^3/uL MPV 9.6 (7.9-10.8) fL Neut # (Auto) Not Reportable Lymph # (Auto) Not Reportable [place] # (Auto) Not Reportable Eos # (Auto) Not Reportable Baso # (Auto) Not Reportable Absolute Nucleated RBC Not Reportable Total Counted 100 Band Neuts % (Manual) 24 H (0 - 10) % Abnorm Lymph % (Manual) 0 % Nucleated RBC % Not Reportable Neutrophils # (Manual) 7.4 H (1.5-6.6) 10^3/uL Lymphocytes # (Manual) 0.3 L (1.5-3.5) 10^3/uL Monocytes # (Manual) 1.2 H (0.0-1.0) 10^3/uL Eosinophils # (Manual) 0.1 (0-0.7) 10^3/uL Basophils # (Manual) 0.0 (0-0.1) 10^3/uL Differential Comment MANUAL DIFFERENTIAL WBC Morphology 1+ VACUOLATION (NORMAL) Platelet Estimate NORMAL (130-450,000) (NORMAL) Platelet Morphology NORMAL APPEARANCE (NORMAL) RBC Morph Micro Appear NORMAL APPEARANCE (NORMAL) Sodium 132 L (135-145) mmol/L Potassium 4.6 (3.5-5.0) mmol/L Chloride 101 (101-111) mmol/L Carbon Dioxide 21 (21-32) mmol/L Anion Gap 10.0 (6-13) BUN 37 H (6-20) mg/dL Creatinine 1.5 H (0.4-1.0) mg/dL Estimated GFR (MDRD) 34 L (>89) Glucose 108 H (70-100) mg/dL Calcium 8.5 (8.5-10.3) mg/dL Ionized Calcium NO Total Bilirubin 0.6 (0.2-1.0) mg/dL AST 17 (10-42) IU/L ALT 12 (10-60) IU/L Alkaline Phosphatase 78 (42-121) IU/L Total Protein 6.9 (6.7-8.2) g/dL Albumin 3.1 L (3.2-5.5) g/dL Globulin 3.8 (2.1-4.2) g/dL Albumin/Globulin Ratio 0.8 L (1.0-2.2) ABX Reporting Has patient been on IV antibiotics over the past 48 hours?: No Assessment/Plan - Problem List (1) Ileostomy status Impression: 1. Volume contraction likely due to multiple liquid stools - will bolus and resume IV fluids 2. Elevated creatinine - will d/c toradol 3. Generalized weakness - consult PT 4. Malnutrition - Nutrition and dietetics already working with her
[2020-10-25] MEDS ORDERED: SODIUM CHLORIDE 0.9% 500 ML IV ONE (14:52)
[2020-10-26] MEDS: LACTATED RINGERS 1,000 ML IV SCH (03:59)
[2020-10-26 05:15] LABS: BASOPHILS # (AUTO) 0.1 10^3/uL (0.0-0.1); BASOPHILS % (AUTO) 0.6 %; EOSINOPHILS # (AUTO) 0.1 10^3/uL (0.0-0.7); EOSINOPHILS % (AUTO) 1.3 %; HCT - HEMATOCRIT 35.7 % (37.0-47.0); HGB - HEMOGLOBIN 10.9 g/dL (12.0-16.0); LYMPHOCYTES # (AUTO) 0.8 10^3/uL (1.5-3.5); LYMPHOCYTES % (AUTO) 7.5 %; MEAN CORPUSCULAR HEMOGLOBIN 29.8 pg (27.0-31.0); MEAN CORPUSCULAR HGB CONC 30.5 g/dL (32.0-36.0); MEAN CORPUSCULAR VOLUME 97.5 fL (81.0-99.0); MEAN PLATELET VOLUME 9.7 fL (7.9-10.8); MONOCYTES # (AUTO) 0.8 10^3/uL (0.0-1.0); MONOCYTES % (AUTO) 8.1 %; NEUTROPHILS # (AUTO) 8.2 10^3/uL (1.5-6.6); NEUTROPHILS % (AUTO) 81.7 %; PLT - PLATELET COUNT 248 10^3/uL (130-450); RED BLOOD COUNT 3.66 10^6/uL (4.20-5.40); RED CELL DISTRIBUTION WIDTH 13.6 % (12.0-15.0)
[2020-10-26 05:16] LABS: CALCIUM 8.5 mg/dL (8.5-10.3); CREATININE 1.1 mg/dL (0.4-1.0); POTASSIUM 4.2 mmol/L (3.5-5.0)
[2020-10-26] MEDS: methocarbamoL 500 MG TABLET PO SCH (06:43)
[2020-10-26] MEDS: PANTOPRAZOLE 40 MG VIAL IVP SCH (06:44)
[2020-10-26] MEDS: SODIUM CHLORIDE FLUSH 0.9% 10 ML SYRINGE IVP PRN (06:45)
[2020-10-26 07:58] VITALS: BP 121/66
[2020-10-26] MEDS: METOPROLOL TARTRATE 50 MG TABLET PO SCH (07:59)
[2020-10-26] MEDS: POTASSIUM CHLORIDE 20 MEQ TABLET PO SCH (07:59)
[2020-10-26] MEDS: FERROUS GLUCONATE 324 MG TABLET PO SCH (07:59)
[2020-10-26] MEDS: PREGABALIN 25 MG CAPSULE PO SCH (07:59)
[2020-10-26] MEDS: ENOXAPARIN 40 MG/0.4 ML SYRINGE SUBQ SCH (07:59)
[2020-10-26] MEDS: SODIUM CHLORIDE FLUSH 0.9% 10 ML SYRINGE IVP SCH (08:00)
--- NOTE | 2020-10-26 13:28 | Discharge Plan ---
Discharge Plan Problem Reviewed?: Yes Disposition: 01 Home, Self Care Condition: Good Diet: Soft Activity Restrictions: Activity as Tolerated Shower Restrictions: No Driving Restrictions: Yes (no driving while taking pain medications) Assistance Devices: Walker Instruction Topics: Limited Bowel Resection Surg Health Concerns: 1. Hydration status/risk for dehydration 2. Bowel function status post recent dilation of patient's anastomotic stricture 3. Risk of hernia and advisement to avoid any heavily pushing pulling or lifting 4. Continue physical therapy for chronic debility Care Goals: DISCHARGE INSTRUCTIONS TEMPLATE: No heavy lifting, pushing, or pulling. Stairs are allowed, no strenuous/exertional activities. 5-10lbs weight carrying limit (i.e. gallon of milk) If provided, abdominal binder while out of bed and while ambulating. Call or proceed to clinic/ER for fevers, severe pain, nausea, vomiting, inability to pass flatus/stool, bleeding, wound redness/discharge, weakness, excessively loose stool/diarrhea, or for any other reasonably worrisome symptom or concern. Soft diet, no raw vegetables, avoid high fiber foods. Colace 100mg by mouth twice to three times daily while taking narcotic pain medication. If no bowel movement in 24-48hr, may take 17g Miralax in 8oz water twice daily until bowel movement. May shower, no submersive bathing. Follow up in clinic in 2-4 weeks for wound check and staple removal. No driving while taking narcotic pain medications. Follow up with primary care provider and/or medical subspecialist following discharge as well. Patient not allowed to drive self today or within 24 hours of surgery. Assessment: Stable for discharge with home health and home PT. Labs next week; CBC/CMP. Additional Instructions or Follow Up instructions: F/U Dr. Gutierrez 10 days. No Smoking: If you smoke, Please STOP! Call for help. Follow-up with: Rachell Seo MD [Primary Care Provider] -
--- NOTE | 2020-10-26 13:28 | DISCHARGE SUMMARY ---
"Discharge Summary Admit Date: 10/22/20 Discharge Date: 10/26/20 Discharging Provider: rCisty Primary Care Provider: Brenda Code Status: Attempt Resuscitation Condition at Discharge: Good Discharge Disposition: 01 Home, Self Care - DIAGNOSES Admission Diagnoses: 1. History of large bowel obstruction 2. History of low anterior resection 3. History of loop ileostomy 4. Anastomotic stricture status post dilation 5. History of myocardial infarction 6. History of diverticulitis Discharge Diagnoses with Status of Each Condition: 1. History of large bowel obstruction - RESOLVED HISTORICALLY 2. History of low anterior resection - RESOLVED HISTORICALLY 3. History of loop ileostomy - RESOLVED/REVERSED 4. Anastomotic stricture status post dilation - RESOLVED/REVERSED/TREATED 5. History of myocardial infarction - RESOLVED HISTORICALLY 6. History of diverticulitis - RESOLVED HISTORICALLY - HPI History of Present Illness: 70-year-old female with history of anterior resection and proximal diverting loop ileostomy. She was evaluated in March of 2020 for colonic obstruction. Following colonoscopy (diagnostic), she underwent open sigmoid colectomy with extensive lysis of adhesions (greater than 2 hours), coloproctostomy and loop ileostomy for large bowel obstruction Pathology revealed colonic diverticulosis with acute active diverticulitis with friable inflammatory mass negative for background colitis, dysplasia or malignancy. She has been noted for anastomotic stricture. She underwent recent endoscopic [id number] dilation of anastomotic stricture and thereafter ileostomy takedown once CT scan was without any complication as a relates to the anastomosis. She was admitted following ileostomy takedown for post-operative management. - CONSULTS | PROCEDURES Consultations: None Procedures: Ileostomy reversal - HOSPITAL COURSE Hospital Course: Patient admitted operatively status post ileostomy takedown. Patient underwent operative intervention as listed in the electronic medical record. Tolerated procedure well for which there was no complication. Postoperatively the patient was managed for postoperative analgesia and resumption of bowel function. Patient had successfully passed trial of void. Tolerated oral intake without any complication. Denied nausea denied vomiting. Was advanced for diet without any complication. Patient counseled that given acute postoperative period, would hold slowing agents such as Imodium at this time with short interval follow-up. She was however counseled of the importance of noting signs and symptoms of dehydration. She was cleared from physical therapy. She was arranged for visiting nurse service. She had no other acute complaints. Tolerating a diet. She was eager for discharge to home. Discharge instructions given. Analgesia with acetaminophen at time of discharge. Patient plan for follow-up and will be notified of pathology once returned. - ALLERGIES Allergies/Adverse Reactions: Allergies Allergy/AdvReac Type Severity Reaction Status Date / Time Penicillins Allergy Nausea Verified 10/12/20 12:34 - MEDICATIONS Home Medications: Ambulatory Orders Medication Instructions Recorded Confirmed Aspirin EC [Ecotrin] 81 mg PO DAILY 04/02/20 10/28/20 Ferrous Sulfate 325 mg PO DAILY 04/02/20 10/28/20 Metoprolol Tartrate [Lopressor] 50 mg PO BID tablet 04/11/20 10/28/20 Potassium Chloride [K-Dur] 20 meq PO DAILYWM tablet 04/11/20 10/28/20 - PHYSICAL EXAM AT DISCHARGE General Appearance: positive: No acute distress, Alert Eyes Bilateral: positive: Normal inspection, PERRL, EOMI ENT: positive: ENT inspection nml Neck: positive: Nml inspection Respiratory: positive: Chest non-tender, No respiratory distress, Breath sounds nml. negative: Wheezes, Rales, Rhonchi Cardiovascular: positive: Regular rate & rhythm Abdomen: positive: No organomegaly, Rebound, Other (Appropriately tender to palpation. Wound clean and dry. Sutures intact. No rebound no guarding.). negative: Guarding Back: positive: Nml inspection Skin: positive: Color nml Extremities: positive: Non-tender, Full ROM, Nml appearance Neurologic/Psychiatric: positive: Oriented x3, CN's nml (2-12), Motor nml, Sensation nml, Mood/affect nml - LABS Result Diagrams: 10/26/20 04:17 10/26/20 04:17 - FOLLOW UP Follow Up: Follow with Dr. Gutierrez in one week. - TIME SPENT Time Spent in Discharge (Minutes): 45"
== END 2020-10-26 14:50 | disposition home or self-care (01) | DRG 330 ==
LOC: MS2 06:24
PROVIDERS: ADMIT Surgery; ATTEND Surgery
PROC: 0D7E8ZZ Dilation of Large Intestine, Via Natural or Artificial Opening Endoscopic (ICD-10-PCS; 2020-10-22)
PROC: 0DBB0ZZ Excision of Ileum, Open Approach (ICD-10-PCS; principal; 2020-10-22 07:30)
DX: Z43.2 Encounter for attention to ileostomy (principal); K56.699 Other intestinal obstruction unspecified as to partial versus complete obstruction; E46 Unspecified protein-calorie malnutrition; Z87.19 Personal history of other diseases of the digestive system; I10 Essential (primary) hypertension; I25.2 Old myocardial infarction; J45.909 Unspecified asthma, uncomplicated; Z87.891 Personal history of nicotine dependence; R53.1 Weakness; E66.3 Overweight; Z68.25 Body mass index [BMI] 25.0-25.9, adult
CPT/HCPCS: 36415; 74177; 80048; 80053; 82306; 82607; 85025; 97116; 97161; A6250; A9270; J0690; J1650; J7120; Q9967

== ENCOUNTER 2020-10-28 11:21 | Outpatient (CLI) | payer MEDICARE, MEDICAID | END 2020-10-28 11:22 | disposition critical access hospital (66) | LOC: EMS 11:21 | DX: Z74.8 Other problems related to care provider dependency (principal) | CPT/HCPCS: A0425; A0429 ==

== ENCOUNTER 2020-10-28 11:23 | Inpatient (IN) | payer MEDICARE, MEDICAID ==
[2020-10-28] MEDS ORDERED: SODIUM CHLORIDE 0.9% 1,000 ML IV STA (11:27)
[2020-10-28 12:35] LABS: BASOPHILS # (AUTO) 0.1 10^3/uL (0.0-0.1); BASOPHILS % (AUTO) 0.7 %; EOSINOPHILS # (AUTO) 0.1 10^3/uL (0.0-0.7); EOSINOPHILS % (AUTO) 0.9 %; HCT - HEMATOCRIT 32.4 % (37.0-47.0); LYMPHOCYTES # (AUTO) 0.7 10^3/uL (1.5-3.5); LYMPHOCYTES % (AUTO) 8.8 %; MEAN CORPUSCULAR HEMOGLOBIN 29.4 pg (27.0-31.0); MEAN CORPUSCULAR HGB CONC 30.9 g/dL (32.0-36.0); MEAN CORPUSCULAR VOLUME 95.3 fL (81.0-99.0); MEAN PLATELET VOLUME 9.6 fL (7.9-10.8); MONOCYTES # (AUTO) 0.9 10^3/uL (0.0-1.0); MONOCYTES % (AUTO) 10.3 %; NEUTROPHILS # (AUTO) 6.6 10^3/uL (1.5-6.6); NEUTROPHILS % (AUTO) 78.6 %; PLT - PLATELET COUNT 257 10^3/uL (130-450); RED CELL DISTRIBUTION WIDTH 13.5 % (12.0-15.0); WHITE BLOOD COUNT 8.4 x10^3/uL (4.8-10.8)
[2020-10-28 12:44] LABS: ALBUMIN 2.8 g/dL (3.2-5.5); ALBUMIN/GLOBULIN RATIO 0.7 (1.0-2.2); BILIRUBIN,TOTAL 0.7 mg/dL (0.2-1.0); CALCIUM 8.6 mg/dL (8.5-10.3); CREATININE 0.9 mg/dL (0.4-1.0); POTASSIUM 3.5 mmol/L (3.5-5.0); TOTAL PROTEIN 6.6 g/dL (6.7-8.2)
[2020-10-28] MEDS ORDERED: IOPAMIDOL-300 50 ML VIAL ONE (13:32)
[2020-10-28] MEDS ORDERED: IOPAMIDOL-300 50 ML VIAL PO ONE (14:53)
--- NOTE | 2020-10-28 15:04 | ED Physician Documentation ---
History of Present Illness - Stated complaint Stated Complaint: WEAKNESS - Chief complaint Chief Complaint: General - History obtained from History obtained from: Patient, EMS - Additonal information Additional information: Patient comes the emergency department with chief complaint of weakness and drainage from surgical site. Patient states that she was just discharged 2 days ago from the hospital after having an ileostomy takedown, and that she is living by herself in her apartment in [place] [facility] [place]. She states she does not have any family or friends to consistently help her, and that she has felt so weak that she does not feel she can even stand up at the kitchen counter to make herself food. She states she does have a walker and she is able to get around somewhat, but can only be up for a short time. Patient states that some of her elderly neighbors have brought her candy and other treats, which she has been eating, and then another neighbor brought her a jug of water, so she has been drinking. The patient states that she has home health coming in, but only to do a dressing change once a day. The patient states she has noticed increasingly over the last 24 hours that there has been a foul-smelling discharge coming out of her wound. She has soaked several bandages. Patient denies fevers or chills. No worsening abdominal pain. Patient does note that she has had diarrhea since her hospital stay. No dysuria. No cough or shortness of breath. No other complaints at this time. Review of Systems Ten Systems: 10 systems reviewed and negative Constitutional: reports: Reviewed and negative Eyes: reports: Reviewed and negative Ears: reports: Reviewed and negative Nose: reports: Reviewed and negative Throat: reports: Reviewed and negative Cardiac: reports: Reviewed and negative Respiratory: reports: Reviewed and negative GI: reports: Abdominal Pain (Stable), Diarrhea. denies: Nausea, Vomiting : reports: Reviewed and negative Skin: reports: Reviewed and negative Musculoskeletal: reports: Reviewed and negative Neurologic: reports: Reviewed and negative Psychiatric: reports: Reviewed and negative Endocrine: reports: Reviewed and negative Immunocompromised: reports: Reviewed and negative PD PAST MEDICAL HISTORY - Past Medical History Past Medical History: Yes Cardiovascular: Hypertension, [place], Murmur Respiratory: Asthma, Shortness of breath Neuro: None Endocrine/Autoimmune: None GI: None : None HEENT: Chronic vision loss, Chronic sinusitis, Other Psych: Depression Musculoskeletal: None Derm: None - Past Surgical History Past Surgical History: Yes General: Appendectomy, Bowel surgery, Colonoscopy Ortho: Arthroscopic surgery HEENT: Tonsil/Adenoidectomy - Present Medications Home Medications: Ambulatory Orders Medication Instructions Recorded Confirmed Aspirin EC [Ecotrin] 81 mg PO DAILY 04/02/20 10/28/20 Ferrous Sulfate 325 mg PO DAILY 04/02/20 10/28/20 Metoprolol Tartrate [Lopressor] 50 mg PO BID tablet 04/11/20 10/28/20 Potassium Chloride [K-Dur] 20 meq PO DAILYWM tablet 04/11/20 10/28/20 - Allergies Allergies/Adverse Reactions: Allergies Allergy/AdvReac Type Severity Reaction Status Date / Time Penicillins Allergy Nausea Verified 10/12/20 12:34 - Social History Does the pt smoke?: No Smoking Status: Never smoker Does the pt drink ETOH?: No Does the pt have substance abuse?: No - Immunizations Immunizations are current?: Yes - POLST Patient has POLST: No PD ED PE NORMAL - Vitals Vital signs reviewed: Yes - General General: Alert and oriented X 3, No acute distress, Well developed/nourished - HEENT HEENT: Atraumatic, PERRL, EOMI, Moist mucous membranes - Neck Neck: Supple, no meningeal sign - Cardiac Cardiac: RRR, No murmur - Respiratory Respiratory: No respiratory distress, Clear bilaterally - Abdomen Abdomen: Soft, Other (Recent appearing surgical incision site with some skin irritation surrounding. Soaked, foul-smelling dressing noted with greenish- brown discoloration. Moderate runny, brownish-green discharge expressible from the wound. Abdomen not generally tender, other than immediately around wound. ) - Derm Derm: Warm and dry, No rash (Erythema in a patchy fashion noted around wound. Appears to be consistent with chemical dermatitis. No uniform erythema, edema, or induration around incision site on abdomen.), Other - Extremities Extremities: No deformity - Neuro Neuro: Alert and oriented X 3 - Psych Psych: Normal mood, Normal affect Results - Vitals Vitals: Oxygen O2 Source Room air - Labs Labs: Laboratory Tests 10/28/20 10/28/20 10/28/20 12:26 12:26 12:26 WBC 8.4 RBC 3.40 L Hgb 10.0 L Hct 32.4 L MCV 95.3 MCH 29.4 MCHC 30.9 L RDW 13.5 Plt Count 257 MPV 9.6 Neut # (Auto) 6.6 Lymph # (Auto) 0.7 L Benton # (Auto) 0.9 Eos # (Auto) 0.1 Baso # (Auto) 0.1 Absolute Nucleated RBC 0.00 Nucleated RBC % 0.0 Sodium 136 Potassium 3.5 Chloride 100 L Carbon Dioxide 23 Anion Gap 13.0 BUN 13 Creatinine 0.9 Estimated GFR (MDRD) 62 L Glucose 105 H Calcium 8.6 Phosphorus 3.1 Magnesium 1.5 L Total Bilirubin 0.7 AST 15 ALT 14 Alkaline Phosphatase 74 Total Protein 6.6 L Albumin 2.8 L Globulin 3.8 Albumin/Globulin Ratio 0.7 L Urine Color Urine Clarity Urine pH Ur Specific [place] Urine Protein Urine Glucose (UA) Urine Ketones Urine Occult Blood Urine Nitrite Urine Bilirubin Urine Urobilinogen Ur Leukocyte Esterase Urine RBC Urine WBC Urine WBC Clumps Ur Squamous Epith Cells Amorphous Sediment Urine Bacteria Urine Mucus Ur Microscopic Review Urine Culture Comments Nasal Adenovirus (PCR) Nasal B. parapertussis DNA (PCR) Nasal Coronavir 229E PCR Nasal Coronavir HKU1 PCR Nasal Coronavir NL63 PCR Nasal Coronavir OC43 PCR Nasal Enterovir/Rhinovir PCR Nasal Influenza B PCR Nasal Influenza A PCR Nasal Parainfluen 1 PCR Nasal Parainfluen 2 PCR Nasal Parainfluen 3 PCR Nasal Parainfluen 4 PCR Nasal RSV (PCR) Nasal B.pertussis DNA PCR Nasal C.pneumoniae (PCR) Tonio Human Metapneumo PCR Nasal M.pneumoniae (PCR) Nasal SARS-CoV-2 (PCR) Stl C. diff Tox B Gene 10/28/20 10/28/20 10/29/20 15:55 18:25 04:55 WBC 11.0 H RBC 3.25 L Hgb 9.7 L Hct 30.4 L MCV 93.5 MCH 29.8 MCHC 31.9 L RDW 13.5 Plt Count 266 MPV 9.3 Neut # (Auto) 8.9 H Lymph # (Auto) 0.6 L Benton # (Auto) 1.1 H Eos # (Auto) 0.2 Baso # (Auto) 0.1 Absolute Nucleated RBC 0.00 Nucleated RBC % 0.0 Sodium Potassium Chloride Carbon Dioxide Anion Gap BUN Creatinine Estimated GFR (MDRD) Glucose Calcium Phosphorus Magnesium Total Bilirubin AST ALT Alkaline Phosphatase Total Protein Albumin Globulin Albumin/Globulin Ratio Urine Color YELLOW Urine Clarity HAZY Urine pH 5.5 Ur Specific [place] >=1.030 H Urine Protein 30 H Urine Glucose (UA) NEGATIVE Urine Ketones 15 H Urine Occult Blood SMALL H Urine Nitrite NEGATIVE Urine Bilirubin NEGATIVE Urine Urobilinogen 0.2 (NORMAL) Ur Leukocyte Esterase SMALL H Urine RBC 11-25 H Urine WBC >25 H Urine WBC Clumps PRESENT Ur Squamous Epith Cells MANY Squamous H Amorphous Sediment Few Urine Bacteria Many H Urine Mucus Few Strands Ur Microscopic Review INDICATED Urine Culture Comments NOT INDICATED Nasal Adenovirus (PCR) NOT DETECTED Nasal B. parapertussis DNA (PCR) NOT DETECTED Nasal Coronavir 229E PCR NOT DETECTED Nasal Coronavir HKU1 PCR NOT DETECTED Nasal Coronavir NL63 PCR NOT DETECTED Nasal Coronavir OC43 PCR NOT DETECTED Nasal Enterovir/Rhinovir PCR NOT DETECTED Nasal Influenza B PCR NOT DETECTED Nasal Influenza A PCR NOT DETECTED Nasal Parainfluen 1 PCR NOT DETECTED Nasal Parainfluen 2 PCR NOT DETECTED Nasal Parainfluen 3 PCR NOT DETECTED Nasal Parainfluen 4 PCR NOT DETECTED Nasal RSV (PCR) NOT DETECTED Nasal B.pertussis DNA PCR NOT DETECTED Nasal C.pneumoniae (PCR) NOT DETECTED Tonio Human Metapneumo PCR NOT DETECTED Nasal M.pneumoniae (PCR) NOT DETECTED Nasal SARS-CoV-2 (PCR) NOT DETECTED Stl C. diff Tox B Gene 10/29/20 10/29/20 04:55 14:42 WBC RBC Hgb Hct MCV MCH MCHC RDW Plt Count MPV Neut # (Auto) Lymph # (Auto) Benton # (Auto) Eos # (Auto) Baso # (Auto) Absolute Nucleated RBC Nucleated RBC % Sodium 133 L Potassium 3.1 L Chloride 103 Carbon Dioxide 22 Anion Gap 8.0 BUN 8 Creatinine 0.8 Estimated GFR (MDRD) 71 L Glucose 159 H Calcium 7.6 L Phosphorus 3.0 Magnesium 1.2 L Total Bilirubin 0.3 AST 12 ALT 12 Alkaline Phosphatase 59 Total Protein 5.8 L Albumin 2.4 L Globulin 3.4 Albumin/Globulin Ratio 0.7 L Urine Color Urine Clarity Urine pH Ur Specific [place] Urine Protein Urine Glucose (UA) Urine Ketones Urine Occult Blood Urine Nitrite Urine Bilirubin Urine Urobilinogen Ur Leukocyte Esterase Urine RBC Urine WBC Urine WBC Clumps Ur Squamous Epith Cells Amorphous Sediment Urine Bacteria Urine Mucus Ur Microscopic Review Urine Culture Comments Nasal Adenovirus (PCR) Nasal B. parapertussis DNA (PCR) Nasal Coronavir 229E PCR Nasal Coronavir HKU1 PCR Nasal Coronavir NL63 PCR Nasal Coronavir OC43 PCR Nasal Enterovir/Rhinovir PCR Nasal Influenza B PCR Nasal Influenza A PCR Nasal Parainfluen 1 PCR Nasal Parainfluen 2 PCR Nasal Parainfluen 3 PCR Nasal Parainfluen 4 PCR Nasal RSV (PCR) Nasal B.pertussis DNA PCR Nasal C.pneumoniae (PCR) Tonio Human Metapneumo PCR Nasal M.pneumoniae (PCR) Nasal SARS-CoV-2 (PCR) Stl C. diff Tox B Gene NEGATIVE - Rads (name of study) CT abd/pelvis Radiology: Final report received, EMP read indepedently, See rad report (NAD, post-op changes) PD MEDICAL DECISION MAKING - ED course Complexity details: reviewed old records, reviewed results, re-evaluated patient, considered differential, d/w patient ED course: The patient initially refused IV, though I felt she should have one, and stated she was really just here to get help with getting placed. Laboratory studies were unremarkable, but I was concerned about her low-grade fever and the drainage that was expressible from her wound. CT scan did not show a communication between the bowel and the peritoneal cavity and did not show free fluid. I spoke with Dr. Wild, who is on-call for surgery and he did come and see the patient. He opened the wound in the emergency department and was able to convince the pt to have the IV placed. We did hold off on antibiotics, as he felt that opening and packing would be sufficient this point in time. Dr. Wild did agree to admit the patient to his service. Departure - Departure Disposition: [facility] DC/Xfer Clinical Impression: Postoperative wound infection Condition: Serious Discharge Date/Time: 10/28/20 16:33
--- NOTE | 2020-10-28 15:14 | CT Report ---
PROCEDURE: Abdomen/Pelvis W INDICATIONS: post-op drainage CONTRAST: IV CONTRAST: *NO IV CONTRAST PO CONTRAST: Isovue 300 ml50 TECHNIQUE: After the administration of oral contrast, 5 mm thick sections acquired from the diaphragms to the sy mphysis. 5 mm thick coronal and sagittal reformats were acquired. For radiation dose reduction, the following was used: automated exposure control, adjustment of mA and/or kV according to patient siz e. COMPARISON: None. FINDINGS: Image quality: Excellent. ABDOMEN: Lung bases: Lung bases are clear. Heart size is normal. Severe apical scarring calcification of th e coronary vasculature. Solid organs: Liver and spleen are normal in size and enhancement. Gallbladder Biliary system is non dilated. Pancreas enhances normally. No adrenal nodules. Kidneys demonstrate normal size an d enhancement, without hydronephrosis. Peritoneum and bowel: Large hiatal hernia. Bowel loops demonstrate normal wall thickness and caliber . No free fluid or air. Nodes and vessels: No retroperitoneal or mesenteric adenopathy by size criteria. Aorta and inferior vena cava are normal in size. Miscellaneous: No ventral hernias. Abdominal wall defect within the right anterior abdominal wall wi th surrounding fat stranding is present, compatible with postsurgical sequelae. PELVIS: Genitourinary: Bladder wall thickness is normal. Miscellaneous: No inguinal hernias or adenopathy. Bones: No suspicious bony lesions. No vertebral body compression fractures. IMPRESSION: 1. Postsurgical sequelae. 2. No acute process. 3. Large hiatal hernia. 4. Coronary artery disease. Reviewed by: Lakia Blanchard MD on 10/28/2020 3:12 PM PDT Approved by: Lakia Blanchard MD on 10/28/2020 3:12 PM PDT Station ID: [id number]
[2020-10-28] MEDS ORDERED: HYDROmorphone 0.5 MG/0.5 ML SYRINGE IVP PRN (15:16)
[2020-10-28] MEDS ORDERED: ACETAMINOPHEN 1,000 MG/100 ML 100 ML IV PRN (15:16)
[2020-10-28] MEDS ORDERED: ONDANSETRON 4 MG/2 ML VIAL IVP PRN (15:16)
--- NOTE | 2020-10-28 15:16 | SURGERY HX AND PHYSICAL(T) ---
Surgical History & Physical - Chief Complaint/HPI Chief Complaint: Failure to thrive History of Present Illness: 70-year-old female with history of anterior resection and proximal diverting loop ileostomy. She underwent recent endoscopic [id number] dilation of anastomotic stricture and thereafter ileostomy takedown once CT scan was without any complication as a relates to the anastomosis. Postoperatively resumption of bowel function and was appropriate for discharge. However, after she was home for 2 days, visiting nurse called with concerns as far as patient's ability to thrive absent assistance. Patient was advised to proceed to the emergency room to discuss options. This was discussed with the malt house operator international marketing coordinator. Emergency room evaluated the patient and reported issues as it relates to the patient's post operative wound as well. Patient also underwent CT abdomen pelvis at that time. Surgery has been called to evaluate the patient for admission and placement. - PMH/PSH/Social Hx Does the pt have a hx of MRSA?: No Neurological History: None Eyes, Ears, Nose, Throat: Chronic vision loss, Chronic sinusitis, Other Cardiovascular: Hypertension, [place], Murmur Respiratory: Asthma, Shortness of breath Skin: None Endocrine/Autoimmune: None Gastrointestinal: None Urinary: None Musculoskeletal: None Blood Disorders: None Psychiatric: Depression General: Appendectomy, Bowel surgery, Colonoscopy Orthopedic: Arthroscopic surgery Eyes Ears Nose Throat (EENT): Tonsil/Adenoidectomy Smoking Status: Never smoker Does the pt drink ETOH?: No Does the pt have substance abuse?: No - Home Meds and Allergies Home Medications: Aspirin EC [Ecotrin] 81 mg PO DAILY 04/02/20 Ferrous Sulfate 325 mg PO DAILY 04/02/20 Allergies/Adverse Reactions: Allergies Allergy/AdvReac Type Severity Reaction Status Date / Time Penicillins Allergy Nausea Verified 10/12/20 12:34 - Review of Systems Constitutional: Fatigue, Malaise Gastrointestinal: Abdominal pain, Diarrhea Neurological: Weakness - Vital Signs Heart Rate: 98 Blood Pressure: 177/93 Temperature: 37.2 C Respiratory Rate: 18 O2 Saturation: 98 Weight (kg): 63.503 kg Height: 1.57 m - Physical Exam General Appearance: positive: No acute distress, Alert Eyes Bilatera: positive: Normal inspection, PERRL, EOMI ENT: positive: ENT inspection nml Neck: positive: Nml inspection Respiratory: positive: Chest non-tender, No respiratory distress, Breath sounds nml Cardiovascular: positive: Regular rate & rhythm Abdomen: positive: Other (Abdomen soft, mildly distended, right-sided wound with surrounding erythema. Multiple nylon sutures noted. Tube removed with expression of fat necrosis and sanguinous purulent drainage. Wound probed without any concern for fascial compromise. Wound was thereafter packed with iodoform packing str) Back: positive: Nml inspection Skin: positive: Color nml Extremities: positive: Non-tender, Full ROM, Nml appearance Neurologic/Psychiatric: positive: Oriented x3, CN's nml (2-12), Motor nml, Sensation nml, Mood/affect nml - Patient Review Patient Review: Problems were reviewed with the patient during this visit. Medications were reviewed with the patient during this visit. Allergies were reviewed this patient during this visit. Pertinent Tests Reviewed: All pertitent test for this patient were reviewed. - Assessment & Plan Assessment and Plan: 70-year-old female with history of anterior resection and proximal diverting loop ileostomy. She underwent recent endoscopic [id number] dilation of anastomotic stricture and thereafter ileostomy takedown once CT scan was without any complication as a relates to the anastomosis. CT abdomen pelvis impression: 1. Postsurgical sequelae 2. No acute process 3. Large hiatal hernia 4. Coronary artery disease She is admitted 2 days after discharge for failure to thrive. She is also debilitated, likely dehydrated, and also has wound complication. With the wound drained there is no need for any antibiotics at this time, with no cellulitis or other complicating features. We will resuscitate her with fluids, obtain physical therapy consultation and social work consultation to consider placement. Plan going forward: (1) GI - IVF, advance diet. GI ppx. Anticipate ileus. Opiate sparring analgesia. (2) SURGERY - Contine wound packing. Wound care continue packing historic stoma site. (3) Renal/Lytes - continue IVF. Renal indices within normal limits. (4) Respiratory - O2 as necessary. Consider nebulizers. Continue IS. Chest XR. (5) Heme - Will continue with DVT ppx. H/H stable. (6) Cardiovascular - HD acceptable. (7) Neuro - Opiate sparring analgesia. Antispasmodics with Robaxin. (8) PT/OT. (9) Social work consultation.
[2020-10-28 15:51] LABS: MAGNESIUM 1.5 mg/dL (1.7-2.8); PHOSPHORUS 3.1 mg/dL (2.5-4.6)
[2020-10-28 16:53] LABS: B. PARAPERTUSSIS- RESP PCR PAN NOT DETECTED; B. PERTUSSIS- RESP PCR PANEL NOT DETECTED; C. PNEUMONIAE- RESP PCR PANEL NOT DETECTED; CORONAVIRUS 229E-RESP PCR NOT DETECTED; CORONAVIRUS HKU1-RESP PCR NOT DETECTED; CORONAVIRUS NL63-RESP PCR NOT DETECTED; CORONAVIRUS OC43-RESP PCR NOT DETECTED; HUMAN METAPNEUMOVIRUS NOT DETECTED; INFLUENZA A- RESP PCR PANEL NOT DETECTED; INFLUENZA B - RESP PCR PANEL NOT DETECTED; M. PNEUMONIAE- RESP PCR PANEL NOT DETECTED; PARAINFLUENZA VIRUS 1 NOT DETECTED; PARAINFLUENZA VIRUS 2 NOT DETECTED; PARAINFLUENZA VIRUS 3 NOT DETECTED; PARAINFLUENZA VIRUS 4 NOT DETECTED; RHINOVIRUS/ENTEROVIRUS NOT DETECTED; RSV- RESP PCR PANEL NOT DETECTED; SARS-CoV-2 -RESP PCR PANEL NOT DETECTED
[2020-10-28] MEDS: CIPROFLOXACIN 400 MG/200 ML 400 MG/200 ML BAG IV SCH (17:00)
[2020-10-28] MEDS: D5NS W/20 MEQ KCL 1,000 ML IV SCH (17:03)
[2020-10-28] MEDS: SODIUM CHLORIDE FLUSH 0.9% 10 ML SYRINGE IVP SCH ×2 (17:08→23:46)
[2020-10-28] MEDS: metroNIDAZOLE 500 MG/100 ML 500 MG/100 ML BAG IV SCH ×2 (18:16→23:46)
[2020-10-28] MEDS: METOCLOPRAMIDE 10 MG/2 ML VIAL IVP SCH ×2 (18:20→23:46)
[2020-10-28] MEDS: methocarbamoL 500 MG TABLET PO SCH ×2 (18:20→23:46)
[2020-10-28 18:40] LABS: BILIRUBIN,URINE NEGATIVE (NEGATIVE); GLUCOSE, URINE (UA) NEGATIVE (NEGATIVE); KETONES,URINE (UA) 15 mg/dL (NEGATIVE); LEUKOCYTE ESTERASE, URINE SMALL (NEGATIVE); NITRITE,URINE NEGATIVE (NEGATIVE); OCCULT BLOOD,URINE SMALL (NEGATIVE); PH,URINE 5.5 PH (5.0-7.5); PROTEIN,URINE 30 mg/dL (NEGATIVE); UROBILINOGEN,URINE 0.2 (NORMAL) E.U./dL (NORMAL)
[2020-10-28 18:43] LABS: CLARITY,URINE HAZY (CLEAR)
[2020-10-28] MEDS: DOCUSATE SODIUM 100 MG CAPSULE PO SCH (18:47)
[2020-10-28] MEDS: polyethylene glycoL 3350 17 GM PACKET PO SCH (18:47)
[2020-10-28 18:57] LABS: WBC CLUMPS,URINE PRESENT; WBC,URINE >25 /HPF (0-5)
[2020-10-28 18:58] LABS: AMORPHOUS SEDIMENT,UR Few /LPF; BACTERIA,URINE Many /HPF (None Seen); MUCUS,URINE Few Strands; SQUAMOUS EPITHELIAL CELL,UR MANY Squamous (<= Few)
[2020-10-29] MEDS: D5NS W/20 MEQ KCL 1,000 ML IV SCH (01:33)
[2020-10-29] MEDS: CIPROFLOXACIN 400 MG/200 ML 400 MG/200 ML BAG IV SCH ×2 (03:31→16:11)
[2020-10-29 05:05] LABS: BASOPHILS # (AUTO) 0.1 10^3/uL (0.0-0.1); BASOPHILS % (AUTO) 0.6 %; EOSINOPHILS # (AUTO) 0.2 10^3/uL (0.0-0.7); EOSINOPHILS % (AUTO) 1.4 %; HCT - HEMATOCRIT 30.4 % (37.0-47.0); HGB - HEMOGLOBIN 9.7 g/dL (12.0-16.0); LYMPHOCYTES # (AUTO) 0.6 10^3/uL (1.5-3.5); LYMPHOCYTES % (AUTO) 5.5 %; MEAN CORPUSCULAR HEMOGLOBIN 29.8 pg (27.0-31.0); MEAN CORPUSCULAR HGB CONC 31.9 g/dL (32.0-36.0); MEAN CORPUSCULAR VOLUME 93.5 fL (81.0-99.0); MEAN PLATELET VOLUME 9.3 fL (7.9-10.8); MONOCYTES # (AUTO) 1.1 10^3/uL (0.0-1.0); MONOCYTES % (AUTO) 10.3 %; NEUTROPHILS # (AUTO) 8.9 10^3/uL (1.5-6.6); NEUTROPHILS % (AUTO) 81.2 %; PLT - PLATELET COUNT 266 10^3/uL (130-450); RED BLOOD COUNT 3.25 10^6/uL (4.20-5.40); RED CELL DISTRIBUTION WIDTH 13.5 % (12.0-15.0)
[2020-10-29 05:18] LABS: ALBUMIN 2.4 g/dL (3.2-5.5); ALBUMIN/GLOBULIN RATIO 0.7 (1.0-2.2); BILIRUBIN,TOTAL 0.3 mg/dL (0.2-1.0); CALCIUM 7.6 mg/dL (8.5-10.3); CREATININE 0.8 mg/dL (0.4-1.0); MAGNESIUM 1.2 mg/dL (1.7-2.8); POTASSIUM 3.1 mmol/L (3.5-5.0); TOTAL PROTEIN 5.8 g/dL (6.7-8.2)
[2020-10-29] MEDS: methocarbamoL 500 MG TABLET PO SCH ×4 (06:55→23:58)
[2020-10-29] MEDS: SODIUM CHLORIDE FLUSH 0.9% 10 ML SYRINGE IVP PRN (06:56)
[2020-10-29] MEDS: METOCLOPRAMIDE 10 MG/2 ML VIAL IVP SCH ×4 (06:56→23:58)
[2020-10-29] MEDS ORDERED: PANTOPRAZOLE 40 MG VIAL IVP SCH (07:00)
--- NOTE | 2020-10-29 09:07 | PROVIDER PROGRESS NOTE ---
Subjective - General Admit Date: 10/28/20 Procedure Date: 10/22/20 Post Op Days: 7 Procedure Performed: Ostomy reversal - Review of Systems Wound/Incisions: positive: Other (Wound in the right lower quadrant is packed. Foul-smelling drainage on the packing. Field packing is removed, the wound cleaned, and repacked with quarter inch Nu Gauze.) General: positive: Weakness, Fatigue. negative: Fever, Chills HEENT: positive: No symptoms Pulmonary: positive: No symptoms Cardiovascular: positive: No symptoms Gastrointestinal: positive: Diarrhea (She reports multiple diarrhea stools daily) - Other Other Information/Narrative: Nimco is in reasonable spirits today. She reports she feels she just went home a little too early. She is completely in agreement with a short stay at [facility] to get stronger prior to going back to her home.She feels better today than she did yesterday. Just feels weak but denies any real pain.Reports diarr chata is "wearing her out". Objective - Patient Data Vital Signs: Vital Signs x48h Temp Pulse Resp BP Pulse Ox 10/29/20 07:25 36.9 C 92 17 138/71 H 92 10/29/20 01:19 37.4 C Weight: Weight 10/27/20 10/28/20 10/29/20 22:59 23:59 23:59 Weight (kg) Intake & Output: Intake and Output Totals x24h 10/27/20 10/28/20 10/29/20 22:59 23:59 23:59 Intake Total 1300 Output Total Balance 1300 - Lab Results Lab Results: 10/29/20 04:55 10/29/20 04:55 Other Lab Results: Lab Results x24hrs 10/29/20 10/29/20 10/28/20 Range/Units 04:55 04:55 18:25 WBC 11.0 H (4.8-10.8) x10^3/uL RBC 3.25 L (4.20-5.40) 10^6/uL Hgb 9.7 L (12.0-16.0) g/dL Hct 30.4 L (37.0-47.0) % MCV 93.5 (81.0-99.0) fL MCH 29.8 (27.0-31.0) pg MCHC 31.9 L (32.0-36.0) g/dL RDW 13.5 (12.0-15.0) % Plt Count 266 (130-450) 10^3/uL MPV 9.3 (7.9-10.8) fL Neut # (Auto) 8.9 H (1.5-6.6) 10^3/uL Lymph # (Auto) 0.6 L (1.5-3.5) 10^3/uL Pepin # (Auto) 1.1 H (0.0-1.0) 10^3/uL Eos # (Auto) 0.2 (0.0-0.7) 10^3/uL Baso # (Auto) 0.1 (0.0-0.1) 10^3/uL Absolute Nucleated RBC 0.00 x10^3/uL Nucleated RBC % 0.0 /100WBC Sodium 133 L (135-145) mmol/L Potassium 3.1 L (3.5-5.0) mmol/L Chloride 103 (101-111) mmol/L Carbon Dioxide 22 (21-32) mmol/L Anion Gap 8.0 (6-13) BUN 8 (6-20) mg/dL Creatinine 0.8 (0.4-1.0) mg/dL Estimated GFR (MDRD) 71 L (>89) Glucose 159 H (70-100) mg/dL Calcium 7.6 L (8.5-10.3) mg/dL Phosphorus 3.0 (2.5-4.6) mg/dL Magnesium 1.2 L (1.7-2.8) mg/dL Total Bilirubin 0.3 (0.2-1.0) mg/dL AST 12 (10-42) IU/L ALT 12 (10-60) IU/L Alkaline Phosphatase 59 (42-121) IU/L Total Protein 5.8 L (6.7-8.2) g/dL Albumin 2.4 L (3.2-5.5) g/dL Globulin 3.4 (2.1-4.2) g/dL Albumin/Globulin Ratio 0.7 L (1.0-2.2) Urine Color YELLOW Urine Clarity HAZY (CLEAR) Urine pH 5.5 (5.0-7.5) PH Ur Specific [place] >=1.030 H (1.002-1.030) Urine Protein 30 H (NEGATIVE) mg/dL Urine Glucose (UA) NEGATIVE (NEGATIVE) mg/dL Urine Ketones 15 H (NEGATIVE) mg/dL Urine Occult Blood SMALL H (NEGATIVE) Urine Nitrite NEGATIVE (NEGATIVE) Urine Bilirubin NEGATIVE (NEGATIVE) Urine Urobilinogen 0.2 (NORMAL) (NORMAL) E.U./dL Ur Leukocyte Esterase SMALL H (NEGATIVE) Urine RBC 11-25 H (0-5) /HPF Urine WBC >25 H (0-5) /HPF Urine WBC Clumps PRESENT Ur Squamous Epith Cells MANY Squamous H (<= Few) Amorphous Sediment Few /LPF Urine Bacteria Many H (None Seen) /HPF Urine Mucus Few Strands Ur Microscopic Review INDICATED Urine Culture Comments NOT INDICATED Nasal Adenovirus (PCR) Nasal B. parapertussis DNA (PCR) Nasal Coronavir 229E PCR Nasal Coronavir HKU1 PCR Nasal Coronavir NL63 PCR Nasal Coronavir OC43 PCR Nasal Enterovir/Rhinovir PCR Nasal Influenza B PCR Nasal Influenza A PCR Nasal Parainfluen 1 PCR Nasal Parainfluen 2 PCR Nasal Parainfluen 3 PCR Nasal Parainfluen 4 PCR Nasal RSV (PCR) Nasal B.pertussis DNA PCR Nasal C.pneumoniae (PCR) Tonio Human Metapneumo PCR Nasal M.pneumoniae (PCR) Nasal SARS-CoV-2 (PCR) 10/28/20 10/28/20 10/28/20 Range/Units 15:55 12:26 12:26 WBC (4.8-10.8) x10^3/uL RBC (4.20-5.40) 10^6/uL Hgb (12.0-16.0) g/dL Hct (37.0-47.0) % MCV (81.0-99.0) fL MCH (27.0-31.0) pg MCHC (32.0-36.0) g/dL RDW (12.0-15.0) % Plt Count (130-450) 10^3/uL MPV (7.9-10.8) fL Neut # (Auto) (1.5-6.6) 10^3/uL Lymph # (Auto) (1.5-3.5) 10^3/uL Pepin # (Auto) (0.0-1.0) 10^3/uL Eos # (Auto) (0.0-0.7) 10^3/uL Baso # (Auto) (0.0-0.1) 10^3/uL Absolute Nucleated RBC x10^3/uL Nucleated RBC % /100WBC Sodium 136 (135-145) mmol/L Potassium 3.5 (3.5-5.0) mmol/L Chloride 100 L (101-111) mmol/L Carbon Dioxide 23 (21-32) mmol/L Anion Gap 13.0 (6-13) BUN 13 (6-20) mg/dL Creatinine 0.9 (0.4-1.0) mg/dL Estimated GFR (MDRD) 62 L (>89) Glucose 105 H (70-100) mg/dL Calcium 8.6 (8.5-10.3) mg/dL Phosphorus 3.1 (2.5-4.6) mg/dL Magnesium 1.5 L (1.7-2.8) mg/dL Total Bilirubin 0.7 (0.2-1.0) mg/dL AST 15 (10-42) IU/L ALT 14 (10-60) IU/L Alkaline Phosphatase 74 (42-121) IU/L Total Protein 6.6 L (6.7-8.2) g/dL Albumin 2.8 L (3.2-5.5) g/dL Globulin 3.8 (2.1-4.2) g/dL Albumin/Globulin Ratio 0.7 L (1.0-2.2) Urine Color Urine Clarity (CLEAR) Urine pH (5.0-7.5) PH Ur Specific [place] (1.002-1.030) Urine Protein (NEGATIVE) mg/dL Urine Glucose (UA) (NEGATIVE) mg/dL Urine Ketones (NEGATIVE) mg/dL Urine Occult Blood (NEGATIVE) Urine Nitrite (NEGATIVE) Urine Bilirubin (NEGATIVE) Urine Urobilinogen (NORMAL) E.U./dL Ur Leukocyte Esterase (NEGATIVE) Urine RBC (0-5) /HPF Urine WBC (0-5) /HPF Urine WBC Clumps Ur Squamous Epith Cells (<= Few) Amorphous Sediment /LPF Urine Bacteria (None Seen) /HPF Urine Mucus Ur Microscopic Review Urine Culture Comments Nasal Adenovirus (PCR) NOT DETECTED Nasal B. parapertussis DNA (PCR) NOT DETECTED Nasal Coronavir 229E PCR NOT DETECTED Nasal Coronavir HKU1 PCR NOT DETECTED Nasal Coronavir NL63 PCR NOT DETECTED Nasal Coronavir OC43 PCR NOT DETECTED Nasal Enterovir/Rhinovir PCR NOT DETECTED Nasal Influenza B PCR NOT DETECTED Nasal Influenza A PCR NOT DETECTED Nasal Parainfluen 1 PCR NOT DETECTED Nasal Parainfluen 2 PCR NOT DETECTED Nasal Parainfluen 3 PCR NOT DETECTED Nasal Parainfluen 4 PCR NOT DETECTED Nasal RSV (PCR) NOT DETECTED Nasal B.pertussis DNA PCR NOT DETECTED Nasal C.pneumoniae (PCR) NOT DETECTED Tonio Human Metapneumo PCR NOT DETECTED Nasal M.pneumoniae (PCR) NOT DETECTED Nasal SARS-CoV-2 (PCR) NOT DETECTED 10/28/20 Range/Units 12:26 WBC 8.4 (4.8-10.8) x10^3/uL RBC 3.40 L (4.20-5.40) 10^6/uL Hgb 10.0 L (12.0-16.0) g/dL Hct 32.4 L (37.0-47.0) % MCV 95.3 (81.0-99.0) fL MCH 29.4 (27.0-31.0) pg MCHC 30.9 L (32.0-36.0) g/dL RDW 13.5 (12.0-15.0) % Plt Count 257 (130-450) 10^3/uL MPV 9.6 (7.9-10.8) fL Neut # (Auto) 6.6 (1.5-6.6) 10^3/uL Lymph # (Auto) 0.7 L (1.5-3.5) 10^3/uL Pepin # (Auto) 0.9 (0.0-1.0) 10^3/uL Eos # (Auto) 0.1 (0.0-0.7) 10^3/uL Baso # (Auto) 0.1 (0.0-0.1) 10^3/uL Absolute Nucleated RBC 0.00 x10^3/uL Nucleated RBC % 0.0 /100WBC Sodium (135-145) mmol/L Potassium (3.5-5.0) mmol/L Chloride (101-111) mmol/L Carbon Dioxide (21-32) mmol/L Anion Gap (6-13) BUN (6-20) mg/dL Creatinine (0.4-1.0) mg/dL Estimated GFR (MDRD) (>89) Glucose (70-100) mg/dL Calcium (8.5-10.3) mg/dL Phosphorus (2.5-4.6) mg/dL Magnesium (1.7-2.8) mg/dL Total Bilirubin (0.2-1.0) mg/dL AST (10-42) IU/L ALT (10-60) IU/L Alkaline Phosphatase (42-121) IU/L Total Protein (6.7-8.2) g/dL Albumin (3.2-5.5) g/dL Globulin (2.1-4.2) g/dL Albumin/Globulin Ratio (1.0-2.2) Urine Color Urine Clarity (CLEAR) Urine pH (5.0-7.5) PH Ur Specific [place] (1.002-1.030) Urine Protein (NEGATIVE) mg/dL Urine Glucose (UA) (NEGATIVE) mg/dL Urine Ketones (NEGATIVE) mg/dL Urine Occult Blood (NEGATIVE) Urine Nitrite (NEGATIVE) Urine Bilirubin (NEGATIVE) Urine Urobilinogen (NORMAL) E.U./dL Ur Leukocyte Esterase (NEGATIVE) Urine RBC (0-5) /HPF Urine WBC (0-5) /HPF Urine WBC Clumps Ur Squamous Epith Cells (<= Few) Amorphous Sediment /LPF Urine Bacteria (None Seen) /HPF Urine Mucus Ur Microscopic Review Urine Culture Comments Nasal Adenovirus (PCR) Nasal B. parapertussis DNA (PCR) Nasal Coronavir 229E PCR Nasal Coronavir HKU1 PCR Nasal Coronavir NL63 PCR Nasal Coronavir OC43 PCR Nasal Enterovir/Rhinovir PCR Nasal Influenza B PCR Nasal Influenza A PCR Nasal Parainfluen 1 PCR Nasal Parainfluen 2 PCR Nasal Parainfluen 3 PCR Nasal Parainfluen 4 PCR Nasal RSV (PCR) Nasal B.pertussis DNA PCR Nasal C.pneumoniae (PCR) Tonio Human Metapneumo PCR Nasal M.pneumoniae (PCR) Nasal SARS-CoV-2 (PCR) - Imaging Results Imaging Results Comments: No acute intra-abdominal process - Current Medications Current Medications: Current Medications Generic Name Dose Route Start Last Admin Trade Name Freq PRN Reason Stop Dose Admin Docusate Sodium 100 mg 10/28/20 21:00 10/28/20 18:47 Docusate Sodium 100 Mg Capsule PO Not Given BID YASMEEN Potassium Chloride/Dextrose/Sod Cl 1,000 mls @ 125 mls/hr 10/28/20 16:00 10/29/20 01:33 D5ns W/20 Meq Kcl IV 125 mls/hr .Q8H YASMEEN Administration Ciprofloxacin 400 mg in 200 mls @ 200 mls/hr 10/28/20 16:00 10/29/20 04:31 Cipro 400 Mg/200 Ml IV Infused Q12H YASMEEN Infusion Metronidazole 500 mg in 100 mls @ 100 mls/hr 10/28/20 16:00 10/29/20 00:49 Flagyl 500 Mg/100 Ml IV Infused Q8H YASMEEN Infusion Methocarbamol 500 mg 10/28/20 18:00 10/29/20 06:55 Methocarbamol 500 Mg Tablet PO 500 mg Q6HR YASMEEN Administration Metoclopramide HCl 10 mg 10/28/20 18:00 10/29/20 06:56 Metoclopramide 10 Mg/2 Ml Vial IVP 10 mg Q6HR YASMEEN Administration Pantoprazole Sodium 40 mg 10/29/20 07:00 10/29/20 06:56 Pantoprazole 40 Mg Vial IVP 40 mg QDAC YASMEEN Administration Polyethylene Glycol 17 gm 10/28/20 21:00 10/28/20 18:47 Polyethylene Glycol 3350 17 Gm Packet PO Not Given BID YASMEEN Sodium Chloride 10 ml 10/28/20 17:00 10/28/20 23:46 Sodium Chloride Flush 0.9% 10 Ml Syringe IVP 10 ml 0100,0900,1700 YASMEEN Administration Sodium Chloride 10 ml 10/28/20 15:16 10/29/20 06:56 Sodium Chloride Flush 0.9% 10 Ml Syringe IVP 10 ml PRN PRN Administration NEEDED PER PROVIDER ORDERS - Physical Exam Wound/Incisions: positive: Other (See above) General Appearance: positive: No acute distress, Alert Eyes Bilateral: positive: Normal inspection, PERRL, EOMI Neck: positive: Nml inspection, Thyroid nml Respiratory: positive: Chest non-tender, No respiratory distress, Breath sounds nml Cardiovascular: positive: Regular rate & rhythm Abdomen: positive: Nml bowel sounds, Tenderness Back: negative: CVA tenderness (R), CVA tenderness (L) Skin: positive: Color nml Extremities: positive: Non-tender Neurologic/Psychiatric: positive: Oriented x3 ABX Reporting Has patient been on IV antibiotics over the past 48 hours?: Yes Impression/Plan - Problem List Problem List: Ostomy site infection and generalized weakness with volume contraction after ostomy reversal. Case management is working on short term placement. 1. Replace electrolytes 2. Continue wound packing 3. Continue antibiotics 4. Add immodium
[2020-10-29] MEDS ORDERED: MAGNESIUM SULFATE 2 GRAM 2 GM/50 ML BAG IV ONE (09:14)
[2020-10-29] MEDS: ENOXAPARIN 40 MG/0.4 ML SYRINGE SUBQ SCH (09:49)
[2020-10-29] MEDS: DOCUSATE SODIUM 100 MG CAPSULE PO SCH (09:50)
[2020-10-29] MEDS: polyethylene glycoL 3350 17 GM PACKET PO SCH ×2 (09:50→18:47)
[2020-10-29] MEDS: metroNIDAZOLE 500 MG/100 ML 500 MG/100 ML BAG IV SCH ×3 (09:50→23:58)
[2020-10-29] MEDS: SODIUM CHLORIDE FLUSH 0.9% 10 ML SYRINGE IVP SCH ×3 (09:50→23:59)
[2020-10-29] MEDS: LOPERAMIDE 2 MG CAPSULE PO PRN ×2 (11:00→16:42)
[2020-10-29] MEDS: NS W/40 MEQ KCL 1,000 ML IV SCH (11:02)
--- NOTE | 2020-10-29 12:29 | PHARMACY PROGRESS NOTE ---
- Best Possible Medication History Admit Date and Time: 10/28/20 1516 Processed by: Nursing Medication History completed: Yes Patient Interview: Completed Secondary Source(s): Insurance records Med list updated and confirmed by ED RN As the person ultimately responsible for medication therapy, providers are able to order a medication from an existing home medication list in [facility] via the "Reconcile Routine" prior to Confirmation of that medication by application support. Such practice is discouraged except when the physician, in their clinical judgment, deems that a medical need exists for a medication without regard to previous use.
[2020-10-29] MEDS: MULTIVITAMIN W/MINERALS TABLET PO SCH (15:05)
[2020-10-29] MEDS: CHOLECALCIFEROL 5,000 UNIT CAPSULE PO SCH (16:42)
[2020-10-29] MEDS: ZINC SULFATE 220 MG CAPSULE PO SCH (16:42)
[2020-10-29] MEDS: METOPROLOL TARTRATE 50 MG TABLET PO SCH (20:17)
[2020-10-30] MEDS: CIPROFLOXACIN 400 MG/200 ML 400 MG/200 ML BAG IV SCH (03:40)
[2020-10-30] MEDS: NS W/40 MEQ KCL 1,000 ML IV SCH ×2 (03:40→20:13)
[2020-10-30 05:05] LABS: BASOPHILS # (AUTO) 0.1 10^3/uL (0.0-0.1); BASOPHILS % (AUTO) 0.6 %; EOSINOPHILS # (AUTO) 0.5 10^3/uL (0.0-0.7); EOSINOPHILS % (AUTO) 4.6 %; HCT - HEMATOCRIT 30.5 % (37.0-47.0); HGB - HEMOGLOBIN 9.3 g/dL (12.0-16.0); LYMPHOCYTES # (AUTO) 0.7 10^3/uL (1.5-3.5); LYMPHOCYTES % (AUTO) 6.8 %; MEAN CORPUSCULAR HEMOGLOBIN 29.3 pg (27.0-31.0); MEAN CORPUSCULAR HGB CONC 30.5 g/dL (32.0-36.0); MEAN CORPUSCULAR VOLUME 96.2 fL (81.0-99.0); MEAN PLATELET VOLUME 9.5 fL (7.9-10.8); MONOCYTES # (AUTO) 0.8 10^3/uL (0.0-1.0); MONOCYTES % (AUTO) 7.8 %; NEUTROPHILS # (AUTO) 7.8 10^3/uL (1.5-6.6); NEUTROPHILS % (AUTO) 78.7 %; PLT - PLATELET COUNT 295 10^3/uL (130-450); RED BLOOD COUNT 3.17 10^6/uL (4.20-5.40); RED CELL DISTRIBUTION WIDTH 13.9 % (12.0-15.0); WHITE BLOOD COUNT 9.9 x10^3/uL (4.8-10.8)
[2020-10-30 05:23] LABS: ALBUMIN 2.3 g/dL (3.2-5.5); ALBUMIN/GLOBULIN RATIO 0.7 (1.0-2.2); BILIRUBIN,TOTAL 0.4 mg/dL (0.2-1.0); CALCIUM 7.7 mg/dL (8.5-10.3); CREATININE 0.8 mg/dL (0.4-1.0); MAGNESIUM 1.5 mg/dL (1.7-2.8); PHOSPHORUS 3.2 mg/dL (2.5-4.6); POTASSIUM 3.5 mmol/L (3.5-5.0); TOTAL PROTEIN 5.7 g/dL (6.7-8.2)
[2020-10-30] MEDS: METOCLOPRAMIDE 10 MG/2 ML VIAL IVP SCH ×2 (06:17→11:34)
[2020-10-30] MEDS: methocarbamoL 500 MG TABLET PO SCH ×3 (06:17→17:19)
[2020-10-30] MEDS: PANTOPRAZOLE 40 MG TABLET PO SCH (06:17)
[2020-10-30] MEDS: metroNIDAZOLE 500 MG/100 ML 500 MG/100 ML BAG IV SCH (07:53)
[2020-10-30] MEDS: MULTIVITAMIN W/MINERALS TABLET PO SCH (07:53)
[2020-10-30] MEDS: POTASSIUM CHLORIDE 20 MEQ TABLET PO SCH (07:54)
[2020-10-30] MEDS: polyethylene glycoL 3350 17 GM PACKET PO SCH ×2 (08:08→20:06)
[2020-10-30] MEDS: SODIUM CHLORIDE FLUSH 0.9% 10 ML SYRINGE IVP SCH ×2 (08:09→16:47)
[2020-10-30] MEDS: METOPROLOL TARTRATE 50 MG TABLET PO SCH ×2 (10:41→20:13)
[2020-10-30] MEDS: ASPIRIN EC 81 MG TABLET PO SCH (10:41)
[2020-10-30] MEDS: CHOLECALCIFEROL 5,000 UNIT CAPSULE PO SCH (10:42)
[2020-10-30] MEDS: ENOXAPARIN 40 MG/0.4 ML SYRINGE SUBQ SCH (10:42)
[2020-10-30] MEDS: FERROUS SULFATE 325 MG TABLET PO SCH (10:42)
[2020-10-30] MEDS: ZINC SULFATE 220 MG CAPSULE PO SCH (10:42)
[2020-10-30] MEDS ORDERED: MEROPENEM 1 GM in SODIUM CHLORIDE 0.9% MINIBAG 100 ML IV SCH (14:00)
[2020-10-30] MEDS: AMPICILLIN/SULBACTAM 3 GM in SODIUM CHLORIDE 0.9% MINIBAG 100 ML IV SCH ×2 (14:40→20:13)
[2020-10-30] MEDS: SODIUM CHLORIDE FLUSH 0.9% 10 ML SYRINGE IVP PRN (14:41)
[2020-10-30] MEDS: LOPERAMIDE 2 MG CAPSULE PO PRN (17:19)
[2020-10-31] MEDS: methocarbamoL 500 MG TABLET PO SCH ×5 (00:09→23:51)
[2020-10-31] MEDS: SODIUM CHLORIDE FLUSH 0.9% 10 ML SYRINGE IVP SCH ×4 (00:09→23:51)
[2020-10-31] MEDS: AMPICILLIN/SULBACTAM 3 GM in SODIUM CHLORIDE 0.9% MINIBAG 100 ML IV SCH ×4 (02:32→20:55)
[2020-10-31 05:55] LABS: BASOPHILS # (AUTO) 0.1 10^3/uL (0.0-0.1); BASOPHILS % (AUTO) 0.7 %; EOSINOPHILS # (AUTO) 0.6 10^3/uL (0.0-0.7); EOSINOPHILS % (AUTO) 5.9 %; HCT - HEMATOCRIT 35.3 % (37.0-47.0); HGB - HEMOGLOBIN 10.8 g/dL (12.0-16.0); LYMPHOCYTES # (AUTO) 0.9 10^3/uL (1.5-3.5); LYMPHOCYTES % (AUTO) 8.7 %; MEAN CORPUSCULAR HEMOGLOBIN 29.9 pg (27.0-31.0); MEAN CORPUSCULAR HGB CONC 30.6 g/dL (32.0-36.0); MEAN CORPUSCULAR VOLUME 97.8 fL (81.0-99.0); MEAN PLATELET VOLUME 9.3 fL (7.9-10.8); MONOCYTES # (AUTO) 0.8 10^3/uL (0.0-1.0); MONOCYTES % (AUTO) 7.1 %; NEUTROPHILS # (AUTO) 8.1 10^3/uL (1.5-6.6); PLT - PLATELET COUNT 389 10^3/uL (130-450); RED BLOOD COUNT 3.61 10^6/uL (4.20-5.40); WHITE BLOOD COUNT 10.6 x10^3/uL (4.8-10.8)
[2020-10-31 06:07] LABS: ALBUMIN 2.9 g/dL (3.2-5.5); ALBUMIN/GLOBULIN RATIO 0.8 (1.0-2.2); BILIRUBIN,TOTAL 0.5 mg/dL (0.2-1.0); CALCIUM 8.1 mg/dL (8.5-10.3); CREATININE 0.8 mg/dL (0.4-1.0); POTASSIUM 4.2 mmol/L (3.5-5.0); TOTAL PROTEIN 6.6 g/dL (6.7-8.2)
[2020-10-31] MEDS ORDERED: IOVERSOL 320 100 ML VIAL IVP ONE ×2 (06:22→06:56)
[2020-10-31] MEDS: PANTOPRAZOLE 40 MG TABLET PO SCH (07:02)
[2020-10-31] MEDS: NS W/40 MEQ KCL 1,000 ML IV SCH ×2 (07:25→12:55)
[2020-10-31] MEDS: polyethylene glycoL 3350 17 GM PACKET PO SCH ×2 (07:27→20:26)
--- NOTE | 2020-10-31 07:37 | CONSULTATION NOTE ---
Referring Provider Name of Referring Provider:: Dr. Natan Muniz Consult Date: 10/31/20 Chief Complaint - Chief Complaint Chief Complaint: Shortness of breath History of Present Illness - Admitted From Admitted From:: Home - History Obtained From Records Reviewed: Yes History obtained from: Patient, General Surgeon, EMR Exam Limitations: Patient is dyspneic and prefers to not speak. - History of Present Illness HPI Comment/Other: This is a 78-year-old female with a past medical history significant for hypertension, iron deficiency anemia, aortic stenosis who recently underwent ileostomy takedown. She was admitted back in March 2024 a small bowel obs truction and at that time, she had a sigmoid colectomy and diverting ileostomy. Course was complicated by NSTEMI for which she was treated with Lovenox, aspirin, beta-shanda. The patient returned to our facility last week for ileostomy takedown. She was discharged on the but returned to the ER on the due to weakness. She was admitted for failure to thrive and dehydration. Medicine was consulted this morning as overnight the patient complained of shortness of breath. The patient tells me that her dyspnea began yesterday afternoon and has continued to progress. She has noted wheezing as well and an occasional nonproductive cough. She states she has had similar symptoms in the past but not this severe. She denies an official history of COPD but reports smoking multiple packs a day for about 15 to 20 years but she quit over 20 years ago. She does not take any inhalers at home. She denies any chest pain, palpitations. She states she had a cardiac work-up last month at [facility] in [place] which was unremarkable to her knowledge. She states she currently feels quite short of breath and prefers not to converse due to her dyspnea. She states her abdominal pain is controlled at the moment. I did discuss goals of care and she states that she is a full code. History - Past Medical History Cardiovascular: reports: Hypertension, [place], Murmur Respiratory: reports: Asthma, Shortness of breath Neuro: reports: None Endocrine/Autoimmune: reports: None GI: reports: None : reports: None HEENT: reports: Chronic vision loss, Chronic sinusitis, Other Psych: reports: Depression Musculoskeletal: reports: None Derm: reports: None MRSA Hx?: No - Past Surgical History General: reports: Appendectomy, Bowel surgery, Colonoscopy Ortho: reports: Arthroscopic surgery HEENT: reports: Tonsil/Adenoidectomy - Family & Social History Family History Comment/Other: She is adopted and is unaware of her family history. Social History Notes: She has lived in [facility] for over 30 years. 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 She smoked a couple packs a day on and off for about 15 to 20 years but quit over 20 years ago. - POLST Patient has POLST: No Meds/Allgy - Home Medications Home Medications: Ambulatory Orders Medication Instructions Recorded Confirmed Aspirin EC [Ecotrin] 81 mg PO DAILY 04/02/20 10/28/20 Ferrous Sulfate 325 mg PO DAILY 04/02/20 10/28/20 Metoprolol Tartrate [Lopressor] 50 mg PO BID tablet 04/11/20 10/28/20 Potassium Chloride [K-Dur] 20 meq PO DAILYWM tablet 04/11/20 10/28/20 - Allergies Allergies/Adverse Reactions: Allergies Allergy/AdvReac Type Severity Reaction Status Date / Time Penicillins Allergy Nausea Verified 10/12/20 12:34 Review of Systems - Cardiovascular Cariovascular: reports: Exertional dyspnea, Decr. exercise tolerance. denies: Palpitations, Chest pain, Edema - Respiratory Respiratory: reports: Cough, Wheezing, SOB at rest, SOB with exertion. denies: Sputum production - Gastrointestinal Gastrointestinal: denies: Abdominal pain, Nausea, Vomiting - Genitourinary Genitourinary: denies: Dysuria, Frequency, Urgency - All Other Systems All Other Systems: reports: Other (Review of systems is limited given her dyspnea.) Exam - Vital Signs Reviewed Vital Signs: Yes Vital Signs: Vital Signs x48h Temp Pulse Pulse Resp BP BP BP 10/31/20 06:08 10/31/20 05:46 37.2 C 98 18 177/93 H 10/31/20 05:20 37.5 C 96 24 152/81 H 10/31/20 00:15 36.8 C 83 20 168/87 H Pulse Ox 10/31/20 06:08 100 10/31/20 05:46 98 10/31/20 05:20 96 10/31/20 00:15 97 - Physical Exam General Appearance: positive: Alert, Mild distress Eyes Bilateral: positive: Normal inspection, Conjunctivae nml ENT: positive: ENT inspection nml Neck: positive: Nml inspection Respiratory: positive: Wheezes, Other (She is in mild respiratory distress. She has wheezes throughout.) Cardiovascular: positive: Tachycardia, Systolic murmur. negative: Irregularly irregular Abdomen: positive: Non-tender, No distention, Other (Dressings in place over the abdomen.). negative: Tenderness, Guarding, Rebound Skin: positive: Warm, Dry Extremities: positive: No pedal edema Neurologic/Psychiatric: negative: Disoriented to person, Disoriented to place Conclusion/Plan - Diagnosis Diagnosis: 1) COPD exacerbation. 2) Elevated troponin likely demand ischemia. 3) Hypertension. 4) Aortis stenosis. 5) History of ileostomy takedown - Plan Plan: Her dyspnea is likely secondary to a COPD exacerbation given her significant wheezing. We will start her on DuoNebs every 4 hours and albuterol as needed. I spoke with Dr. Gutierrez of general surgery and there is no contraindication to prednisone at this time and so we will start her on 40 mg of prednisone daily. If there is no improvement we will consider Solu-Medrol 40 mg IV twice daily. She will need appropriate inhaler therapy on discharge and outpatient pulmonary function testing. I did review her CT angiogram and there is no obvious pulmonary embolism. There was suggestion of scattered consolidation or atelectasis in the left lower lobe. The patient is already on Unasyn per general surgery which can be continued. Her troponin is mildly elevated at 31 and repeat 2 hours later is 33. Not suggest ischemia and is unchanged compared to prior EKG. She also has no chest pain. We will check an echocardiogram given the elevated troponin as well to assess her aortic stenosis. I have requested records from her design consultant in [place] as she reportedly had an ischemic work-up last month. Her blood pressure is elevated in the 160s to 170s despite being on metoprolol. We will add 5 mg of amlodipine daily. - Lab Results Lab results reviewed: Yes Fish Bones: 10/31/20 05:50 10/31/20 05:50 - Diagnostic Imaging Results Diagnostic Imaging Results: positive: Final report reviewed - EKG Results EKG Interpreted Independently: Yes EKG Comparison: Unchanged from prior EKG EKG Findings: EKG reveals a sinus tachycardia with right bundle branch block. This is unchanged compared to prior EKG.
[2020-10-31] MEDS: MULTIVITAMIN W/MINERALS TABLET PO SCH (07:52)
[2020-10-31] MEDS: POTASSIUM CHLORIDE 20 MEQ TABLET PO SCH (07:52)
[2020-10-31] MEDS: ASPIRIN EC 81 MG TABLET PO SCH (07:52)
[2020-10-31] MEDS: CHOLECALCIFEROL 5,000 UNIT CAPSULE PO SCH (07:53)
[2020-10-31] MEDS: FERROUS SULFATE 325 MG TABLET PO SCH (07:53)
[2020-10-31] MEDS: ZINC SULFATE 220 MG CAPSULE PO SCH (07:53)
[2020-10-31] MEDS: ENOXAPARIN 40 MG/0.4 ML SYRINGE SUBQ SCH (07:54)
[2020-10-31] MEDS: METOPROLOL TARTRATE 50 MG TABLET PO SCH ×2 (08:08→20:53)
[2020-10-31] MEDS ORDERED: ALBUTEROL NEB 2.5 MG/3 ML INH PRN (08:17)
--- NOTE | 2020-10-31 08:21 | XRAY Report ---
PROCEDURE: Chest 1 View X-Ray INDICATIONS: SOB TECHNIQUE: One view of the chest was acquired. COMPARISON: Chest x-ray one view, 04/05/2020. FINDINGS: Surgical changes and devices: None. Lungs and pleura: Small left pleural effusion. Left basilar atelectasis. Chronic right hemidiaphragm elevation. No pneumothorax. Mediastinum: Heart half hernia. Mediastinal contours appear normal. Heart size is normal. Bones and chest wall: No suspicious bony lesions. Overlying soft tissues appear unremarkable. IMPRESSION: 1. Small left pleural effusion and left basilar atelectasis. 2. Large hiatal hernia. No significant discrepancy with the preliminary interpretation. Reviewed by: Etelvina De La Paz MD on 10/31/2020 8:20 AM PDT Approved by: Etelvina De La Paz MD on 10/31/2020 8:20 AM PDT Station ID: [id number]
[2020-10-31] MEDS: IPRATROPIUM/ALBUTEROL 3 ML NEB INH SCH ×4 (08:29→19:35)
--- NOTE | 2020-10-31 08:53 | CT Report ---
PROCEDURE: ANGIO CHEST W/WO INDICATIONS: SOB, r/ou PE CONTRAST: IV CONTRAST: Optiray 320 ml: 80 PO CONTRAST: *NO PO CONTRAST TECHNIQUE: After the administration of intravenous contrast, 2 mm thick sections acquired from the pulmonary api amira to the posterior costophrenic angles. 3-dimensional maximum intensity projection (MIP) coronal a nd sagittal reformats were then acquired through the thorax. For radiation dose reduction, the follow ing was used: automated exposure control, adjustment of mA and/or kV according to patient size. COMPARISON: CT abdomen and pelvis 10/28/2020 FINDINGS: Image quality: Excellent. Pulmonary arteries: No pulmonary artery filling defect demonstrated. Normal caliber main pulmonary tr unk. Lungs and pleura: Scattered areas of atelectasis versus consolidation adjacent to a large hiatal ayesha ia occupying much of the left hemithorax. Small right greater than left pleural effusions with overly ing atelectasis. Mediastinum: Heart size is within normal limits. No pericardial effusion. Coronary atherosclerosis. Abdomen: Right upper quadrant abdominal wall defect with adjacent fat stranding and subcutaneous emph ysema, similar to the comparison CT abdomen and pelvis. IMPRESSION: No CT evidence of pulmonary embolus. Additional findings as described above. No significant change from preliminary report. Reviewed by: Michael Donovan MD on 10/31/2020 8:52 AM PDT Approved by: Michael Donovan MD on 10/31/2020 8:52 AM PDT Station ID: [id number]
[2020-10-31] MEDS: amLODIPine 5 MG TABLET PO SCH (09:36)
[2020-10-31] MEDS: predniSONE 20 MG TABLET PO SCH (09:36)
[2020-10-31 11:34] LABS: ESTIMATED AVERAGE GLUCOSE 120 mg/dL (70-100); HEMOGLOBIN A1c% 5.8 % (4.27-6.07)
--- NOTE | 2020-10-31 13:35 | PROVIDER PROGRESS NOTE ---
Progress Note Overnight coverage note general surgery: Nursing staff called with patient complaining of dyspnea. Patient with known history of coronary artery disease. 70-year-old female readmitted for failure to thrive after having undergone ileostomy takedown last week. Afebrile. Patient also tachycardic to the 110s. Denies abdominal pain. In postoperative setting concern amongst others include RI, pulmonary embolism, amongst others. Ordered CBC, CMP, troponin, chest x-ray, EKG, CT angio. Consulted hospital service for input. We will let primary surgeon Dr. Gutierrez know.
[2020-10-31] MEDS: SODIUM CHLORIDE FLUSH 0.9% 10 ML SYRINGE IVP PRN (14:10)
--- NOTE | 2020-10-31 16:34 | PROVIDER PROGRESS NOTE ---
Subjective - General Admit Date: 10/29/20 Procedure Date: 10/22/20 Post Op Days: 9 Procedure Performed: Ostomy reversal - Review of Systems Wound/Incisions: positive: Healing well, Other (See above) General: positive: Weakness, Fatigue. negative: Fever, Chills HEENT: positive: No symptoms Pulmonary: positive: No symptoms Cardiovascular: positive: No symptoms Gastrointestinal: positive: Diarrhea (She reports multiple diarrhea stools daily) All Other Systems: positive: Other (Review of systems is limited given her dyspnea.) Objective - Patient Data Vital Signs: Vital Signs x48h Temp Pulse Pulse Resp BP Pulse Ox 10/31/20 15:55 36.2 C L 97 16 152/84 H 97 10/31/20 15:32 93 16 10/31/20 11:08 84 18 10/31/20 08:32 107 H 24 Weight: Weight 10/29/20 10/30/20 10/31/20 23:59 23:59 23:59 Weight (kg) 63.503 kg Intake & Output: Intake and Output Totals x24h 10/29/20 10/30/20 10/31/20 23:59 23:59 23:59 Intake Total 4171.25 3218.750 2320 Output Total 1115 425 875 Balance 3056.25 2793.750 1445 - Lab Results Lab Results: 10/31/20 05:50 10/31/20 05:50 Other Lab Results: Lab Results x24hrs 10/31/20 10/31/20 10/31/20 Range/Units 13:53 07:57 05:50 WBC (4.8-10.8) x10^3/uL RBC (4.20-5.40) 10^6/uL Hgb (12.0-16.0) g/dL Hct (37.0-47.0) % MCV (81.0-99.0) fL MCH (27.0-31.0) pg MCHC (32.0-36.0) g/dL RDW (12.0-15.0) % Plt Count (130-450) 10^3/uL MPV (7.9-10.8) fL Neut # (Auto) (1.5-6.6) 10^3/uL Lymph # (Auto) (1.5-3.5) 10^3/uL [place] # (Auto) (0.0-1.0) 10^3/uL Eos # (Auto) (0.0-0.7) 10^3/uL Baso # (Auto) (0.0-0.1) 10^3/uL Absolute Nucleated RBC x10^3/uL Nucleated RBC % /100WBC Sodium (135-145) mmol/L Potassium (3.5-5.0) mmol/L Chloride (101-111) mmol/L Carbon Dioxide (21-32) mmol/L Anion Gap (6-13) BUN (6-20) mg/dL Creatinine (0.4-1.0) mg/dL Estimated GFR (MDRD) (>89) Glucose (70-100) mg/dL Estimat Average Glucose 120 H (70-100) mg/dL Hemoglobin A1c % 5.8 (4.27-6.07) % Calcium (8.5-10.3) mg/dL Total Bilirubin (0.2-1.0) mg/dL AST (10-42) IU/L ALT (10-60) IU/L Alkaline Phosphatase (42-121) IU/L Troponin I High Sens 31.0 H* 33.8 H* (2.3-14.8) ng/L Total Protein (6.7-8.2) g/dL Albumin (3.2-5.5) g/dL Globulin (2.1-4.2) g/dL Albumin/Globulin Ratio (1.0-2.2) Coronavirus (PCR) 10/31/20 10/31/20 10/31/20 Range/Units 05:50 05:50 05:50 WBC 10.6 (4.8-10.8) x10^3/uL RBC 3.61 L (4.20-5.40) 10^6/uL Hgb 10.8 L (12.0-16.0) g/dL Hct 35.3 L (37.0-47.0) % MCV 97.8 (81.0-99.0) fL MCH 29.9 (27.0-31.0) pg MCHC 30.6 L (32.0-36.0) g/dL RDW 14.0 (12.0-15.0) % Plt Count 389 (130-450) 10^3/uL MPV 9.3 (7.9-10.8) fL Neut # (Auto) 8.1 H (1.5-6.6) 10^3/uL Lymph # (Auto) 0.9 L (1.5-3.5) 10^3/uL [place] # (Auto) 0.8 (0.0-1.0) 10^3/uL Eos # (Auto) 0.6 (0.0-0.7) 10^3/uL Baso # (Auto) 0.1 (0.0-0.1) 10^3/uL Absolute Nucleated RBC 0.00 x10^3/uL Nucleated RBC % 0.0 /100WBC Sodium 139 (135-145) mmol/L Potassium 4.2 (3.5-5.0) mmol/L Chloride 107 (101-111) mmol/L Carbon Dioxide 24 (21-32) mmol/L Anion Gap 8.0 (6-13) BUN 8 (6-20) mg/dL Creatinine 0.8 (0.4-1.0) mg/dL Estimated GFR (MDRD) 71 L (>89) Glucose 159 H (70-100) mg/dL Estimat Average Glucose (70-100) mg/dL Hemoglobin A1c % (4.27-6.07) % Calcium 8.1 L (8.5-10.3) mg/dL Total Bilirubin 0.5 (0.2-1.0) mg/dL AST 15 (10-42) IU/L ALT 13 (10-60) IU/L Alkaline Phosphatase 69 (42-121) IU/L Troponin I High Sens 31.8 H* (2.3-14.8) ng/L Total Protein 6.6 L (6.7-8.2) g/dL Albumin 2.9 L (3.2-5.5) g/dL Globulin 3.7 (2.1-4.2) g/dL Albumin/Globulin Ratio 0.8 L (1.0-2.2) Coronavirus (PCR) 10/30/20 Range/Units 15:38 WBC (4.8-10.8) x10^3/uL RBC (4.20-5.40) 10^6/uL Hgb (12.0-16.0) g/dL Hct (37.0-47.0) % MCV (81.0-99.0) fL MCH (27.0-31.0) pg MCHC (32.0-36.0) g/dL RDW (12.0-15.0) % Plt Count (130-450) 10^3/uL MPV (7.9-10.8) fL Neut # (Auto) (1.5-6.6) 10^3/uL Lymph # (Auto) (1.5-3.5) 10^3/uL [place] # (Auto) (0.0-1.0) 10^3/uL Eos # (Auto) (0.0-0.7) 10^3/uL Baso # (Auto) (0.0-0.1) 10^3/uL Absolute Nucleated RBC x10^3/uL Nucleated RBC % /100WBC Sodium (135-145) mmol/L Potassium (3.5-5.0) mmol/L Chloride (101-111) mmol/L Carbon Dioxide (21-32) mmol/L Anion Gap (6-13) BUN (6-20) mg/dL Creatinine (0.4-1.0) mg/dL Estimated GFR (MDRD) (>89) Glucose (70-100) mg/dL Estimat Average Glucose (70-100) mg/dL Hemoglobin A1c % (4.27-6.07) % Calcium (8.5-10.3) mg/dL Total Bilirubin (0.2-1.0) mg/dL AST (10-42) IU/L ALT (10-60) IU/L Alkaline Phosphatase (42-121) IU/L Troponin I High Sens (2.3-14.8) ng/L Total Protein (6.7-8.2) g/dL Albumin (3.2-5.5) g/dL Globulin (2.1-4.2) g/dL Albumin/Globulin Ratio (1.0-2.2) Coronavirus (PCR) NEGATIVE - Current Medications Current Medications: Current Medications Generic Name Dose Route Start Last Admin Trade Name Freq PRN Reason Stop Dose Admin Albuterol/Ipratropium 3 ml 10/31/20 09:00 10/31/20 15:31 Ipratropium/Albuterol 3 Ml Neb INH 3 ml RTQ4H YASMEEN Administration Amlodipine Besylate 5 mg 10/31/20 09:00 10/31/20 09:36 Amlodipine 5 Mg Tablet PO 5 mg DAILY YASMEEN Administration Aspirin 81 mg 10/30/20 09:00 10/31/20 07:52 Aspirin Ec 81 Mg Tablet PO 81 mg DAILY YASMEEN Administration Cholecalciferol 5,000 unit 10/29/20 17:00 10/31/20 07:53 Cholecalciferol 5,000 Unit Capsule PO 5,000 unit DAILY YASMEEN Administration Enoxaparin Sodium 40 mg 10/29/20 09:00 10/31/20 07:54 Enoxaparin 40 Mg/0.4 Ml Syringe SUBQ 40 mg DAILY YASMEEN Administration Ferrous Sulfate 325 mg 10/30/20 09:00 10/31/20 07:53 Ferrous Sulfate 325 Mg Tablet PO 325 mg DAILY YASMEEN Administration Potassium Chloride/Sodium Chloride 1,000 mls @ 75 mls/hr 10/29/20 10:00 10/31/20 12:55 Normal Saline 0.9% W/40 Meq Kcl IV 75 mls/hr .[id number] [facility] Administration Ampicillin Sodium/Sulbactam 100 mls @ 200 mls/hr 10/30/20 15:00 10/31/20 14:59 Sodium 3 gm/ Sodium Chloride IV Infused Q6H YASMEEN Infusion Loperamide HCl 2 mg 10/29/20 09:14 10/30/20 17:19 Loperamide 2 Mg Capsule PO 2 mg QID PRN Administration Diarrhea Methocarbamol 500 mg 10/28/20 18:00 10/31/20 11:45 Methocarbamol 500 Mg Tablet PO Not Given Q6HR [facility] Metoprolol Tartrate 50 mg 10/29/20 21:00 10/31/20 08:08 Metoprolol Tartrate 50 Mg Tablet PO 50 mg BID YASMEEN Administration Multivitamins/Minerals 1 tab 10/29/20 15:00 10/31/20 07:52 Multivitamin W/Minerals Tablet PO 1 tab DAILYWM [facility] Administration Pantoprazole Sodium 40 mg 10/30/20 07:00 10/31/20 07:02 Pantoprazole 40 Mg Tablet PO 40 mg QDAC YASMEEN Administration Polyethylene Glycol 17 gm 10/28/20 21:00 10/31/20 07:27 Polyethylene Glycol 3350 17 Gm Packet PO Not Given BID YASMEEN Potassium Chloride 20 meq 10/30/20 08:00 10/31/20 07:52 Potassium Chloride 20 Meq Tablet PO 20 meq DAILYWM YASMEEN Administration Prednisone 40 mg 10/31/20 09:00 10/31/20 09:36 Prednisone 20 Mg Tablet PO 11/04/20 08:01 40 mg DAILYWM YASMEEN Administration Sodium Chloride 10 ml 10/28/20 17:00 10/31/20 07:54 Sodium Chloride Flush 0.9% 10 Ml Syringe IVP 10 ml 0100,0900,1700 YASMEEN Administration Sodium Chloride 10 ml 10/28/20 15:16 10/31/20 14:10 Sodium Chloride Flush 0.9% 10 Ml Syringe IVP 10 ml PRN PRN Administration NEEDED PER PROVIDER ORDERS Zinc Sulfate 220 mg 10/29/20 17:00 10/31/20 07:53 Zinc Sulfate 220 Mg Capsule PO 11/03/20 17:00 220 mg DAILY YASMEEN Administration - Physical Exam Wound/Incisions: positive: Other (Wound is looking much better and foul odor is resolving. Patient says it is mucn less pain ful.) General Appearance: positive: No acute distress, Alert ENT: positive: ENT inspection nml, Pharynx nml Respiratory: positive: Chest non-tender, Other (No respiratory distress now. Breathing much better after nebs and steroids.) Abdomen: positive: Nml bowel sounds. negative: No distention, Tenderness Extremities: positive: Nml appearance Neurologic/Psychiatric: positive: Oriented x3 ABX Reporting Has patient been on IV antibiotics over the past 48 hours?: Yes Impression/Plan - Problem List Problem List: 1. Wound infection and dehydration following ostomy reversal. - iimproving. Check electrolytes again in the AM 2. COPD exacerbation - appreciate hospitalist help 3. Protein calorie malnutrition - improving on supplements and and regular diet 4. Deconditioning and generalized weakness - Plans for transfer to SNF when medically stable
[2020-11-01] MEDS: NS W/40 MEQ KCL 1,000 ML IV SCH (00:34)
[2020-11-01] MEDS: AMPICILLIN/SULBACTAM 3 GM in SODIUM CHLORIDE 0.9% MINIBAG 100 ML IV SCH ×2 (03:10→08:43)
[2020-11-01] MEDS: PANTOPRAZOLE 40 MG TABLET PO SCH (06:03)
[2020-11-01] MEDS: methocarbamoL 500 MG TABLET PO SCH ×2 (06:03→11:56)
[2020-11-01 07:43] LABS: CALCIUM 8.2 mg/dL (8.5-10.3); CREATININE 0.8 mg/dL (0.4-1.0); POTASSIUM 4.8 mmol/L (3.5-5.0)
[2020-11-01] MEDS: IPRATROPIUM/ALBUTEROL 3 ML NEB INH SCH ×2 (07:45→11:24)
[2020-11-01 07:50] LABS: BASOPHILS # (AUTO) 0.1 10^3/uL (0.0-0.1); BASOPHILS % (AUTO) 0.5 %; EOSINOPHILS # (AUTO) 0.2 10^3/uL (0.0-0.7); EOSINOPHILS % (AUTO) 1.6 %; HCT - HEMATOCRIT 31.3 % (37.0-47.0); HGB - HEMOGLOBIN 9.6 g/dL (12.0-16.0); LYMPHOCYTES % (AUTO) 9.6 %; MEAN CORPUSCULAR HEMOGLOBIN 29.4 pg (27.0-31.0); MEAN CORPUSCULAR HGB CONC 30.7 g/dL (32.0-36.0); MEAN PLATELET VOLUME 9.3 fL (7.9-10.8); MONOCYTES # (AUTO) 0.6 10^3/uL (0.0-1.0); MONOCYTES % (AUTO) 6.1 %; NEUTROPHILS # (AUTO) 8.4 10^3/uL (1.5-6.6); NEUTROPHILS % (AUTO) 80.3 %; PLT - PLATELET COUNT 401 10^3/uL (130-450); RED BLOOD COUNT 3.26 10^6/uL (4.20-5.40); WHITE BLOOD COUNT 10.4 x10^3/uL (4.8-10.8)
[2020-11-01] MEDS: FERROUS SULFATE 325 MG TABLET PO SCH (08:38)
[2020-11-01] MEDS: predniSONE 20 MG TABLET PO SCH (08:38)
[2020-11-01] MEDS: MULTIVITAMIN W/MINERALS TABLET PO SCH (08:38)
[2020-11-01] MEDS: ZINC SULFATE 220 MG CAPSULE PO SCH (08:38)
[2020-11-01] MEDS: CHOLECALCIFEROL 5,000 UNIT CAPSULE PO SCH (08:39)
[2020-11-01] MEDS: LOPERAMIDE 2 MG CAPSULE PO PRN (08:39)
[2020-11-01] MEDS: SODIUM CHLORIDE FLUSH 0.9% 10 ML SYRINGE IVP SCH (08:40)
[2020-11-01] MEDS: POTASSIUM CHLORIDE 20 MEQ TABLET PO SCH (08:40)
[2020-11-01] MEDS: METOPROLOL TARTRATE 50 MG TABLET PO SCH (08:41)
[2020-11-01] MEDS: amLODIPine 5 MG TABLET PO SCH (08:42)
[2020-11-01] MEDS: ENOXAPARIN 40 MG/0.4 ML SYRINGE SUBQ SCH (08:42)
[2020-11-01] MEDS: ASPIRIN EC 81 MG TABLET PO SCH (08:42)
[2020-11-01] MEDS: polyethylene glycoL 3350 17 GM PACKET PO SCH (08:44)
[2020-11-01 08:45] VITALS: BP 134/75
[2020-11-01] MEDS ORDERED: ACETAMINOPHEN 500 MG TABLET PO PRN (09:00)
--- NOTE | 2020-11-01 11:19 | PROVIDER PROGRESS NOTE ---
Subjective - Prog Note Date Prog Note Date: 11/01/20 - Subjective Subjective: She feels much improved today. Reports no dyspnea or wheezing. She is eager to go to rehab today. Current Medications - Current Medications Current Medications: Active Medications Acetaminophen (Acetaminophen 500 Mg Tablet) 500 mg PO Q4HR PRN PRN Reason: Pain or Fever > 38C (100.4F) Albuterol (Albuterol Neb 2.5 Mg/3 Ml) 2.5 mg INH RTQ4H PRN PRN Reason: Wheezing Albuterol/Ipratropium (Ipratropium/Albuterol 3 Ml Neb) 3 ml INH RTQ4H [facility] Last Admin: 11/01/20 07:45 Dose: 3 ml Documented by: Amlodipine Besylate (Amlodipine 5 Mg Tablet) 5 mg PO DAILY [facility] Last Admin: 11/01/20 08:42 Dose: 5 mg Documented by: Aspirin (Aspirin Ec 81 Mg Tablet) 81 mg PO DAILY [facility] Last Admin: 11/01/20 08:42 Dose: 81 mg Documented by: Cholecalciferol (Cholecalciferol 5,000 Unit Capsule) 5,000 unit PO DAILY [facility] Last Admin: 11/01/20 08:39 Dose: 5,000 unit Documented by: Enoxaparin Sodium (Enoxaparin 40 Mg/0.4 Ml Syringe) 40 mg SUBQ DAILY [facility] Last Admin: 11/01/20 08:42 Dose: 40 mg Documented by: Ferrous Sulfate (Ferrous Sulfate 325 Mg Tablet) 325 mg PO DAILY [facility] Last Admin: 11/01/20 08:38 Dose: 325 mg Documented by: Hydromorphone HCl (Hydromorphone 0.5 Mg/0.5 Ml Syringe) 0.5 mg IVP Q2H PRN PRN Reason: Pain 8 to 10 Potassium Chloride/Sodium Chloride (Normal Saline 0.9% W/40 Meq Kcl) 1,000 mls @ 75 mls/hr IV .[id number] [facility] Last Admin: 11/01/20 00:34 Dose: 75 mls/hr Documented by: Ampicillin Sodium/Sulbactam (Sodium 3 gm/ Sodium Chloride) 100 mls @ 200 mls/hr IV Q6H [facility] Last Infusion: 11/01/20 09:37 Dose: Infused Documented by: Loperamide HCl (Loperamide 2 Mg Capsule) 2 mg PO QID PRN PRN Reason: Diarrhea Last Admin: 11/01/20 08:39 Dose: 2 mg Documented by: Methocarbamol (Methocarbamol 500 Mg Tablet) 500 mg PO Q6HR [facility] Last Admin: 11/01/20 06:03 Dose: 500 mg Documented by: Metoprolol Tartrate (Metoprolol Tartrate 50 Mg Tablet) 50 mg PO BID [facility] Last Admin: 11/01/20 08:41 Dose: 50 mg Documented by: Multivitamins/Minerals (Multivitamin W/Minerals Tablet) 1 tab PO DAILYWM [facility] Last Admin: 11/01/20 08:38 Dose: 1 tab Documented by: Ondansetron HCl (Ondansetron 4 Mg/2 Ml Vial) 4 mg IVP Q6HR PRN PRN Reason: Nausea / Vomiting Pantoprazole Sodium (Pantoprazole 40 Mg Tablet) 40 mg PO QDAC [facility] Last Admin: 11/01/20 06:03 Dose: 40 mg Documented by: Polyethylene Glycol (Polyethylene Glycol 3350 17 Gm Packet) 17 gm PO BID [facility] Last Admin: 11/01/20 08:44 Dose: Not Given Documented by: Potassium Chloride (Potassium Chloride 20 Meq Tablet) 20 meq PO DAILYWM [facility] Last Admin: 11/01/20 08:40 Dose: 20 meq Documented by: Prednisone (Prednisone 20 Mg Tablet) 40 mg PO DAILYWM [facility] Stop: 11/04/20 08:01 Last Admin: 11/01/20 08:38 Dose: 40 mg Documented by: Sodium Chloride (Sodium Chloride Flush 0.9% 10 Ml Syringe) 10 ml IVP 0100,0900,1700 [facility] Last Admin: 11/01/20 08:40 Dose: 10 ml Documented by: Sodium Chloride (Sodium Chloride Flush 0.9% 10 Ml Syringe) 10 ml IVP PRN PRN PRN Reason: NEEDED PER PROVIDER ORDERS Last Admin: 10/31/20 14:10 Dose: 10 ml Documented by: Zinc Sulfate (Zinc Sulfate 220 Mg Capsule) 220 mg PO DAILY [facility] Stop: 11/03/20 17:00 Last Admin: 11/01/20 08:38 Dose: 220 mg Documented by: Aspirin EC [Ecotrin] 81 mg PO DAILY 04/02/20 Ferrous Sulfate 325 mg PO DAILY 04/02/20 Objective - Vital Signs/Intake & Output Reviewed Vital Signs: Yes Vital Signs: Vital Signs x48h Temp Pulse Pulse Resp BP BP Pulse Ox 11/01/20 08:41 134/75 H 11/01/20 08:00 37.0 C 81 20 178/80 H 100 11/01/20 07:30 92 18 Intake & Output: Intake & Output 10/29/20 10/30/20 10/31/20 11/01/20 23:59 23:59 23:59 23:59 Intake Total 4171.25 3218.750 2740 1633.75 Output Total 1115 425 950 300 Balance 3056.25 2793.750 1790 1333.75 - Objective General Appearance: positive: No acute distress, Alert Eyes Bilateral: positive: Normal inspection ENT: positive: ENT inspection nml Neck: positive: Nml inspection Respiratory: positive: No respiratory distress. negative: Wheezes Cardiovascular: positive: Regular rate & rhythm, Systolic murmur. negative: Tachycardia Abdomen: positive: Non-tender, No distention, Other (Dressing is in place over the right side of the abomen. No erythema.). negative: Tenderness Skin: positive: Warm, Dry Extremities: positive: No pedal edema Neurologic/Psychiatric: negative: Disoriented to person, Disoriented to place - Lab Results Fish Bones: 11/01/20 07:27 11/01/20 07:27 Other Labs: Lab Results x24hrs 11/01/20 11/01/20 10/31/20 Range/Units 07:27 07:27 21:32 WBC 10.4 (4.8-10.8) x10^3/uL RBC 3.26 L (4.20-5.40) 10^6/uL Hgb 9.6 L (12.0-16.0) g/dL Hct 31.3 L (37.0-47.0) % MCV 96.0 (81.0-99.0) fL MCH 29.4 (27.0-31.0) pg MCHC 30.7 L (32.0-36.0) g/dL RDW 14.0 (12.0-15.0) % Plt Count 401 (130-450) 10^3/uL MPV 9.3 (7.9-10.8) fL Neut # (Auto) 8.4 H (1.5-6.6) 10^3/uL Lymph # (Auto) 1.0 L (1.5-3.5) 10^3/uL [place] # (Auto) 0.6 (0.0-1.0) 10^3/uL Eos # (Auto) 0.2 (0.0-0.7) 10^3/uL Baso # (Auto) 0.1 (0.0-0.1) 10^3/uL Absolute Nucleated RBC 0.00 x10^3/uL Nucleated RBC % 0.0 /100WBC Sodium 138 (135-145) mmol/L Potassium 4.8 (3.5-5.0) mmol/L Chloride 105 (101-111) mmol/L Carbon Dioxide 24 (21-32) mmol/L Anion Gap 9.0 (6-13) BUN 10 (6-20) mg/dL Creatinine 0.8 (0.4-1.0) mg/dL Estimated GFR (MDRD) 71 L (>89) Glucose 109 H (70-100) mg/dL Estimat Average Glucose (70-100) mg/dL Hemoglobin A1c % (4.27-6.07) % Calcium 8.2 L (8.5-10.3) mg/dL Troponin I High Sens 15.0 H* (2.3-14.8) ng/L 10/31/20 10/31/20 Range/Units 13:53 05:50 WBC (4.8-10.8) x10^3/uL RBC (4.20-5.40) 10^6/uL Hgb (12.0-16.0) g/dL Hct (37.0-47.0) % MCV (81.0-99.0) fL MCH (27.0-31.0) pg MCHC (32.0-36.0) g/dL RDW (12.0-15.0) % Plt Count (130-450) 10^3/uL MPV (7.9-10.8) fL Neut # (Auto) (1.5-6.6) 10^3/uL Lymph # (Auto) (1.5-3.5) 10^3/uL [place] # (Auto) (0.0-1.0) 10^3/uL Eos # (Auto) (0.0-0.7) 10^3/uL Baso # (Auto) (0.0-0.1) 10^3/uL Absolute Nucleated RBC x10^3/uL Nucleated RBC % /100WBC Sodium (135-145) mmol/L Potassium (3.5-5.0) mmol/L Chloride (101-111) mmol/L Carbon Dioxide (21-32) mmol/L Anion Gap (6-13) BUN (6-20) mg/dL Creatinine (0.4-1.0) mg/dL Estimated GFR (MDRD) (>89) Glucose (70-100) mg/dL Estimat Average Glucose 120 H (70-100) mg/dL Hemoglobin A1c % 5.8 (4.27-6.07) % Calcium (8.5-10.3) mg/dL Troponin I High Sens 31.0 H* (2.3-14.8) ng/L Assessment/Plan - Problem List (1) COPD exacerbation Impression: This is significantly improved. From my perspective, she can be discharged to a [facility] facility today. Will recommend 3 more days of prednisone to complete 5 days. We will also recommend that she be discharged on Advair for maintenance therapy with albuterol as needed. She will need an outpatient pulm onary function test and this was discussed with the patient. (2) Demand ischemia Impression: Her troponin was mildly elevated and this was demand ischemia from her COPD. Her EKG did not suggest ischemia. (3) Hypertension Impression: Blood pressure remains elevated but is improved with addition of amlodipine. We will continue Lopressor and recommend amlodipine on discharge. Qualifiers: (4) Aortic stenosis Impression: Repeat echocardiogram continues to show mild aortic stenosis with an aortic valve area of 1.64 cm. This will need to be monitored on an outpatient base. (5) History of reversal of ileostomy Impression: Management as per general surgery.
--- NOTE | 2020-11-01 12:51 | Discharge Plan ---
"Discharge Plan for SNF / [facility] - Discharge Plan And Transition Orders Problem Reviewed?: Yes Disposition: 03 SNF DC/Xfer Condition: Fair Allergies and Adverse Reactions: Allergies Allergy/AdvReac Type Severity Reaction Status Date / Time Penicillins Allergy Nausea Verified 10/12/20 12:34 Health Concerns: COPD Weakness and deconditioning Care Goals: Improved mobility and independent functioning Wound care Assessment: 1. Wound infection is improving - daily wound care with packing is required 2. Weakness improving gradually with PT assistance 3. Malnutrition - improving 4. COPD - improving on medications - SNF / [facility] Transition Orders Admit to (Facility): [facility] Discharge Diagnosis: Weakness Malnutrition Wound infection COPD Medicare Certification Statement: I certify that [facility] care is medically necessary on a continuing basis for any of the conditions for which she/he is receiving care during hospitalization. Notify PCP of admission and forward orders to primary provider for signature. Weight on admission and: Daily Other Notification Orders: Call PCP immediately if patient develops dyspnea, chest pain/tightness or edema. House Bowel Program: No Additional Bowel Program Orders: Continue Immodium and adjust as needed to maintain solid stools Annual Influenza Vaccine (between Apr 17 and November 14): Yes Two-step PPD per [facility] [id number] or approved exception documents: Yes Medication Orders: PLEASE REFER TO THE DISCHARGE MEDICATION LIST. - Medications New Prescriptions: Albuterol Sulf [Ventolin Hfa Inhaler] 1 - 2 puffs INH Q4HR PRN #1 gm PRN Reason: Shortness Of Air/Wheezing Fluticasone/Salmeterol [Advair 250-50 Diskus] 1 each IH BID #3 inhaler predniSONE [Deltasone] 40 mg PO DAILY 3 Days #6 tablet Levofloxacin [Levaquin] 500 mg PO DAILY #5 tablet amLODIPine [Norvasc] 5 mg PO DAILY #30 tablet - Diet Texture: Regular Liquids: Thin - Therapies | Activity Therapy: Evaluation | Treat if indicated: PT Rehabilitation Potential: Return to independent living Activity: limit lifting to 10 pound Weight Bearing: Full Weight Follow Up: Dr. Gutierrez in 2 weeks"
--- NOTE | 2020-11-01 13:45 | DISCHARGE SUMMARY ---
"Discharge Summary Admit Date: 10/28/20 Discharge Date: 11/01/20 Discharging Provider: Brenda Code Status: Attempt Resuscitation Condition at Discharge: Fair Discharge Disposition: SNF DC/Xfer Discharge Facility Name: [facility] - DIAGNOSES Admission Diagnoses: 1. Weakness 2. Dehydration 3. Wound Infection 4. Malnutrition Discharge Diagnoses with Status of Each Condition: 1. Weakness - improving 2. Wound infection - improved 3. Malnlutrition - iimproving 4. Dehydration - resolved 5. 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 She underwent recent endoscopic [id number] dilation of anastomotic stricture and thereafter ileostomy takedown once CT scan was without any complication as a relates to the anastomosis. Postoperatively resumption of bowel function and was appropriate for discharge. However, after she was home for 2 days, visiting nurse called with concerns as far as patient's ability to thrive absent assistance. - CONSULTS | PROCEDURES Consultations: Hospitalist, Nutrition and dietetics Procedures: Wound packing Nutritional consultation Supportive care IV antibiotic therapy - HOSPITAL COURSE Hospital Course: The patient was admitted and electrolytes and fluid status addressed immediately. The right lower quadrant wound contained a small amount of fluid and was drained, washed, and repacked. We continued wound dressings to the right lower quadrant with iodoform gauze and she gradually improved. She was started on IV antibiotic with Cipro and Flagyl but this did not seem to make much difference in the progress of the right lower quadrant wound so she was switched to Unasyn with nearly immediately positive results. On the third day here in the hospital she developed shortness of breath and was diagnosed with a COPD exacerbation. The hospitalist service was consulted and started nebulizers and a short course of steroids which improve the patient's condition immediately. She has been working hard with physical therapy, trying to eat her meals, and is overall zain to work with and improving daily.She is still too weak to be discharged to her own care so she is agreed to go to a jail facility for short time to regain her strength, improve her nutrition, continue her wound care, all with a eye toward being able to return to independent living. - ALLERGIES Allergies/Adverse Reactions: Allergies Allergy/AdvReac Type Severity Reaction Status Date / Time Penicillins Allergy Nausea Verified 02/26/21 12:34 - MEDICATIONS Home Medications: Ambulatory Orders Medication Instructions Recorded Confirmed Aspirin EC [Ecotrin] 81 mg PO DAILY 04/02/20 10/28/20 Ferrous Sulfate 325 mg PO DAILY 04/02/20 10/28/20 Metoprolol Tartrate [Lopressor] 50 mg PO BID tablet 04/11/20 10/28/20 Potassium Chloride [K-Dur] 20 meq PO DAILYWM tablet 04/11/20 10/28/20 Albuterol 2.5 mg INH RTQ4H PRN #0 neb 11/01/20 Albuterol Sulf [Ventolin Hfa 1 - 2 puffs INH Q4HR PRN #1 gm 11/01/20 Inhaler] Cholecalciferol [Vitamin D3] 5,000 unit PO DAILY 11/01/20 Fluticasone/Salmeterol [Advair 1 each IH BID #3 inhaler 11/01/20 250-50 Diskus] Ipratropium/Albuterol [Duoneb] 3 ml INH RTQ4H neb 11/01/20 Levofloxacin [Levaquin] 500 mg PO DAILY #5 tablet 11/01/20 Loperamide [Imodium] 2 mg PO QID PRN 11/01/20 Multivitamin W/Minerals [Theragran 1 tab PO DAILYWM tablet 11/01/20 M] Pantoprazole [Protonix] 40 mg PO QDAC tablet 11/01/20 Zinc Sulfate 220 mg PO DAILY 11/01/20 amLODIPine [Norvasc] 5 mg PO DAILY tablet 11/01/20 amLODIPine [Norvasc] 5 mg PO DAILY #30 tablet 11/01/20 predniSONE [Deltasone] 40 mg PO DAILY 3 Days #6 tablet 11/01/20 predniSONE [Deltasone] 40 mg PO DAILYWM tablet 11/01/20 - PHYSICAL EXAM AT DISCHARGE General Appearance: positive: No acute distress, Alert Eyes Bilateral: positive: Normal inspection, PERRL, EOMI ENT: positive: ENT inspection nml, Pharynx nml, No signs of dehydration Neck: positive: Nml inspection, Thyroid nml, No JVD, Trachea midline Respiratory: positive: Chest non-tender, No respiratory distress, Breath sounds nml Cardiovascular: positive: Regular rate & rhythm, No murmur Peripheral Pulses: positive: 0 Abdomen: positive: Other (Abdomen is soft with minimal tenderness around the right lower quadrant incision. Active bowel sounds.). negative: Guarding, Rebound Back: negative: CVA tenderness (R), CVA tenderness (L) Skin: positive: Color nml, Warm, Dry - LABS Result Diagrams: 11/01/20 07:27 11/01/20 07:27 - QUALITY (Female Hip Fx Only) Was patient sent home on osteoporosis medication?: No - FOLLOW UP Follow Up: Follow-up with Dr. Costello in 2 weeks - TIME SPENT Time Spent in Discharge (Minutes): 35"
[2020-11-01] MEDS ORDERED: TAMSULOSIN 0.4 MG CAPSULE PO SCH (14:00)
== END 2020-11-01 14:37 | DRG 863 ==
LOC: EDUNIT# → ED 11:23 → MS2 15:16 → OBSVTOIN 10-29 17:14
PROVIDERS: ADMIT Surgery; ATTEND Surgery
DX: T81.49XA Infection following a procedure, other surgical site, initial encounter (principal); E46 Unspecified protein-calorie malnutrition; J44.1 Chronic obstructive pulmonary disease with (acute) exacerbation; J45.909 Unspecified asthma, uncomplicated; I24.8 Other forms of acute ischemic heart disease; E86.0 Dehydration; R62.7 Adult failure to thrive; R53.1 Weakness; Z90.49 Acquired absence of other specified parts of digestive tract; I10 Essential (primary) hypertension; I25.2 Old myocardial infarction; I25.10 Atherosclerotic heart disease of native coronary artery without angina pectoris; K44.9 Diaphragmatic hernia without obstruction or gangrene; Z87.891 Personal history of nicotine dependence; R77.8 Other specified abnormalities of plasma proteins; I35.0 Nonrheumatic aortic (valve) stenosis; R00.0 Tachycardia, unspecified; I45.10 Unspecified right bundle-branch block; R19.7 Diarrhea, unspecified; Z20.822 Contact with and (suspected) exposure to COVID-19
CPT/HCPCS: 36415; 71045; 71275; 74177; 80048; 80053; 81001; 83036; 83735; 84100; 84484; 85025; 87493; 87631; 93005; 93306; 94640; 96365; 96366; 96368; 96372; 96375; 96376; 97116; 97161; 97164; 97165; 97168; 99285; A9270; G0378; J1650; J2765; J7512; Q9967; U0004; 0202U; 81003; 81599; 87086

== ENCOUNTER 2020-11-11 10:33 | Outpatient (CLI) | payer MEDICARE, MEDICAID ==
--- OUTSIDE RECORDS SUMMARY | 2020-11-20 21:14 | EXTERNAL MEDICAL SUMMARY RPT | Continuity of Care Document ---
:1950 Demographics Phone Unavailable Preferred Language Unknown Marital Status Unknown Roman Catholic Affiliation Unknown Race Unknown Ethnic Group Unknown Author Organization [facility] Address [address] [place] [address] Phone Social History date description facility [id number]
== END 2020-11-11 10:34 | disposition home or self-care (01) ==
LOC: EMS 10:33
PROVIDERS: ATTEND Emergency Medicine
DX: R07.89 Other chest pain (principal); R07.1 Chest pain on breathing
CPT/HCPCS: A0425; A0429

== ENCOUNTER 2020-11-11 10:41 | Emergency (ER) | payer MEDICARE, MEDICAID ==
--- NOTE | 2020-11-11 12:04 | XRAY Report ---
PROCEDURE: Chest 2 View X-Ray INDICATIONS: R chest pain TECHNIQUE: 2 view(s) of the chest. COMPARISON: 10/31/2020, 04/05/2020. Correlation is also made with chest CT, 10/31/2020. FINDINGS: Surgical changes and devices: None. Lungs and pleura: No large pleural effusions or pneumothorax. Blunting of the left costophrenic angl e is seen, which is attributed to atelectasis. Mediastinum: Mediastinal contours are normal. Heart size is normal. There is a large hiatal hernia seen. Bones and chest wall: No suspicious bony abnormalities. Soft tissues appear unremarkable. IMPRESSION: No jeffrey, acute portable chest abnormality can be seen. Large hiatal hernia. Reviewed by: Bandar Interiano MD on 11/11/2020 11:03 AM SUZANNA Approved by: Bandar Interiano MD on 11/11/2020 11:03 AM SUZANNA Station ID: [id number]
[2020-11-11 12:25] LABS: BASOPHILS # (AUTO) 0.1 10^3/uL (0.0-0.1); BASOPHILS % (AUTO) 0.5 %; EOSINOPHILS # (AUTO) 0.3 10^3/uL (0.0-0.7); EOSINOPHILS % (AUTO) 2.6 %; HCT - HEMATOCRIT 33.4 % (37.0-47.0); LYMPHOCYTES % (AUTO) 10.4 %; MEAN CORPUSCULAR HEMOGLOBIN 29.2 pg (27.0-31.0); MEAN CORPUSCULAR HGB CONC 29.9 g/dL (32.0-36.0); MEAN CORPUSCULAR VOLUME 97.4 fL (81.0-99.0); MEAN PLATELET VOLUME 9.4 fL (7.9-10.8); MONOCYTES # (AUTO) 0.7 10^3/uL (0.0-1.0); MONOCYTES % (AUTO) 7.5 %; NEUTROPHILS # (AUTO) 7.6 10^3/uL (1.5-6.6); NEUTROPHILS % (AUTO) 78.3 %; PLT - PLATELET COUNT 352 10^3/uL (130-450); RED BLOOD COUNT 3.43 10^6/uL (4.20-5.40); RED CELL DISTRIBUTION WIDTH 14.9 % (12.0-15.0); WHITE BLOOD COUNT 9.7 x10^3/uL (4.8-10.8)
[2020-11-11 12:39] LABS: ALBUMIN 3.1 g/dL (3.2-5.5); ALBUMIN/GLOBULIN RATIO 0.9 (1.0-2.2); BILIRUBIN,TOTAL 0.4 mg/dL (0.2-1.0); CALCIUM 8.8 mg/dL (8.5-10.3); CREATININE 0.8 mg/dL (0.4-1.0); POTASSIUM 4.5 mmol/L (3.5-5.0); TOTAL PROTEIN 6.7 g/dL (6.7-8.2)
[2020-11-11] MEDS ORDERED: IOVERSOL 320 100 ML VIAL IVP ONE ×2 (12:59→13:09)
--- NOTE | 2020-11-11 13:31 | CT Report ---
PROCEDURE: CHEST W INDICATIONS: Clinical concern for pulmonary embolism. CONTRAST: IV CONTRAST: Optiray 320 ml: 80 PO CONTRAST: *NO PO CONTRAST TECHNIQUE: Noncontrast 5 mm thick sections acquired from the pulmonary apices to the posterior costophrenic angl es. After the administration of intravenous contrast, 5 mm thick sections acquired from the pulmonar y apices to the posterior costophrenic angles. 7 mm thick coronal MIP reformats were acquired. For radiation dose reduction, the following was used: automated exposure control, adjustment of mA and/o r kV according to patient size. COMPARISON: 10/31/2020. Correlation is made with chest radiograph, 28. FINDINGS: Image quality: Excellent. Lungs and pleura: Compressive atelectasis can be seen involving the left lower lobe. The previously s een right-sided pleural effusion is now much smaller in size.. No pneumothorax. Central and periphe ral airways are patent and normal in caliber. Mediastinum: Heart size is normal. No pericardial effusion. No mediastinal or hilar adenopathy by size criteria. Thoracic aorta and central pulmonary arteries are normal in size. Esophagus is nenita l in caliber. There is a large hiatal hernia, which contains the majority of the stomach as well as a portion of nondilated transverse colon. Bones and chest wall: No suspicious bony lesions. No acute appearing vertebral body compression fra ctures. Age-appropriate degenerative changes are seen. There is accentuated thoracic kyphosis. No axillary or supraclavicular adenopathy by size criteria. Thyroid gland demonstrates a rim calcifi ed focus on the left, as on series 5 image 25 measuring 12 mm. Abdomen: Visualized upper abdominal solid organs appear normal. Upper abdominal bowel loops are nor mal in caliber. IMPRESSION: Negative for pulmonary embolism. Decreased size of the right-sided pleural effusion. Large hiatal hernia with associated left lung base compressive atelectasis. 1 calcified left thyroid lesion seen. If clinically appropriate, please consider a follow-up thyroid ultrasound for further evaluation. Incidental note is made of: Accentuated thoracic kyphosis Reviewed by: Bandar Interiano MD on 11/11/2020 12:29 PM AKDT Approved by: Bandar Interiano MD on 11/11/2020 12:29 PM AKDT Station ID: [id number]
--- NOTE | 2020-11-11 14:26 | ED Physician Documentation ---
History of Present Illness - Stated complaint Stated Complaint: R LUNG PX - Chief complaint Chief Complaint: General - History obtained from History obtained from: Patient - Additonal information Additional information: 70-year-old Woman with past medical history of right ileostomy status post reversal on [address] Gutierrez, complicated by infection, now resolved presents with right-sided lung pain, sharp nonradiating pleuritic in quality, worse with deep breathing, intermittent, gradual onset, mild severity and currently asymptomatic. Patient denies fever, Abdominal pain, nausea, back pain, shor tness of breath, Cough, history of blood clots. She did have leg swelling bilaterally after the surgery but it has resolved. Review of Systems Ten Systems: 10 systems reviewed and negative Constitutional: denies: Fever, Chills Cardiac: reports: Chest pain / pressure. 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 : None HEENT: Chronic vision loss, Chronic sinusitis, Chronic hearing loss, Other Psych: Depression Musculoskeletal: None Derm: None - Past Surgical History Past Surgical History: Yes General: Appendectomy, Bowel surgery, Colonoscopy Ortho: Arthroscopic surgery HEENT: Tonsil/Adenoidectomy - Present Medications Home Medications: Ambulatory Orders Medication Instructions Recorded Confirmed Aspirin EC [Ecotrin] 81 mg PO DAILY 04/02/20 11/11/20 Ferrous Sulfate 325 mg PO DAILY 04/02/20 11/11/20 Metoprolol Tartrate [Lopressor] 50 mg PO BID tablet 04/11/20 11/11/20 Potassium Chloride [K-Dur] 20 meq PO DAILYWM tablet 04/11/20 11/11/20 Albuterol Sulf [Ventolin Hfa 1 - 2 puffs INH Q4HR PRN #1 gm 11/01/20 Inhaler] Cholecalciferol [Vitamin D3] 5,000 unit PO DAILY 11/01/20 11/11/20 Fluticasone/Salmeterol [Advair 1 each IH BID #3 inhaler 11/01/20 11/11/20 250-50 Diskus] Ipratropium/Albuterol [Duoneb] 3 ml INH RTQ4H neb 11/01/20 11/11/20 Loperamide [Imodium] 2 mg PO QID PRN 11/01/20 11/11/20 Multivitamin W/Minerals [Theragran 1 tab PO DAILYWM tablet 11/01/20 11/11/20 M] Pantoprazole [Protonix] 40 mg PO QDAC tablet 11/01/20 11/11/20 Zinc Sulfate 220 mg PO DAILY 11/01/20 11/11/20 amLODIPine [Norvasc] 5 mg PO DAILY tablet 11/01/20 11/11/20 Acetaminophen [Tylenol] 650 mg PO Q4HR PRN 11/11/20 11/11/20 Albuterol 1 vial INH RTQ4H PRN 11/11/20 11/11/20 Ipratropium/Albuterol [Combivent 1 puffs IH QID 11/11/20 11/11/20 Respimat] Senna [Senokot] 8.6 mg PO DAILY PRN 11/11/20 11/11/20 polyethylene glycoL 3350 [Miralax] 17 gm PO DAILY PRN 11/11/20 11/11/20 - Allergies Allergies/Adverse Reactions: Allergies Allergy/AdvReac Type Severity Reaction Status Date / Time Penicillins Allergy Nausea Verified 11/11/20 10:54 - Social History Does the pt smoke?: No Smoking Status: Former smoker Does the pt drink ETOH?: No Does the pt have substance abuse?: No - Immunizations Immunizations are current?: Yes - POLST Patient has POLST: No PD ED PE NORMAL - Vitals Vital signs reviewed: Yes - General General: Alert and oriented X 3, No acute distress, Well developed/nourished - HEENT HEENT: Atraumatic, PERRL, EOMI - Neck Neck: Supple, no meningeal sign - Cardiac Cardiac: RRR - Respiratory Respiratory: No respiratory distress, Other (BL dependent crackles. otherwise CTAB) - Abdomen Abdomen: Non tender, Non distended, Other (ileostomy reversal site clean with packing in place) - Derm Derm: Normal color, Warm and dry - Extremities Extremities: No deformity, Other (1+ BL pitting edema) - Neuro Neuro: Alert and oriented X 3 - Psych Psych: Normal mood, Normal affect Results - Vitals Vitals: Vital Signs - 24 hr 11/11/20 11/11/20 11/11/20 10:49 10:55 13:46 Temperature 36.8 C 37 C 36.8 C Heart Rate 85 86 78 Respiratory 20 22 22 Rate Blood Pressure 148/80 H 130/76 146/74 H O2 Saturation 100 98 96 11/11/20 16:24 Temperature Heart Rate 81 Respiratory 18 Rate Blood Pressure 107/77 O2 Saturation 100 Oxygen O2 Source Room air - Labs Labs: Laboratory Tests 11/11/20 11/11/20 11/11/20 12:18 12:18 12:18 WBC 9.7 RBC 3.43 L Hgb 10.0 L Hct 33.4 L MCV 97.4 MCH 29.2 MCHC 29.9 L RDW 14.9 Plt Count 352 MPV 9.4 Neut # (Auto) 7.6 H Lymph # (Auto) 1.0 L [place] # (Auto) 0.7 Eos # (Auto) 0.3 Baso # (Auto) 0.1 Absolute Nucleated RBC 0.00 Nucleated RBC % 0.0 D-Dimer 348.7 H Sodium 137 Potassium 4.5 Chloride 103 Carbon Dioxide 27 Anion Gap 7.0 BUN 23 H Creatinine 0.8 Estimated GFR (MDRD) 71 L Glucose 117 H Calcium 8.8 Total Bilirubin 0.4 AST 20 ALT 20 Alkaline Phosphatase 81 Total Protein 6.7 Albumin 3.1 L Globulin 3.6 Albumin/Globulin Ratio 0.9 L Lipase 31 PD MEDICAL DECISION MAKING - ED course Complexity details: reviewed results, re-evaluated patient, d/w patient ED course: 7-year-old woman presented with pleuritic chest pain concerning for pulmonary embolism. CT angio performed without evidence of PE, pneumonia, and resolving pleural effusion. Discussed with patient who will follow up with Dr. Gutierrez in clinic. Strict return precautions given. Departure - Departure Disposition: Home, Self Care Clinical Impression: Chest pain in adult, Pleurisy Condition: Good Instructions: ED Chest Pain Atypical Unkn Cause Follow-Up: Pasha Gutierrez MD [Provider Admit Priv/Credential] - Comments: You were seen in the emergency department for right-sided chest pain. Your EKG shows no new changes from October 31, your lab work was unremarkable, and your CT of your chest showed no signs of a pulmonary embolism or pneumonia. You do have fluid at the right lung base that is improving in size. You should continue to get up walk around and use your incentive spirometer regularly. Follow-up with Dr. Gutierrez this week. Return to the emergency department if you develop any new or worsening symptoms or other concerns
[2020-11-11 19:54] VITALS: BP 151/92
== END 2020-11-11 19:47 | disposition home or self-care (01) ==
LOC: EDUNIT# → ED 10:41
DX: J90 Pleural effusion, not elsewhere classified (principal); I45.2 Bifascicular block; I10 Essential (primary) hypertension; K44.9 Diaphragmatic hernia without obstruction or gangrene; Z79.82 Long term (current) use of aspirin; Z87.891 Personal history of nicotine dependence; Z98.890 Other specified postprocedural states
CPT/HCPCS: 36415; 71046; 71270; 80053; 83690; 85025; 85379; 93005; 99284; Q9967; 83615; 84155

== ENCOUNTER 2020-12-21 15:12 | Inpatient (IN) | payer MEDICARE, MEDICAID ==
--- NOTE | 2020-12-21 15:36 | ED Physician Documentation ---
PD HPI ABD PAIN - Stated complaint Stated Complaint: CONSTIPATION,CAN'T SWALLOW,VOMITING - Chief complaint Chief Complaint: Abd Pain - History obtained from History obtained from: Patient - History of Present Illness Timing - onset: How many hours ago (several hours ago, abrupt onset of general to lower abd pain associated with nausea and several episodes vomiting. No BM for past 3 days. No fevers.), Today Timing - duration: Hours Timing - details: Abrupt onset, Still present Quality: Cramping, Aching, Fullness/distended Location: All over / everywhere, Periumbilical Radiation: No: Chest, Lower back, Left flank, Right flank Improved by: No: Vomiting Worsened by: Moving, Breathing, Palpation Associated symptoms: Nausea, Vomiting, Constipation (the past several days without BM.). No: Fever, Hematemesis, Diarrhea, Dysuria, Near syncope / syncope Similar symptoms before: Diagnosis (she states similar to her diverticulitis last year.) Recently seen: Emergency Dept, Admitted, Surgery (had reversal of ileostomy early October 2020 with wound infection and pain, hospitalized and had rehab at [facility]. She states she was well with norml oral intake and no ongoing pains until today.) Review of Systems Constitutional: denies: Fever, Chills Nose: denies: Rhinorrhea / runny nose, Congestion Throat: denies: Sore throat Cardiac: denies: Chest pain / pressure, Palpitations Respiratory: denies: Dyspnea, Cough GI: reports: Abdominal Pain, Abdominal Swelling, Nausea, Constipation. denies: Diarrhea, Hematemesis : denies: Dysuria, Frequency Skin: denies: Rash, Lesions Neurologic: reports: Headache. 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 HEENT: Chronic vision loss, Chronic sinusitis, Chronic hearing loss, Other Psych: Depression Musculoskeletal: None Derm: None - Past Surgical History Past Surgical History: Yes General: Appendectomy, Bowel surgery, Colonoscopy Ortho: Arthroscopic surgery HEENT: Tonsil/Adenoidectomy - Present Medications Home Medications: Ambulatory Orders Medication Instructions Recorded Confirmed Aspirin EC [Ecotrin] 81 mg PO DAILY 04/02/20 12/21/20 Ferrous Sulfate 325 mg PO DAILY 04/02/20 12/21/20 Metoprolol Tartrate [Lopressor] 50 mg PO BID tablet 04/11/20 12/21/20 Albuterol Sulf [Ventolin Hfa 1 - 2 puffs INH Q4HR PRN #1 gm 11/01/20 12/21/20 Inhaler] Cholecalciferol [Vitamin D3] 5,000 unit PO DAILY 11/01/20 12/21/20 Fluticasone/Salmeterol [Advair 1 each IH BID #3 inhaler 11/01/20 12/21/20 250-50 Diskus] Ipratropium/Albuterol [Duoneb] 3 ml INH RTQ4H neb 11/01/20 12/21/20 Multivitamin W/Minerals [Theragran 1 tab PO DAILYWM tablet 11/01/20 12/21/20 M] Acetaminophen [Tylenol] 650 mg PO Q4HR PRN 11/11/20 12/21/20 Albuterol 1 vial INH RTQ4H PRN 11/11/20 12/21/20 Ipratropium/Albuterol [Combivent 1 puffs IH QID 11/11/20 12/21/20 Respimat] - Allergies Allergies/Adverse Reactions: Allergies Allergy/AdvReac Type Severity Reaction Status Date / Time Penicillins Allergy Nausea Verified 12/21/20 15:18 - Social History Does the pt smoke?: No Smoking Status: Former smoker Does the pt drink ETOH?: No Does the pt have substance abuse?: No - Immunizations Immunizations are current?: Yes - POLST Patient has POLST: No PD ED PE NORMAL - Vitals Vital signs reviewed: Yes - General General: Alert and oriented X 3, Well developed/nourished, Other (appears in pain mid to whole abdomen, more left than right. Moderate distension. Markedly elevated bowel sounds c/w likely obstruction. ) - HEENT HEENT: Pharynx benign - Neck Neck: Supple, no meningeal sign, No adenopathy - Cardiac Cardiac: No murmur. No: RRR (tachycardic but regular. ) - Respiratory Respiratory: No respiratory distress, Clear bilaterally - Abdomen Abdomen: No organomegaly, Other (distended with increased bowel sounds and generally tender, but more mid to LLQ area. ) - Back Back: No CVA TTP - Derm Derm: Normal color, Warm and dry - Extremities Extremities: No deformity, No tenderness to palpate, No edema, No calf tenderness / cord - Neuro Neuro: Alert and oriented X 3, No motor deficit, Normal speech - Psych Psych: Normal mood Results - Vitals Vitals: Vital Signs - 24 hr 12/21/20 12/21/20 12/21/20 15:19 16:38 17:50 Temperature 36.5 C 37.2 C Heart Rate 120 H 98 102 H Respiratory 16 16 20 Rate Blood Pressure 155/100 H 184/111 H 192/101 H O2 Saturation 96 94 94 Oxygen O2 Source Room air - Labs Labs: Laboratory Tests 12/21/20 12/21/20 12/21/20 16:11 16:33 18:15 WBC 11.4 H RBC 4.56 Hgb 13.3 Hct 41.4 MCV 90.8 MCH 29.2 MCHC 32.1 RDW 13.9 Plt Count 286 MPV 10.1 Neut # (Auto) 10.0 H Lymph # (Auto) 0.6 L [place] # (Auto) 0.6 Eos # (Auto) 0.1 Baso # (Auto) 0.0 Absolute Nucleated RBC 0.00 Nucleated RBC % 0.0 Sodium 138 Potassium 3.8 Chloride 100 L Carbon Dioxide 25 Anion Gap 13.0 BUN 25 H Creatinine 0.8 Estimated GFR (MDRD) 71 L Glucose 134 H Calcium 9.1 Total Bilirubin 0.7 AST 20 ALT 25 Alkaline Phosphatase 70 Total Protein 7.2 Albumin 3.9 Globulin 3.3 Albumin/Globulin Ratio 1.2 Lipase 20 L Urine Color YELLOW Urine Clarity CLEAR Urine pH 5.0 Ur Specific [place] 1.025 Urine Protein 100 H Urine Glucose (UA) NEGATIVE Urine Ketones 40 H Urine Occult Blood NEGATIVE Urine Nitrite NEGATIVE Urine Bilirubin NEGATIVE Urine Urobilinogen 0.2 (NORMAL) Ur Leukocyte Esterase NEGATIVE Urine RBC 0-5 Urine WBC 0-3 Ur Squamous Epith Cells FEW Squamous Urine Bacteria Few Urine Casts 3-5 Granular Casts Urine Mucus Few Strands Ur Microscopic Review INDICATED Urine Culture Comments NOT INDICATED - Rads (name of study) abd/pelvic CT Radiology: Prelim report reviewed (c/w moderate to high grade obstruction, with indistinct transition point. 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 Mary, service delivery consultant for surgery.) Departure - Departure Disposition: ED Place in Observation Clinical Impression: Bowel obstruction, Abdominal pain Condition: Stable Discharge Date/Time: 12/21/20 19:48
[2020-12-21] MEDS ORDERED: SODIUM CHLORIDE 0.9% 1,000 ML IV STA (16:02)
[2020-12-21] MEDS ORDERED: ONDANSETRON 4 MG/2 ML VIAL IVP STA (16:02)
[2020-12-21] MEDS ORDERED: HYDROmorphone 1 MG/ML CARPUJECT IVP STA (16:02)
[2020-12-21] MEDS ORDERED: IOPAMIDOL-300 100 ML VIAL ONE (16:05)
[2020-12-21 16:19] LABS: BASOPHILS % (AUTO) 0.4 %; EOSINOPHILS # (AUTO) 0.1 10^3/uL (0.0-0.7); EOSINOPHILS % (AUTO) 0.8 %; HCT - HEMATOCRIT 41.4 % (37.0-47.0); HGB - HEMOGLOBIN 13.3 g/dL (12.0-16.0); LYMPHOCYTES # (AUTO) 0.6 10^3/uL (1.5-3.5); LYMPHOCYTES % (AUTO) 5.4 %; MEAN CORPUSCULAR HEMOGLOBIN 29.2 pg (27.0-31.0); MEAN CORPUSCULAR HGB CONC 32.1 g/dL (32.0-36.0); MEAN CORPUSCULAR VOLUME 90.8 fL (81.0-99.0); MEAN PLATELET VOLUME 10.1 fL (7.9-10.8); MONOCYTES # (AUTO) 0.6 10^3/uL (0.0-1.0); MONOCYTES % (AUTO) 5.2 %; PLT - PLATELET COUNT 286 10^3/uL (130-450); RED BLOOD COUNT 4.56 10^6/uL (4.20-5.40); RED CELL DISTRIBUTION WIDTH 13.9 % (12.0-15.0); WHITE BLOOD COUNT 11.4 x10^3/uL (4.8-10.8)
[2020-12-21] MEDS ORDERED: KETOROLAC 15 MG/ML VIAL IVP STA (16:56)
[2020-12-21 17:07] LABS: ALBUMIN 3.9 g/dL (3.2-5.5); ALBUMIN/GLOBULIN RATIO 1.2 (1.0-2.2); BILIRUBIN,TOTAL 0.7 mg/dL (0.2-1.0); CALCIUM 9.1 mg/dL (8.5-10.3); CREATININE 0.8 mg/dL (0.4-1.0); POTASSIUM 3.8 mmol/L (3.5-5.0); TOTAL PROTEIN 7.2 g/dL (6.7-8.2)
[2020-12-21] MEDS ORDERED: IOPAMIDOL-300 100 ML VIAL IVP ONE (17:33)
--- NOTE | 2020-12-21 17:43 | CT Report ---
PROCEDURE: Abdomen/Pelvis W INDICATIONS: Abdominal pain, acute, nonlocalized CONTRAST: IV CONTRAST: Isovue 300 ml: 100 PO CONTRAST: *NO PO CONTRAST TECHNIQUE: After the administration of IV contrast, 5 mm thick sections acquired from the diaphragms to the symp hysis. 5 mm thick coronal and sagittal reformats were acquired. For radiation dose reduction, the f ollowing was used: automated exposure control, adjustment of mA and/or kV according to patient size. COMPARISON: CT dated 10/28/2020 FINDINGS: Image quality: Excellent. ABDOMEN: Lung bases: Lung bases are clear. Heart size is normal. There is mild atherosclerotic calcification of the coronary vasculature. Solid organs: Liver and spleen are normal in size and enhancement. Gallbladder is grossly unremarka ble Biliary system is non dilated. Pancreas enhances normally. No adrenal nodules. Kidneys demons trate normal size and enhancement, without hydronephrosis. Peritoneum and bowel: Limited evaluation secondary to lack of oral contrast. A large hiatal hernia is present, containing stomach as well as small bowel loops which are moderately distended. There are m ultiple distended small and large bowel loops within the abdomen, and pelvis. The transition zone bet ween dilated and nondilated small bowel is not well seen. No free fluid or air. Nodes and vessels: No retroperitoneal or mesenteric adenopathy by size criteria. Aorta and inferior vena cava are normal in size. Miscellaneous: No ventral hernias. PELVIS: Genitourinary: Bladder wall thickness is normal. Miscellaneous: No inguinal hernias or adenopathy. Bones: No suspicious bony lesions. No vertebral body compression fractures. IMPRESSION: 1. Moderate to high-grade bowel obstruction. Transition zone between dilated and nondilated small bow el is not well seen. 2. Large hiatal hernia containing stomach as well as small bowel loops. 3. Coronary artery disease. Reviewed by: Lakia Blanchard MD on 12/21/2020 5:41 PM PDT Approved by: Lakia Blanchard MD on 12/21/2020 5:41 PM PDT Station ID: [id number]
[2020-12-21] MEDS ORDERED: MAG HYDROX/AL HYDROX/SIMETH 30 ML UDC PO STA (17:59)
[2020-12-21] MEDS ORDERED: FAMOTIDINE 20 MG/2 ML VIAL IVP STA (17:59)
[2020-12-21 18:24] LABS: GLUCOSE, URINE (UA) NEGATIVE (NEGATIVE); KETONES,URINE (UA) 40 mg/dL (NEGATIVE); LEUKOCYTE ESTERASE, URINE NEGATIVE (NEGATIVE); NITRITE,URINE NEGATIVE (NEGATIVE); OCCULT BLOOD,URINE NEGATIVE (NEGATIVE); PROTEIN,URINE 100 mg/dL (NEGATIVE); UROBILINOGEN,URINE 0.2 (NORMAL) E.U./dL (NORMAL)
[2020-12-21 18:30] LABS: BILIRUBIN,URINE NEGATIVE (NEGATIVE); CLARITY,URINE CLEAR (CLEAR); ICTOTEST,URINE NEGATIVE
[2020-12-21 18:34] LABS: BACTERIA,URINE Few /HPF (None Seen); RBC,URINE 0-5 /HPF (0-5); SQUAMOUS EPITHELIAL CELL,UR FEW Squamous (<= Few); WBC,URINE 0-3 /HPF (0-5)
[2020-12-21 18:35] LABS: MUCUS,URINE Few Strands
[2020-12-21] MEDS ORDERED: ACETAMINOPHEN 325 MG TABLET PO PRN (18:43)
[2020-12-21] MEDS ORDERED: PROCHLORPERAZINE 10 MG/2 ML VIAL IVP PRN (18:43)
[2020-12-21] MEDS ORDERED: HYDROmorphone 0.5 MG/0.5 ML SYRINGE IVP PRN (18:43)
[2020-12-21] MEDS ORDERED: ONDANSETRON ODT 4 MG TABLET TL PRN (18:43)
[2020-12-21] MEDS ORDERED: SODIUM CHLORIDE FLUSH 0.9% 10 ML SYRINGE IVP PRN (18:43)
[2020-12-21] MEDS ORDERED: MORPHINE 2 MG/ML CARPUJECT IVP PRN (18:43)
[2020-12-21] MEDS: HEPARIN 5,000 UNIT/ML VIAL SUBQ SCH (20:23)
[2020-12-21] MEDS: D5.45NS W/20 MEQ KCL 1,000 ML IV SCH (20:24)
[2020-12-21 20:48] LABS: CORONAVIRUS 229E-RESP PCR NOT DETECTED; CORONAVIRUS HKU1-RESP PCR NOT DETECTED; CORONAVIRUS NL63-RESP PCR NOT DETECTED; CORONAVIRUS OC43-RESP PCR NOT DETECTED; HUMAN METAPNEUMOVIRUS NOT DETECTED; RHINOVIRUS/ENTEROVIRUS NOT DETECTED; SARS-CoV-2 -RESP PCR PANEL NOT DETECTED
[2020-12-21 20:49] LABS: B. PARAPERTUSSIS- RESP PCR PAN NOT DETECTED; B. PERTUSSIS- RESP PCR PANEL NOT DETECTED; C. PNEUMONIAE- RESP PCR PANEL NOT DETECTED; INFLUENZA A- RESP PCR PANEL NOT DETECTED; INFLUENZA B - RESP PCR PANEL NOT DETECTED; M. PNEUMONIAE- RESP PCR PANEL NOT DETECTED; PARAINFLUENZA VIRUS 1 NOT DETECTED; PARAINFLUENZA VIRUS 2 NOT DETECTED; PARAINFLUENZA VIRUS 3 NOT DETECTED; PARAINFLUENZA VIRUS 4 NOT DETECTED; RSV- RESP PCR PANEL NOT DETECTED
[2020-12-21] MEDS ORDERED: IPRATROPIUM/ALBUTEROL 3 ML NEB INH PRN (21:04)
[2020-12-21] MEDS ORDERED: ALBUTEROL NEB 2.5 MG/3 ML INH PRN (21:05)
[2020-12-21] MEDS: METOPROLOL TARTRATE 50 MG TABLET PO SCH (21:57)
[2020-12-21] MEDS: ONDANSETRON 4 MG/2 ML VIAL IVP PRN (23:00)
--- NOTE | 2020-12-21 23:15 | HISTORY & PHYSICAL EXAMINATION ---
Chief Complaint - Chief Complaint Chief Complaint: constipation symptoms for 3 days and then n/v earlier. History of Present Illness - Admitted From Admitted From:: ED - History Obtained From Records Reviewed: yes History obtained from: pt Exam Limitations: none - History of Present Illness HPI Comment/Other: Three days of progressive constipation type symptoms and then nausea/ vomiting, burping. Feeling better now. Has not passed gas/ flatus or bm for 3 days. History recent surgery/colectomy for diverticular disease. Minimal to no abdominal pain currently. History - Past Medical History Cardiovascular: reports: Hypertension, [place], Murmur Respiratory: reports: Asthma, Shortness of breath Neuro: reports: None Endocrine/Autoimmune: reports: None GI: reports: Other UNITIZER: reports: None : reports: None HEENT: reports: Chronic vision loss, Chronic sinusitis, Chronic hearing loss, Other Psych: reports: Depression Musculoskeletal: reports: None Derm: reports: None MRSA Hx?: No Other Past Medical History: Tinnitus, L rotator cuff tear - Past Surgical History General: reports: Appendectomy, Bowel surgery, Colonoscopy Ortho: reports: Arthroscopic surgery /UNITIZER: reports: Hysterectomy HEENT: reports: Tonsil/Adenoidectomy - Family & Social History Family History Comment/Other: She is adopted and is unaware of her family history. Social History Notes: She has lived in [facility] for over 30 years. 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 She smoked a couple packs a day on and off for about 15 to 20 years but quit over 20 years ago. - POLST Patient has POLST: No Meds/Allgy - Home Medications Home Medications: Ambulatory Orders Medication Instructions Recorded Confirmed Aspirin EC [Ecotrin] 81 mg PO DAILY 04/02/20 12/21/20 Ferrous Sulfate 325 mg PO DAILY 04/02/20 12/21/20 Metoprolol Tartrate [Lopressor] 50 mg PO BID tablet 04/11/20 12/21/20 Albuterol Sulf [Ventolin Hfa 1 - 2 puffs INH Q4HR PRN #1 gm 11/01/20 12/21/20 Inhaler] Cholecalciferol [Vitamin D3] 5,000 unit PO DAILY 11/01/20 12/21/20 Fluticasone/Salmeterol [Advair 1 each IH BID #3 inhaler 11/01/20 12/21/20 250-50 Diskus] Ipratropium/Albuterol [Duoneb] 3 ml INH RTQ4H neb 11/01/20 12/21/20 Multivitamin W/Minerals [Theragran 1 tab PO DAILYWM tablet 11/01/20 12/21/20 M] Acetaminophen [Tylenol] 650 mg PO Q4HR PRN 11/11/20 12/21/20 Albuterol 1 vial INH RTQ4H PRN 11/11/20 12/21/20 Ipratropium/Albuterol [Combivent 1 puffs IH QID 11/11/20 12/21/20 Respimat] - Allergies Allergies/Adverse Reactions: Allergies Allergy/AdvReac Type Severity Reaction Status Date / Time Penicillins Allergy Nausea Verified 12/21/20 15:18 Review of Systems - Other Findings Other Findings: 10 pt ros as above otherwise unremarkable Exam - Vital Signs Reviewed Vital Signs: Yes Vital Signs: Vital Signs x48h Temp Pulse Pulse Resp BP BP Pulse Ox 12/21/20 21:57 181/91 H 12/21/20 20:20 181/91 H 12/21/20 20:14 37.5 C 105 H 24 187/98 H 94 12/21/20 19:00 37.6 C 106 H 12 170/110 H 94 12/21/20 17:50 102 H 20 192/101 H 94 12/21/20 16:38 37.2 C 98 16 184/111 H 94 12/21/20 15:19 36.5 C 120 H 16 155/100 H 96 - Physical Exam General Appearance: positive: No acute distress, Alert Eyes Bilateral: positive: Normal inspection, PERRL, EOMI ENT: positive: No signs of dehydration Neck: positive: No JVD, Trachea midline Respiratory: positive: No respiratory distress, Breath sounds nml Cardiovascular: positive: Regular rate & rhythm Abdomen: positive: Non-tender, No distention Neurologic/Psychiatric: positive: Oriented x3 Conclusion/Plan - Problem List (1) History of reversal of ileostomy Conclusion/Plan: constipation type symptoms and no flatus/ bm for [address] reviewed. mildly dilated small bowel and right colon and transverse colon. No apparent obstruction or stricture. If not passing gas/bm by tomorrow plan enemas and if still not improving plan gastrografin enema vs colonoscopy - Lab Results Fish Bones: 12/21/20 16:11 12/21/20 16:33 - Diagnostic Imaging Results Diagnostic Imaging Results: positive: Read independently
[2020-12-21] MEDS: SODIUM CHLORIDE FLUSH 0.9% 10 ML SYRINGE IVP SCH (23:49)
[2020-12-22] MEDS: D5.45NS W/20 MEQ KCL 1,000 ML IV SCH ×3 (04:09→22:26)
[2020-12-22] MEDS: ONDANSETRON 4 MG/2 ML VIAL IVP PRN ×2 (05:16→20:58)
[2020-12-22] MEDS: METOPROLOL TARTRATE 50 MG TABLET PO SCH ×2 (07:53→21:41)
[2020-12-22] MEDS: HEPARIN 5,000 UNIT/ML VIAL SUBQ SCH ×2 (07:53→21:44)
[2020-12-22] MEDS ORDERED: FLUTICASONE NASAL SPRAY NAS SCH (09:00)
[2020-12-22] MEDS: SODIUM CHLORIDE FLUSH 0.9% 10 ML SYRINGE IVP SCH ×3 (09:28→23:32)
[2020-12-22] MEDS ORDERED: SODIUM CHLORIDE 0.9% 500 ML IV ONE (13:25)
--- NOTE | 2020-12-22 13:30 | PROVIDER PROGRESS NOTE ---
Subjective - Prog Note Date Prog Note Date: 12/22/20 - Subjective Pt reports feeling: Improved (not passing gas however feels hungry. no pain n/v) Objective - Vital Signs/Intake & Output Vital Signs: Vital Signs x48h Temp Pulse Pulse Resp BP BP Pulse Ox 12/22/20 08:00 87 18 12/22/20 07:53 166/81 H 12/22/20 07:44 37.2 C 90 18 166/81 H 92 Intake & Output: Intake & Output 12/19/20 12/20/20 12/21/20 12/22/20 23:59 23:59 23:59 23:59 Intake Total 1000 1966.667 Output Total 325 Balance 1000 1641.667 - Objective General Appearance: positive: No acute distress, Alert Eyes Bilateral: positive: PERRL, EOMI Respiratory: positive: No respiratory distress Abdomen: positive: Non-tender, No distention Neurologic/Psychiatric: positive: Oriented x3 - Lab Results Fish Bones: 12/21/20 16:11 12/21/20 16:33 Other Labs: Lab Results x24hrs 12/21/20 12/21/20 12/21/20 Range/Units 19:40 18:15 16:33 WBC (4.8-10.8) x10^3/uL RBC (4.20-5.40) 10^6/uL Hgb (12.0-16.0) g/dL Hct (37.0-47.0) % MCV (81.0-99.0) fL MCH (27.0-31.0) pg MCHC (32.0-36.0) g/dL RDW (12.0-15.0) % Plt Count (130-450) 10^3/uL MPV (7.9-10.8) fL Neut # (Auto) (1.5-6.6) 10^3/uL Lymph # (Auto) (1.5-3.5) 10^3/uL [place] # (Auto) (0.0-1.0) 10^3/uL Eos # (Auto) (0.0-0.7) 10^3/uL Baso # (Auto) (0.0-0.1) 10^3/uL Absolute Nucleated RBC x10^3/uL Nucleated RBC % /100WBC Sodium 138 (135-145) mmol/L Potassium 3.8 (3.5-5.0) mmol/L Chloride 100 L (101-111) mmol/L Carbon Dioxide 25 (21-32) mmol/L Anion Gap 13.0 (6-13) BUN 25 H (6-20) mg/dL Creatinine 0.8 (0.4-1.0) mg/dL Estimated GFR (MDRD) 71 L (>89) Glucose 134 H (70-100) mg/dL Calcium 9.1 (8.5-10.3) mg/dL Total Bilirubin 0.7 (0.2-1.0) mg/dL AST 20 (10-42) IU/L ALT 25 (10-60) IU/L Alkaline Phosphatase 70 (42-121) IU/L Total Protein 7.2 (6.7-8.2) g/dL Albumin 3.9 (3.2-5.5) g/dL Globulin 3.3 (2.1-4.2) g/dL Albumin/Globulin Ratio 1.2 (1.0-2.2) Lipase 20 L (22-51) U/L Urine Color YELLOW Urine Clarity CLEAR (CLEAR) Urine pH 5.0 (5.0-7.5) PH Ur Specific [place] 1.025 (1.002-1.030) Urine Protein 100 H (NEGATIVE) mg/dL Urine Glucose (UA) NEGATIVE (NEGATIVE) mg/dL Urine Ketones 40 H (NEGATIVE) mg/dL Urine Occult Blood NEGATIVE (NEGATIVE) Urine Nitrite NEGATIVE (NEGATIVE) Urine Bilirubin NEGATIVE (NEGATIVE) Urine Urobilinogen 0.2 (NORMAL) (NORMAL) E.U./dL Ur Leukocyte Esterase NEGATIVE (NEGATIVE) Urine RBC 0-5 (0-5) /HPF Urine WBC 0-3 (0-5) /HPF Ur Squamous Epith Cells FEW Squamous (<= Few) Urine Bacteria Few (None Seen) /HPF Urine Casts 3-5 Granular Casts /LPF Urine Mucus Few Strands Ur Microscopic Review INDICATED Urine Culture Comments NOT INDICATED Nasal Adenovirus (PCR) NOT DETECTED Nasal B. parapertussis DNA (PCR) NOT DETECTED Nasal Coronavir 229E PCR NOT DETECTED Nasal Coronavir HKU1 PCR NOT DETECTED Nasal Coronavir NL63 PCR NOT DETECTED Nasal Coronavir OC43 PCR NOT DETECTED Nasal Enterovir/Rhinovir PCR NOT DETECTED Nasal Influenza B PCR NOT DETECTED Nasal Influenza A PCR NOT DETECTED Nasal Parainfluen 1 PCR NOT DETECTED Nasal Parainfluen 2 PCR NOT DETECTED Nasal Parainfluen 3 PCR NOT DETECTED Nasal Parainfluen 4 PCR NOT DETECTED Nasal RSV (PCR) NOT DETECTED Nasal B.pertussis DNA PCR NOT DETECTED Nasal C.pneumoniae (PCR) NOT DETECTED Ton[place] Human Metapneumo PCR NOT DETECTED Nasal M.pneumoniae (PCR) NOT DETECTED Nasal SARS-CoV-2 (PCR) NOT DETECTED 12/21/20 Range/Units 16:11 WBC 11.4 H (4.8-10.8) x10^3/uL RBC 4.56 (4.20-5.40) 10^6/uL Hgb 13.3 (12.0-16.0) g/dL Hct 41.4 (37.0-47.0) % MCV 90.8 (81.0-99.0) fL MCH 29.2 (27.0-31.0) pg MCHC 32.1 (32.0-36.0) g/dL RDW 13.9 (12.0-15.0) % Plt Count 286 (130-450) 10^3/uL MPV 10.1 (7.9-10.8) fL Neut # (Auto) 10.0 H (1.5-6.6) 10^3/uL Lymph # (Auto) 0.6 L (1.5-3.5) 10^3/uL [place] # (Auto) 0.6 (0.0-1.0) 10^3/uL Eos # (Auto) 0.1 (0.0-0.7) 10^3/uL Baso # (Auto) 0.0 (0.0-0.1) 10^3/uL Absolute Nucleated RBC 0.00 x10^3/uL Nucleated RBC % 0.0 /100WBC Sodium (135-145) mmol/L Potassium (3.5-5.0) mmol/L Chloride (101-111) mmol/L Carbon Dioxide (21-32) mmol/L Anion Gap (6-13) BUN (6-20) mg/dL Creatinine (0.4-1.0) mg/dL Estimated GFR (MDRD) (>89) Glucose (70-100) mg/dL Calcium (8.5-10.3) mg/dL Total Bilirubin (0.2-1.0) mg/dL AST (10-42) IU/L ALT (10-60) IU/L Alkaline Phosphatase (42-121) IU/L Total Protein (6.7-8.2) g/dL Albumin (3.2-5.5) g/dL Globulin (2.1-4.2) g/dL Albumin/Globulin Ratio (1.0-2.2) Lipase (22-51) U/L Urine Color Urine Clarity (CLEAR) Urine pH (5.0-7.5) PH Ur Specific [place] (1.002-1.030) Urine Protein (NEGATIVE) mg/dL Urine Glucose (UA) (NEGATIVE) mg/dL Urine Ketones (NEGATIVE) mg/dL Urine Occult Blood (NEGATIVE) Urine Nitrite (NEGATIVE) Urine Bilirubin (NEGATIVE) Urine Urobilinogen (NORMAL) E.U./dL Ur Leukocyte Esterase (NEGATIVE) Urine RBC (0-5) /HPF Urine WBC (0-5) /HPF Ur Squamous Epith Cells (<= Few) Urine Bacteria (None Seen) /HPF Urine Casts /LPF Urine Mucus Ur Microscopic Review Urine Culture Comments Nasal Adenovirus (PCR) Nasal B. parapertussis DNA (PCR) Nasal Coronavir 229E PCR Nasal Coronavir HKU1 PCR Nasal Coronavir NL63 PCR Nasal Coronavir OC43 PCR Nasal Enterovir/Rhinovir PCR Nasal Influenza B PCR Nasal Influenza A PCR Nasal Parainfluen 1 PCR Nasal Parainfluen 2 PCR Nasal Parainfluen 3 PCR Nasal Parainfluen 4 PCR Nasal RSV (PCR) Nasal B.pertussis DNA PCR Nasal C.pneumoniae (PCR) Tonio Human Metapneumo PCR Nasal M.pneumoniae (PCR) Nasal SARS-CoV-2 (PCR) Assessment/Plan - Problem List (1) History of reversal of ileostomy Impression: abdominal distension symptoms improved. dark urine. plan fluid bolus, diet clears, enema. if not improving significantly plan colonoscopy thursday.
[2020-12-22] MEDS ORDERED: SALINE ENEMA 133 ML BOTTLE RC SCH (14:00)
[2020-12-23] MEDS: ONDANSETRON 4 MG/2 ML VIAL IVP PRN (04:46)
[2020-12-23] MEDS: D5.45NS W/20 MEQ KCL 1,000 ML IV SCH ×3 (06:28→20:39)
[2020-12-23] MEDS: METOPROLOL TARTRATE 50 MG TABLET PO SCH ×2 (07:44→20:24)
[2020-12-23] MEDS: HEPARIN 5,000 UNIT/ML VIAL SUBQ SCH ×2 (07:44→20:25)
[2020-12-23] MEDS: SODIUM CHLORIDE FLUSH 0.9% 10 ML SYRINGE IVP SCH ×3 (12:09→23:46)
[2020-12-23] MEDS ORDERED: SALINE ENEMA 133 ML BOTTLE RC SCH (13:00)
[2020-12-23] MEDS: METOPROLOL TARTRATE 25 MG TABLET PO PRN ×2 (13:02→23:51)
--- NOTE | 2020-12-23 13:49 | PROVIDER PROGRESS NOTE ---
Subjective - Prog Note Date Prog Note Date: 12/23/20 - Subjective Pt reports feeling: Improved (passing liquid stool. had clear saliva emesis. denies abdominal pain or distension. poor appetite) Objective - Vital Signs/Intake & Output Reviewed Vital Signs: Yes Vital Signs: Vital Signs x48h Temp Pulse Pulse Resp BP BP Pulse Ox 12/23/20 13:02 174/86 H 12/23/20 12:57 37.8 C 74 18 174/86 H 93 12/23/20 08:00 37.0 C 80 20 183/92 H 94 12/23/20 07:45 80 18 12/23/20 07:44 183/92 H Intake & Output: Intake & Output 12/20/20 12/21/20 12/22/20 12/23/20 23:59 23:59 23:59 23:59 Intake Total 1000 3786.667 1000 Output Total 1175 1000 Balance 1000 2611.667 0 - Objective General Appearance: positive: No acute distress, Alert Eyes Bilateral: positive: PERRL, EOMI ENT: positive: No signs of dehydration Neck: positive: No JVD Respiratory: positive: No respiratory distress Abdomen: positive: Non-tender, No distention Neurologic/Psychiatric: positive: Oriented x3 - Lab Results Fish Bones: 12/21/20 16:11 12/21/20 16:33 Assessment/Plan - Problem List (1) History of reversal of ileostomy Impression: 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 She had dilation previously and states it was very uncomfortable and would need to be completely asleep to have that done again. plan exam under anesthesia tomorrow and colonoscopy without dilation. If significant stricture present will discuss with Dr Muniz, colorectal surgeon for possible dilation under general anesthesia later in the week.
[2020-12-23] MEDS: MAG HYDROX/AL HYDROX/SIMETH 30 ML UDC PO PRN (14:07)
[2020-12-23] MEDS: FAMOTIDINE 20 MG TABLET PO SCH (20:25)
[2020-12-24] MEDS: D5.45NS W/20 MEQ KCL 1,000 ML IV SCH ×4 (04:15→23:44)
[2020-12-24] MEDS: HEPARIN 5,000 UNIT/ML VIAL SUBQ SCH ×2 (08:57→20:32)
[2020-12-24] MEDS: FAMOTIDINE 20 MG TABLET PO SCH ×2 (08:57→20:32)
[2020-12-24] MEDS: SODIUM CHLORIDE FLUSH 0.9% 10 ML SYRINGE IVP SCH ×3 (08:58→23:45)
[2020-12-24] MEDS: METOPROLOL TARTRATE 50 MG TABLET PO SCH ×2 (08:58→20:32)
[2020-12-24] MEDS: MAG HYDROX/AL HYDROX/SIMETH 30 ML UDC PO PRN ×2 (10:36→19:47)
--- NOTE | 2020-12-24 11:43 | ANESTHESIA ---
Pre-Anesthesia VS, & Labs - Diagnosis constipation/diarrhea - Procedure colonoscopy Vital Signs: Temp Pulse Resp BP Pulse Ox 36.4 C L 76 18 123/70 93 12/24/20 08:00 12/24/20 08:00 12/24/20 08:00 12/24/20 08:58 12/24/20 08:00 Height: 5 ft 3 in Weight (kg): 68.5 kg Body Mass Index: 26.7 BMI Classification: Overweight - NPO >8 hours - Is Patient ?: No - Lab Results Current Lab Results: Laboratory Tests 12/21/20 16:33: Sodium 138, Potassium 3.8, Chloride 100 L, Carbon Dioxide 25, Anion Gap 13.0, BUN 25 H, Creatinine 0.8, Estimated GFR (MDRD) 71 L, Glucose 134 H, Calcium 9.1, Total Bilirubin 0.7, AST 20, ALT 25, Alkaline Phosphatase 70, Total Protein 7.2, Albumin 3.9, Globulin 3.3, Albumin/Globulin Ratio 1.2, Lipase 20 L 12/21/20 16:11: WBC 11.4 H, RBC 4.56, Hgb 13.3, Hct 41.4, MCV 90.8, MCH 29.2, MCHC 32.1, RDW 13.9, Plt Count 286, MPV 10.1, Neut # (Auto) 10.0 H, Lymph # (Auto) 0.6 L, [place] # (Auto) 0.6, Eos # (Auto) 0.1, Baso # (Auto) 0.0, Absolute Nucleated RBC 0.00, Nucleated RBC % 0.0 Fish Bones: 12/21/20 16:11 12/21/20 16:33 Home Medications and Allergies Active Medications Acetaminophen (Acetaminophen 325 Mg Tablet) 650 mg PO Q4HR PRN PRN Reason: Pain 1 to 4 Last Admin: 12/22/20 08:35 Dose: 650 mg Documented by: Al Hydroxide/Mg Hydroxide (Mag Hydrox/Al Hydrox/Simeth 30 Ml Udc) 30 ml PO Q4HR PRN PRN Reason: INDIGESTION Last Admin: 12/24/20 10:36 Dose: 30 ml Documented by: Albuterol (Albuterol Neb 2.5 Mg/3 Ml) 2.5 mg INH RTQ4H PRN PRN Reason: Wheezing Albuterol/Ipratropium (Ipratropium/Albuterol 3 Ml Neb) 3 ml INH Q4HR PRN PRN Reason: Wheezing Famotidine (Famotidine 20 Mg Tablet) 20 mg PO BID [facility] Last Admin: 12/24/20 08:57 Dose: 20 mg Documented by: Heparin Sodium (Porcine) (Heparin 5,000 Unit/Ml Vial) 5,000 unit SUBQ BID [facility] Last Admin: 12/24/20 08:57 Dose: Not Given Documented by: Hydromorphone HCl (Hydromorphone 0.5 Mg/0.5 Ml Syringe) 0.5 mg IVP Q2H PRN PRN Reason: Pain 8 to 10 Potassium Chloride/Dextrose/Sod Cl (D5.45ns W/20 Meq Kcl) 1,000 mls @ 125 m ls/hr IV .Q8H [facility] Last Admin: 12/24/20 04:15 Dose: 125 mls/hr Documented by: Metoprolol Tartrate (Metoprolol Tartrate 50 Mg Tablet) 50 mg PO BID [facility] Last Admin: 12/24/20 08:58 Dose: Not Given Documented by: Metoprolol Tartrate (Metoprolol Tartrate 25 Mg Tablet) 25 mg PO BID PRN PRN Reason: Hypertensive Emergency Last Admin: 12/23/20 23:51 Dose: 25 mg Documented by: Morphine Sulfate (Morphine 2 Mg/Ml Carpuject) 2 mg IVP Q2HR PRN PRN Reason: Pain 8 to 10 Ondansetron HCl (Ondansetron Odt 4 Mg Tablet) 4 mg TL Q6HR PRN PRN Reason: Nausea / Vomiting Ondansetron HCl (Ondansetron 4 Mg/2 Ml Vial) 4 mg IVP Q6HR PRN PRN Reason: Nausea / Vomiting Last Admin: 12/23/20 04:46 Dose: 4 mg Documented by: Prochlorperazine Edisylate (Prochlorperazine 10 Mg/2 Ml Vial) 10 mg IVP Q6HR P RN PRN Reason: Nausea / Vomiting Last Admin: 12/22/20 01:44 Dose: 10 mg Documented by: Sodium Chloride (Sodium Chloride Flush 0.9% 10 Ml Syringe) 10 ml IVP PRN PRN PRN Reason: NEEDED PER PROVIDER ORDERS Last Admin: 12/22/20 05:19 Dose: 10 ml Documented by: Sodium Chloride (Sodium Chloride Flush 0.9% 10 Ml Syringe) 10 ml IVP 0100,0900,1700 YASMEEN Last Admin: 12/24/20 08:58 Dose: 10 ml Documented by: Aspirin EC [Ecotrin] 81 mg PO DAILY 04/02/20 Ferrous Sulfate 325 mg PO DAILY 04/02/20 Acetaminophen [Tylenol] 650 mg PO Q4HR PRN 11/11/20 Albuterol 1 vial INH RTQ4H PRN 11/11/20 Ipratropium/Albuterol [Combivent Respimat] 1 puffs IH QID 11/11/20 Allergies/Adverse Reactions: Allergies Allergy/AdvReac Type Severity Reaction Status Date / Time Penicillins Allergy Nausea Verified 12/21/20 15:18 Anes History & Medical History - Anesthetic History Anesthesia Complications: reports: No previous complications Family history of Anesthesia Complications: Denies Family history of Malignant Hyperthermia: Denies - Medical History Cardiovascular: reports: Hypertension, [place], Murmur Pulmonary: reports: Asthma, COPD, Shortness of breath Gastrointestinal: reports: Other Urinary: reports: None Neuro: reports: None Musculoskeletal: reports: Other (kyphosis) Endocrine/Autoimmune: reports: None Blood Disorders: reports: Anemia Skin: reports: None Smoking Status: Former smoker Other Past Medical History: Tinnitus, L rotator cuff tear - Surgical History General: reports: Appendectomy, Bowel surgery, Colonoscopy Eyes Ears Nose Throat (EENT): reports: Tonsil/Adenoidectomy Gynecologic: reports: Hysterectomy Orthopedic: reports: Arthroscopic surgery Exam General: Alert, Oriented x3, Cooperative Dental: Poor dentition Mouth Openin Fingerbreadth Neck Mobility: Reduced Thyromental Distance: 4-6 cm Respiratory: Lungs clear, Other (SOB/wheezing with activity and exertion. Clear at rest) Plan Anesthesia Type: General, Total IV Consent for Procedure(s) Verified and Reviewed: Yes Code Status: Attempt Resuscitation ASA classification: 3-Severe systemic disease Is this case an emergency?: No
[2020-12-24] MEDS ORDERED: PROPOFOL 200 MG/20 ML VIAL IVP ONE (14:28)
[2020-12-24] MEDS ORDERED: LIDOCAINE-MPF 2% 5 ML VIAL ONE (14:43)
--- NOTE | 2020-12-24 15:28 | ANESTHESIA POST OP EVALUATION ---
Anesthesia Post Eval - Post Anesthesia Eval Vitals: Last Vital Signs Temp 36.4 C L 12/24/20 08:00 Pulse 76 12/24/20 08:00 Resp 18 12/24/20 08:00 BP 123/70 12/24/20 08:58 Pulse Ox 93 12/24/20 08:00 CV Function Including HR & BP: Stable Pain Control: Satisfactory Nausea & Vomiting: Negative Mental Status: Baseline Respiratory Status: Airway Patent Hydration Status: Satisfactory Anesthesia Complications: None
--- NOTE | 2020-12-24 15:43 | PROVIDER PROGRESS NOTE ---
Subjective - Subjective Pt reports feeling: Improved (no discomfort . passing liquid stool) Objective - Vital Signs/Intake & Output Vital Signs: Vital Signs x48h Temp Pulse Resp BP BP Pulse Ox 12/24/20 15:22 36.5 C 78 18 150/72 H 99 12/24/20 08:58 123/70 12/24/20 08:00 36.4 C L 76 18 123/70 93 Intake & Output: Intake & Output 12/21/20 12/22/20 12/23/20 12/24/20 23:59 23:59 23:59 23:59 Intake Total 1000 3786.667 2772.917 1893.75 Output Total 1175 1002 300 Balance 1000 2611.667 4838.315 4214.75 - Objective General Appearance: positive: No acute distress, Alert ENT: positive: No signs of dehydration Neck: positive: No JVD Respiratory: positive: No respiratory distress Abdomen: positive: Non-tender, No distention Neurologic/Psychiatric: positive: Oriented x3 Comments/Other: endoscopy confirms colorectal anastomosis stricture - Lab Results Fish Bones: 12/21/20 16:11 12/21/20 16:33 Assessment/Plan - Problem List (1) History of reversal of ileostomy Impression: endoscopy confirms colorectal anastomosis stricture. Discussed with Dr Muniz. Plan dilation tomorrow
[2020-12-25] MEDS: METOPROLOL TARTRATE 25 MG TABLET PO PRN (05:50)
[2020-12-25] MEDS: D5.45NS W/20 MEQ KCL 1,000 ML IV SCH ×2 (07:42→16:08)
[2020-12-25] MEDS ORDERED: amLODIPine 5 MG TABLET PO SCH ×2 (09:00→15:59)
[2020-12-25] MEDS: HEPARIN 5,000 UNIT/ML VIAL SUBQ SCH ×2 (09:36→21:12)
[2020-12-25] MEDS: METOPROLOL TARTRATE 50 MG TABLET PO SCH ×2 (10:12→21:11)
[2020-12-25] MEDS: FAMOTIDINE 20 MG TABLET PO SCH ×2 (10:13→21:11)
[2020-12-25] MEDS: SODIUM CHLORIDE FLUSH 0.9% 10 ML SYRINGE IVP SCH ×2 (10:13→16:08)
--- NOTE | 2020-12-25 11:32 | ANESTHESIA ---
Pre-Anesthesia VS, & Labs - Diagnosis stricture - Procedure colonoscopy with dilation Vital Signs: Temp Pulse Resp BP Pulse Ox 36.7 C 63 18 164/94 H 96 12/25/20 07:40 12/25/20 07:40 12/25/20 07:40 12/25/20 10:12 12/25/20 07:40 Height: 5 ft 3 in Weight (kg): 68.5 kg Body Mass Index: 26.7 BMI Classification: Overweight - NPO >8 hours - Is Patient ?: No - Lab Results Current Lab Results: Laboratory Tests 12/21/20 16:33: Sodium 138, Potassium 3.8, Chloride 100 L, Carbon Dioxide 25, Anion Gap 13.0, BUN 25 H, Creatinine 0.8, Estimated GFR (MDRD) 71 L, Glucose 134 H, Calcium 9.1, Total Bilirubin 0.7, AST 20, ALT 25, Alkaline Phosphatase 70, Total Protein 7.2, Albumin 3.9, Globulin 3.3, Albumin/Globulin Ratio 1.2, Lipase 20 L 12/21/20 16:11: WBC 11.4 H, RBC 4.56, Hgb 13.3, Hct 41.4, MCV 90.8, MCH 29.2, MCHC 32.1, RDW 13.9, Plt Count 286, MPV 10.1, Neut # (Auto) 10.0 H, Lymph # (Auto) 0.6 L, [place] # (Auto) 0.6, Eos # (Auto) 0.1, Baso # (Auto) 0.0, Absolute Nucleated RBC 0.00, Nucleated RBC % 0.0 Fish Bones: 12/21/20 16:11 12/21/20 16:33 Home Medications and Allergies Active Medications Acetaminophen (Acetaminophen 325 Mg Tablet) 650 mg PO Q4HR PRN PRN Reason: Pain 1 to 4 Last Admin: 12/22/20 08:35 Dose: 650 mg Documented by: Al Hydroxide/Mg Hydroxide (Mag Hydrox/Al Hydrox/Simeth 30 Ml Udc) 30 ml PO Q4HR PRN PRN Reason: INDIGESTION Last Admin: 12/24/20 19:47 Dose: 30 ml Documented by: Albuterol (Albuterol Neb 2.5 Mg/3 Ml) 2.5 mg INH RTQ4H PRN PRN Reason: Wheezing Albuterol/Ipratropium (Ipratropium/Albuterol 3 Ml Neb) 3 ml INH Q4HR PRN PRN Reason: Wheezing Famotidine (Famotidine 20 Mg Tablet) 20 mg PO BID [facility] Last Admin: 12/25/20 10:13 Dose: 20 mg Documented by: Heparin Sodium (Porcine) (Heparin 5,000 Unit/Ml Vial) 5,000 unit SUBQ BID [facility] Last Admin: 12/25/20 09:36 Dose: Not Given Documented by: Hydromorphone HCl (Hydromorphone 0.5 Mg/0.5 Ml Syringe) 0.5 mg IVP Q2H PRN PRN Reason: Pain 8 to 10 Potassium Chloride/Dextrose/Sod Cl (D5.45ns W/20 Meq Kcl) 1,000 mls @ 125 mls/hr IV .Q8H [facility] Last Admin: 12/25/20 07:42 Dose: 125 mls/hr Documented by: Metoprolol Tartrate (Metoprolol Tartrate 50 Mg Tablet) 50 mg PO BID [facility] Last Admin: 12/25/20 10:12 Dose: 50 mg Documented by: Metoprolol Tartrate (Metoprolol Tartrate 25 Mg Tablet) 25 mg PO BID PRN PRN Reason: Hypertensive Emergency Last Admin: 12/25/20 05:50 Dose: 25 mg Documented by: Morphine Sulfate (Morphine 2 Mg/Ml Carpuject) 2 mg IVP Q2HR PRN PRN Reason: Pain 8 to 10 Ondansetron HCl (Ondansetron Odt 4 Mg Tablet) 4 mg TL Q6HR PRN PRN Reason: Nausea / Vomiting Ondansetron HCl (Ondansetron 4 Mg/2 Ml Vial) 4 mg IVP Q6HR PRN PRN Reason: Nausea / Vomiting Last Admin: 12/23/20 04:46 Dose: 4 mg Documented by: Prochlorperazine Edisylate (Prochlorperazine 10 Mg/2 Ml Vial) 10 mg IVP Q6HR PRN PRN Reason: Nausea / Vomiting Last Admin: 12/22/20 01:44 Dose: 10 mg Documented by: Sodium Chloride (Sodium Chloride Flush 0.9% 10 Ml Syringe) 10 ml IVP PRN PRN PRN Reason: NEEDED PER PROVIDER ORDERS Last Admin: 12/22/20 05:19 Dose: 10 ml Documented by: Sodium Chloride (Sodium Chloride Flush 0.9% 10 Ml Syringe) 10 ml IVP 0100,0900,1700 YASMEEN Last Admin: 12/25/20 10:13 Dose: 10 ml Documented by: Aspirin EC [Ecotrin] 81 mg PO DAILY 04/02/20 Ferrous Sulfate 325 mg PO DAILY 04/02/20 Acetaminophen [Tylenol] 650 mg PO Q4HR PRN 11/11/20 Albuterol 1 vial INH RTQ4H PRN 11/11/20 Ipratropium/Albuterol [Combivent Respimat] 1 puffs IH QID 11/11/20 Allergies/Adverse Reactions: Allergies Allergy/AdvReac Type Severity Reaction Status Date / Time Penicillins Allergy Nausea Verified 12/21/20 15:18 Anes History & Medical History - Anesthetic History Anesthesia Complications: reports: No previous complications Family history of Anesthesia Complications: Denies Family history of Malignant Hyperthermia: Denies - Medical History Cardiovascular: reports: Hypertension, [place], [place] Pulmonary: reports: Asthma, COPD, Shortness of breath Gastrointestinal: reports: Other Urinary: reports: None Neuro: reports: None Musculoskeletal: reports: Other (kyphosis) Endocrine/Autoimmune: reports: None Blood Disorders: reports: Anemia Skin: reports: None Smoking Status: Former smoker Other Past Medical History: Tinnitus, L rotator cuff tear - Surgical History General: reports: Appendectomy, Bowel surgery, Colonoscopy Eyes Ears Nose Throat (EENT): reports: Tonsil/Adenoidectomy Gynecologic: reports: Hysterectomy Orthopedic: reports: Arthroscopic surgery Exam General: Alert, Oriented x3, Cooperative, No acute distress Dental: Poor dentition Mouth Openin Fingerbreadth Neck Mobility: Normal Mallampati classification: II Respiratory: Lungs clear, Normal breath sounds, No respiratory distress, No accessory muscle use Cardiovascular: Regular rate, Normal S1, Normal S2, No murmurs Plan Anesthesia Type: General, Total IV Consent for Procedure(s) Verified and Reviewed: Yes Code Status: Attempt Resuscitation ASA classification: 3-Severe systemic disease Is this case an emergency?: No
[2020-12-25] MEDS ORDERED: PROPOFOL 1000 MG/100 ML 1,000 MG/100 ML BOTTLE IV ONE (14:20)
--- NOTE | 2020-12-25 14:51 | PROVIDER PROGRESS NOTE ---
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 Known anastomotic stricture historically dilated [id number] pneumatically. Presenting with small bowel obstruction with likely etiology secondary to recurrent stricture noted on diagnostic colonoscopy yesterday. Objective Afebrile hemodynamically acceptable General Appearance: positive: No acute distress Eyes Bilateral: positive: Normal inspection ENT: positive: ENT inspection nml Neck: positive: Nml inspection Respiratory: positive: Chest non-tender, No respiratory distress, Breath sounds nml. negative: Wheezes, Rales, Rhonchi Cardiovascular: positive: Regular rate & rhythm Abdomen: positive: No distention, Other. 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 Known anastomotic stricture historically dilated [id number] pneumatically. Presenting with small bowel obstruction with likely etiology secondary to recurrent stricture noted on diagnostic colonoscopy yesterday. Patient advised an indication to undergo colonoscopy. Colonoscopy indicated for anastomotic stricture. Symptoms are as follows bowel obstruction. Risks and benefits discussed at length. Informed consent obtained. Risks include but are not limited to, bleeding, infection, perforation, missed lesions, injury to local structures, need for further surgeries, and the periprocedural/sedation risks of heart attack stroke and . Patient was advised if any concerning areas were noted these would be sampled if too big to resect or performed for excision if within reasonable limits for endoscopic intervention. Please note that voice recognition software was used to transcribe this note and inadvertent errors might persist in spite of review and editing. I am obliged to you for your attention. I am thankful to you for allowing me to participate with you in this care of this patient.
[2020-12-25] MEDS ORDERED: LABETALOL 5 MG/1 ML 20 ML MDV ONE (15:17)
[2020-12-25] MEDS ORDERED: ALBUTEROL NEB 2.5 MG/3 ML INH PRN (15:43)
[2020-12-25] MEDS ORDERED: ACETAMINOPHEN 325 MG TABLET PO PRN (15:43)
--- NOTE | 2020-12-25 15:46 | ANESTHESIA POST OP EVALUATION ---
Anesthesia Post Eval - Post Anesthesia Eval Vitals: Last Vital Signs Temp 36.7 C 12/25/20 07:40 Pulse 63 12/25/20 07:40 Resp 18 12/25/20 07:40 BP 164/94 H 12/25/20 10:12 Pulse Ox 96 12/25/20 07:40 CV Function Including HR & BP: Stable Pain Control: Satisfactory Nausea & Vomiting: Negative Mental Status: Baseline Respiratory Status: Airway Patent Hydration Status: Satisfactory Anesthesia Complications: None
--- NOTE | 2020-12-25 15:51 | CONSULTATION NOTE ---
Referring Provider Name of Referring Provider:: Dr. Natan Muniz Consult Date: 12/25/20 Chief Complaint - Chief Complaint Chief Complaint: Abdominal pain History of Present Illness - Admitted From Admitted From:: Home - History Obtained From Records Reviewed: Yes History obtained from: Patient, General Surgeon, EMR - History of Present Illness HPI Comment/Other: This is a 78-year-old female with a past medical history significant forHypertension, iron urgency anemia, aortic stenosis, and history of colectomy with diverting ileostomy who was admitted for days ago for abdominal pain associate with nausea and vomiting. There was concern for obstruction she was admitted under surgical service. Despite conservative therapies, she continued to have concerns for ongoing obstruction and she underwent a colonoscopy yesterday which revealed an anastomotic stricture. She had a therapeutic colonoscopy today with dilatation with general surgery. During the procedure, as noted her blood pressure was quite elevated with systolic greater than 200 and so medicine was consulted to assist with medical management. She currently reports feeling quite well. Feels much better than when she first came in. Denies any nausea, vomiting, abdominal pain. She is passing gas and is having bowel movements. She is eager to advance her diet. She was on a second antihypertensive when she went to [facility] just last month and it appears this was amlodipine. This caused her to have lower extremity edema which resolved after discontinuation of this. She has been taking metoprolol twice a day. We did discuss goals of care and she would like to be a full code. History - Past Medical History Cardiovascular: reports: Hypertension, [place], Murmur Respiratory: reports: Asthma, COPD, Shortness of breath Neuro: reports: None Endocrine/Autoimmune: reports: None GI: reports: Other ASSISTANT WINEMAKER: reports: None : reports: None HEENT: reports: Chronic vision loss, Chronic sinusitis, Chronic hearing loss, Other Psych: reports: Depression Musculoskeletal: reports: Other (kyphosis) Derm: reports: None MRSA Hx?: No Other Past Medical History: Tinnitus, L rotator cuff tear - Past Surgical History General: reports: Appendectomy, Bowel surgery, Colonoscopy Ortho: reports: Arthroscopic surgery /ASSISTANT WINEMAKER: reports: Hysterectomy HEENT: reports: Tonsil/Adenoidectomy - Family & Social History Family History Comment/Other: She is adopted and is unaware of her family history. Social History Notes: She has lived in [facility] for over 30 years. 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 She smoked a couple packs a day on and off for about 15 to 20 years but quit over 20 years ago. - POLST Patient has POLST: No Meds/Allgy - Home Medications Home Medications: Ambulatory Orders Medication Instructions Recorded Confirmed Aspirin EC [Ecotrin] 81 mg PO DAILY 04/02/20 12/21/20 Ferrous Sulfate 325 mg PO DAILY 04/02/20 12/21/20 Metoprolol Tartrate [Lopressor] 50 mg PO BID tablet 04/11/20 12/21/20 Albuterol Sulf [Ventolin Hfa 1 - 2 puffs INH Q4HR PRN #1 gm 11/01/20 12/21/20 Inhaler] Cholecalciferol [Vitamin D3] 5,000 unit PO DAILY 11/01/20 12/21/20 Fluticasone/Salmeterol [Advair 1 each IH BID #3 inhaler 11/01/20 12/21/20 250-50 Diskus] Ipratropium/Albuterol [Duoneb] 3 ml INH RTQ4H neb 11/01/20 12/21/20 Multivitamin W/Minerals [Theragran 1 tab PO DAILYWM tablet 11/01/20 12/21/20 M] Acetaminophen [Tylenol] 650 mg PO Q4HR PRN 11/11/20 12/21/20 Albuterol 1 vial INH RTQ4H PRN 11/11/20 12/21/20 Ipratropium/Albuterol [Combivent 1 puffs IH QID 11/11/20 12/21/20 Respimat] - Allergies Allergies/Adverse Reactions: Allergies Allergy/AdvReac Type Severity Reaction Status Date / Time Penicillins Allergy Nausea Verified 12/21/20 15:18 Review of Systems - Constitutional Constitutional: denies: Fatigue, Fever, Chills - Cardiovascular Cariovascular: denies: Chest pain, Exertional dyspnea - Respiratory Respiratory: denies: SOB at rest, SOB with exertion - Gastrointestinal Gastrointestinal: denies: Abdominal pain, Constipation, Diarrhea, Nausea, Vomiting - Genitourinary Genitourinary: denies: Dysuria, Frequency, Urgency - Neurological Neurological: denies: General weakness, Focal weakness - All Other Systems All Other Systems: reports: Reviewed and negative Exam - Vital Signs Reviewed Vital Signs: Yes Vital Signs: Vital Signs x48h BP 12/25/20 10:12 164/94 H - Physical Exam General Appearance: positive: No acute distress, Alert Eyes Bilateral: positive: Normal inspection, Conjunctivae nml ENT: positive: ENT inspection nml Neck: positive: Nml inspection Respiratory: positive: No respiratory distress, Wheezes (Very faint expiratory wheezes.). negative: Rales, Rhonchi Cardiovascular: positive: Regular rate & rhythm, Systolic murmur. negative: Extrasystoles, Tachycardia Abdomen: positive: Non-tender, No distention, Other (Dressing in place over the right upper quadrant.). negative: Tenderness Skin: positive: Warm, Dry Extremities: positive: No pedal edema Neurologic/Psychiatric: negative: Disoriented to person, Disoriented to place Conclusion/Plan - Diagnosis Diagnosis: 1) Hypertension. 2) Small bowel obstruction. 3) COPD not in exacerbation - Plan Plan: Her blood pressure was elevated intraoperatively with systolic in the 200s. Her blood pressure has been poorly controlled throughout his hospitalization. She is only on metoprolol at home which has been resumed. I did see her back in October and at that time, her blood pressure was elevated as well and we recommended initiating amlodipine in addition to the metoprolol. It appears she unfortunately had lower extremity edema secondary to amlodipine and has since been only on metoprolol. We will add lisinopril in addition to the metoprolol. We will adjust the dose based off of her blood pressure throughout this hospitalization. Although she has very faint expiratory wheezes, her COPD is stable and not in exacerbation. Agree with continuing her home inhalers. With regards to her small bowel obstruction and anastomotic stricture, will defer management to the primary service. Thank you for this consult we will continue to follow. - Lab Results Lab results reviewed: Yes Fish Bones: 12/21/20 16:11 12/21/20 16:33 - Diagnostic Imaging Results Diagnostic Imaging Results: positive: Final report reviewed
--- NOTE | 2020-12-25 15:58 | PROVIDER PROGRESS NOTE ---
Progress Note Patient status post therapeutic colonoscopy with pneumatic dilatation of the coloproctostomy. Findings are as follows: 1. 3 mm gakona orifice with extensive scar tissue. 2. Dilated sequentially using gastroscope and [id number] pneumatic dilator with guidewire starting from 8 mm to 12 mm, thereafter 15 mm to 18 mm. 3. At this time we were able to traverse the Mau proctostomy anastomosis without any complication using the gastroscope and were able to achieve the terminal ileum without having to exchange for a colonoscope. 4. Terminal ileum was intubated without any complication. 5. Appropriate prep 6. Ileocecal valve achieved as evidenced by the appendiceal orifice both photographed. 7. Terminal ileum intubated with no enteritis. 8. Cecum without cecitis. The entirety of the colon was out colitis. No diverticulosis or diverticulitis. 9. Careful slow withdrawal with ascending and descending segmental colitis randomly biopsied cold forceps. 10. Patient with patent anastomosis ultimately dilated [id number] with 18 to 20 mm pneumatic dilator without any complication. 11. Multiple biopsies taken of the anastomosis cold for biopsy. 12. Inernal hemorrhoids nonbleeding. Assessment and plan: 1. Advance diet to clear liquids and as tolerated 2. Hospitalist consult for hypertensive urgency 3. Resume home medications 4. Follow-up on pathology Please note that voice recognition software was used to transcribe this note and inadvertent errors might persist in spite of review and editing. I am obliged to you for your attention. I am thankful to you for allowing me to participate with you in this care of this patient.
[2020-12-25] MEDS ORDERED: IPRATROPIUM IH SCH (17:00)
[2020-12-25] MEDS ORDERED: ALBUTEROL IH SCH (17:00)
[2020-12-25] MEDS ORDERED: BUDESONIDE 0.5 MG/2 ML NEB INH SCH (19:00)
[2020-12-25] MEDS ORDERED: IPRATROPIUM/ALBUTEROL 3 ML NEB INH SCH (19:00)
[2020-12-25] MEDS ORDERED: METOPROLOL TARTRATE 50 MG TABLET PO SCH (21:00)
[2020-12-26] MEDS: D5.45NS W/20 MEQ KCL 1,000 ML IV SCH ×3 (00:50→16:36)
[2020-12-26] MEDS: SODIUM CHLORIDE FLUSH 0.9% 10 ML SYRINGE IVP SCH ×4 (00:51→23:39)
[2020-12-26] MEDS: IPRATROPIUM/ALBUTEROL 3 ML NEB INH SCH ×4 (07:13→19:30)
--- NOTE | 2020-12-26 07:46 | PROVIDER PROGRESS NOTE ---
Subjective - Prog Note Date Prog Note Date: 12/26/20 - Subjective Subjective: She reports feeling very well today. She denies any abdominal pain, nausea, vomiting. She is very eager to start a diet. Current Medications - Current Medications Current Medications: Active Medications Acetaminophen (Acetaminophen 325 Mg Tablet) 650 mg PO Q4HR PRN PRN Reason: PRN PAIN &/OR FEVER Al Hydroxide/Mg Hydroxide (Mag Hydrox/Al Hydrox/Simeth 30 Ml Udc) 30 ml PO Q4HR PRN PRN Reason: INDIGESTION Last Admin: 12/24/20 19:47 Dose: 30 ml Documented by: Albuterol (Albuterol Neb 2.5 Mg/3 Ml) 2.5 mg INH RTQ4H PRN PRN Reason: Wheezing Albuterol/Ipratropium (Ipratropium/Albuterol 3 Ml Neb) 3 ml INH Q4HR PRN PRN Reason: Wheezing Albuterol/Ipratropium (Ipratropium/Albuterol 3 Ml Neb) 3 ml INH RTQID [facility] Last Admin: 12/26/20 07:13 Dose: 3 ml Documented by: Budesonide (Budesonide 0.5 Mg/2 Ml Neb) 0.5 mg INH RTBID [facility] Cholecalciferol (Cholecalciferol 5,000 Unit Capsule) 5,000 unit PO DAILY [facility] Famotidine (Famotidine 20 Mg Tablet) 20 mg PO BID [facility] Last Admin: 12/25/20 21:11 Dose: 20 mg Documented by: Ferrous Sulfate (Ferrous Sulfate 325 Mg Tablet) 325 mg PO DAILY [facility] Heparin Sodium (Porcine) (Heparin 5,000 Unit/Ml Vial) 5,000 unit SUBQ BID [facility] Last Admin: 12/25/20 21:12 Dose: 5,000 unit Documented by: Hydromorphone HCl (Hydromorphone 0.5 Mg/0.5 Ml Syringe) 0.5 mg IVP Q2H PRN PRN Reason: Pain 8 to 10 Potassium Chloride/Dextrose/Sod Cl (D5.45ns W/20 Meq Kcl) 1,000 mls @ 125 mls/hr IV .Q8H [facility] Last Admin: 12/26/20 00:50 Dose: 125 mls/hr Documented by: Lisinopril (Lisinopril 5 Mg Tablet) 10 mg PO DAILY [facility] Metoprolol Tartrate (Metoprolol Tartrate 50 Mg Tablet) 50 mg PO BID [facility] Last Admin: 12/25/20 21:11 Dose: 50 mg Documented by: Morphine Sulfate (Morphine 2 Mg/Ml Carpuject) 2 mg IVP Q2HR PRN PRN Reason: Pain 8 to 10 Multivitamins/Minerals (Multivitamin W/Minerals Tablet) 1 tab PO DAILYWM [facility] Ondansetron HCl (Ondansetron Odt 4 Mg Tablet) 4 mg TL Q6HR PRN PRN Reason: Nausea / Vomiting Ondansetron HCl (Ondansetron 4 Mg/2 Ml Vial) 4 mg IVP Q6HR PRN PRN Reason: Nausea / Vomiting Last Admin: 12/23/20 04:46 Dose: 4 mg Documented by: Prochlorperazine Edisylate (Prochlorperazine 10 Mg/2 Ml Vial) 10 mg IVP Q6HR PRN PRN Reason: Nausea / Vomiting Last Admin: 12/22/20 01:44 Dose: 10 mg Documented by: Sodium Chloride (Sodium Chloride Flush 0.9% 10 Ml Syringe) 10 ml IVP PRN PRN PRN Reason: NEEDED PER PROVIDER ORDERS Last Admin: 12/22/20 05:19 Dose: 10 ml Documented by: Sodium Chloride (Sodium Chloride Flush 0.9% 10 Ml Syringe) 10 ml IVP 0100,0900,1700 [facility] Last Admin: 12/26/20 00:51 Dose: Not Given Documented by: Aspirin EC [Ecotrin] 81 mg PO DAILY 04/02/20 Ferrous Sulfate 325 mg PO DAILY 04/02/20 Acetaminophen [Tylenol] 650 mg PO Q4HR PRN 11/11/20 Objective - Vital Signs/Intake & Output Reviewed Vital Signs: Yes Vital Signs: Vital Signs x48h Temp Pulse Resp BP Pulse Ox 12/26/20 00:31 36.8 C 60 16 169/71 H 97 Intake & Output: Intake & Output 12/23/20 12/24/20 12/25/20 12/26/20 23:59 23:59 23:59 23:59 Intake Total 2772.917 4301.667 3135.416 160.417 Output Total 7704 079 7970 Balance 4352.349 7347.667 -64.584 160.417 - Objective General Appearance: positive: No acute distress, Alert Eyes Bilateral: positive: Normal inspection, Conjunctivae nml ENT: positive: ENT inspection nml Neck: positive: Nml inspection Respiratory: positive: No respiratory distress. negative: Wheezes, Rales Cardiovascular: positive: Regular rate & rhythm, Systolic murmur. negative: Irregularly irregular, Tachycardia Abdomen: positive: Non-tender, Nml bowel sounds, No distention, Other (Dressing in place over the right upper quadrant.). negative: Tenderness Extremities: positive: No pedal edema - Lab Results Fish Bones: 12/21/20 16:11 12/21/20 16:33 ABX Reporting Has patient been on IV antibiotics over the past 48 hours?: No Assessment/Plan - Problem List (1) Hypertension Impression: Her blood pressure is improved but still remains elevated with systolics in the 150s to 160s. At this time, we will continue metoprolol and continue the current dose of lisinopril. She will need outpatient follow-up with her primary care provider and the dose of lisinopril can be titrated on an outpatient basis. We discussed this plan and she is agreeable to it. Qualifiers: (2) Bowel obstruction Impression: Clinically this appears to have resolved. This is secondary to anastomotic stricture and she underwent dilation with general surgery yesterday. Management as per primary service. Qualifiers: Intestinal obstruction type: unspecified Intestinal obstruction extent: unspecified extent Qualified Code(s): K56.609 - Unspecified intestinal obstruc tion, unspecified as to partial versus complete obstruction (3) COPD (chronic obstructive pulmonary disease) Impression: This is not in exacerbation. Continue her home inhalers. We discussed the importance of maintenance therapy to prevent a COPD exacerbation and I will ensure that she has a prescription on discharge for all of her inhalers. Qualifiers: COPD type: emphysema (4) Aortic stenosis Impression: Stable. Continue outpatient follow-up.
[2020-12-26] MEDS: MULTIVITAMIN W/MINERALS TABLET PO SCH (08:28)
[2020-12-26] MEDS: FERROUS SULFATE 325 MG TABLET PO SCH (08:28)
[2020-12-26] MEDS: CHOLECALCIFEROL 5,000 UNIT CAPSULE PO SCH (08:28)
[2020-12-26] MEDS: METOPROLOL TARTRATE 50 MG TABLET PO SCH ×2 (08:28→20:59)
[2020-12-26] MEDS: lisinopriL 5 MG TABLET PO SCH (08:28)
[2020-12-26] MEDS: FAMOTIDINE 20 MG TABLET PO SCH ×2 (08:31→20:57)
[2020-12-26] MEDS: HEPARIN 5,000 UNIT/ML VIAL SUBQ SCH ×2 (08:33→20:59)
[2020-12-26] MEDS: BUDESONIDE 0.5 MG/2 ML NEB INH SCH ×2 (10:17→19:30)
--- NOTE | 2020-12-27 08:09 | PROVIDER PROGRESS NOTE ---
Subjective - Prog Note Date Prog Note Date: 12/27/20 - Subjective Subjective: She is doing quite well. Tolerating dinner and breakfast with no difficulties. Denies abdominal pain, nausea, vomiting. She did have a bowel movement. Current Medications - Current Medications Current Medications: Active Medications Acetaminophen (Acetaminophen 325 Mg Tablet) 650 mg PO Q4HR PRN PRN Reason: PRN PAIN &/OR FEVER Al Hydroxide/Mg Hydroxide (Mag Hydrox/Al Hydrox/Simeth 30 Ml Udc) 30 ml PO Q4HR PRN PRN Reason: INDIGESTION Last Admin: 12/24/20 19:47 Dose: 30 ml Documented by: Albuterol (Albuterol Neb 2.5 Mg/3 Ml) 2.5 mg INH RTQ4H PRN PRN Reason: Wheezing Albuterol/Ipratropium (Ipratropium/Albuterol 3 Ml Neb) 3 ml INH Q4HR PRN PRN Reason: Wheezing Albuterol/Ipratropium (Ipratropium/Albuterol 3 Ml Neb) 3 ml INH RTQID [facility] Last Admin: 12/26/20 19:30 Dose: 3 ml Documented by: Budesonide (Budesonide 0.5 Mg/2 Ml Neb) 0.5 mg INH RTBID [facility] Last Admin: 12/26/20 19:30 Dose: 0.5 mg Documented by: Cholecalciferol (Cholecalciferol 5,000 Unit Capsule) 5,000 unit PO DAILY [facility] Last Admin: 12/26/20 08:28 Dose: 5,000 unit Documented by: Famotidine (Famotidine 20 Mg Tablet) 20 mg PO BID [facility] Last Admin: 12/26/20 20:57 Dose: 20 mg Documented by: Ferrous Sulfate (Ferrous Sulfate 325 Mg Tablet) 325 mg PO DAILY [facility] Last Admin: 12/26/20 08:28 Dose: 325 mg Documented by: Heparin Sodium (Porcine) (Heparin 5,000 Unit/Ml Vial) 5,000 unit SUBQ BID [facility] Last Admin: 12/26/20 20:59 Dose: Not Given Documented by: Hydromorphone HCl (Hydromorphone 0.5 Mg/0.5 Ml Syringe) 0.5 mg IVP Q2H PRN PRN Reason: Pain 8 to 10 Lisinopril (Lisinopril 5 Mg Tablet) 10 mg PO DAILY [facility] Last Admin: 12/26/20 08:28 Dose: 10 mg Documented by: Metoprolol Tartrate (Metoprolol Tartrate 50 Mg Tablet) 50 mg PO BID [facility] Last Admin: 12/26/20 20:59 Dose: Not Given Documented by: Morphine Sulfate (Morphine 2 Mg/Ml Carpuject) 2 mg IVP Q2HR PRN PRN Reason: Pain 8 to 10 Multivitamins/Minerals (Multivitamin W/Minerals Tablet) 1 tab PO DAILYWM [facility] Last Admin: 12/26/20 08:28 Dose: 1 tab Documented by: Ondansetron HCl (Ondansetron Odt 4 Mg Tablet) 4 mg TL Q6HR PRN PRN Reason: Nausea / Vomiting Ondansetron HCl (Ondansetron 4 Mg/2 Ml Vial) 4 mg IVP Q6HR PRN PRN Reason: Nausea / Vomiting Last Admin: 12/23/20 04:46 Dose: 4 mg Documented by: Prochlorperazine Edisylate (Prochlorperazine 10 Mg/2 Ml Vial) 10 mg IVP Q6HR PRN PRN Reason: Nausea / Vomiting Last Admin: 12/22/20 01:44 Dose: 10 mg Documented by: Sodium Chloride (Sodium Chloride Flush 0.9% 10 Ml Syringe) 10 ml IVP PRN PRN PRN Reason: NEEDED PER PROVIDER ORDERS Last Admin: 12/22/20 05:19 Dose: 10 ml Documented by: Sodium Chloride (Sodium Chloride Flush 0.9% 10 Ml Syringe) 10 ml IVP 0100,0900 ,1700 [facility] Last Admin: 12/26/20 23:39 Dose: 10 ml Documented by: Aspirin EC [Ecotrin] 81 mg PO DAILY 04/02/20 Ferrous Sulfate 325 mg PO DAILY 04/02/20 Acetaminophen [Tylenol] 650 mg PO Q4HR PRN 11/11/20 Objective - Vital Signs/Intake & Output Reviewed Vital Signs: Yes Intake & Output: Intake & Output 12/24/20 12/25/20 12/26/20 12/27/20 23:59 23:59 23:59 23:59 Intake Total 4301.667 3135.416 3902.251 Output Total 900 3200 350 Balance 3401.667 -64.584 3552.251 - Objective General Appearance: positive: No acute distress, Alert Eyes Bilateral: positive: Normal inspection, Conjunctivae nml ENT: positive: ENT inspection nml Neck: positive: Nml inspection Respiratory: positive: No respiratory distress. negative: Wheezes, Rales Cardiovascular: positive: Regular rate & rhythm, Systolic murmur. negative: No murmur, Tachycardia Abdomen: positive: Non-tender, No distention. negative: Tenderness Skin: positive: Warm, Dry Extremities: positive: No pedal edema - Lab Results Fish Bones: 12/21/20 16:11 12/21/20 16:33 Assessment/Plan - Problem List (1) Hypertension Impression: Her blood pressure is much improved on lisinopril and metoprolol. Her systolics are in the 130s. I have asked her to continue metoprolol and have written a prescription to [facility] for the lisinopril. Qualifiers: (2) COPD (chronic obstructive pulmonary disease) Impression: Stable. We discussed maintenance inhaler therapy and I will write a prescription for umeclidinium. I am writing her prescription for nebulizer to help administer a bronchodilator to help treat her underlying COPD. Qualifiers: COPD type: emphysema (3) Aortic stenosis Impression: Stable. She can continue outpatient follow-up. (4) Bowel obstruction Impression: Has resolved. Will defer to general surgery regarding discharge. Qualifiers: Intestinal obstruction type: unspecified Intestinal obstruction extent: unspecified extent Qualified Code(s): K56.609 - Unspecified intestinal obstruction, unspecified as to partial versus complete obstruction
[2020-12-27] MEDS: METOPROLOL TARTRATE 50 MG TABLET PO SCH (09:01)
[2020-12-27] MEDS: MULTIVITAMIN W/MINERALS TABLET PO SCH (09:01)
[2020-12-27] MEDS: lisinopriL 5 MG TABLET PO SCH (09:01)
[2020-12-27] MEDS: CHOLECALCIFEROL 5,000 UNIT CAPSULE PO SCH (09:01)
[2020-12-27] MEDS: HEPARIN 5,000 UNIT/ML VIAL SUBQ SCH (09:02)
[2020-12-27] MEDS: FAMOTIDINE 20 MG TABLET PO SCH (09:02)
[2020-12-27] MEDS: SODIUM CHLORIDE FLUSH 0.9% 10 ML SYRINGE IVP SCH (09:02)
[2020-12-27] MEDS: FERROUS SULFATE 325 MG TABLET PO SCH (09:02)
--- NOTE | 2020-12-27 10:36 | PROVIDER PROGRESS NOTE ---
Progress Note Subjective Status post pneumatic dilation through the scope. Positive bowel function. Tolerating diet. Objective Afebrile hemodynamically acceptable General Appearance: positive: No acute distress Eyes Bilateral: positive: Normal inspection ENT: positive: ENT inspection nml Neck: positive: Nml inspection Respiratory: positive: Chest non-tender, No respiratory distress, Breath sounds nml. negative: Wheezes, Rales, Rhonchi Cardiovascular: positive: Regular rate & rhythm Abdomen: positive: No distention, Other. negative: Guarding, Rebound Extremities: positive: Non-tender, Full ROM, Nml appearance Neurologic/Psychiatric: positive: Oriented x3, CN's nml (2-12) Impression/Plan 70-year-old female with historic LAR and proximal diversion who was preoperatively dilated for anastomotic stricture short segment prior to ileostomy takedown. Patient presents with small bowel obstruction secondary to recurrent stricture. Would advance diet. Plan outpatient follow-up. Would recommend repeat endoscopic evaluation with possible dilation in 3 months. Foll ow-up on pathology to assure no signs of ischemia. This is likely secondary to chronic inflammatory changes as there is no indication of mucosal ischemia grossly. Easily dilated without any complication. Short stricture. Likely discharge in the next 24 to 48 hours.
[2020-12-27] MEDS: IPRATROPIUM/ALBUTEROL 3 ML NEB INH SCH ×2 (11:20)
[2020-12-27] MEDS: BUDESONIDE 0.5 MG/2 ML NEB INH SCH (11:20)
[2020-12-27 16:20] VITALS: BP 160/61
--- NOTE | 2020-12-27 16:53 | Discharge Plan ---
Discharge Plan Problem Reviewed?: Yes Disposition: Home, Self Care Condition: Good Prescriptions: Albuterol 2.5 mg INH Q4H PRN #30 ml PRN Reason: Wheezing Umeclidinium [place] [Incruse Ellipta] 62.5 mcg IH DAILY #3 inhaler lisinopriL [Lisinopril] 10 mg PO DAILY #30 tablet Diet: Soft Activity Restrictions: No Restrictions Shower Restrictions: No Driving Restrictions: No Instruction Topics: Obstruction Large Bowel, Obstruction Sm Bowel Assessment: DISCHARGE INSTRUCTIONS TEMPLATE: No heavy lifting, pushing, or pulling. Stairs are allowed, no strenuous/exertional activities. 5-10lbs weight carrying limit (i.e. gallon of milk) If provided, abdominal binder while out of bed and while ambulating. Call or proceed to clinic/ER for fevers, severe pain, nausea, vomiting, inability to pass flatus/stool, bleeding, wound redness/discharge, weakness, excessively loose stool/diarrhea, or for any other reasonably worrisome symptom or concern. Soft diet, no raw vegetables, avoid high fiber foods. Colace 100mg by mouth twice to three times daily while taking narcotic pain medication. If no bowel movement in 24-48hr, may take 17g Miralax in 8oz water twice daily until bowel movement. May shower, no submersive bathing. Follow up in clinic in 2-4 weeks for wound check and staple removal. No driving while taking narcotic pain medications. Follow up with primary care provider and/or medical subspecialist following discharge as well. Patient not allowed to drive self today or within 24 hours of surgery. No Smoking: If you smoke, Please STOP! Call for help. Follow-up with: Rachell Seo MD [Primary Care Provider] - Natan Muniz MD [Provider Admit Priv/Credential] - 2 Weeks
--- NOTE | 2020-12-27 16:56 | DISCHARGE SUMMARY ---
"Discharge Summary Admit Date: 12/21/20 Discharge Date: 01/27/21 Discharging Provider: Cristy Code Status: Attempt Resuscitation Condition at Discharge: Good Discharge Disposition: 01 Home, Self Care - DIAGNOSES Admission Diagnoses: 1. History of colectomy 2. History of diverting loop ileostomy 3. History of anastomotic stricture 4. Small bowel obstruction 5. Large bowel obstruction 6. Obstipation 7. Hypertension Discharge Diagnoses with Status of Each Condition: 1. History of colectomy - STABLE 2. History of diverting loop ileostomy - STABLE 3. History of anastomotic stricture - TREATED/RESOLVED 4. Small bowel obstruction - TREATED/RESOLVED 5. Large bowel obstruction - TREATED/RESOLVED 6. Obstipation - TREATED/RESOLVED 7. Hypertension - TREATED/RESOLVED - HPI History of Present Illness: 70-year-old female with history of low anterior resection proximally diverted with loop ileostomy. Status post takedown following endoscopic through the scope dilation. Three days of progressive constipation type symptoms and then nausea/ vomiting, burping. Has not passed gas/ flatus or bm for 3 days. History recent surgery/colectomy for diverticular disease. Minimal to no abdominal pain currently. Known anastomotic stricture historically dilated [id number] pneumatically. Presenting with small bowel obstruction with likely etiology secondary to recurrent stricture. - CONSULTS | PROCEDURES Consultations: Colorectal Surgery; Hospitalist consultation Procedures: Patient status post therapeutic colonoscopy with pneumatic dilatation of the coloproctostomy. Findings are as follows: 1. 3 mm [place] orifice with extensive scar tissue. 2. Dilated sequentially using gastroscope and urzwhik-wae-nmjep pneumatic dilator with guidewire starting from 8 mm to 12 mm, thereafter 15 mm to 18 mm. 3. At this time we were able to traverse the [place] proctostomy anastomosis without any complication using the gastroscope and were able to achieve the terminal ileum without having to exchange for a colonoscope. 4. Terminal ileum was intubated without any complication. 5. Appropriate prep 6. Ileocecal valve achieved as evidenced by the appendiceal orifice both photographed. 7. Terminal ileum intubated with no enteritis. 8. Cecum without cecitis. The entirety of the colon was out colitis. No diverticulosis or diverticulitis. 9. Careful slow withdrawal with ascending and descending segmental colitis randomly biopsied cold forceps. 10. Patient with patent anastomosis ultimately dilated [id number] with 18 to 20 mm pneumatic dilator without any complication. 11. Multiple biopsies taken of the anastomosis cold for biopsy. 12. Inernal hemorrhoids nonbleeding. - HOSPITAL COURSE Hospital Course: 70-year-old female patient admitted to surgical service for bowel obstruction. Bowel rest. Underwent colonoscopy which revealed recurrent anastomotic stricture. Colorectal surgery was consulted having evaluated the patient historically for anastomotic stricture. Patient underwent pneumatic zcpsvmy-fmn-ergkz dilation successfully. Patient was notable for 2 areas of colitis for which biopsies were taken throughout the colon and noncontinuous regions. Patient thereafter was advanced for diet without any complication. Patient was noted for hypertension which was managed by the hospital service through consultation. Lisinopril added in addition to the metoprolol. We will adjust the dose based off of her blood pressure throughout this hospitalization. Although she has very faint expiratory wheezes, her COPD is stable and not in exacerbation. Agree with continuing her home inhalers. She was plan for follow-up with primary care. She was resolved for her obstruction. Would follow-up with pathology. Patient was advised to proceed with a soft diet. She was stable from a hemodynamic and surgical standpoint to be discharged. - ALLERGIES Allergies/Adverse Reactions: Allergies Allergy/AdvReac Type Severity Reaction Status Date / Time Penicillins Allergy Nausea Verified 12/21/20 15:18 - MEDICATIONS Home Medications: Ambulatory Orders Medication Instructions Recorded Confirmed Aspirin EC [Ecotrin] 81 mg PO DAILY 04/02/20 12/21/20 Ferrous Sulfate 325 mg PO DAILY 04/02/20 12/21/20 Metoprolol Tartrate [Lopressor] 50 mg PO BID tablet 04/11/20 12/21/20 Cholecalciferol [Vitamin D3] 5,000 unit PO DAILY 11/01/20 12/21/20 Multivitamin W/Minerals [Theragran 1 tab PO DAILYWM tablet 11/01/20 12/21/20 M] Acetaminophen [Tylenol] 650 mg PO Q4HR PRN 11/11/20 12/21/20 Albuterol 2.5 mg INH Q4H PRN #30 ml 12/27/20 Umeclidinium [place] [Incruse 62.5 mcg IH DAILY #3 inhaler 12/27/20 Ellipta] lisinopriL [Lisinopril] 10 mg PO DAILY #30 tablet 12/27/20 Albuterol 2.5 mg INH Q4H PRN #30 ml 12/28/20 Umeclidinium [place] [Incruse 62.5 mcg IH DAILY #30 gm 12/28/20 Ellipta] - PHYSICAL EXAM AT DISCHARGE Physical Exam Other/Comments: Patient alert awake and oriented x3 No acute distress resting comfortably in bed Lungs clear to auscultation bilaterally no wheezes rales or rhonchi Radial pulses palpable bilaterally with good capillary refill Abdomen soft nontender nondistended no rebound no guarding Moving all extremities with no sensorimotor deficits Cranial nerves II through XII grossly intact - LABS Result Diagrams: 12/21/20 16:11 12/21/20 16:33 - SEPSIS Current Stage of Sepsis: Ruled out - FOLLOW UP Follow Up: With general surgery myself Dr. Natan Muniz colorectal surgery in 2 weeks. - TIME SPENT Time Spent in Discharge (Minutes): 60"
== END 2020-12-27 17:30 | disposition home or self-care (01) | DRG 390 ==
LOC: ED 15:12 → MS2 18:43
PROVIDERS: ADMIT Surgery; ATTEND Surgery
PROC: 0DJD8ZZ Inspection of Lower Intestinal Tract, Via Natural or Artificial Opening Endoscopic (ICD-10-PCS; principal; 2020-12-24 14:30)
PROC: 0D7P8ZZ Dilation of Rectum, Via Natural or Artificial Opening Endoscopic (ICD-10-PCS; 2020-12-25)
PROC: 0DBK8ZX Excision of Ascending Colon, Via Natural or Artificial Opening Endoscopic, Diagnostic (ICD-10-PCS; 2020-12-25)
PROC: 0DBE8ZX Excision of Large Intestine, Via Natural or Artificial Opening Endoscopic, Diagnostic (ICD-10-PCS; 2020-12-25)
PROC: 0DBM8ZX Excision of Descending Colon, Via Natural or Artificial Opening Endoscopic, Diagnostic (ICD-10-PCS; 2020-12-25)
DX: K56.609 Unspecified intestinal obstruction, unspecified as to partial versus complete obstruction (principal); K52.9 Noninfective gastroenteritis and colitis, unspecified; I25.2 Old myocardial infarction; Z90.49 Acquired absence of other specified parts of digestive tract; I10 Essential (primary) hypertension; J45.909 Unspecified asthma, uncomplicated; Z20.822 Contact with and (suspected) exposure to COVID-19; Z98.0 Intestinal bypass and anastomosis status; J43.9 Emphysema, unspecified; Z79.82 Long term (current) use of aspirin; Z79.899 Other long term (current) drug therapy; Z87.891 Personal history of nicotine dependence; I16.0 Hypertensive urgency; I35.0 Nonrheumatic aortic (valve) stenosis
CPT/HCPCS: 36415; 74177; 80053; 81001; 83690; 85025; 87631; 94640; 94664; 96374; 96375; 99284; 99285; A9270; J7626; Q9967; 0202U; 81003; 87086

== ENCOUNTER 2021-05-24 04:04 | Outpatient (CLI) | payer MEDICARE, MEDICAID | END 2021-05-24 04:05 | disposition critical access hospital (66) | LOC: EMS 04:04 | DX: R10.10 Upper abdominal pain, unspecified (principal) | CPT/HCPCS: A0425; A0429 ==

== ENCOUNTER 2021-05-24 04:06 | Inpatient (IN) | payer MEDICARE, MEDICAID ==
[2021-05-24] MEDS ORDERED: HYDROmorphone 1 MG/ML CARPUJECT IVP STA ×2 (04:14→04:46)
[2021-05-24] MEDS ORDERED: SODIUM CHLORIDE 0.9% 1,000 ML IV STA (04:15)
[2021-05-24] MEDS ORDERED: FAMOTIDINE 20 MG/2 ML VIAL IVP STA (04:15)
[2021-05-24] MEDS ORDERED: METOPROLOL 5 MG/5 ML VIAL IVP STA (04:18)
[2021-05-24 04:28] LABS: BASOPHILS # (AUTO) 0.1 10^3/uL (0.0-0.1); BASOPHILS % (AUTO) 0.5 %; EOSINOPHILS # (AUTO) 0.1 10^3/uL (0.0-0.7); EOSINOPHILS % (AUTO) 0.4 %; HCT - HEMATOCRIT 41.4 % (37.0-47.0); HGB - HEMOGLOBIN 12.9 g/dL (12.0-16.0); LYMPHOCYTES # (AUTO) 0.8 10^3/uL (1.5-3.5); LYMPHOCYTES % (AUTO) 5.7 %; MEAN CORPUSCULAR HEMOGLOBIN 29.9 pg (27.0-31.0); MEAN CORPUSCULAR HGB CONC 31.2 g/dL (32.0-36.0); MEAN CORPUSCULAR VOLUME 96.1 fL (81.0-99.0); MEAN PLATELET VOLUME 9.8 fL (7.9-10.8); MONOCYTES # (AUTO) 0.3 10^3/uL (0.0-1.0); MONOCYTES % (AUTO) 2.6 %; NEUTROPHILS % (AUTO) 90.5 %; PLT - PLATELET COUNT 232 10^3/uL (130-450); RED BLOOD COUNT 4.31 10^6/uL (4.20-5.40); WHITE BLOOD COUNT 13.2 x10^3/uL (4.8-10.8)
[2021-05-24] MEDS ORDERED: IOVERSOL 320 100 ML VIAL IVP ONE ×2 (04:32→05:35)
[2021-05-24] MEDS ORDERED: KETOROLAC 15 MG/ML VIAL IVP STA (04:46)
--- NOTE | 2021-05-24 04:54 | ED Physician Documentation ---
PD HPI ABD PAIN - Stated complaint Stated Complaint: ABD PX - Chief complaint Chief Complaint: Abd Pain - History obtained from History obtained from: Patient, EMS - History of Present Illness Timing - onset: How many hours ago (4) Timing - duration: Hours (4) Timing - details: Abrupt onset, Still present Quality: Cramping, Aching, Pain Location: Epigastric, Periumbilical Radiation: No: Chest, Lower back Improved by: No: Laying still, Position Worsened by: Moving, Palpation. No: Breathing Associated symptoms: Nausea, Vomiting (bilious 2-3 times). No: Fever, Diarrhea, Constipation, Melena Similar symptoms before: Diagnosis (has had diverticulitis in the past, with perforation and surgery. Then reversal of ileostomy October 2020. Bowel obstruction December 2020 with colonoscopic dilation of anastomotic stricture and improved.) Review of Systems Constitutional: denies: Fever, Chills Nose: denies: Rhinorrhea / runny nose, Congestion Throat: denies: Sore throat Cardiac: denies: Chest pain / pressure Respiratory: denies: Dyspnea, Cough GI: reports: Abdominal Pain (just the past 4 hours) Musculoskeletal: denies: Neck pain, Back pain Neurologic: denies: Near syncope, Syncope, Altered mental status, Headache PD PAST MEDICAL HISTORY - Past Medical History Cardiovascular: Hypertension, [place], Murmur Respiratory: Asthma, COPD, Shortness of breath Neuro: None Endocrine/Autoimmune: None GI: Other NEWS OPERATIONS MANAGER: None : None HEENT: Chronic vision loss, Chronic sinusitis, Chronic hearing loss, Other Psych: Depression Musculoskeletal: Other (kyphosis) Derm: None - Past Surgical History Past Surgical History: Yes General: Appendectomy, Bowel surgery, Colonoscopy Ortho: Arthroscopic surgery /NEWS OPERATIONS MANAGER: Hysterectomy HEENT: Tonsil/Adenoidectomy - Present Medications Home Medications: Ambulatory Orders Medication Instructions Recorded Confirmed Aspirin EC [Ecotrin] 81 mg PO DAILY 04/02/20 12/21/20 Ferrous Sulfate 325 mg PO DAILY 04/02/20 12/21/20 Metoprolol Tartrate [Lopressor] 50 mg PO BID tablet 04/11/20 12/21/20 Cholecalciferol [Vitamin D3] 5,000 unit PO DAILY 11/01/20 12/21/20 Multivitamin W/Minerals [Theragran 1 tab PO DAILYWM tablet 11/01/20 12/21/20 M] Acetaminophen [Tylenol] 650 mg PO Q4HR PRN 11/11/20 12/21/20 Albuterol 2.5 mg INH Q4H PRN #30 ml 12/27/20 Umeclidinium [place] [Incruse 62.5 mcg IH DAILY #3 inhaler 12/27/20 Ellipta] lisinopriL [Lisinopril] 10 mg PO DAILY #30 tablet 12/27/20 Albuterol 2.5 mg INH Q4H PRN #30 ml 12/28/20 Umeclidinium [place] [Incruse 62.5 mcg IH DAILY #30 gm 12/28/20 Ellipta] - Allergies Allergies/Adverse Reactions: Allergies Allergy/AdvReac Type Severity Reaction Status Date / Time Penicillins Allergy Nausea Verified 12/21/20 15:18 - Social History Does the pt smoke?: No Smoking Status: Former smoker Does the pt drink ETOH?: No Does the pt have substance abuse?: No - Immunizations Immunizations are current?: Yes - POLST Patient has POLST: No PD ED PE NORMAL - Vitals Vital signs reviewed: Yes (BP very elevated. HR in good range. ) - General General: Alert and oriented X 3, Well developed/nourished, Other (appears in pain. Holding upper abdomen. ) - HEENT HEENT: Pharynx benign - Neck Neck: Supple, no meningeal sign, No adenopathy - Cardiac Cardiac: RRR, Other (1/6 murmur left chest. ) - Respiratory Respiratory: No respiratory distress, Clear bilaterally - Abdomen Abdomen: Soft, Non distended, Other (Tender upper abd epigastric area with marked local guarding and percussion tenderness. Lower abd not tender. ). No: Normal bowel sounds (increased upper abd.) - Female Female : Deferred - Rectal Rectal: Deferred - Back Back: No CVA TTP - Derm Derm: Normal color, Warm and dry - Extremities Extremities: Normal ROM s pain, No edema, No calf tenderness / cord - Neuro Neuro: Alert and oriented X 3, No motor deficit, Normal speech Results - Vitals Vitals: Vital Signs - 24 hr 05/24/21 05/24/21 05/24/21 04:15 04:23 04:30 Temperature 36.6 C Heart Rate 68 77 70 Respiratory 32 H 23 18 Rate Blood Pressure 232/103 H 232/103 H 220/105 H O2 Saturation 99 94 95 05/24/21 05/24/21 05/24/21 04:33 04:37 04:47 Temperature Heart Rate 68 69 72 Respiratory 18 18 18 Rate Blood Pressure 221/90 H 220/105 H 228/93 H O2 Saturation 95 05/24/21 05/24/21 06:20 07:27 Temperature Heart Rate 61 61 Respiratory 17 18 Rate Blood Pressure 227/92 H O2 Saturation 94 Oxygen O2 Source Nasal cannula - EKG (time done) 04:10 Rate: Rate (enter#) (68) Rhythm: NSR Intervals: RBBB QRS: Normal Ischemia: Normal ST segments, Non specific changes Compare to prior EKG: Unchanged from prior EKG (October 2020) - Labs Labs: Laboratory Tests 05/24/21 05/24/21 05/24/21 04:20 04:20 04:20 WBC 13.2 H RBC 4.31 Hgb 12.9 Hct 41.4 MCV 96.1 MCH 29.9 MCHC 31.2 L RDW 13.0 Plt Count 232 MPV 9.8 Neut # (Auto) 12.0 H Lymph # (Auto) 0.8 L [place] # (Auto) 0.3 Eos # (Auto) 0.1 Baso # (Auto) 0.1 Absolute Nucleated RBC 0.00 Nucleated RBC % 0.0 Sodium 135 Potassium 4.4 Chloride 99 L Carbon Dioxide 23 Anion Gap 13.0 BUN 23 H Creatinine 0.9 Estimated GFR (MDRD) 62 L Glucose 196 H Calcium 9.0 Magnesium 1.7 Total Bilirubin 0.9 AST 26 ALT 20 Alkaline Phosphatase 77 Troponin I High Sens 7.5 Total Protein 6.8 Albumin 3.9 Globulin 2.9 Albumin/Globulin Ratio 1.3 Lipase 32 Urine Color Urine Clarity Urine pH Ur Specific [place] Urine Protein Urine Glucose (UA) Urine Ketones Urine Occult Blood Urine Nitrite Urine Bilirubin Urine Urobilinogen Ur Leukocyte Esterase Ur Microscopic Review Urine Culture Comments Nasal Adenovirus (PCR) Nasal B. parapertussis DNA (PCR) Nasal Coronavir 229E PCR Nasal Coronavir HKU1 PCR Nasal Coronavir NL63 PCR Nasal Coronavir OC43 PCR Nasal Enterovir/Rhinovir PCR Nasal Influenza B PCR Nasal Influenza A PCR Nasal Parainfluen 1 PCR Nasal Parainfluen 2 PCR Nasal Parainfluen 3 PCR Nasal Parainfluen 4 PCR Nasal RSV (PCR) Nasal B.pertussis DNA PCR Nasal C.pneumoniae (PCR) [place] Human Metapneumo PCR Nasal M.pneumoniae (PCR) Nasal SARS-CoV-2 (PCR) 05/24/21 05/24/21 06:08 07:19 WBC RBC Hgb Hct MCV MCH MCHC RDW Plt Count MPV Neut # (Auto) Lymph # (Auto) [place] # (Auto) Eos # (Auto) Baso # (Auto) Absolute Nucleated RBC Nucleated RBC % Sodium Potassium Chloride Carbon Dioxide Anion Gap BUN Creatinine Estimated GFR (MDRD) Glucose Calcium Magnesium Total Bilirubin AST ALT Alkaline Phosphatase Troponin I High Sens Total Protein Albumin Globulin Albumin/Globulin Ratio Lipase Urine Color YELLOW Urine Clarity CLEAR Urine pH 6.0 Ur Specific [place] 1.015 Urine Protein NEGATIVE Urine Glucose (UA) 100 H Urine Ketones TRACE Urine Occult Blood NEGATIVE Urine Nitrite NEGATIVE Urine Bilirubin NEGATIVE Urine Urobilinogen 0.2 (NORMAL) Ur Leukocyte Esterase NEGATIVE Ur Microscopic Review NOT INDICATED Urine Culture Comments NOT INDICATED Nasal Adenovirus (PCR) NOT DETECTED Nasal B. parapertussis DNA (PCR) NOT DETECTED Nasal Coronavir 229E PCR NOT DETECTED Nasal Coronavir HKU1 PCR NOT DETECTED Nasal Coronavir NL63 PCR NOT DETECTED Nasal Coronavir OC43 PCR NOT DETECTED Nasal Enterovir/Rhinovir PCR NOT DETECTED Nasal Influenza B PCR NOT DETECTED Nasal Influenza A PCR NOT DETECTED Nasal Parainfluen 1 PCR NOT DETECTED Nasal Parainfluen 2 PCR NOT DETECTED Nasal Parainfluen 3 PCR NOT DETECTED Nasal Parainfluen 4 PCR NOT DETECTED Nasal RSV (PCR) NOT DETECTED Nasal B.pertussis DNA PCR NOT DETECTED Nasal C.pneumoniae (PCR) NOT DETECTED [place] Human Metapneumo PCR NOT DETECTED Nasal M.pneumoniae (PCR) NOT DETECTED Nasal SARS-CoV-2 (PCR) NOT DETECTED - Rads (name of study) abd/pelvic CT Radiology: Prelim report reviewed (High grade small bowel obstruction with decompression of the small bowel loops both proximal and distl to the point of obstruction, suspicious for a closed loop obstruction. Thickening of the involved intestinal wall. no perforation nor pneumatosis. ), See rad report PD MEDICAL DECISION MAKING - ED course Complexity details: reviewed old records (prior colon surgery and SBO/LBO. No prior aneurysms. ), re-evaluated patient (pain improved with IV pain meds and fluids. drying machine back tender mid to upper abd. ), considered differential, d/w patient ED course: Talked with Dr. Mary who is on-call for surgery and will come and see the patient in the ER prior to his colonoscopy scheduled this morning. Was given over to the oncoming ER physician at change of shift. Patient is appearing more comfortable now without any notable belly pain right now and no vomiting for the last several of hours. Departure - Departure Disposition: ED Place in Observation Clinical Impression: History of reversal of ileostomy, Small bowel obstruction Abdominal pain Qualifiers: Abdominal location: generalized Qualified Code(s): R10.84 - Generalized abdominal pain Vomiting Qualifiers: Vomiting type: bilious vomiting Nausea presence: without nausea Qualified Code(s): R11.14 - Bilious vomiting Condition: Stable Record reviewed to determine appropriate education?: Yes
[2021-05-24 04:56] LABS: ALBUMIN 3.9 g/dL (3.2-5.5); ALBUMIN/GLOBULIN RATIO 1.3 (1.0-2.2); BILIRUBIN,TOTAL 0.9 mg/dL (0.2-1.0); CREATININE 0.9 mg/dL (0.4-1.0); MAGNESIUM 1.7 mg/dL (1.7-2.8); POTASSIUM 4.4 mmol/L (3.5-5.0); TOTAL PROTEIN 6.8 g/dL (6.7-8.2)
[2021-05-24 07:07] LABS: B. PARAPERTUSSIS- RESP PCR PAN NOT DETECTED; B. PERTUSSIS- RESP PCR PANEL NOT DETECTED; C. PNEUMONIAE- RESP PCR PANEL NOT DETECTED; CORONAVIRUS 229E-RESP PCR NOT DETECTED; CORONAVIRUS HKU1-RESP PCR NOT DETECTED; CORONAVIRUS NL63-RESP PCR NOT DETECTED; CORONAVIRUS OC43-RESP PCR NOT DETECTED; HUMAN METAPNEUMOVIRUS NOT DETECTED; INFLUENZA A- RESP PCR PANEL NOT DETECTED; INFLUENZA B - RESP PCR PANEL NOT DETECTED; M. PNEUMONIAE- RESP PCR PANEL NOT DETECTED; PARAINFLUENZA VIRUS 1 NOT DETECTED; PARAINFLUENZA VIRUS 2 NOT DETECTED; PARAINFLUENZA VIRUS 3 NOT DETECTED; PARAINFLUENZA VIRUS 4 NOT DETECTED; RHINOVIRUS/ENTEROVIRUS NOT DETECTED; RSV- RESP PCR PANEL NOT DETECTED; SARS-CoV-2 -RESP PCR PANEL NOT DETECTED
[2021-05-24 07:29] LABS: BILIRUBIN,URINE NEGATIVE (NEGATIVE); GLUCOSE, URINE (UA) 100 mg/dL (NEGATIVE); KETONES,URINE (UA) TRACE mg/dL (NEGATIVE); LEUKOCYTE ESTERASE, URINE NEGATIVE (NEGATIVE); NITRITE,URINE NEGATIVE (NEGATIVE); OCCULT BLOOD,URINE NEGATIVE (NEGATIVE); PROTEIN,URINE NEGATIVE (NEGATIVE); UROBILINOGEN,URINE 0.2 (NORMAL) E.U./dL (NORMAL)
[2021-05-24 07:33] LABS: CLARITY,URINE CLEAR (CLEAR)
--- NOTE | 2021-05-24 07:41 | ED Physician Documentation ---
ED Addendum - Addendum Addendum: 05/24/21 07:[address] De Dios at shift change. Briefly this is a 71-year-old woman who had perforated diverticulitis and subsequently required an ileostomy and reversal. Then developed a bowel obstruction which responded to dilatation via colonoscopy, now with recurrent bowel obstruction. The on-call surgeon, Dr. Mary came down to the department to discuss the case, cannot see the patient now as he is going to a procedure but opines the patient may need to be tr ansferred due to the paraesophageal hernia. Asked him to please see the patient after his procedure. 05/24/21 09:[address] Mary who reported to me that he recommended surgery to the patient who is considering but will write admit orders in the meantime. Disposition: Inpatient admission Condition: Guarded Diagnoses: 1. Small bowel obstruction 2. Paraesophageal hernia
--- NOTE | 2021-05-24 08:25 | CT Report ---
PROCEDURE: Abdomen/Pelvis W INDICATIONS: Abdominal pain, acute, nonlocalized CONTRAST: IV CONTRAST: Optiray 320 ml: 100 PO CONTRAST: *NO PO CONTRAST TECHNIQUE: After the administration of intravenous contrast, 5 mm thick sections acquired from the diaphragms to the symphysis. 5 mm thick coronal and sagittal reformats were acquired. For radiation dose reducti on, the following was used: automated exposure control, adjustment of mA and/or kV according to veto ent size. COMPARISON: December 21, 2020. FINDINGS: Inferior chest: Left basilar density, which may reflect plate atelectasis. Faint reticulonodular den sities in the right lung base, which may reflect postinfectious or pulmonary process. No cardiomegaly or pericardial effusion. Persistent large hiatal hernia, which contains portions of the colon and s tomach. Gallbladder: The gallbladder is distended with a smooth thin wall. Biliary tree: No intrahepatic biliary duct dilatation. Liver: The liver demonstrates normal enhancement, size, and contour. Spleen: Normal enhancement, size and morphology is seen. Pancreas: Normal morphology without masses or inflammatory changes. Adrenals: Fullness of the left adrenal gland, which may reflect hyperplasia. The right adrenal gland is unremarkable. Kidneys/ureters: Normal size and morphology. No solid masses or hydronephrosis. Vasculature: No evidence of aneurysm or other significant vascular pathology. Lymphatic system: No pathologic enlargement by size criteria. GI/mesentery: Dilatation of the small bowel, measuring up to 4.6 cm, with wall thickening, concerning for an infectious or inflammatory process. A right lower quadrant anastomosis is seen. A few scatter ed colonic diverticula are noted. Peritoneum/Retroperitoneum: No free intraperitoneal gas. Small amount of fluid in the abdomen/pelvis, and may be reactive. Urinary bladder: The urinary bladder is distended with a smooth thin wall. Pelvic organs: The uterus appears surgically absent. Bones/soft tissues: No significant abnormality. Multifocal degenerative change. Small fat-containing ventral hernia. IMPRESSION: 1.Left basilar atelectasis and right base reticulonodular densities. 2.Persistent large hiatal hernia as detailed above. 3.Dilatation of the small bowel with wall thickening, most consistent with an infectious or infiltrat kiley process, causing partial obstruction. An ischemic process cannot be excluded. Concordant interpretation with preliminary report. Reviewed by: Manny Shaver MD on 05/24/2021 8:24 AM PDT Approved by: Manny Shaver MD on 05/24/2021 8:24 AM PDT Station ID: [id number]
[2021-05-24] MEDS ORDERED: SODIUM CHLORIDE FLUSH 0.9% 10 ML SYRINGE IVP PRN (08:41)
[2021-05-24] MEDS ORDERED: ONDANSETRON ODT 4 MG TABLET TL PRN (08:41)
[2021-05-24] MEDS ORDERED: ONDANSETRON 4 MG/2 ML VIAL IVP PRN ×2 (08:41→12:58)
[2021-05-24] MEDS: LACTATED RINGERS 1,000 ML IV SCH ×2 (11:21→21:39)
[2021-05-24] MEDS: SODIUM CHLORIDE FLUSH 0.9% 10 ML SYRINGE IVP SCH ×2 (11:23→17:21)
--- NOTE | 2021-05-24 12:41 | HISTORY & PHYSICAL EXAMINATION ---
Chief Complaint - Chief Complaint Chief Complaint: acute onset abdominal pain last pm History of Present Illness - Admitted From Admitted From:: ed - History Obtained From Records Reviewed: yes History obtained from: pt Exam Limitations: none - History of Present Illness HPI Comment/Other: Acute onset abdominal pain last pm. History colectomy for diverticulitis with ileostomy and later ileostomy reversal. 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 Social History Notes: She has lived in [facility] for over 30 years. 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 She smoked a couple packs a day on and off for about 15 to 20 years but quit over 20 years ago. - POLST Patient has POLST: No Meds/Allgy - Home Medications Home Medications: Ambulatory Orders Medication Instructions Recorded Confirmed Aspirin EC [Ecotrin] 81 mg PO DAILY 04/02/20 12/21/20 Ferrous Sulfate 325 mg PO DAILY 04/02/20 12/21/20 Metoprolol Tartrate [Lopressor] 50 mg PO BID tablet 04/11/20 12/21/20 Cholecalciferol [Vitamin D3] 5,000 unit PO DAILY 11/01/20 12/21/20 Multivitamin W/Minerals [Theragran 1 tab PO DAILYWM tablet 11/01/20 12/21/20 M] Acetaminophen [Tylenol] 650 mg PO Q4HR PRN 11/11/20 12/21/20 Albuterol 2.5 mg INH Q4H PRN #30 ml 12/27/20 Umeclidinium [place] [Incruse 62.5 mcg IH DAILY #3 inhaler 12/27/20 Ellipta] lisinopriL [Lisinopril] 10 mg PO DAILY #30 tablet 12/27/20 Albuterol 2.5 mg INH Q4H PRN #30 ml 12/28/20 Umeclidinium [place] [Incruse 62.5 mcg IH DAILY #30 gm 12/28/20 Ellipta] - Allergies Allergies/Adverse Reactions: Allergies Allergy/AdvReac Type Severity Reaction Status Date / Time Penicillins Allergy Nausea Verified 12/21/20 15:18 Review of Systems - Other Findings Other Findings: 10 pt ros as above otherwise unremarkable Exam - Vital Signs Reviewed Vital Signs: Yes Vital Signs: Vital Signs x48h Temp Pulse Pulse Resp BP BP Pulse Ox 05/24/21 10:18 36.6 C 66 16 222/82 H 98 05/24/21 08:46 65 22 167/103 H 97 05/24/21 08:45 65 21 225/87 H 97 05/24/21 07:27 61 18 94 05/24/21 07:00 66 21 230/88 H 98 05/24/21 06:20 61 17 227/92 H 05/24/21 04:47 72 18 228/93 H - Physical Exam General Appearance: positive: Alert, Mild distress Eyes Bilateral: positive: PERRL, EOMI ENT: positive: No signs of dehydration Neck: positive: No JVD Respiratory: positive: No respiratory distress, Breath sounds nml Cardiovascular: positive: Regular rate & rhythm Abdomen: positive: Other (tender firm lower abdomen upper abdomen soft without peritoneal signs) Neurologic/Psychiatric: positive: Oriented x3 Conclusion/Plan - Problem List (1) Small bowel obstruction Conclusion/Plan: she has a serious small bowel obstruction and possible small bowel ischemia. parq held and consent obtained for exploratory laparotomy with possible bowel resection. - Lab Results Fish Bones: 05/24/21 04:20 05/24/21 04:20 - Diagnostic Imaging Results Diagnostic Imaging Results: positive: Final report reviewed, Read independently (closed loop small bowel obstruction in pelvis. very large paraesophageal hernia with entire stomach and portion colon)
[2021-05-24] MEDS ORDERED: MORPHINE 2 MG/ML CARPUJECT IVP PRN (12:58)
[2021-05-24] MEDS ORDERED: fentaNYL 100 MCG/2 ML VIAL IVP PRN (12:58)
[2021-05-24] MEDS ORDERED: NALOXONE 0.4 MG/ML VIAL IVP PRN (12:58)
[2021-05-24] MEDS ORDERED: HYDROmorphone 0.5 MG/0.5 ML SYRINGE IVP PRN ×2 (12:58→16:22)
[2021-05-24] MEDS ORDERED: ePHEDrine 50 MG/ML VIAL IVP PRN (12:58)
[2021-05-24] MEDS ORDERED: METOCLOPRAMIDE 10 MG/2 ML VIAL IVP PRN (12:58)
[2021-05-24] MEDS ORDERED: ATROPINE ABBOJECT 1 MG/10 ML SYRINGE IVP PRN (12:58)
--- NOTE | 2021-05-24 12:58 | ANESTHESIA ---
Pre-Anesthesia VS, & Labs - Diagnosis SBO - Procedure exploratory laparotomy Vital Signs: Temp Pulse Resp BP Pulse Ox 36.6 C 66 16 222/82 H 98 05/24/21 10:18 05/24/21 10:18 05/24/21 10:18 05/24/21 10:18 05/24/21 10:18 Height: 5 ft 3 in Weight (kg): 78 kg Body Mass Index: 30.4 BMI Classification: Obese - NPO >8 hours - Is Patient ?: No - Lab Results Current Lab Results: Laboratory Tests 05/24/21 04:20: Troponin I High Sens 7.5 05/24/21 04:20: Sodium 135, Potassium 4.4, Chloride 99 L, Carbon Dioxide 23, Anion Gap 13.0, BUN 23 H, Creatinine 0.9, Estimated GFR (MDRD) 62 L, Glucose 196 H, Calcium 9.0, Magnesium 1.7, Total Bilirubin 0.9, AST 26, ALT 20, Alkaline Phosphatase 77, Total Protein 6.8, Albumin 3.9, Globulin 2.9, Albumin/Globulin Ratio 1.3, Lipase 32 05/24/21 04:20: WBC 13.2 H, RBC 4.31, Hgb 12.9, Hct 41.4, MCV 96.1, MCH 29.9, MCHC 31.2 L, RDW 13.0, Plt Count 232, MPV 9.8, Neut # (Auto) 12.0 H, Lymph # (Auto) 0.8 L, [facility] # (Auto) 0.3, Eos # (Auto) 0.1, Baso # (Auto) 0.1, Absolute Nucleated RBC 0.00, Nucleated RBC % 0.0 Fish Bones: 05/24/21 04:20 05/24/21 04:20 Home Medications and Allergies Active Medications Acetaminophen (Acetaminophen 325 Mg Tablet) 650 mg PO Q4HR PRN PRN Reason: Pain 1 to 4 Lactated Ringer's (Lr) 1,000 mls @ 100 mls/hr IV .Q10H YASMEEN Last Admin: 05/24/21 11:21 Dose: 100 mls/hr Documented by: Ondansetron HCl (Ondansetron Odt 4 Mg Tablet) 4 mg TL Q6HR PRN PRN Reason: Nausea / Vomiting Ondansetron HCl (Ondansetron 4 Mg/2 Ml Vial) 4 mg IVP Q6HR PRN PRN Reason: Nausea / Vomiting Sodium Chloride (Sodium Chloride Flush 0.9% 10 Ml Syringe) 10 ml IVP PRN PRN PRN Reason: NEEDED PER PROVIDER ORDERS Sodium Chloride (Sodium Chloride Flush 0.9% 10 Ml Syringe) 10 ml IVP 0100,0900,1700 YASMEEN Last Admin: 05/24/21 11:23 Dose: Not Given Documented by: Aspirin EC [Ecotrin] 81 mg PO DAILY 04/02/20 Ferrous Sulfate 325 mg PO DAILY 04/02/20 Acetaminophen [Tylenol] 650 mg PO Q4HR PRN 11/11/20 Allergies/Adverse Reactions: Allergies Allergy/AdvReac Type Severity Reaction Status Date / Time Penicillins Allergy Nausea Verified 12/21/20 15:18 Anes History & Medical History - Anesthetic History Anesthesia Complications: reports: No previous complications Family history of Anesthesia Complications: Denies Family history of Malignant Hyperthermia: Denies - Medical History Cardiovascular: reports: Hypertension, OR, Murmur Pulmonary: reports: Asthma, COPD, Shortness of breath Gastrointestinal: reports: Other Urinary: reports: None Neuro: reports: None Musculoskeletal: reports: Other (kyphosis) Endocrine/Autoimmune: reports: None Blood Disorders: reports: Anemia Skin: reports: None Smoking Status: Former smoker - Surgical History General: reports: Appendectomy, Bowel surgery, Colonoscopy Eyes Ears Nose Throat (EENT): reports: Tonsil/Adenoidectomy Gynecologic: reports: Hysterectomy Orthopedic: reports: Arthroscopic surgery Exam General: Alert, Oriented x3, Cooperative Dental: WNL Mouth Openin Fingerbreadth Neck Mobility: Normal Mallampati classification: II Respiratory: Lungs clear Cardiovascular: Regular rate Plan Anesthesia Type: General, Transverse Abdominis Plane (TAP) Block Regional Block: Per Surgeon's request for Post Op pain control Consent for Procedure(s) Verified and Reviewed: Yes Code Status: Attempt Resuscitation ASA classification: 3-Severe systemic disease Is this case an emergency?: No
[2021-05-24] MEDS ORDERED: LACTATED RINGERS 1,000 ML IV SCH (13:00)
[2021-05-24] MEDS ORDERED: DEXAMETHASONE 4 MG/ML VIAL ONE (13:08)
[2021-05-24] MEDS ORDERED: ROCURONIUM 50 MG/5 ML VIAL ONE ×2 (13:08→14:35)
[2021-05-24] MEDS ORDERED: PROPOFOL 200 MG/20 ML VIAL IVP ONE (13:08)
[2021-05-24] MEDS ORDERED: fentaNYL 100 MCG/2 ML VIAL ONE ×2 (13:08→14:27)
[2021-05-24] MEDS ORDERED: ROPIVACAINE 0.5% PF 20 ML AMPULE ONE (13:08)
[2021-05-24] MEDS ORDERED: LIDOCAINE-MPF 2% 5 ML VIAL ONE (13:08)
[2021-05-24] MEDS ORDERED: ONDANSETRON 4 MG/2 ML VIAL ONE (13:08)
--- NOTE | 2021-05-24 13:24 | PHARMACY PROGRESS NOTE ---
- Best Possible Medication History Admit Date and Time: 05/24/21 0841 Processed by: Pharmacy Medication History completed: Yes Patient Interview: Pt unable to participate Secondary Source(s): Physician records, Insurance records As the person ultimately responsible for medication therapy, providers are able to order a medication from an existing home medication list in [facility] via the "Reconcile Routine" prior to Confirmation of that medication by is support analyst. Such practice is discouraged except when the physician, in their clinical judgment, deems that a medical need exists for a medication without regard to previous use.
[2021-05-24] MEDS ORDERED: BUPIVACAINE 0.5% PF 10 ML VIAL ONE ×2 (13:28→14:10)
[2021-05-24] MEDS ORDERED: LIDOCAINE-MPF 1% 30 ML VIAL ONE (13:29)
[2021-05-24] MEDS ORDERED: PIPERACILLIN/TAZOBACTAM 3.375 GM in SODIUM CHLORIDE 0.9% MINIBAG 100 ML IV SCH (14:00)
[2021-05-24] MEDS ORDERED: BUPIVACAINE 0.25% PF 30 ML VIAL ONE ×2 (14:11→15:22)
[2021-05-24] MEDS ORDERED: PHENYLEPHRINE 10 MG/ML VIAL ONE (14:16)
[2021-05-24] MEDS ORDERED: METOPROLOL 5 MG/5 ML VIAL IVP ONE (14:25)
[2021-05-24] MEDS ORDERED: ePHEDrine 50 MG/ML VIAL IVP ONE (15:00)
[2021-05-24] MEDS ORDERED: HYDROmorphone 1 MG/ML CARPUJECT ONE (15:15)
[2021-05-24] MEDS ORDERED: SUGAMMADEX 200 MG/2 ML VIAL IVP ONE (15:19)
[2021-05-24] MEDS ORDERED: BUPIVACAINE 0.25% PF 30 ML VIAL SUBQ ONE (15:23)
[2021-05-24] MEDS ORDERED: IPRATROPIUM/ALBUTEROL 3 ML NEB INH PRN (15:55)
--- NOTE | 2021-05-24 15:59 | OPERATIVE REPORT ---
Operative Report - General Admit Date: 05/24/21 Procedure Date: 05/24/21 Planned Procedure: exploratory laparotomy with possible small bowel resection Pre-Op Diagnosis: sbo with closed loop Procedure Performed: exploratory laparotomy with small bowel resection Post Op Diagnosis: internal hernia with closed loop small bowel obstruction - Procedure Note Primary Surgeon: monica strickland Anesthesia Technique: General ET tube, Local Pathology: 20 cm small bowel Estimated Blood Loss (mL): 25 Drain/Tube Type: Other (none) Indications: sbo with ischemic bowel Findings: 20 cm small bowel with atleast 100 ml blood Complications: none - Other Other Information/Narrative: The patient was properly identified brought to the operating room and placed in supine position. General endotracheal anesthesia was induced. Sequential compression devices have been placed. Ruiz catheter was placed. She was prepped and draped in a sterile fashion and given preoperative antibiotics. Local anesthetic was given. A low midline incision was made. Abdomen was opened sharply. An umbilical hernia was identified. The incision was extended to include the umbilical hernia. A internal hernia with 20 cm loop of tightly incarcerated bowel was identified. Mesentery was clamped and divided of the bowel. The proximal end of the small bowel prior to the internal hernia was divided with a MILLY stapler. The proximal end was then carefully placed through the very tight internal hernia. The distal end was then divided with a MILLY stapler. Mesentery was taken with clamps and 2-0 silk ties. Specimen was removed. A handsewn end of end anastomosis was performed with outer 3-0 silk Lembert sutures and in a running 3-0 Vicryl suture. Good anastomosis without tension was obtained. Mesenteric defect was closed with [id number] 3-0 Vicryl suture. Abdomen was thoroughly irrigated. Fascia was closed with 2 running 0 PDS suture. Subcutaneous tissue was irrigated. Umbilical skin and subcutaneous tissue was then reapproximated with interrupted 2-0 Vicryl suture. Skin was closed loosely with sundar. She tolerated the procedure well. She was awakened and brought to recovery in good condition
[2021-05-24] MEDS ORDERED: LACTATED RINGERS 1,000 ML IV ONE (16:03)
[2021-05-24] MEDS ORDERED: oxyCODONE 5 MG TABLET PO PRN (16:23)
--- NOTE | 2021-05-24 16:44 | ANESTHESIA POST OP EVALUATION ---
Anesthesia Post Eval - Post Anesthesia Eval Vitals: Last Vital Signs Temp 36.5 C 05/24/21 16:32 Pulse 85 05/24/21 16:32 Resp 16 05/24/21 16:32 BP 135/65 H 05/24/21 16:32 Pulse Ox 95 05/24/21 16:32 CV Function Including HR & BP: Stable Pain Control: Satisfactory Nausea & Vomiting: Negative Mental Status: Baseline Respiratory Status: Airway Patent Hydration Status: Satisfactory Anesthesia Complications: None
[2021-05-24] MEDS: INSULIN REGULAR HUMAN 300 UNIT/3 ML VIAL SUBQ SCH (18:22)
[2021-05-24] MEDS: PIPERACILLIN/TAZOBACTAM 3.375 GM in SODIUM CHLORIDE 0.9% MINIBAG 100 ML IV SCH (20:46)
[2021-05-24] MEDS: METOPROLOL TARTRATE 25 MG TABLET PO SCH (20:48)
[2021-05-25] MEDS: SODIUM CHLORIDE FLUSH 0.9% 10 ML SYRINGE IVP SCH ×4 (01:11→23:47)
[2021-05-25] MEDS: INSULIN REGULAR HUMAN 300 UNIT/3 ML VIAL SUBQ SCH ×4 (01:11→17:58)
[2021-05-25] MEDS: PIPERACILLIN/TAZOBACTAM 3.375 GM in SODIUM CHLORIDE 0.9% MINIBAG 100 ML IV SCH ×2 (02:27→09:04)
[2021-05-25] MEDS: ACETAMINOPHEN 325 MG TABLET PO PRN ×4 (06:17→19:30)
[2021-05-25] MEDS: LACTATED RINGERS 1,000 ML IV SCH ×2 (08:03→17:59)
[2021-05-25] MEDS: METOPROLOL TARTRATE 25 MG TABLET PO SCH ×2 (09:04→21:17)
--- NOTE | 2021-05-25 14:35 | PROVIDER PROGRESS NOTE ---
Subjective - General Admit Date: 05/24/21 Procedure Date: 05/24/21 Post Op Days: 1 Procedure Performed: Small bowel resection - Review of Systems Wound/Incisions: positive: Dressing dry and intact General: positive: No symptoms. negative: Fever Pulmonary: positive: No symptoms Gastrointestinal: negative: Flatus Objective - Patient Data Vital Signs: Vital Signs x48h Temp Pulse Pulse Resp BP BP Pulse Ox 05/25/21 09:04 135/64 H 05/25/21 08:50 37.1 C 83 18 135/64 H 93 05/25/21 08:30 86 16 99 05/25/21 06:47 36.7 C 87 20 96 Weight: Weight 05/23/21 05/24/21 05/25/21 23:59 23:59 23:59 Weight (kg) 78 kg Intake & Output: Intake and Output Totals x24h 05/23/21 05/24/21 05/25/21 23:59 23:59 23:59 Intake Total 2038.333 1291.667 Output Total 700 1200 Balance 1338.333 91.667 - Lab Results Lab Results: 05/24/21 04:20 05/24/21 04:20 - Current Medications Current Medications: Current Medications Generic Name Dose Route Start Last Admin Trade Name Freq PRN Reason Stop Dose Admin Acetaminophen 650 mg 05/24/21 08:41 05/25/21 10:50 Acetaminophen 325 Mg Tablet PO 650 mg Q4HR PRN Administration Pain 1 to 4 Lactated Ringer's 1,000 mls @ 100 mls/hr 05/24/21 09:00 05/25/21 10:25 Lr IV 100 mls/hr .Q10H YASMEEN Infusion Insulin Human Regular 1 - 5 unit 05/24/21 18:00 05/25/21 12:46 Insulin Regular Human 300 Unit/3 Ml Vial SUBQ Not Given Q6HR YASMEEN Protocol Metoprolol Tartrate 25 mg 05/24/21 21:00 05/25/21 09:04 Metoprolol Tartrate 25 Mg Tablet PO 25 mg BID YASMEEN Administration Sodium Chloride 10 ml 05/24/21 09:00 05/25/21 09:04 Sodium Chloride Flush 0.9% 10 Ml Syringe IVP 10 ml 0100,0900,1700 YASMEEN Administration - Physical Exam Wound/Incisions: positive: Dressing dry and intact General Appearance: positive: No acute distress Impression/Plan - Problem List Problem List: Doing well postop day #1 status post small bowel resection for 20 cm of bowel caused by internal hernia. May have sips of water and ice chips today otherwise continue n.p.o. Begin ambulation with assistance.
[2021-05-26] MEDS: ACETAMINOPHEN 325 MG TABLET PO PRN ×3 (01:05→13:44)
[2021-05-26] MEDS: LACTATED RINGERS 1,000 ML IV SCH ×3 (02:45→16:19)
[2021-05-26] MEDS: METOPROLOL TARTRATE 25 MG TABLET PO SCH ×2 (08:56→20:50)
[2021-05-26] MEDS: ENOXAPARIN 40 MG/0.4 ML SYRINGE SUBQ SCH (08:58)
[2021-05-26] MEDS: lisinopriL 5 MG TABLET PO SCH (08:58)
[2021-05-26] MEDS: SODIUM CHLORIDE FLUSH 0.9% 10 ML SYRINGE IVP SCH ×3 (09:00→23:28)
--- NOTE | 2021-05-26 10:04 | PROVIDER PROGRESS NOTE ---
Subjective - General Admit Date: 05/24/21 Procedure Date: 05/24/21 Post Op Days: 2 Procedure Performed: Small bowel resection - Review of Systems Wound/Incisions: positive: Dressing dry and intact General: positive: No symptoms. negative: Fever Pulmonary: positive: No symptoms Gastrointestinal: positive: Flatus, Other (Had a small BM this morning) Objective - Patient Data Vital Signs: Vital Signs x48h Temp Pulse Resp BP BP Pulse Ox 05/26/21 08:56 116/76 05/26/21 08:01 95 05/26/21 07:58 36.9 C 81 170/79 H 98 05/26/21 06:30 36.7 C 87 16 167/76 H 98 05/26/21 02:51 83 163/80 H Weight: Weight 05/24/21 05/25/21 05/26/21 23:59 23:59 23:59 Weight (kg) 78 kg Intake & Output: Intake and Output Totals x24h 05/24/21 05/25/21 05/26/21 23:59 23:59 23:59 Intake Total 2038.333 2048.333 1076.667 Output Total 700 1700 2200 Balance 1338.333 348.333 -1123.333 - Lab Results Lab Results: 05/24/21 04:20 05/24/21 04:20 - Current Medications Current Medications: Current Medications Generic Name Dose Route Start Last Admin Trade Name Freq PRN Reason Stop Dose Admin Acetaminophen 650 mg 05/24/21 08:41 05/26/21 08:26 Acetaminophen 325 Mg Tablet PO 650 mg Q4HR PRN Administration Pain 1 to 4 Enoxaparin Sodium 40 mg 05/26/21 09:00 05/26/21 08:58 Enoxaparin 40 Mg/0.4 Ml Syringe SUBQ 40 mg DAILY YASMEEN Administration Hydromorphone HCl 0.5 mg 05/24/21 16:22 05/26/21 02:41 Hydromorphone 0.5 Mg/0.5 Ml Syringe IVP 0.5 mg Q2H PRN Administration PAIN Lactated Ringer's 1,000 mls @ 50 mls/hr 05/26/21 08:51 05/26/21 08:55 Lr IV 50 mls/hr .Q20H YASMEEN Administration Lisinopril 10 mg 05/26/21 09:00 05/26/21 08:58 Lisinopril 5 Mg Tablet PO 10 mg DAILY YASMEEN Administration Metoprolol Tartrate 25 mg 05/24/21 21:00 05/26/21 08:56 Metoprolol Tartrate 25 Mg Tablet PO 25 mg BID YASMEEN Administration Ondansetron HCl 4 mg 05/24/21 08:41 05/26/21 01:41 Ondansetron 4 Mg/2 Ml Vial IVP 4 mg Q6HR PRN Administration Nausea / Vomiting Sodium Chloride 10 ml 05/24/21 09:00 05/26/21 09:00 Sodium Chloride Flush 0.9% 10 Ml Syringe IVP Not Given 0100,0900,1700 YASMEEN - Physical Exam Wound/Incisions: positive: Dressing dry and intact Impression/Plan - Problem List Problem List: Doing well POD#2 Tolerating clears today. Advance diet tomorrow.
[2021-05-26] MEDS ORDERED: MAG HYDROX/AL HYDROX/SIMETH 30 ML UDC PO PRN (20:25)
[2021-05-26] MEDS: DOXAZOSIN 1 MG TABLET PO SCH (20:50)
[2021-05-27] MEDS: ACETAMINOPHEN 325 MG TABLET PO PRN (00:10)
[2021-05-27] MEDS: ENOXAPARIN 40 MG/0.4 ML SYRINGE SUBQ SCH (08:27)
[2021-05-27] MEDS: lisinopriL 5 MG TABLET PO SCH (08:27)
[2021-05-27] MEDS: METOPROLOL TARTRATE 25 MG TABLET PO SCH ×2 (08:27→21:25)
[2021-05-27] MEDS: SODIUM CHLORIDE FLUSH 0.9% 10 ML SYRINGE IVP SCH ×2 (08:28→16:33)
--- NOTE | 2021-05-27 12:06 | PROVIDER PROGRESS NOTE ---
Subjective - Prog Note Date Prog Note Date: 05/27/21 - Subjective Pt reports feeling: Improved (doing well. passing gas. no nausea, hungry.) Objective - Vital Signs/Intake & Output Reviewed Vital Signs: Yes Vital Signs: Vital Signs x48h Temp Pulse Pulse Pulse Resp BP BP 05/27/21 11:30 37.3 C 85 18 171/71 H 05/27/21 11:29 05/27/21 08:27 141/67 H 05/27/21 07:37 37.4 C 86 18 162/66 H 05/27/21 06:25 36.9 C 89 18 148/70 H Pulse Ox 05/27/21 11:30 92 05/27/21 11:29 92 05/27/21 08:27 05/27/21 07:37 94 05/27/21 06:25 96 Intake & Output: Intake & Output 05/24/21 05/25/21 05/26/21 05/27/21 23:59 23:59 23:59 23:59 Intake Total 2038.333 2048.333 2323.267 490 Output Total 700 1700 2200 Balance 1338.333 348.333 123.267 490 - Objective General Appearance: positive: No acute distress, Alert Eyes Bilateral: positive: PERRL, EOMI, No scleral icterus Respiratory: positive: No respiratory distress Abdomen: positive: Non-tender, No distention, Other (dressing c/d/i no erythema) - Lab Results Fish Bones: 05/24/21 04:20 05/24/21 04:20 Other Labs: Lab Results x24hrs 05/25/21 05/25/21 05/25/21 Range/Units 17:51 12:12 05:18 POC Whole Bld Glucose 100 97 128 H (70 - 100) mg/dL 05/24/21 05/24/21 Range/Units 23:50 17:38 POC Whole Bld Glucose 121 H 147 H (70 - 100) mg/dL Assessment/Plan - Problem List (1) Small bowel obstruction Impression: doing well regular diet as tolerated d/c ivf she lives alone. little support. plan home tomorrow
[2021-05-27] MEDS: DOXAZOSIN 1 MG TABLET PO SCH (21:25)
[2021-05-28] MEDS: SODIUM CHLORIDE FLUSH 0.9% 10 ML SYRINGE IVP SCH ×2 (00:09→09:24)
[2021-05-28] MEDS ORDERED: MULTIVITAMIN W/MINERALS TABLET PO SCH (09:00)
[2021-05-28] MEDS ORDERED: CHOLECALCIFEROL 25 MCG TABLET PO SCH (09:00)
[2021-05-28] MEDS: lisinopriL 5 MG TABLET PO SCH (09:17)
[2021-05-28] MEDS: ENOXAPARIN 40 MG/0.4 ML SYRINGE SUBQ SCH (09:17)
[2021-05-28] MEDS: METOPROLOL TARTRATE 25 MG TABLET PO SCH (09:20)
--- NOTE | 2021-05-28 11:52 | Discharge Plan ---
Discharge Plan Problem Reviewed?: Yes Disposition: Home, Self Care Condition: Good Diet: Regular Activity Restrictions: Activity as Tolerated Shower Restrictions: No Driving Restrictions: No Health Concerns: none Plan of Treatment: She had surgery shortly after admission on 05/24/2021 for closed loop bowel obstruction with small bowel 20 cm Assessment: doing well after emergency surgery for section small intestine related to obstruction Additional Instructions or Follow Up instructions: call the surgery office for follow up and with any concerns [phone] No Smoking: If you smoke, Please STOP! Call for help.
--- NOTE | 2021-05-28 11:56 | DISCHARGE SUMMARY ---
"Discharge Summary Admit Date: 05/24/21 Discharge Date: 05/28/21 Discharging Provider: monica mary md Code Status: Attempt Resuscitation Discharge Facility Name: [facility] - DIAGNOSES Admission Diagnoses: small bowel obstruction closed loop with 20 cm small bowel Discharge Diagnoses with Status of Each Condition: home in good condition - HPI History of Present Illness: presented with acute severe abdominal pain. taken urgently to surgery. - CONSULTS | PROCEDURES Procedures: exploratory laparotomy and resection 20 cm small intestine strangulated in an internal hernia. loredo cath x 2 days - HOSPITAL COURSE Hospital Course: Quickly improved with return of bowel function. Day of discharge tolerating diet well and normal postop abdominal exam. - ALLERGIES Allergies/Adverse Reactions: Allergies Allergy/AdvReac Type Severity Reaction Status Date / Time Penicillins Allergy Nausea Verified 12/21/20 15:18 - MEDICATIONS Home Medications: Ambulatory Orders Medication Instructions Recorded Confirmed Aspirin EC [Ecotrin] 81 mg PO DAILY 04/02/20 05/24/21 Ferrous Sulfate 325 mg PO DAILY 04/02/20 05/24/21 Cholecalciferol [Vitamin D3] 5,000 unit PO DAILY 11/01/20 05/24/21 Multivitamin W/Minerals [Theragran 1 tab PO DAILYWM tablet 11/01/20 05/24/21 M] Acetaminophen [Tylenol] 650 mg PO Q4HR PRN 11/11/20 05/24/21 lisinopriL [Lisinopril] 10 mg PO DAILY #30 tablet 12/27/20 05/24/21 Albuterol 2.5 mg INH Q4H PRN #30 ml 12/28/20 05/24/21 Doxazosin Mesylate [Cardura] 2 mg PO QPM 05/24/21 05/24/21 Metoprolol Tartrate [Lopressor] 25 mg PO BID 05/24/21 05/24/21 Umeclidinium [place] [Incruse 1 puffs INH DAILY 05/24/21 05/24/21 Ellipta] - PHYSICAL EXAM AT DISCHARGE General Appearance: positive: No acute distress, Alert Eyes Bilateral: positive: PERRL, EOMI ENT: positive: No signs of dehydration Neck: positive: No JVD Respiratory: positive: No respiratory distress Abdomen: positive: Non-tender, No distention, Other (no erythema or drainage) Neurologic/Psychiatric: positive: Oriented x3 - LABS Result Diagrams: 05/24/21 04:20 05/24/21 04:20 - FOLLOW UP Follow Up: Dr Mary in 5 to 7 days and as needed please call to make an appointment [phone]"
[2021-05-28 15:13] VITALS: BP 181/93
== END 2021-05-28 15:46 | disposition home or self-care (01) | DRG 331 ==
LOC: EDUNIT# → ED 04:06 → MS3 08:41
PROVIDERS: ADMIT Surgery; ATTEND Surgery
PROC: 0DQV0ZZ Repair Mesentery, Open Approach (ICD-10-PCS; 2021-05-24)
PROC: 0DB80ZZ Excision of Small Intestine, Open Approach (ICD-10-PCS; principal; 2021-05-24 13:45)
DX: K56.609 Unspecified intestinal obstruction, unspecified as to partial versus complete obstruction (principal); R11.14 Bilious vomiting; K43.7 Other and unspecified ventral hernia with gangrene; J44.9 Chronic obstructive pulmonary disease, unspecified; K42.9 Umbilical hernia without obstruction or gangrene; M40.209 Unspecified kyphosis, site unspecified; D64.9 Anemia, unspecified; I10 Essential (primary) hypertension; Z20.822 Contact with and (suspected) exposure to COVID-19; R01.1 Cardiac murmur, unspecified; E66.9 Obesity, unspecified; Z68.30 Body mass index [BMI] 30.0-30.9, adult; J32.9 Chronic sinusitis, unspecified; H54.7 Unspecified visual loss; H91.90 Unspecified hearing loss, unspecified ear; Z90.49 Acquired absence of other specified parts of digestive tract; Z79.82 Long term (current) use of aspirin; Z79.899 Other long term (current) drug therapy; I25.2 Old myocardial infarction; Z87.891 Personal history of nicotine dependence; Z87.19 Personal history of other diseases of the digestive system
CPT/HCPCS: 36415; 74177; 80053; 81003; 83690; 83735; 84484; 85025; 87631; 93005; 96374; 96375; 99284; 99285; A9270; J1170; J1650; J1815; J7120; Q9967; 0202U; 81001; 82306; 82607; 87086

== ENCOUNTER 2021-06-01 19:05 | Outpatient (CLI) | payer MEDICARE, MEDICAID | END 2021-06-01 19:06 | disposition critical access hospital (66) | LOC: EMS 19:05 | DX: R10.10 Upper abdominal pain, unspecified (principal); R07.1 Chest pain on breathing | CPT/HCPCS: A0425; A0429 ==

== ENCOUNTER 2021-06-01 19:32 | Inpatient (IN) | payer MEDICARE, MEDICAID ==
--- NOTE | 2021-06-01 20:02 | ED Physician Documentation ---
History of Present Illness - Stated complaint Stated Complaint: LUNG PAIN - Chief complaint Chief Complaint: Resp - History obtained from History obtained from: Patient, EMS - Additonal information Additional information: Had 20cm small bowel resection due to ischemic bowel due to internal hernia 05/24 R lower chest pain starting tonight, worse with deep breathing. "It feels like I have pneumonia again." Associated with SOA, no cough. + fever. Has COPD. Review of Systems Ten Systems: 10 systems reviewed and negative Constitutional: reports: Fever, Chills Nose: denies: Rhinorrhea / runny nose, Congestion Cardiac: reports: Chest pain / pressure. denies: Palpitations Respiratory: reports: Dyspnea, Cough PD PAST MEDICAL HISTORY - Past Medical History Cardiovascular: Hypertension, ND, Murmur Respiratory: Asthma, COPD, Shortness of breath Neuro: None Endocrine/Autoimmune: None GI: Other CORE BLOWER: None : None HEENT: Chronic vision loss, Chronic sinusitis, Chronic hearing loss, Other Psych: Depression Musculoskeletal: Other (kyphosis) Derm: None - Past Surgical History Past Surgical History: Yes General: Appendectomy, Bowel surgery, Colonoscopy Ortho: Arthroscopic surgery /CORE BLOWER: Hysterectomy HEENT: Tonsil/Adenoidectomy - Present Medications Home Medications: Ambulatory Orders Medication Instructions Recorded Confirmed Aspirin EC [Ecotrin] 81 mg PO DAILY 04/02/20 05/24/21 Ferrous Sulfate 325 mg PO DAILY 04/02/20 05/24/21 Cholecalciferol [Vitamin D3] 5,000 unit PO DAILY 11/01/20 05/24/21 Multivitamin W/Minerals [Theragran 1 tab PO DAILYWM tablet 11/01/20 05/24/21 M] Acetaminophen [Tylenol] 650 mg PO Q4HR PRN 11/11/20 05/24/21 lisinopriL [Lisinopril] 10 mg PO DAILY #30 tablet 12/27/20 05/24/21 Albuterol 2.5 mg INH Q4H PRN #30 ml 12/28/20 05/24/21 Doxazosin Mesylate [Cardura] 2 mg PO QPM 05/24/21 05/24/21 Metoprolol Tartrate [Lopressor] 25 mg PO BID 05/24/21 05/24/21 Umeclidinium Bear [Incruse 1 puffs INH DAILY 05/24/21 05/24/21 Ellipta] - Allergies Allergies/Adverse Reactions: Allergies Allergy/AdvReac Type Severity Reaction Status Date / Time Penicillins Allergy Nausea Verified 06/01/21 19:40 - Social History Does the pt smoke?: No Smoking Status: Former smoker Does the pt drink ETOH?: No Does the pt have substance abuse?: No - Immunizations Immunizations are current?: Yes - POLST Patient has POLST: No PD ED PE NORMAL - Vitals Vital signs reviewed: Yes - General General: Alert and oriented X 3, Other (She appears breathless and tachypneic with borderline pulse oximetry on the monitor. Pursed lip breathing.) - HEENT HEENT: PERRL, EOMI - Neck Neck: Supple, no meningeal sign, No bony TTP - Cardiac Cardiac: RRR, No murmur - Respiratory Respiratory: Other (Diminished at both bases, right worse than left with crackles at both bases) - Abdomen Abdomen: Soft, Non tender - Back Back: No CVA TTP, No spinal TTP - Derm Derm: Normal color, Warm and dry - Extremities Extremities: No edema, No calf tenderness / cord - Neuro Neuro: Alert and oriented X 3, Normal speech Results - Vitals Vitals: Vital Signs - 24 hr 06/01/21 06/01/21 06/01/21 19:34 19:48 20:11 Temperature 38.7 C H 38.4 C H Heart Rate 107 H 101 H 106 H Respiratory 24 22 26 H Rate Blood Pressure 185/91 H 185/91 H O2 Saturation 94 98 92 06/01/21 06/01/21 06/01/21 21:30 21:37 21:56 Temperature Heart Rate 99 102 H 95 Respiratory 35 H 34 H 24 Rate Blood Pressure 192/90 H 188/87 H O2 Saturation 97 96 06/01/21 22:06 Temperature 37.7 C Heart Rate Respiratory Rate Blood Pressure O2 Saturation Oxygen O2 Source Nasal cannula Oxygen Flow Rate 2 - EKG (time done) 1937 Rate: Rate (enter#) (106) Rhythm: Sinus tachycardia [place]: Normal Intervals: RBBB, Other (LPFB) Ischemia: Normal ST segments - Labs Labs: Laboratory Tests 06/01/21 06/01/21 06/01/21 20:00 20:09 20:09 WBC 12.6 H RBC 3.62 L Hgb 11.0 L Hct 34.4 L MCV 95.0 MCH 30.4 MCHC 32.0 RDW 13.2 Plt Count 336 MPV 9.1 Neut # (Auto) 10.6 H Lymph # (Auto) 0.8 L Graham # (Auto) 0.9 Eos # (Auto) 0.1 Baso # (Auto) 0.0 Absolute Nucleated RBC 0.00 Nucleated RBC % 0.0 PT 13.4 H INR 1.2 Sodium Potassium Chloride Carbon Dioxide Anion Gap BUN Creatinine Estimated GFR (MDRD) Glucose Lactic Acid Calcium Total Bilirubin AST ALT Alkaline Phosphatase Total Protein Albumin Globulin Albumin/Globulin Ratio Lipase Nasal Adenovirus (PCR) NOT DETECTED Nasal B. parapertussis DNA (PCR) NOT DETECTED Nasal Coronavir 229E PCR NOT DETECTED Nasal Coronavir HKU1 PCR NOT DETECTED Nasal Coronavir NL63 PCR NOT DETECTED Nasal Coronavir OC43 PCR NOT DETECTED Nasal Enterovir/Rhinovir PCR NOT DETECTED Nasal Influenza B PCR NOT DETECTED Nasal Influenza A PCR NOT DETECTED Nasal Parainfluen 1 PCR NOT DETECTED Nasal Parainfluen 2 PCR NOT DETECTED Nasal Parainfluen 3 PCR NOT DETECTED Nasal Parainfluen 4 PCR NOT DETECTED Nasal RSV (PCR) NOT DETECTED Nasal B.pertussis DNA PCR NOT DETECTED Nasal C.pneumoniae (PCR) NOT DETECTED Tonio Human Metapneumo PCR NOT DETECTED Nasal M.pneumoniae (PCR) NOT DETECTED Nasal SARS-CoV-2 (PCR) NOT DETECTED 06/01/21 06/01/21 20:09 20:09 WBC RBC Hgb Hct MCV MCH MCHC RDW Plt Count MPV Neut # (Auto) Lymph # (Auto) Graham # (Auto) Eos # (Auto) Baso # (Auto) Absolute Nucleated RBC Nucleated RBC % PT INR Sodium 134 L Potassium 4.2 Chloride 98 L Carbon Dioxide 27 Anion Gap 9.0 BUN 14 Creatinine 0.7 Estimated GFR (MDRD) 82 L Glucose 129 H Lactic Acid 0.8 Calcium 8.7 Total Bilirubin 0.8 AST 20 ALT 19 Alkaline Phosphatase 58 Total Protein 6.9 Albumin 3.6 Globulin 3.3 Albumin/Globulin Ratio 1.1 Lipase 27 Nasal Adenovirus (PCR) Nasal B. parapertussis DNA (PCR) Nasal Coronavir 229E PCR Nasal Coronavir HKU1 PCR Nasal Coronavir NL63 PCR Nasal Coronavir OC43 PCR Nasal Enterovir/Rhinovir PCR Nasal Influenza B PCR Nasal Influenza A PCR Nasal Parainfluen 1 PCR Nasal Parainfluen 2 PCR Nasal Parainfluen 3 PCR Nasal Parainfluen 4 PCR Nasal RSV (PCR) Nasal B.pertussis DNA PCR Nasal C.pneumoniae (PCR) Tonio Human Metapneumo PCR Nasal M.pneumoniae (PCR) Nasal SARS-CoV-2 (PCR) PD MEDICAL DECISION MAKING - ED course ED course: 71-year-old woman with pleuritic chest pain with tachypnea and borderline hypoxemia as well as fever about a week out from surgery. Benign abdominal exam. Differential includes PE versus pneumonia, COPD 71-year-old woman who is a week out from an ex lap for ischemic bowel related to an internal hernia now presents febrile with right-sided pleuritic chest pain and shortness of breath. Labs fit sepsis criteria, but no clear source. CT T pulmonary angiogram does not demonstrate PE or pneumonia, she does have a small pleural effusion. Given her vitals and labs she merits admission and Dr. Hair accepts. He request CT of the belly pending admission to rule out a abdominal source of her sepsis although her clinical exam makes this unlikely. Rocephin and Zithromax were ordered. Cultures were obtained. Urine is pending on admission. - Sepsis Event Sepsis Onset Date: 06/01/21 Sepsis Onset Time: 22:13 Current Stage of Sepsis: Sepsis Initial Hypotension: Not hypotensive Possible source of Sepsis: Pulmonary, Unknown Mental/Cognitive Status: Alert/Oriented X3 Reason for not giving 30ml/kg crystalloid fluids: Not in septic shock Capillary refill: Less than 2 seconds Peripheral Pulse Strength: 3+ Normal Peripheral Pulse Location: Radial Departure - Departure Disposition: 66 [facility] DC/Xfer Clinical Impression: COPD (chronic obstructive pulmonary disease), Sepsis Condition: Good
[2021-06-01] MEDS ORDERED: MORPHINE 2 MG/ML CARPUJECT IVP STA ×2 (20:11→21:13)
[2021-06-01 20:20] LABS: BASOPHILS % (AUTO) 0.3 %; EOSINOPHILS # (AUTO) 0.1 10^3/uL (0.0-0.7); HCT - HEMATOCRIT 34.4 % (37.0-47.0); LYMPHOCYTES # (AUTO) 0.8 10^3/uL (1.5-3.5); LYMPHOCYTES % (AUTO) 6.5 %; MEAN CORPUSCULAR HEMOGLOBIN 30.4 pg (27.0-31.0); MEAN PLATELET VOLUME 9.1 fL (7.9-10.8); MONOCYTES # (AUTO) 0.9 10^3/uL (0.0-1.0); MONOCYTES % (AUTO) 7.1 %; NEUTROPHILS # (AUTO) 10.6 10^3/uL (1.5-6.6); NEUTROPHILS % (AUTO) 84.5 %; PLT - PLATELET COUNT 336 10^3/uL (130-450); RED BLOOD COUNT 3.62 10^6/uL (4.20-5.40); RED CELL DISTRIBUTION WIDTH 13.2 % (12.0-15.0); WHITE BLOOD COUNT 12.6 x10^3/uL (4.8-10.8)
[2021-06-01 20:29] LABS: INR 1.2 (0.8-1.2); PT - PROTHROMBIN TIME 13.4 secs (9.9-12.6)
[2021-06-01] MEDS ORDERED: IOVERSOL 320 100 ML VIAL IVP ONE ×3 (20:39→22:17)
[2021-06-01 20:43] LABS: ALBUMIN 3.6 g/dL (3.2-5.5); ALBUMIN/GLOBULIN RATIO 1.1 (1.0-2.2); BILIRUBIN,TOTAL 0.8 mg/dL (0.2-1.0); CALCIUM 8.7 mg/dL (8.5-10.3); CREATININE 0.7 mg/dL (0.4-1.0); POTASSIUM 4.2 mmol/L (3.5-5.0); TOTAL PROTEIN 6.9 g/dL (6.7-8.2)
[2021-06-01 20:59] LABS: B. PARAPERTUSSIS- RESP PCR PAN NOT DETECTED; B. PERTUSSIS- RESP PCR PANEL NOT DETECTED; C. PNEUMONIAE- RESP PCR PANEL NOT DETECTED; CORONAVIRUS 229E-RESP PCR NOT DETECTED; CORONAVIRUS HKU1-RESP PCR NOT DETECTED; CORONAVIRUS NL63-RESP PCR NOT DETECTED; CORONAVIRUS OC43-RESP PCR NOT DETECTED; HUMAN METAPNEUMOVIRUS NOT DETECTED; INFLUENZA A- RESP PCR PANEL NOT DETECTED; INFLUENZA B - RESP PCR PANEL NOT DETECTED; M. PNEUMONIAE- RESP PCR PANEL NOT DETECTED; PARAINFLUENZA VIRUS 1 NOT DETECTED; PARAINFLUENZA VIRUS 2 NOT DETECTED; PARAINFLUENZA VIRUS 3 NOT DETECTED; PARAINFLUENZA VIRUS 4 NOT DETECTED; RHINOVIRUS/ENTEROVIRUS NOT DETECTED; RSV- RESP PCR PANEL NOT DETECTED; SARS-CoV-2 -RESP PCR PANEL NOT DETECTED
[2021-06-01] MEDS ORDERED: IPRATROPIUM/ALBUTEROL 3 ML NEB INH STA (21:15)
--- NOTE | 2021-06-01 21:37 | CT Report ---
PROCEDURE: ANGIO CHEST W/WO INDICATIONS: Postoperative dyspnea and chest pain, PE protocol CONTRAST: IV CONTRAST: Optiray 320 ml: 80 PO CONTRAST: *NO PO CONTRAST TECHNIQUE: After the administration of intravenous contrast, 2 mm axial images were acquired from the pulmonary apices to the posterior costophrenic angles during the arterial phase. In addition, 1 mm lung kernel and 5 mm soft tissue kernel reconstructions were performed. 3-dimensional coronal oblique maximum int ensity projection (MIP) reformats, 8 mm axial MIP, and 5 mm coronal and sagittal MPR reformats were t hen performed through the thorax. For radiation dose reduction, the following was used: automated exp osure control, adjustment of mA and/or kV according to patient size. COMPARISON: CT chest 11/11/2020, 10/31/2020 FINDINGS: Image quality: Excellent. Pulmonary arteries: Pulmonary arteries are normal in size, and demonstrate no intraluminal filling d efects to suggest central pulmonary embolism. Lungs and pleura: There is a minimal to mild right effusion. Dependent changes are present bilaterall y. Central and peripheral airways are patent. Mediastinum: Heart size is normal, without pericardial effusion. No mediastinal or hilar adenopathy . Thoracic aorta is normal in caliber and enhancement. Esophagus is normal in caliber, prominent pa raesophageal hernia containing transverse colon and stomach, unchanged compared to prior exam. Bones and chest wall: No suspicious bony lesions. Ribs and thoracic spine appear intact throughout. No axillary or supraclavicular adenopathy. Thyroid gland is enlarged with areas of calcification a nd heterogeneous low-attenuation, unchanged. Abdomen: Visualized upper abdominal solid organs appear normal in the early arterial phase of enhanc ement. IMPRESSION: 1. No pulmonary embolism. 2. Mild right effusion with dependent changes noted on the left. CLINICAL RECOMMENDATION STATEMENTS: In patients <35 years with an ITN detected on CT, MRI, or extrathyroidal ultrasound, the Committee re commends further evaluation with dedicated thyroid ultrasound if the nodule is "e1 cm and has no susp icious imaging features, and if the patient has normal life expectancy. In patients "e35 years with an ITN detected on CT, MRI, or extrathyroidal ultrasound, the Committee r ecommends further evaluation with dedicated thyroid ultrasound if the nodule is "e1.5 cm and has no s uspicious imaging features, and if the patient has normal life expectancy. (ACR, 2014) Reviewed by: Lalita Farias MD on 06/01/2021 9:36 PM PDT Approved by: Lalita Farias MD on 06/01/2021 9:36 PM PDT Station ID: [id number]
[2021-06-01] MEDS ORDERED: AZITHROMYCIN INJ 500 MG in SODIUM CHLORIDE 0.9% 250 ML IV STA (22:02)
[2021-06-01] MEDS ORDERED: cefTRIAXone 2 GM in SODIUM CHLORIDE 0.9% MINIBAG 100 ML IV STA (22:02)
[2021-06-01] MEDS ORDERED: cefTRIAXone 2 GM VIAL ONE (22:20)
--- NOTE | 2021-06-01 23:16 | CT Report ---
PROCEDURE: Abdomen/Pelvis W INDICATIONS: Post op fever CONTRAST: IV CONTRAST: Optiray 320 ml: 80 PO CONTRAST: *NO PO CONTRAST TECHNIQUE: After the administration of intravenous contrast, 5 mm thick sections acquired from the diaphragms to the symphysis. 5 mm thick coronal and sagittal reformats were acquired. For radiation dose reducti on, the following was used: automated exposure control, adjustment of mA and/or kV according to veto ent size. COMPARISON: 05/24/2021 CT abdomen pelvis W FINDINGS: Small right pleural effusion and paraesophageal hernia containing both stomach and transverse colon, described on recent CT angiogram of the chest report. Changes related to recent midline laparotomy with inflammatory changes and sundar noted in the anter ior midline abdomen. There is no fluid collection in the regional subcutaneous soft tissues to sugges t an abscess or seroma. No abnormally dilated or obviously thickened loop of bowel. Anastomotic sutures in the distal small b owel within the central inferior abdomen. No free fluid or free air. Uniform hepatic parenchymal attenuation. The spleen is unremarkable and normal in size. Adreniform th ickening on the left. Right adrenal gland unremarkable. No hydronephrosis or hydroureter. Pancreas gr ossly unremarkable. Gallbladder is normally distended without wall thickening or adjacent inflammator y changes. Nonaneurysmal abdominal aorta with atherosclerotic changes. No threshold enlarged intra-abdominal or retroperitoneal lymph nodes by CT size criteria. Urinary bladder within normal limits. No structural enlarged pelvic or inguinal lymph nodes. No acute or suspicious osseous lesion. IMPRESSION: Post surgical changes of recent midline laparotomy and bowel resection. No free fluid or free air to suggest perforation or anastomotic dehiscence. No evidence of recurrent obstruction or other acute enteric process. Reviewed by: Michael Donovan MD on 06/01/2021 11:15 PM PDT Approved by: Michael Donovna MD on 06/01/2021 11:15 PM PDT Station ID: [id number]
[2021-06-01] MEDS ORDERED: oxyCODONE 5 MG TABLET PO PRN (23:19)
[2021-06-01] MEDS ORDERED: ONDANSETRON ODT 4 MG TABLET TL PRN (23:19)
[2021-06-01] MEDS ORDERED: SODIUM CHLORIDE FLUSH 0.9% 10 ML SYRINGE IVP PRN (23:19)
[2021-06-01] MEDS ORDERED: ONDANSETRON 4 MG/2 ML VIAL IVP PRN (23:19)
--- NOTE | 2021-06-01 23:56 | HISTORY & PHYSICAL EXAMINATION ---
Chief Complaint - Chief Complaint Chief Complaint: Right sided chest pain History of Present Illness - Admitted From Admitted From:: Home - History Obtained From Records Reviewed: Yes History obtained from: Patient, ER Physician, EMR - History of Present Illness HPI Comment/Other: This is a pleasant 71-year-old female with a past medical history significant for hypertension, COPD, multiple bowel surgeries who presents today complaining of right-sided chest pain. She was hospitalized on May 24 for abdominal pain and found to have a small bowel obstruction with likely ischemic bowel. She was taken to the OR and underwent an expiratory laparotomy with small bowel resection of approximately 20 cm of ischemic bowel. She was hospitalized for 4 days and discharged on the . She reports doing well since then and woke up this morning in her usual state of health. She states she went to her computer when she started to develop right-sided chest pain that was worse with inspiration. She states it has progressed throughout the day and so she came to the emergency room this evening. She denies any subjective fevers or chills. She does feel more short of breath today. She has a nonproductive cough which is unchanged compared to her usual. She has not noticed any wheezing. She denies any abdominal pain, nausea, vomiting. She believes that she may have pneumonia as this is a similar symptom to what she had in the past when she was diagnosed with pneumonia. She does not believe there are any problems with her abdomen. She reports no dysuria, urgency, frequency. In the emergency department, she was noted to be febrile with a temperature of 38.7 C. She was tachycardic with a heart rate of 107 and hypertensive with a b lood pressure 185/91. She was tachypneic and was saturating 92% on room air. This improved to the mid 90s on 2 L of oxygen via nasal cannula. Given her pain and recent surgical intervention, a CT angiogram of the chest was obtained which showed no evidence of a pulmonary embolism. There was evidence of a mild right effusion with dependent changes bilaterally. Labs revealed a white count of 12 .6 with a left shift. Her lactic acid was normal. Respiratory PCR panel was unremarkable. She was given ceftriaxone and azithromycin in the emergency department. Medicine was then consulted for admission. I asked the emergency room physician to obtain a CT of the abdomen pelvis prior to admission given her recent surgical intervention and the fact that her CT of the chest was not that impressive and to ensure there was no other obvious source of infection. This CT showed postsurgical changes without any obvious source of infection. Given this, the patient was admitted to the medical service. I did discuss goals of care with the patient and she would like to be a full code. 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 Social History Notes: She has lived in [facility] for over 30 years. 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 She smoked 2 packs a day on and off for about 20 years but quit over 20 years ago. - POLST Patient has POLST: No Meds/Allgy - Home Medications Home Medications: Ambulatory Orders Medication Instructions Recorded Confirmed Aspirin EC [Ecotrin] 81 mg PO DAILY 04/02/20 05/24/21 Ferrous Sulfate 325 mg PO DAILY 04/02/20 05/24/21 Cholecalciferol [Vitamin D3] 5,000 unit PO DAILY 11/01/20 05/24/21 Multivitamin W/Minerals [Theragran 1 tab PO DAILYWM tablet 11/01/20 05/24/21 M] Acetaminophen [Tylenol] 650 mg PO Q4HR PRN 11/11/20 05/24/21 lisinopriL [Lisinopril] 10 mg PO DAILY #30 tablet 12/27/20 05/24/21 Albuterol 2.5 mg INH Q4H PRN #30 ml 12/28/20 05/24/21 Doxazosin Mesylate [Cardura] 2 mg PO QPM 05/24/21 05/24/21 Metoprolol Tartrate [Lopressor] 25 mg PO BID 05/24/21 05/24/21 Umeclidinium Smoot [Incruse 1 puffs INH DAILY 05/24/21 05/24/21 Ellipta] - Allergies Allergies/Adverse Reactions: Allergies Allergy/AdvReac Type Severity Reaction Status Date / Time Penicillins Allergy Nausea Verified 06/01/21 19:40 Review of Systems - Constitutional Constitutional: denies: Fever, Chills, Poor appetite - Ears, Nose & Throat Ears, Nose & Throat: denies: Nasal discharge, Nasal congestion, Sore throat - Cardiovascular Cariovascular: reports: Chest pain, Exertional dyspnea, Decr. exercise tolerance. denies: Edema, Lightheadedness, Syncope - Respiratory Respiratory: reports: Cough, SOB at rest, SOB with exertion, Pleuritic pain. denies: Sputum production - Gastrointestinal Gastrointestinal: denies: Abdominal pain, Diarrhea, Change in bowel habits, Nausea, Vomiting - Genitourinary Genitourinary: denies: Dysuria, Frequency, Urgency, Hematuria - Musculoskeletal Musculoskeletal: denies: Muscle pain, Limited range of motion - Integumentary Integumentary: denies: Rash - Neurological Neurological: denies: General weakness, Focal weakness, Dizziness - Hematologic/Lymphatic Hematologic/Lymphatic: denies: Anemia, Bruising, Bleeding tendencies - All Other Systems All Other Systems: reports: Reviewed and negative Prior Level of Functionality: She is independent with her ADLs. Exam - Vital Signs Reviewed Vital Signs: Yes Vital Signs: Vital Signs x48h Temp Pulse Resp BP Pulse Ox 06/01/21 23:00 107 H 23 174/76 H 96 06/01/21 22:06 37.7 C 06/01/21 21:56 95 24 06/01/21 21:37 102 H 34 H 188/87 H 96 06/01/21 21:30 99 35 H 192/90 H 97 06/01/21 20:11 106 H 26 H 92 06/01/21 19:48 38.4 C H 101 H 22 185/91 H 98 06/01/21 19:34 38.7 C H 107 H 24 185/91 H 94 - Physical Exam General Appearance: positive: Alert, Mild distress, Other (Appears ill.) Eyes Bilateral: positive: Normal inspection, Conjunctivae nml ENT: positive: ENT inspection nml, Other (Nasal cannula in place.) Neck: positive: Nml inspection Respiratory: positive: Other (She appears in mild distress and is tachypneic. Lung sounds are relatively clear throughout. No wheezing or obvious rhonchi.). negative: No respiratory distress Cardiovascular: positive: Tachycardia, Systolic murmur. negative: Irregularly irregular, Bradycardia Abdomen: positive: Non-tender, Nml bowel sounds, No distention, Other (Dressing in place over the mid abdomen.). negative: Tenderness, Guarding, Rebound Skin: positive: Warm, Dry Extremities: positive: No pedal edema Neurologic/Psychiatric: positive: Motor nml. negative: Disoriented to person, Disoriented to place, Disoriented to time Sepsis Event Note (H) - Evaluation Current Stage of Sepsis: Sepsis Possible source of Sepsis: positive: Pulmonary - Sepsis Criteria Sepsis Criteria: Recorded Temperature greater than 38.3C or Less than 36C, Recorded Heart Rate greater than 90 bpm, Recorded Respiratory Rate greater than 20, Respiratory: Increasing oxygen requirements, WBC count greater than 12,000 or less than 4000 Conclusion/Plan - Problem List (1) Sepsis Conclusion/Plan: The concern is for sepsis given her fever, leukocytosis, tachycardia. CT suggested possible mild effusion and review of prior imaging suggested a poten tial pulmonary source of infection from last week when she had her bowel obstruction. Urinalysis is pending. Respiratory PCR panel is unremarkable. CT of the abdomen and pelvis showed no obvious source of infection. Given the concern for pulmonary source, we will start her on ceftriaxone and azithromycin IV empirically. We will hydrate her with lactated Ringer's. Follow-up blood cultures and urinalysis. Daily CBC. (2) Pneumonia Conclusion/Plan: The concern is for right lower lobe infiltrate that may be developing causing the effusion and her sepsis. Her CT is not very impressive at this time but reviewing her prior CT from last week, there was concern for potential pulmonary source of infection. She is hypoxic, dyspneic and complaining of right-sided pleuritic chest pain. Although she was just hospitalized, we will treat her for community-acquired pneumonia given the CT from last admission showed the possible pulmonary source which would make this community-acquired. If she does not improve over the next 24 hours then we will look to broaden her antibiotics. Continue supplemental oxygen for goal saturation greater than 88%. Qualifiers: Laterality: right Lung location: lower lobe of lung (3) Right-sided chest pain Conclusion/Plan: This appears to be pleuritic in nature and suspect related to pneumonia/effusion. Her gallbladder appears unremarkable on CT of the abdomen pelvis. There is low suspicion for ACS. Her EKG shows a right bundle branch block without evidence of ischemia. We will order troponin and trend this. (4) Status post small bowel resection Conclusion/Plan: She is now more than a week postop from a small bowel resection for ischemic bowel secondary to bowel obstruction. CT shows postsurgical changes without evidence of infection. Her abdominal exam is benign. We will keep her on a diet and monitor at this time. (5) COPD (chronic obstructive pulmonary disease) Conclusion/Plan: This does not appear to be in exacerbation at this time. We will place her on DuoNebs 4 times daily with albuterol as needed. I do not believe there is a role for steroids at this time. (6) Hypertension Conclusion/Plan: She is hypertensive with systolic in the 180s and this is likely due to her not taking her home antihypertensives yet as she normally takes this in the evening. We will resume her home antihypertensives and will increase the dose if necessary. (7) Aortic stenosis Conclusion/Plan: Her last echocardiogram suggested mild aortic stenosis. Continue outpatient follow-up. - Lab Results Lab results reviewed: Yes Richi Bones: 06/01/21 20:09 06/01/21 20:09 - Diagnostic Imaging Results Diagnostic Imaging Results: positive: Final report reviewed - EKG Results EKG Interpreted Independently: Yes EKG Comparison: Changed from prior EKG EKG Findings: EKG shows sinus tachycardia with a right bundle branch block. Compared to prior EKG, her heart rate is increased. Core Measures - Anticipated LOS I expect patient to be DC'd or transferred within 96 hours.: Yes - Issues Hospital Issues and Management Plan: 71-year-old female who was just discharged for days ago after small bowel resection for ischemic bowel secondary to a bowel obstruction is found to have sepsis likely secondary to pneumonia. She will be admitted for IV antibiotics and further work-up. - DVT/VTE - Prophylaxis VTE/DVT Device ordered at admit?: Yes VTE/DVT Prophylaxis med ordered at admit?: Yes
[2021-06-02] MEDS ORDERED: ASPIRIN CHEW 81 MG TABLET PO STA (00:30)
[2021-06-02] MEDS: LACTATED RINGERS 1,000 ML IV SCH ×2 (01:43→12:01)
[2021-06-02] MEDS: SODIUM CHLORIDE FLUSH 0.9% 10 ML SYRINGE IVP SCH ×3 (01:43→15:32)
[2021-06-02] MEDS: METOPROLOL TARTRATE 25 MG TABLET PO SCH ×3 (01:44→20:37)
[2021-06-02] MEDS: MORPHINE 2 MG/ML CARPUJECT IVP PRN ×4 (02:06→16:21)
[2021-06-02 05:30] LABS: BASOPHILS # (AUTO) 0.1 10^3/uL (0.0-0.1); BASOPHILS % (AUTO) 0.4 %; EOSINOPHILS % (AUTO) 0.2 %; HCT - HEMATOCRIT 30.1 % (37.0-47.0); HGB - HEMOGLOBIN 9.3 g/dL (12.0-16.0); LYMPHOCYTES # (AUTO) 0.9 10^3/uL (1.5-3.5); LYMPHOCYTES % (AUTO) 6.3 %; MEAN CORPUSCULAR HGB CONC 30.9 g/dL (32.0-36.0); MEAN CORPUSCULAR VOLUME 97.1 fL (81.0-99.0); MONOCYTES % (AUTO) 7.5 %; NEUTROPHILS # (AUTO) 11.5 10^3/uL (1.5-6.6); PLT - PLATELET COUNT 275 10^3/uL (130-450); RED CELL DISTRIBUTION WIDTH 13.5 % (12.0-15.0); WHITE BLOOD COUNT 13.6 x10^3/uL (4.8-10.8)
[2021-06-02 05:36] LABS: CALCIUM 8.1 mg/dL (8.5-10.3); CREATININE 0.6 mg/dL (0.4-1.0); MAGNESIUM 1.7 mg/dL (1.7-2.8)
[2021-06-02] MEDS: IPRATROPIUM/ALBUTEROL 3 ML NEB INH SCH ×4 (07:11→18:20)
--- NOTE | 2021-06-02 07:44 | PHARMACY PROGRESS NOTE ---
- Best Possible Medication History Admit Date and Time: 06/01/21 5817 Processed by: Pharmacy Medication History completed: Yes Secondary Source(s): Previous admit records As the person ultimately responsible for medication therapy, providers are able to order a medication from an existing home medication list in [facility] via the "Reconcile Routine" prior to Confirmation of that medication by manager support services. Such practice is discouraged except when the physician, in their clinical judgment, deems that a medical need exists for a medication without regard to previous use.
[2021-06-02] MEDS: ASPIRIN EC 81 MG TABLET PO SCH (08:02)
[2021-06-02] MEDS: ENOXAPARIN 40 MG/0.4 ML SYRINGE SUBQ SCH (08:03)
[2021-06-02] MEDS: lisinopriL 5 MG TABLET PO SCH (08:07)
[2021-06-02 13:54] LABS: BILIRUBIN,URINE NEGATIVE (NEGATIVE); GLUCOSE, URINE (UA) NEGATIVE (NEGATIVE); KETONES,URINE (UA) NEGATIVE (NEGATIVE); LEUKOCYTE ESTERASE, URINE NEGATIVE (NEGATIVE); NITRITE,URINE NEGATIVE (NEGATIVE); OCCULT BLOOD,URINE NEGATIVE (NEGATIVE); PH,URINE 5.5 PH (5.0-7.5); PROTEIN,URINE NEGATIVE (NEGATIVE); UROBILINOGEN,URINE 0.2 (NORMAL) E.U./dL (NORMAL)
[2021-06-02 13:55] LABS: CLARITY,URINE CLEAR (CLEAR)
[2021-06-02] MEDS: cefTRIAXone 1 GM in SODIUM CHLORIDE 0.9% MINIBAG 100 ML IV SCH (15:32)
[2021-06-02] MEDS: AZITHROMYCIN INJ 500 MG in SODIUM CHLORIDE 0.9% 250 ML IV SCH (16:22)
[2021-06-02] MEDS: ACETAMINOPHEN 325 MG TABLET PO PRN (20:37)
[2021-06-02] MEDS: DOXAZOSIN 1 MG TABLET PO SCH (20:37)
[2021-06-03] MEDS: SODIUM CHLORIDE FLUSH 0.9% 10 ML SYRINGE IVP SCH ×3 (00:09→18:20)
[2021-06-03 06:01] LABS: BASOPHILS % (AUTO) 0.4 %; EOSINOPHILS # (AUTO) 0.3 10^3/uL (0.0-0.7); EOSINOPHILS % (AUTO) 2.4 %; HCT - HEMATOCRIT 27.9 % (37.0-47.0); HGB - HEMOGLOBIN 8.7 g/dL (12.0-16.0); LYMPHOCYTES # (AUTO) 0.7 10^3/uL (1.5-3.5); MEAN CORPUSCULAR HEMOGLOBIN 30.3 pg (27.0-31.0); MEAN CORPUSCULAR HGB CONC 31.2 g/dL (32.0-36.0); MEAN CORPUSCULAR VOLUME 97.2 fL (81.0-99.0); MEAN PLATELET VOLUME 9.2 fL (7.9-10.8); MONOCYTES % (AUTO) 10.1 %; NEUTROPHILS # (AUTO) 8.2 10^3/uL (1.5-6.6); NEUTROPHILS % (AUTO) 79.7 %; PLT - PLATELET COUNT 284 10^3/uL (130-450); RED BLOOD COUNT 2.87 10^6/uL (4.20-5.40); RED CELL DISTRIBUTION WIDTH 13.6 % (12.0-15.0); WHITE BLOOD COUNT 10.3 x10^3/uL (4.8-10.8)
[2021-06-03] MEDS: IPRATROPIUM/ALBUTEROL 3 ML NEB INH SCH ×4 (06:12→18:29)
[2021-06-03 06:14] LABS: CALCIUM 8.2 mg/dL (8.5-10.3); CREATININE 0.8 mg/dL (0.4-1.0); MAGNESIUM 1.7 mg/dL (1.7-2.8); POTASSIUM 3.8 mmol/L (3.5-5.0)
[2021-06-03] MEDS: cefTRIAXone 1 GM in SODIUM CHLORIDE 0.9% MINIBAG 100 ML IV SCH (06:46)
[2021-06-03] MEDS: ENOXAPARIN 40 MG/0.4 ML SYRINGE SUBQ SCH (07:02)
[2021-06-03] MEDS: ASPIRIN EC 81 MG TABLET PO SCH (07:03)
[2021-06-03] MEDS: lisinopriL 5 MG TABLET PO SCH (07:03)
[2021-06-03] MEDS: METOPROLOL TARTRATE 25 MG TABLET PO SCH ×2 (07:03→21:21)
[2021-06-03 07:54] LABS: % IRON SATURATION 6 % (20-50); IRON 9 ug/dL (28-170); TOTAL IRON BINDING CAPACITY 157 ug/dL (250-450); TRANSFERRIN 112 mg/dL (192-382)
[2021-06-03] MEDS: AZITHROMYCIN INJ 500 MG in SODIUM CHLORIDE 0.9% 250 ML IV SCH (10:51)
--- NOTE | 2021-06-03 13:03 | PROVIDER PROGRESS NOTE ---
Subjective - Prog Note Date Prog Note Date: 06/03/21 Prog Note Time: 13:01 - Subjective Pt reports feeling: Improved Subjective: Of breath. Slightly better appetite. Almost no pleuritic chest pain. Current Medications - Current Medications Current Medications: Active Medications Acetaminophen (Acetaminophen 325 Mg Tablet) 650 mg PO Q4HR PRN PRN Reason: Pain 1 to 4 Last Admin: 06/02/21 20:37 Dose: 650 mg Documented by: Albuterol (Albuterol Neb 2.5 Mg/3 Ml) 2.5 mg INH RTQ4H PRN PRN Reason: Wheezing Albuterol/Ipratropium (Ipratropium/Albuterol 3 Ml Neb) 3 ml INH RTQID [facility] Last Admin: 06/03/21 09:22 Dose: 3 ml Documented by: Aspirin (Aspirin Ec 81 Mg Tablet) 81 mg PO DAILY [facility] Last Admin: 06/03/21 07:03 Dose: 81 mg Documented by: Cholecalciferol (Cholecalciferol 25 Mcg Tablet) 50 mcg PO DAILY [facility] Doxazosin Mesylate (Doxazosin 1 Mg Tablet) 2 mg PO QPM [facility] Last Admin: 06/02/21 20:37 Dose: 2 mg Documented by: Enoxaparin Sodium (Enoxaparin 40 Mg/0.4 Ml Syringe) 40 mg SUBQ DAILY [facility] Last Admin: 06/03/21 07:02 Dose: 40 mg Documented by: Ferrous Sulfate (Ferrous Sulfate 325 Mg Tablet) 325 mg PO DAILYWM [facility] Ceftriaxone Sodium 1 gm/ (Sodium Chloride) 100 mls @ 200 mls/hr IV DAILY [facility] Last Infusion: 06/03/21 10:30 Dose: Infused Documented by: Iron Dextran 1,000 mg/ Sodium (Chloride) 270 mls @ 270 mls/hr IV ONCE ONE Stop: 06/03/21 13:00 Lisinopril (Lisinopril 5 Mg Tablet) 10 mg PO DAILY [facility] Last Admin: 06/03/21 07:03 Dose: 10 mg Documented by: Metoprolol Tartrate (Metoprolol Tartrate 25 Mg Tablet) 25 mg PO BID [facility] Last Admin: 06/03/21 07:03 Dose: 25 mg Documented by: Morphine Sulfate (Morphine 2 Mg/Ml Carpuject) 2 mg IVP Q2HR PRN PRN Reason: Pain 8 to 10 Last Admin: 06/02/21 16:21 Dose: 2 mg Documented by: Multivitamins (Multivitamin Tablet) 1 tab PO DAILYWM [facility] Ondansetron HCl (Ondansetron Odt 4 Mg Tablet) 4 mg TL Q6HR PRN PRN Reason: Nausea / Vomiting Ondansetron HCl (Ondansetron 4 Mg/2 Ml Vial) 4 mg IVP Q6HR PRN PRN Reason: Nausea / Vomiting Oxycodone HCl (Oxycodone 5 Mg Tablet) 5 mg PO Q4HR PRN PRN Reason: Pain 5 to 7 Sodium Chloride (Sodium Chloride Flush 0.9% 10 Ml Syringe) 10 ml IVP PRN PRN PRN Reason: NEEDED PER PROVIDER ORDERS Sodium Chloride (Sodium Chloride Flush 0.9% 10 Ml Syringe) 10 ml IVP 0100,0900,1700 [facility] Last Admin: 06/03/21 06:47 Dose: 10 ml Documented by: Aspirin EC [Ecotrin] 81 mg PO DAILY 04/02/20 Ferrous Sulfate 325 mg PO DAILY 04/02/20 Acetaminophen [Tylenol] 650 mg PO Q4HR PRN 11/11/20 Doxazosin Mesylate [Cardura] 2 mg PO QPM 05/24/21 Metoprolol Tartrate [Lopressor] 25 mg PO BID 05/24/21 Umeclidinium [place] [Incruse Ellipta] 1 puffs INH DAILY 05/24/21 Objective - Vital Signs/Intake & Output Reviewed Vital Signs: Yes Vital Signs: Vital Signs x48h Temp Pulse Pulse Resp BP BP Pulse Ox 06/03/21 11:30 88 18 121/62 94 06/03/21 09:23 100 20 06/03/21 08:32 36.7 C 99 19 137/118 H 96 06/03/21 07:04 37.4 C 104 H 18 128/73 91 L 06/03/21 07:03 114/79 06/03/21 06:13 93 16 Intake & Output: Intake & Output 05/31/21 06/01/21 06/02/21 06/03/21 23:59 23:59 23:59 23:59 Intake Total 937.225 3479.500 1603.333 Output Total 100 525 Balance 257.508 3031.500 1078.333 - Objective General Appearance: positive: No acute distress, Alert, Other (Sitting up in bed, eating breakfast, nasal cannula on. No respiratory distress with speaking) Eyes Bilateral: positive: EOMI ENT: positive: No signs of dehydration Neck: positive: No JVD. negative: Stiff neck Respiratory: positive: No respiratory distress, Rhonchi (RML, RLL). negative: Wheezes, Rales Cardiovascular: positive: Regular rate & rhythm. negative: Gallop/S4, Friction rub Abdomen: positive: Non-tender, No organomegaly, Nml bowel sounds, No distention Extremities: positive: Non-tender, Full ROM, No pedal edema Neurologic/Psychiatric: positive: Oriented x3, CN's nml (2-12), Motor nml - Lab Results Fish Bones: 06/03/21 05:47 06/03/21 05:47 Other Labs: Lab Results x24hrs 06/03/21 06/03/21 06/03/21 Range/Units 05:47 05:47 05:47 WBC (4.8-10.8) x10^3/uL RBC (4.20-5.40) 10^6/uL Hgb (12.0-16.0) g/dL Hct (37.0-47.0) % MCV (81.0-99.0) fL MCH (27.0-31.0) pg MCHC (32.0-36.0) g/dL RDW (12.0-15.0) % Plt Count (130-450) 10^3/uL MPV (7.9-10.8) fL Neut # (Auto) (1.5-6.6) 10^3/uL Lymph # (Auto) (1.5-3.5) 10^3/uL [place] # (Auto) (0.0-1.0) 10^3/uL Eos # (Auto) (0.0-0.7) 10^3/uL Baso # (Auto) (0.0-0.1) 10^3/uL Absolute Nucleated RBC x10^3/uL Nucleated RBC % /100WBC Sodium 138 (135-145) mmol/L Potassium 3.8 (3.5-5.0) mmol/L Chloride 102 (101-111) mmol/L Carbon Dioxide 28 (21-32) mmol/L Anion Gap 8.0 (6-13) BUN 16 (6-20) mg/dL Creatinine 0.8 (0.4-1.0) mg/dL Estimated GFR (MDRD) 71 L (>89) Glucose 112 H (70-100) mg/dL Calcium 8.2 L (8.5-10.3) mg/dL Magnesium 1.7 (1.7-2.8) mg/dL Iron 9 L (28-170) ug/dL TIBC 157 L (250-450) ug/dL % Saturation 6 L (20-50) % Transferrin 112 L (192-382) mg/dL Ferritin 97.2 (11.0-306.8) ng/mL Troponin I High Sens (2.3-14.8) ng/L Vitamin B12 (180-914) pg/mL Urine Color Urine Clarity (CLEAR) Urine pH (5.0-7.5) PH Ur Specific [place] (1.002-1.030) Urine Protein (NEGATIVE) mg/dL Urine Glucose (UA) (NEGATIVE) mg/dL Urine Ketones (NEGATIVE) mg/dL Urine Occult Blood (NEGATIVE) Urine Nitrite (NEGATIVE) Urine Bilirubin (NEGATIVE) Urine Urobilinogen (NORMAL) E.U./dL Ur Leukocyte Esterase (NEGATIVE) Ur Microscopic Review Urine Culture Comments 06/03/21 06/03/21 06/02/21 Range/Units 05:47 05:00 19:54 WBC 10.3 (4.8-10.8) x10^3/uL RBC 2.87 L (4.20-5.40) 10^6/uL Hgb 8.7 L (12.0-16.0) g/dL Hct 27.9 L (37.0-47.0) % MCV 97.2 (81.0-99.0) fL MCH 30.3 (27.0-31.0) pg MCHC 31.2 L (32.0-36.0) g/dL RDW 13.6 (12.0-15.0) % Plt Count 284 (130-450) 10^3/uL MPV 9.2 (7.9-10.8) fL Neut # (Auto) 8.2 H (1.5-6.6) 10^3/uL Lymph # (Auto) 0.7 L (1.5-3.5) 10^3/uL [place] # (Auto) 1.0 (0.0-1.0) 10^3/uL Eos # (Auto) 0.3 (0.0-0.7) 10^3/uL Baso # (Auto) 0.0 (0.0-0.1) 10^3/uL Absolute Nucleated RBC 0.00 x10^3/uL Nucleated RBC % 0.0 /100WBC Sodium (135-145) mmol/L Potassium (3.5-5.0) mmol/L Chloride (101-111) mmol/L Carbon Dioxide (21-32) mmol/L Anion Gap (6-13) BUN (6-20) mg/dL Creatinine (0.4-1.0) mg/dL Estimated GFR (MDRD) (>89) Glucose (70-100) mg/dL Calcium (8.5-10.3) mg/dL Magnesium (1.7-2.8) mg/dL Iron (28-170) ug/dL TIBC (250-450) ug/dL % Saturation (20-50) % Transferrin (192-382) mg/dL Ferritin (11.0-306.8) ng/mL Troponin I High Sens 124.6 H* (2.3-14.8) ng/L Vitamin B12 260 (180-914) pg/mL Urine Color Urine Clarity (CLEAR) Urine pH (5.0-7.5) PH Ur Specific [place] (1.002-1.030) Urine Protein (NEGATIVE) mg/dL Urine Glucose (UA) (NEGATIVE) mg/dL Urine Ketones (NEGATIVE) mg/dL Urine Occult Blood (NEGATIVE) Urine Nitrite (NEGATIVE) Urine Bilirubin (NEGATIVE) Urine Urobilinogen (NORMAL) E.U./dL Ur Leukocyte Esterase (NEGATIVE) Ur Microscopic Review Urine Culture Comments 06/02/21 Range/Units 11:20 WBC (4.8-10.8) x10^3/uL RBC (4.20-5.40) 10^6/uL Hgb (12.0-16.0) g/dL Hct (37.0-47.0) % MCV (81.0-99.0) fL MCH (27.0-31.0) pg MCHC (32.0-36.0) g/dL RDW (12.0-15.0) % Plt Count (130-450) 10^3/uL MPV (7.9-10.8) fL Neut # (Auto) (1.5-6.6) 10^3/uL Lymph # (Auto) (1.5-3.5) 10^3/uL [place] # (Auto) (0.0-1.0) 10^3/uL Eos # (Auto) (0.0-0.7) 10^3/uL Baso # (Auto) (0.0-0.1) 10^3/uL Absolute Nucleated RBC x10^3/uL Nucleated RBC % /100WBC Sodium (135-145) mmol/L Potassium (3.5-5.0) mmol/L Chloride (101-111) mmol/L Carbon Dioxide (21-32) mmol/L Anion Gap (6-13) BUN (6-20) mg/dL Creatinine (0.4-1.0) mg/dL Estimated GFR (MDRD) (>89) Glucose (70-100) mg/dL Calcium (8.5-10.3) mg/dL Magnesium (1.7-2.8) mg/dL Iron (28-170) ug/dL TIBC (250-450) ug/dL % Saturation (20-50) % Transferrin (192-382) mg/dL Ferritin (11.0-306.8) ng/mL Troponin I High Sens (2.3-14.8) ng/L Vitamin B12 (180-914) pg/mL Urine Color YELLOW Urine Clarity CLEAR (CLEAR) Urine pH 5.5 (5.0-7.5) PH Ur Specific [place] 1.015 (1.002-1.030) Urine Protein NEGATIVE (NEGATIVE) mg/dL Urine Glucose (UA) NEGATIVE (NEGATIVE) mg/dL Urine Ketones NEGATIVE (NEGATIVE) mg/dL Urine Occult Blood NEGATIVE (NEGATIVE) Urine Nitrite NEGATIVE (NEGATIVE) Urine Bilirubin NEGATIVE (NEGATIVE) Urine Urobilinogen 0.2 (NORMAL) (NORMAL) E.U./dL Ur Leukocyte Esterase NEGATIVE (NEGATIVE) Ur Microscopic Review NOT INDICATED Urine Culture Comments NOT INDICATED ABX Reporting Has patient been on IV antibiotics over the past 48 hours?: Yes Sepsis Event Note (H) - Evaluation Current Stage of Sepsis: Sepsis Possible source of Sepsis: positive: Pulmonary - Sepsis Criteria Sepsis Criteria: Recorded Temperature greater than 38.3C or Less than 36C, Recorded Heart Rate greater than 90 bpm, Recorded Respiratory Rate greater than 20, Respiratory: Increasing oxygen requirements, WBC count greater than 12,000 or less than 4000 Assessment/Plan - Problem List (1) Sepsis Impression: Resolved. The concern on admission was for sepsis given her fever, leukocytosis, tachycardia. CT suggested possible mild effusion and review of prior imaging suggested a potential pulmonary source of infection from last week when she had her bowel obstruction. Urinalysis was normal and no evidence of infection. Respiratory PCR panel was unremarkable. CT of the abdomen and pelvis showed no obvious source of infection. Given the concern for pulmonary source, we will start her on ceftriaxone and azithromycin IV empirically. We have hydrated her with lactated Ringer's. Blood cultures are negative. And her white cell count started at 12.6 thousand and is 10.3 today. She is completed 3 days of azithromycin. Today is day 3 of ceftriaxone. Switch to p.o. amoxicillin tomorrow. Continue to monitor for fever, white cell count. This therapy has been empiric on our part. (2) Pneumonia Conclusion/Plan: The concern is for right lower lobe infiltrate that may be developing causing the effusion and her sepsis. Her CT is not very impressive at this time but reviewing her prior CT from last week, there was concern for potential pulmonary source of infection. She is hypoxic, dyspneic and complaining of right-sided pleuritic chest pain. Although she was just hospitalized, we have treated her for community-acquired pneumonia given the CT from last admission showed the possible pulmonary source which would make this community-acquired. Her sepsis criteria have resolved. She is feeling much better. Breathing better. But she still on 2 L nasal cannula. At home she is on no oxygen at all. Complete antibiotic therapy with p.o. amoxicillin starting tomorrow. Continue oxygen until able to be on room air. She may need to be sent home with oxygen temporarily. Qualifiers: Laterality: right Lung location: lower lobe of lung (3) Right-sided chest pain/pleurisy Conclusion/Plan: This appears to be pleuritic in nature and suspect related to pneumonia/effusion. Her gallbladder appears unremarkable on CT of the abdomen pelvis. There is low suspicion for ACS. Her EKG shows a right bundle branch block without evidence of ischemia. Troponin were 215>> 227>> 255>> 124 Think this was not cardiac in origin. Just a reflection of her hypoxemia and heart strain. We attribute the right-sided chest pain to pleurisy. It is improved over the last 24 hours. 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 CT shows postsurgical changes without evidence of infection. Her abdominal exam is benign. We will keep her on a diet and monitor at this time. (5) COPD (chronic obstructive pulmonary disease) Conclusion/Plan: This does not appear to be in exacerbation at this time. We will place her on DuoNebs 4 times daily with albuterol as needed. I do not believe there is a r ole for steroids at this time. (6) Hypertension Conclusion/Plan: She is hypertensive with systolic in the 180s and this is likely due to her not taking her home antihypertensives yet as she normally takes this in the evening. We will resume her home antihypertensives and will increase the dose if necessary. (7) Aortic stenosis Conclusion/Plan: Her last echocardiogram suggested mild aortic stenosis. Continue outpatient follow-up.
[2021-06-03] MEDS ORDERED: CYANOCOBALAMIN 1,000 MCG/ML VIAL IM ONE (13:24)
[2021-06-03] MEDS ORDERED: IRON DEXTRAN 1,000 MG in SODIUM CHLORIDE 0.9% 250 ML IV ONE (13:30)
[2021-06-03] MEDS: FERROUS SULFATE 325 MG TABLET PO SCH (13:41)
[2021-06-03] MEDS: CHOLECALCIFEROL 25 MCG TABLET PO SCH (13:41)
[2021-06-03] MEDS: ACETAMINOPHEN 325 MG TABLET PO PRN (15:35)
[2021-06-03] MEDS: DOXAZOSIN 1 MG TABLET PO SCH (21:21)
[2021-06-03] MEDS: MORPHINE 2 MG/ML CARPUJECT IVP PRN (22:52)
[2021-06-04] MEDS: SODIUM CHLORIDE FLUSH 0.9% 10 ML SYRINGE IVP SCH ×3 (01:32→17:52)
[2021-06-04 06:11] LABS: BASOPHILS # (AUTO) 0.1 10^3/uL (0.0-0.1); BASOPHILS % (AUTO) 0.5 %; EOSINOPHILS # (AUTO) 0.2 10^3/uL (0.0-0.7); EOSINOPHILS % (AUTO) 2.2 %; HCT - HEMATOCRIT 30.6 % (37.0-47.0); HGB - HEMOGLOBIN 9.4 g/dL (12.0-16.0); LYMPHOCYTES # (AUTO) 1.1 10^3/uL (1.5-3.5); LYMPHOCYTES % (AUTO) 10.4 %; MEAN CORPUSCULAR HEMOGLOBIN 30.3 pg (27.0-31.0); MEAN CORPUSCULAR HGB CONC 30.7 g/dL (32.0-36.0); MEAN CORPUSCULAR VOLUME 98.7 fL (81.0-99.0); MEAN PLATELET VOLUME 9.1 fL (7.9-10.8); MONOCYTES # (AUTO) 0.8 10^3/uL (0.0-1.0); MONOCYTES % (AUTO) 7.5 %; NEUTROPHILS # (AUTO) 8.4 10^3/uL (1.5-6.6); NEUTROPHILS % (AUTO) 78.9 %; PLT - PLATELET COUNT 348 10^3/uL (130-450); RED CELL DISTRIBUTION WIDTH 13.3 % (12.0-15.0); WHITE BLOOD COUNT 10.6 x10^3/uL (4.8-10.8)
[2021-06-04 06:22] LABS: CALCIUM 8.8 mg/dL (8.5-10.3); CREATININE 0.7 mg/dL (0.4-1.0)
[2021-06-04] MEDS ORDERED: FAMOTIDINE 20 MG TABLET PO SCH (09:00)
[2021-06-04] MEDS: MULTIVITAMIN TABLET PO SCH (09:34)
[2021-06-04] MEDS: FERROUS SULFATE 325 MG TABLET PO SCH (09:35)
[2021-06-04] MEDS: CHOLECALCIFEROL 25 MCG TABLET PO SCH (09:36)
[2021-06-04] MEDS: ASPIRIN EC 81 MG TABLET PO SCH (09:37)
[2021-06-04] MEDS: METOPROLOL TARTRATE 25 MG TABLET PO SCH ×2 (09:38→21:09)
[2021-06-04] MEDS: lisinopriL 5 MG TABLET PO SCH (09:38)
[2021-06-04] MEDS: SACCHAROMYCES BOULARDII 250 MG CAPSULE PO SCH ×2 (09:42→17:51)
[2021-06-04] MEDS: ENOXAPARIN 40 MG/0.4 ML SYRINGE SUBQ SCH (09:45)
--- NOTE | 2021-06-04 09:46 | XRAY Report ---
PROCEDURE: Chest 1 View X-Ray INDICATIONS: sob TECHNIQUE: One view of the chest was acquired. COMPARISON: 11/11/2020 FINDINGS: Surgical changes and devices: None. Lungs and pleura: Mild interstitial pulmonary edema. Development of mild to moderate right pleural ef fusion with compressive atelectasis in the right lung base. Mediastinum: Mediastinal contours appear normal. Cardiomegaly. Large hiatal hernia. Bones and chest wall: No suspicious bony lesions. Overlying soft tissues appear unremarkable. IMPRESSION: 1. Congestive heart failure exacerbation. 2. Large hiatal hernia. Reviewed by: Khurram Richard MD on 06/04/2021 9:44 AM PDT Approved by: Khurram Richard MD on 06/04/2021 9:44 AM PDT Station ID: [id number]
[2021-06-04] MEDS: cefTRIAXone 1 GM in SODIUM CHLORIDE 0.9% MINIBAG 100 ML IV SCH (09:49)
[2021-06-04] MEDS ORDERED: FUROSEMIDE 20 MG/2 ML VIAL IVP SCH (10:48)
[2021-06-04] MEDS: IPRATROPIUM/ALBUTEROL 3 ML NEB INH SCH ×4 (11:40→19:10)
[2021-06-04] MEDS ORDERED: GI COCKTAIL 120 ML BOTTLE PO PRN (12:27)
[2021-06-04] MEDS: MORPHINE 2 MG/ML CARPUJECT IVP PRN (12:30)
[2021-06-04] MEDS: PANTOPRAZOLE 40 MG TABLET PO SCH (13:01)
[2021-06-04] MEDS ORDERED: MAG HYDROX/AL HYDROX/SIMETH 30 ML UDC PO PRN (13:08)
--- NOTE | 2021-06-04 13:55 | PROVIDER PROGRESS NOTE ---
Assessment/Plan - Problem List (1) Shortness of breath Assessment/Plan: pt present shortness of breath significantly. She has a history of COPD, Recently develop pneumonia, Mild right-sided pleural effusion, Patient also have history of mild aortic stenosis. Will order chest x-ray, which show Patient deve lopment of mild to moderate right pleural effusion With compressive atelectasis in the right lung base, Congestive heart failure exacerbation, large hiatal hernia. Patient had CTA which did not show PE. We will give patient diuretics Lasix, continue antibiotics, Continue supplemental oxygen as needed (2) Sepsis Resolved at acute phrase. The concern on admission was for sepsis given her fever, leukocytosis, tachycardia. CT suggested no PE, and suggested possible mild effusion and review of prior imaging suggested a potential pulmonary source of infection from last week when she had her bowel obstruction. We will continue finish the treatment course For pneumonia. Patient WBC is running normal range. Blood cultures negative for bacteremia (3) Pneumonia WBC is down to the normal range, blood cultures negative for bacteremia, But patient show shortness of breathing, patient still need oxygen support. We will continue the treatment course for pneumonia. (4) Right-sided chest pain/pleurisy This appears to be pleuritic in nature and suspect related to pneumonia/effusion. roponin were 215>> 227>> 255>> 124. Her EKG shows a right bundle branch block without evidence of ischemia. There is low suspicion for ACS. Her gallbladder appears unremarkable on CT of the abdomen pelvis. We will continue pain control, add GI cocktail, mylanta as needed. Resolved/stable/chronic: (5) Status post small bowel resection CT shows postsurgical changes without evidence of infection. Her abdominal exam is benign. We will keep her on a diet and monitor at this time, continue followup with surgeon's recommendation (6) COPD (chronic obstructive pulmonary disease) Conclusion/Plan: This does not appear to be in exacerbation at this time. We will place her on DuoNebs 4 times daily with albuterol as needed. I do not believe there is a role for steroids at this time. (7) Hypertension Conclusion/Plan: She is hypertensive with systolic in the 180s and this is likely due to her not taking her home antihypertensives yet as she normally takes this in the evening. We will resume her home antihypertensives and will increase the dose if necessary. (8) Aortic stenosis Conclusion/Plan: Her last echocardiogram suggested mild aortic stenosis. Continue outpatient fo llow-up. - Current Meds Current Meds: Current Medications Generic Name Dose Route Start Last Admin Trade Name Freq PRN Reason Stop Dose Admin Acetaminophen 650 mg 06/01/21 23:19 06/03/21 15:35 Acetaminophen 325 Mg Tablet PO 650 mg Q4HR PRN Administration Pain 1 to 4 Albuterol/Ipratropium 3 ml 06/02/21 07:00 06/04/21 11:40 Ipratropium/Albuterol 3 Ml Neb INH 3 ml RTQID YASMEEN Administration Aspirin 81 mg 06/02/21 09:00 06/04/21 09:37 Aspirin Ec 81 Mg Tablet PO 81 mg DAILY YASMEEN Administration Cholecalciferol 50 mcg 06/03/21 12:00 06/04/21 09:36 Cholecalciferol 25 Mcg Tablet PO 50 mcg DAILY YASMEEN Administration Doxazosin Mesylate 2 mg 06/02/21 21:00 06/03/21 21:21 Doxazosin 1 Mg Tablet PO 2 mg QPM YASMEEN Administration Enoxaparin Sodium 40 mg 06/02/21 09:00 06/04/21 09:45 Enoxaparin 40 Mg/0.4 Ml Syringe SUBQ 40 mg DAILY YASMEEN Administration Ferrous Sulfate 325 mg 06/03/21 12:00 06/04/21 09:35 Ferrous Sulfate 325 Mg Tablet PO 325 mg DAILYWM YASMEEN Administration Ceftriaxone Sodium 1 gm/ 100 mls @ 200 mls/hr 06/02/21 16:00 06/04/21 09:49 Sodium Chloride IV 200 mls/hr DAILY YASMEEN Administration Lisinopril 10 mg 06/02/21 09:00 06/04/21 09:38 Lisinopril 5 Mg Tablet PO 10 mg DAILY YASMEEN Administration Metoprolol Tartrate 25 mg 06/02/21 01:00 06/04/21 09:38 Metoprolol Tartrate 25 Mg Tablet PO 25 mg BID YASMEEN Administration Morphine Sulfate 2 mg 06/01/21 23:19 06/04/21 12:30 Morphine 2 Mg/Ml Carpuject IVP 2 mg Q2HR PRN Administration Pain 8 to 10 Multivitamins 1 tab 06/04/21 08:00 06/04/21 09:34 Multivitamin Tablet PO 1 tab DAILYWM YASMEEN Administration Pantoprazole Sodium 40 mg 06/04/21 13:00 06/04/21 13:01 Pantoprazole 40 Mg Tablet PO 40 mg QDAC YASMEEN Administration Saccharomyces Boulardii 250 mg 06/04/21 08:08 06/04/21 09:42 Saccharomyces Boulardii 250 Mg Capsule PO 250 mg BIDWM YASMEEN Administration Sodium Chloride 10 ml 06/02/21 01:00 06/04/21 12:13 Sodium Chloride Flush 0.9% 10 Ml Syringe IVP 10 ml 0100,0900,1700 YASMEEN Administration - Lab Result Fish Bone Diagrams: 06/04/21 06:06 06/04/21 06:06 - Additional Planning My Orders: My Active Orders 06/04/21 08:08 Saccharomyces Boulardii [Florastor] 250 mg PO BIDWM 06/04/21 12:27 Gi Cocktail 30 ml PO Q4H PRN 06/04/21 13:00 Pantoprazole [Protonix] 40 mg PO QDAC 06/04/21 13:08 Mag Hydrox/Al Hydrox/Simeth [Mylanta Plus] 30 ml PO Q4HR PRN Subjective - Subjective Patient Reports: Shortness of Breath Objective Vital Signs: Vital Signs - 24 hr 06/03/21 06/03/21 06/03/21 14:35 16:07 18:29 Temperature 37.5 C Heart Rate 95 100 Heart Rate [ Brachial] Heart Rate [ 99 Monitoring electrodes] Respiratory 20 20 20 Rate Blood Pressure Blood Pressure [Left Brachial artery] Blood Pressure 149/66 H [Right Brachial artery] O2 Saturation 97 06/03/21 06/03/21 06/04/21 21:21 21:26 00:25 Temperature 37.2 C 37.2 C Heart Rate Heart Rate [ 98 90 Brachial] Heart Rate [ Monitoring electrodes] Respiratory 20 18 Rate Blood Pressure 146/65 H Blood Pressure 146/65 H [Left Brachial artery] Blood Pressure 161/73 H [Right Brachial artery] O2 Saturation 94 97 06/04/21 06/04/21 06/04/21 05:35 08:18 09:38 Temperature 37.2 C 37.4 C Heart Rate Heart Rate [ 98 103 H Brachial] Heart Rate [ Monitoring electrodes] Respiratory 18 22 Rate Blood Pressure 143/80 H Blood Pressure [Left Brachial artery] Blood Pressure 154/66 H 158/73 H [Right Brachial artery] O2 Saturation 93 94 06/04/21 06/04/21 11:40 13:00 Temperature 37.1 C Heart Rate 104 H Heart Rate [ 102 H Brachial] Heart Rate [ Monitoring electrodes] Respiratory 20 24 Rate Blood Pressure Blood Pressure [Left Brachial artery] Blood Pressure 131/73 H [Right Brachial artery] O2 Saturation 97 Oxygen O2 Source Nasal cannula Oxygen Flow Rate 2 I&O (Last 24 Hrs): Intake and Output Totals x24h 06/02/21 06/03/21 06/04/21 23:59 23:59 23:59 Intake Total 3412.500 2693.333 660 Output Total 100 525 Balance 3312.500 2168.333 660 General: Alert, Oriented x3, Cooperative HEENT: Atraumatic, PERRLA Neck: Supple Lymphatic: no adenopathy Neuro: Alert, Non Focal, Oriented Times 3 Cardiovascular: Regular rate, Normal S1 Respiratory: Chest non-tender, Rales, Other (shortness of breath) Abdomen: Normal bowel sounds, Other (surgical sundar at middle of abdomen, no infection indicated.) Extremities: Normal pulses - Results Results: Laboratory Results WBC 10.6 x10^3/uL (4.8-10.8) 06/04/21 06:06 RBC 3.10 10^6/uL (4.20-5.40) L 06/04/21 06:06 Hgb 9.4 g/dL (12.0-16.0) L 06/04/21 06:06 Hct 30.6 % (37.0-47.0) L 06/04/21 06:06 MCV 98.7 fL (81.0-99.0) 06/04/21 06:06 MCH 30.3 pg (27.0-31.0) 06/04/21 06:06 MCHC 30.7 g/dL (32.0-36.0) L 06/04/21 06:06 RDW 13.3 % (12.0-15.0) 06/04/21 06:06 Plt Count 348 10^3/uL (130-450) 06/04/21 06:06 MPV 9.1 fL (7.9-10.8) 06/04/21 06:06 Neut # (Auto) 8.4 10^3/uL (1.5-6.6) H 06/04/21 06:06 Lymph # (Auto) 1.1 10^3/uL (1.5-3.5) L 06/04/21 06:06 Glynn # (Auto) 0.8 10^3/uL (0.0-1.0) 06/04/21 06:06 Eos # (Auto) 0.2 10^3/uL (0.0-0.7) 06/04/21 06:06 Baso # (Auto) 0.1 10^3/uL (0.0-0.1) 06/04/21 06:06 Absolute Nucleated RBC 0.00 x10^3/uL 06/04/21 06:06 Nucleated RBC % 0.0 /100WBC 06/04/21 06:06 PT 13.4 secs (9.9-12.6) H 06/01/21 20:09 INR 1.2 (0.8-1.2) 06/01/21 20:09 Sodium 140 mmol/L (135-145) 06/04/21 06:06 Potassium 4.0 mmol/L (3.5-5.0) 06/04/21 06:06 Chloride 104 mmol/L (101-111) 06/04/21 06:06 Carbon Dioxide 28 mmol/L (21-32) 06/04/21 06:06 Anion Gap 8.0 (6-13) 06/04/21 06:06 BUN 10 mg/dL (6-20) 06/04/21 06:06 Creatinine 0.7 mg/dL (0.4-1.0) 06/04/21 06:06 Estimated GFR (MDRD) 82 (>89) L 06/04/21 06:06 Glucose 107 mg/dL (70-100) H 06/04/21 06:06 Lactic Acid 0.8 mmol/L (0.5-2.2) 06/01/21 20:09 Calcium 8.8 mg/dL (8.5-10.3) 06/04/21 06:06 Magnesium 2.0 mg/dL (1.7-2.8) 06/04/21 06:06 Iron 9 ug/dL (28-170) L 06/03/21 05:47 TIBC 157 ug/dL (250-450) L 06/03/21 05:47 % Saturation 6 % (20-50) L 06/03/21 05:47 Transferrin 112 mg/dL (192-382) L 06/03/21 05:47 Ferritin 97.2 ng/mL (11.0-306.8) 06/03/21 05:47 Total Bilirubin 0.8 mg/dL (0.2-1.0) 06/01/21 20:09 AST 20 IU/L (10-42) 06/01/21 20:09 ALT 19 IU/L (10-60) 06/01/21 20:09 Alkaline Phosphatase 58 IU/L (42-121) 06/01/21 20:09 Troponin I High Sens 124.6 ng/L (2.3-14.8) H* 06/02/21 19:54 B-Natriuretic Peptide 61 pg/mL (5-100) 06/01/21 20:09 Total Protein 6.9 g/dL (6.7-8.2) 06/01/21 20:09 Albumin 3.6 g/dL (3.2-5.5) 06/01/21 20:09 Globulin 3.3 g/dL (2.1-4.2) 06/01/21 20:09 Albumin/Globulin Ratio 1.1 (1.0-2.2) 06/01/21 20:09 Lipase 27 U/L (22-51) 06/01/21 20:09 Vitamin B12 260 pg/mL (180-914) 06/03/21 05:00 Urine Color YELLOW 06/02/21 11:20 Urine Clarity CLEAR (CLEAR) 06/02/21 11:20 Urine pH 5.5 PH (5.0-7.5) 06/02/21 11:20 Ur Specific Mather 1.015 (1.002-1.030) 06/02/21 11:20 Urine Protein NEGATIVE mg/dL (NEGATIVE) 06/02/21 11:20 Urine Glucose (UA) NEGATIVE mg/dL (NEGATIVE) 06/02/21 11:20 Urine Ketones NEGATIVE mg/dL (NEGATIVE) 06/02/21 11:20 Urine Occult Blood NEGATIVE (NEGATIVE) 06/02/21 11:20 Urine Nitrite NEGATIVE (NEGATIVE) 06/02/21 11:20 Urine Bilirubin NEGATIVE (NEGATIVE) 06/02/21 11:20 Urine Urobilinogen 0.2 (NORMAL) E.U./dL (NORMAL) 06/02/21 11:20 Ur Leukocyte Esterase NEGATIVE (NEGATIVE) 06/02/21 11:20 Ur Microscopic Review NOT INDICATED 06/02/21 11:20 Urine Culture Comments NOT INDICATED 06/02/21 11:20 Nasal Adenovirus (PCR) NOT DETECTED 06/01/21 20:00 Nasal B. parapertussis DNA (PCR) NOT DETECTED 06/01/21 20:00 Nasal Coronavir 229E PCR NOT DETECTED 06/01/21 20:00 Nasal Coronavir HKU1 PCR NOT DETECTED 06/01/21 20:00 Nasal Coronavir NL63 PCR NOT DETECTED 06/01/21 20:00 Nasal Coronavir OC43 PCR NOT DETECTED 06/01/21 20:00 Nasal Enterovir/Rhinovir PCR NOT DETECTED 06/01/21 20:00 Nasal Influenza B PCR NOT DETECTED 06/01/21 20:00 Nasal Influenza A PCR NOT DETECTED 06/01/21 20:00 Nasal Parainfluen 1 PCR NOT DETECTED 06/01/21 20:00 Nasal Parainfluen 2 PCR NOT DETECTED 06/01/21 20:00 Nasal Parainfluen 3 PCR NOT DETECTED 06/01/21 20:00 Nasal Parainfluen 4 PCR NOT DETECTED 06/01/21 20:00 Nasal RSV (PCR) NOT DETECTED 06/01/21 20:00 Nasal B.pertussis DNA PCR NOT DETECTED 06/01/21 20:00 Nasal C.pneumoniae (PCR) NOT DETECTED 06/01/21 20:00 Tonio Human Metapneumo PCR NOT DETECTED 06/01/21 20:00 Nasal M.pneumoniae (PCR) NOT DETECTED 06/01/21 20:00 Nasal SARS-CoV-2 (PCR) NOT DETECTED 06/01/21 20:00 - Procedures Procedures: Procedures BYPASS ILEUM TO CUTANEOUS, OPEN APPROACH (04/02/20) DILATION OF LARGE INTESTINE, ENDO (10/22/20) DILATION OF RECTUM, ENDO (12/21/20) EXCISION OF ASCENDING COLON, ENDO, DIAGN (12/21/20) EXCISION OF DESCENDING COLON, ENDO, DIAGN (12/21/20) EXCISION OF ILEUM, OPEN APPROACH (10/22/20) EXCISION OF LARGE INTESTINE, ENDO, DIAGN (12/21/20) EXCISION OF SIGMOID COLON, OPEN APPROACH (04/02/20) EXCISION OF SMALL INTESTINE, OPEN APPROACH (05/24/21) INSERTION OF INFUSION DEV INTO SUP VENA CAVA, PERC APPROACH (04/02/20) INSPECTION OF LOWER INTESTINAL TRACT, ENDO (12/21/20) RELEASE PERITONEUM, OPEN APPROACH (04/02/20) REPAIR MESENTERY, OPEN APPROACH (05/24/21) Sepsis Event Note (H) - Evaluation Current Stage of Sepsis: Sepsis Possible source of Sepsis: positive: Pulmonary - Sepsis Criteria Sepsis Criteria: Recorded Temperature greater than 38.3C or Less than 36C, Recorded Heart Rate greater than 90 bpm, Recorded Respiratory Rate greater than 20, Respiratory: Increasing oxygen requirements, WBC count greater than 12,000 or less than 4000 ABX Reporting Has patient been on IV antibiotics over the past 48 hours?: Yes Current Medications - Current Medications Current Medications: Active Medications Acetaminophen (Acetaminophen 325 Mg Tablet) 650 mg PO Q4HR PRN PRN Reason: Pain 1 to 4 Last Admin: 06/03/21 15:35 Dose: 650 mg Documented by: Al Hydroxide/Mg Hydroxide (Mag Hydrox/Al Hydrox/Simeth 30 Ml Udc) 30 ml PO Q4HR PRN PRN Reason: INDIGESTION Albuterol (Albuterol Neb 2.5 Mg/3 Ml) 2.5 mg INH RTQ4H PRN PRN Reason: Wheezing Albuterol/Ipratropium (Ipratropium/Albuterol 3 Ml Neb) 3 ml INH RTQID [facility] Last Admin: 06/04/21 11:40 Dose: 3 ml Documented by: Aspirin (Aspirin Ec 81 Mg Tablet) 81 mg PO DAILY [facility] Last Admin: 06/04/21 09:37 Dose: 81 mg Documented by: Cholecalciferol (Cholecalciferol 25 Mcg Tablet) 50 mcg PO DAILY [facility] Last Admin: 06/04/21 09:36 Dose: 50 mcg Documented by: Doxazosin Mesylate (Doxazosin 1 Mg Tablet) 2 mg PO QPM [facility] Last Admin: 06/03/21 21:21 Dose: 2 mg Documented by: Enoxaparin Sodium (Enoxaparin 40 Mg/0.4 Ml Syringe) 40 mg SUBQ DAILY [facility] Last Admin: 06/04/21 09:45 Dose: 40 mg Documented by: Ferrous Sulfate (Ferrous Sulfate 325 Mg Tablet) 325 mg PO DAILYWM [facility] Last Admin: 06/04/21 09:35 Dose: 325 mg Documented by: Furosemide (Furosemide 20 Mg/2 Ml Vial) 20 mg IVP DAILY [facility] Ceftriaxone Sodium 1 gm/ (Sodium Chloride) 100 mls @ 200 mls/hr IV DAILY [facility] Last Infusion: 06/04/21 10:19 Dose: Infused Documented by: Lisinopril (Lisinopril 5 Mg Tablet) 10 mg PO DAILY [facility] Last Admin: 06/04/21 09:38 Dose: 10 mg Documented by: Metoprolol Tartrate (Metoprolol Tartrate 25 Mg Tablet) 25 mg PO BID [facility] Last Admin: 06/04/21 09:38 Dose: 25 mg Documented by: Morphine Sulfate (Morphine 2 Mg/Ml Carpuject) 2 mg IVP Q2HR PRN PRN Reason: Pain 8 to 10 Last Admin: 06/04/21 12:30 Dose: 2 mg Documented by: Multi-Ingredient Mouthwash/Gargle (Gi Cocktail 120 Ml Bottle) 30 ml PO Q4H PRN PRN Reason: Abdominal Pain Multivitamins (Multivitamin Tablet) 1 tab PO DAILYWM [facility] Last Admin: 06/04/21 09:34 Dose: 1 tab Documented by: Ondansetron HCl (Ondansetron Odt 4 Mg Tablet) 4 mg TL Q6HR PRN PRN Reason: Nausea / Vomiting Ondansetron HCl (Ondansetron 4 Mg/2 Ml Vial) 4 mg IVP Q6HR PRN PRN Reason: Nausea / Vomiting Oxycodone HCl (Oxycodone 5 Mg Tablet) 5 mg PO Q4HR PRN PRN Reason: Pain 5 to 7 Pantoprazole Sodium (Pantoprazole 40 Mg Tablet) 40 mg PO QDAC [facility] Last Admin: 06/04/21 13:01 Dose: 40 mg Documented by: Saccharomyces Boulardii (Saccharomyces Boulardii 250 Mg Capsule) 250 mg PO BIDWM [facility] Last Admin: 06/04/21 09:42 Dose: 250 mg Documented by: Sodium Chloride (Sodium Chloride Flush 0.9% 10 Ml Syringe) 10 ml IVP PRN PRN PRN Reason: NEEDED PER PROVIDER ORDERS Sodium Chloride (Sodium Chloride Flush 0.9% 10 Ml Syringe) 10 ml IVP 0100,0900,1700 [facility] Last Admin: 06/04/21 12:13 Dose: 10 ml Documented by: Aspirin EC [Ecotrin] 81 mg PO DAILY 04/02/20 Ferrous Sulfate 325 mg PO DAILY 04/02/20 Acetaminophen [Tylenol] 650 mg PO Q4HR PRN 11/11/20 Doxazosin Mesylate [Cardura] 2 mg PO QPM 05/24/21 Metoprolol Tartrate [Lopressor] 25 mg PO BID 05/24/21 Umeclidinium [place] [Incruse Ellipta] 1 puffs INH DAILY 05/24/21
[2021-06-04] MEDS: DOXAZOSIN 1 MG TABLET PO SCH (21:09)
[2021-06-05] MEDS: SODIUM CHLORIDE FLUSH 0.9% 10 ML SYRINGE IVP SCH ×3 (03:07→17:14)
[2021-06-05] MEDS: PANTOPRAZOLE 40 MG TABLET PO SCH (06:27)
[2021-06-05 06:30] LABS: BASOPHILS # (AUTO) 0.1 10^3/uL (0.0-0.1); BASOPHILS % (AUTO) 0.6 %; EOSINOPHILS # (AUTO) 0.4 10^3/uL (0.0-0.7); EOSINOPHILS % (AUTO) 4.2 %; LYMPHOCYTES # (AUTO) 0.9 10^3/uL (1.5-3.5); LYMPHOCYTES % (AUTO) 10.4 %; MEAN CORPUSCULAR HEMOGLOBIN 29.9 pg (27.0-31.0); MEAN CORPUSCULAR VOLUME 99.7 fL (81.0-99.0); MEAN PLATELET VOLUME 9.1 fL (7.9-10.8); MONOCYTES # (AUTO) 0.7 10^3/uL (0.0-1.0); MONOCYTES % (AUTO) 8.1 %; NEUTROPHILS # (AUTO) 6.6 10^3/uL (1.5-6.6); NEUTROPHILS % (AUTO) 76.1 %; PLT - PLATELET COUNT 393 10^3/uL (130-450); RED BLOOD COUNT 3.01 10^6/uL (4.20-5.40); RED CELL DISTRIBUTION WIDTH 13.4 % (12.0-15.0); WHITE BLOOD COUNT 8.6 x10^3/uL (4.8-10.8)
[2021-06-05 06:46] LABS: CALCIUM 8.9 mg/dL (8.5-10.3); CREATININE 0.8 mg/dL (0.4-1.0); CRP - C-REACTIVE PROTEIN 12.1 mg/dL (0-1.0); MAGNESIUM 1.9 mg/dL (1.7-2.8); POTASSIUM 4.1 mmol/L (3.5-5.0)
[2021-06-05] MEDS: FERROUS SULFATE 325 MG TABLET PO SCH (08:00)
[2021-06-05] MEDS: MULTIVITAMIN TABLET PO SCH (08:01)
[2021-06-05] MEDS: SACCHAROMYCES BOULARDII 250 MG CAPSULE PO SCH ×2 (08:02→17:14)
[2021-06-05] MEDS: ASPIRIN EC 81 MG TABLET PO SCH (08:28)
[2021-06-05] MEDS: CHOLECALCIFEROL 25 MCG TABLET PO SCH (08:29)
[2021-06-05] MEDS: lisinopriL 5 MG TABLET PO SCH (08:30)
[2021-06-05] MEDS: METOPROLOL TARTRATE 25 MG TABLET PO SCH ×2 (08:31→21:57)
[2021-06-05] MEDS: ENOXAPARIN 40 MG/0.4 ML SYRINGE SUBQ SCH (08:34)
[2021-06-05] MEDS: IPRATROPIUM/ALBUTEROL 3 ML NEB INH SCH ×4 (08:46→20:35)
[2021-06-05] MEDS ORDERED: FUROSEMIDE 20 MG/2 ML VIAL IVP SCH (09:00)
[2021-06-05] MEDS: ALBUTEROL NEB 2.5 MG/3 ML INH PRN (09:33)
[2021-06-05] MEDS: cefTRIAXone 1 GM in SODIUM CHLORIDE 0.9% MINIBAG 100 ML IV SCH (09:35)
[2021-06-05] MEDS: FUROSEMIDE 20 MG/2 ML VIAL IVP SCH ×2 (09:35→21:58)
--- NOTE | 2021-06-05 14:00 | PROVIDER PROGRESS NOTE ---
Assessment/Plan - Problem List (1) Shortness of breath Assessment/Plan: 06/05 Patient still present shortness breathing. She feels better on yesterday but return worsening SOB at the morning. It is likely caused by patient's fluid overloaded. Increases Lasix dosage to 20mg twice daily intravenous, We will check echo. pt present shortness of breath significantly. She has a history of COPD, Recently develop pneumonia, Mild right-sided pleural effusion, Patient also have history of mild aortic stenosis. Will order chest x-ray, which show Patient development of mild to moderate right pleural effusion With compressive atelectasis in the right lung base, Congestive heart failure exacerbation, large hiatal hernia. Patient had CTA which did not show PE. We will give patient diuretics Lasix, continue antibiotics, Continue supplemental oxygen as needed (2) Sepsis 06/05 Resolved at her acute phase. The concern on admission was for sepsis given her fever, leukocytosis, tachycardia. CT suggested no PE, and suggested possible mild effusion and review of prior imaging suggested a potential pulmonary source of infection from last week when she had her bowel obstruction. We will continue finish the treatment course For pneumonia. Patient WBC is running normal range. Blood cultures negative for bacteremia (3) Pneumonia 06/05 Continue antibiotics, Add probiotics. CRP is also trended down to the normal range, blood cultures negative for bacteremia, But patient show shortness of breathing, patient still need oxygen support. We will continue the treatment course for pneumonia. (4) Right-sided chest pain/pleurisy This appears to be pleuritic in nature and suspect related to pneumonia/effusion. roponin were 215>> 227>> 255>> 124. Her EKG shows a right bundle branch block without evidence of ischemia. There is low suspicion for ACS. Her gallbladder appears unremarkable on CT of the abdomen pelvis. We will continue pain control, add GI cocktail, mylanta as needed. (5) Status post small bowel resection CT shows postsurgical changes without evidence of infection. Her abdominal ex am is benign. We will keep her on a diet and monitor at this time, continue followup with surgeon's recommendation (6) COPD (chronic obstructive pulmonary disease) Conclusion/Plan: This does not appear to be in exacerbation at this time. We will place her on DuoNebs 4 times daily with albuterol as needed. I do not believe there is a role for steroids at this time. (7) Hypertension Conclusion/Plan: She is hypertensive with systolic in the 180s and this is likely due to her not taking her home antihypertensives yet as she normally takes this in the evening. We will resume her home antihypertensives and will increase the dose if necessary. (8) Aortic stenosis Conclusion/Plan: Her last echocardiogram suggested mild aortic stenosis. Continue outpatient follow-up. - Current Meds Current Meds: Current Medications Generic Name Dose Route Start Last Admin Trade Name Freq PRN Reason Stop Dose Admin Acetaminophen 650 mg 06/01/21 23:19 06/03/21 15:35 Acetaminophen 325 Mg Tablet PO 650 mg Q4HR PRN Administration Pain 1 to 4 Al Hydroxide/Mg Hydroxide 30 ml 06/04/21 13:08 06/04/21 14:12 Mag Hydrox/Al Hydrox/Simeth 30 Ml Udc PO 30 ml Q4HR PRN Administration INDIGESTION Albuterol 2.5 mg 06/01/21 23:24 06/05/21 09:33 Albuterol Neb 2.5 Mg/3 Ml INH 2.5 mg RTQ4H PRN Administration Wheezing Albuterol/Ipratropium 3 ml 06/02/21 07:00 06/05/21 12:47 Ipratropium/Albuterol 3 Ml Neb INH 3 ml RTQID YASMEEN Administration Aspirin 81 mg 06/02/21 09:00 06/05/21 08:28 Aspirin Ec 81 Mg Tablet PO 81 mg DAILY YASMEEN Administration Cholecalciferol 50 mcg 06/03/21 12:00 06/05/21 08:29 Cholecalciferol 25 Mcg Tablet PO 50 mcg DAILY YASMEEN Administration Doxazosin Mesylate 2 mg 06/02/21 21:00 06/04/21 21:09 Doxazosin 1 Mg Tablet PO 2 mg QPM YASMEEN Administration Enoxaparin Sodium 40 mg 06/02/21 09:00 06/05/21 08:34 Enoxaparin 40 Mg/0.4 Ml Syringe SUBQ 40 mg DAILY YASMEEN Administration Ferrous Sulfate 325 mg 06/03/21 12:00 06/05/21 08:00 Ferrous Sulfate 325 Mg Tablet PO 325 mg DAILYWM YASMEEN Administration Furosemide 20 mg 06/05/21 09:00 06/05/21 09:35 Furosemide 20 Mg/2 Ml Vial IVP 20 mg BID YASMEEN Administration Ceftriaxone Sodium 1 gm/ 100 mls @ 200 mls/hr 06/02/21 16:00 06/05/21 10:05 Sodium Chloride IV Infused DAILY YASMEEN Infusion Lisinopril 10 mg 06/02/21 09:00 06/05/21 08:30 Lisinopril 5 Mg Tablet PO 10 mg DAILY YASMEEN Administration Metoprolol Tartrate 25 mg 06/02/21 01:00 06/05/21 08:31 Metoprolol Tartrate 25 Mg Tablet PO 25 mg BID YASMEEN Administration Morphine Sulfate 2 mg 06/01/21 23:19 06/04/21 12:30 Morphine 2 Mg/Ml Carpuject IVP 2 mg Q2HR PRN Administration Pain 8 to 10 Multivitamins 1 tab 06/04/21 08:00 06/05/21 08:01 Multivitamin Tablet PO 1 tab DAILYWM YASMEEN Administration Oxycodone HCl 5 mg 06/01/21 23:19 06/04/21 14:12 Oxycodone 5 Mg Tablet PO 5 mg Q4HR PRN Administration Pain 5 to 7 Pantoprazole Sodium 40 mg 06/04/21 13:00 06/05/21 06:27 Pantoprazole 40 Mg Tablet PO 40 mg QDAC YASMEEN Administration Saccharomyces Boulardii 250 mg 06/04/21 08:08 06/05/21 08:02 Saccharomyces Boulardii 250 Mg Capsule PO 250 mg BIDWM YASMEEN Administration Sodium Chloride 10 ml 06/02/21 01:00 06/05/21 10:05 Sodium Chloride Flush 0.9% 10 Ml Syringe IVP 10 ml 0100,0900,1700 YASMEEN Administration - Lab Result Fish Bone Diagrams: 06/05/21 06:12 06/05/21 06:12 - Additional Planning My Orders: My Active Orders 06/04/21 13:00 Pantoprazole [Protonix] 40 mg PO QDAC 06/04/21 13:08 Mag Hydrox/Al Hydrox/Simeth [Mylanta Plus] 30 ml PO Q4HR PRN 06/04/21 Dinner Low Sodium Diet [DIET] 06/05/21 08:44 Echo Transthoracic Complete [ECHO] Stat 06/05/21 09:00 FUROSEMIDE INJ 20mg VIAL [LASIX INJ 20mg VIAL] 20 mg IVP BID 06/06/21 05:00 CRP - C-REACTIVE PROTEIN [CHEM] DAILYLAB 06/07/21 05:00 CRP - C-REACTIVE PROTEIN [CHEM] DAILYLAB 06/08/21 05:00 CRP - C-REACTIVE PROTEIN [CHEM] DAILYLAB Subjective - Subjective Patient Reports: Shortness of Breath Objective Vital Signs: Vital Signs - 24 hr 06/04/21 06/04/21 06/04/21 16:00 16:46 19:10 Temperature 37.3 C Heart Rate 86 75 Heart Rate [ 88 Brachial] Heart Rate [ Monitoring electrodes] Respiratory 20 22 18 Rate Blood Pressure Blood Pressure 125/65 [Right Brachial artery] O2 Saturation 95 06/04/21 06/04/21 06/04/21 21:00 21:09 23:30 Temperature 37.1 C 37.1 C Heart Rate Heart Rate [ 77 Brachial] Heart Rate [ 86 Monitoring electrodes] Respiratory 16 18 Rate Blood Pressure 125/59 L Blood Pressure 125/59 L 106/56 L [Right Brachial artery] O2 Saturation 96 95 06/05/21 06/05/21 06/05/21 05:10 07:53 08:31 Temperature 37.1 C 37.0 C Heart Rate Heart Rate [ 93 96 Brachial] Heart Rate [ Monitoring electrodes] Respiratory 16 18 Rate Blood Pressure 159/74 H Blood Pressure 139/69 H 106/74 [Right Brachial artery] O2 Saturation 95 93 06/05/21 06/05/21 06/05/21 09:31 12:34 12:47 Temperature 37.0 C Heart Rate 92 90 Heart Rate [ 91 Brachial] Heart Rate [ Monitoring electrodes] Respiratory 14 18 12 Rate Blood Pressure Blood Pressure 97/59 L [Right Brachial artery] O2 Saturation 96 Oxygen O2 Source Nasal cannula Oxygen Flow Rate 2 I&O (Last 24 Hrs): Intake and Output Totals x24h 06/03/21 06/04/21 06/05/21 23:59 23:59 23:59 Intake Total 2693.333 1210 1560 Output Total 525 Balance 2168.333 1210 1560 General: Alert, Oriented x3, Cooperative, Mild distress HEENT: Atraumatic, PERRLA Neck: Supple Lymphatic: no adenopathy Neuro: Alert, Non Focal, Oriented Times 3 Cardiovascular: Regular rate, Normal S1, Normal S2 Respiratory: Chest non-tender, Rales Abdomen: Normal bowel sounds, Soft Extremities: Normal pulses - Results Results: Laboratory Results WBC 8.6 x10^3/uL (4.8-10.8) 06/05/21 06:12 RBC 3.01 10^6/uL (4.20-5.40) L 06/05/21 06:12 Hgb 9.0 g/dL (12.0-16.0) L 06/05/21 06:12 Hct 30.0 % (37.0-47.0) L 06/05/21 06:12 MCV 99.7 fL (81.0-99.0) H 06/05/21 06:12 MCH 29.9 pg (27.0-31.0) 06/05/21 06:12 MCHC 30.0 g/dL (32.0-36.0) L 06/05/21 06:12 RDW 13.4 % (12.0-15.0) 06/05/21 06:12 Plt Count 393 10^3/uL (130-450) 06/05/21 06:12 MPV 9.1 fL (7.9-10.8) 06/05/21 06:12 Neut # (Auto) 6.6 10^3/uL (1.5-6.6) 06/05/21 06:12 Lymph # (Auto) 0.9 10^3/uL (1.5-3.5) L 06/05/21 06:12 Ector # (Auto) 0.7 10^3/uL (0.0-1.0) 06/05/21 06:12 Eos # (Auto) 0.4 10^3/uL (0.0-0.7) 06/05/21 06:12 Baso # (Auto) 0.1 10^3/uL (0.0-0.1) 06/05/21 06:12 Absolute Nucleated RBC 0.00 x10^3/uL 06/05/21 06:12 Nucleated RBC % 0.0 /100WBC 06/05/21 06:12 PT 13.4 secs (9.9-12.6) H 06/01/21 20:09 INR 1.2 (0.8-1.2) 06/01/21 20:09 Sodium 140 mmol/L (135-145) 06/05/21 06:12 Potassium 4.1 mmol/L (3.5-5.0) 06/05/21 06:12 Chloride 101 mmol/L (101-111) 06/05/21 06:12 Carbon Dioxide 31 mmol/L (21-32) 06/05/21 06:12 Anion Gap 8.0 (6-13) 06/05/21 06:12 BUN 15 mg/dL (6-20) 06/05/21 06:12 Creatinine 0.8 mg/dL (0.4-1.0) 06/05/21 06:12 Estimated GFR (MDRD) 71 (>89) L 06/05/21 06:12 Glucose 102 mg/dL (70-100) H 06/05/21 06:12 Lactic Acid 0.8 mmol/L (0.5-2.2) 06/01/21 20:09 Calcium 8.9 mg/dL (8.5-10.3) 06/05/21 06:12 Magnesium 1.9 mg/dL (1.7-2.8) 06/05/21 06:12 Iron 9 ug/dL (28-170) L 06/03/21 05:47 TIBC 157 ug/dL (250-450) L 06/03/21 05:47 % Saturation 6 % (20-50) L 06/03/21 05:47 Transferrin 112 mg/dL (192-382) L 06/03/21 05:47 Ferritin 97.2 ng/mL (11.0-306.8) 06/03/21 05:47 Total Bilirubin 0.8 mg/dL (0.2-1.0) 06/01/21 20:09 AST 20 IU/L (10-42) 06/01/21 20:09 ALT 19 IU/L (10-60) 06/01/21 20:09 Alkaline Phosphatase 58 IU/L (42-121) 06/01/21 20:09 Troponin I High Sens 124.6 ng/L (2.3-14.8) H* 06/02/21 19:54 C-Reactive Protein 12.1 mg/dL (0-1.0) H 06/05/21 06:12 B-Natriuretic Peptide 66 pg/mL (5-100) 06/05/21 06:12 Total Protein 6.9 g/dL (6.7-8.2) 06/01/21 20:09 Albumin 3.6 g/dL (3.2-5.5) 06/01/21 20:09 Globulin 3.3 g/dL (2.1-4.2) 06/01/21 20:09 Albumin/Globulin Ratio 1.1 (1.0-2.2) 06/01/21 20:09 Lipase 27 U/L (22-51) 06/01/21 20:09 Vitamin B12 260 pg/mL (180-914) 06/03/21 05:00 25-OH Vitamin D Total 21 ng/mL (30-100) L 06/03/21 05:47 Urine Color YELLOW 06/02/21 11:20 Urine Clarity CLEAR (CLEAR) 06/02/21 11:20 Urine pH 5.5 PH (5.0-7.5) 06/02/21 11:20 Ur Specific Kuna 1.015 (1.002-1.030) 06/02/21 11:20 Urine Protein NEGATIVE mg/dL (NEGATIVE) 06/02/21 11:20 Urine Glucose (UA) NEGATIVE mg/dL (NEGATIVE) 06/02/21 11:20 Urine Ketones NEGATIVE mg/dL (NEGATIVE) 06/02/21 11:20 Urine Occult Blood NEGATIVE (NEGATIVE) 06/02/21 11:20 Urine Nitrite NEGATIVE (NEGATIVE) 06/02/21 11:20 Urine Bilirubin NEGATIVE (NEGATIVE) 06/02/21 11:20 Urine Urobilinogen 0.2 (NORMAL) E.U./dL (NORMAL) 06/02/21 11:20 Ur Leukocyte Esterase NEGATIVE (NEGATIVE) 06/02/21 11:20 Ur Microscopic Review NOT INDICATED 06/02/21 11:20 Urine Culture Comments NOT INDICATED 06/02/21 11:20 Nasal Adenovirus (PCR) NOT DETECTED 06/01/21 20:00 Nasal B. parapertussis DNA (PCR) NOT DETECTED 06/01/21 20:00 Nasal Coronavir 229E PCR NOT DETECTED 06/01/21 20:00 Nasal Coronavir HKU1 PCR NOT DETECTED 06/01/21 20:00 Nasal Coronavir NL63 PCR NOT DETECTED 06/01/21 20:00 Nasal Coronavir OC43 PCR NOT DETECTED 06/01/21 20:00 Nasal Enterovir/Rhinovir PCR NOT DETECTED 06/01/21 20:00 Nasal Influenza B PCR NOT DETECTED 06/01/21 20:00 Nasal Influenza A PCR NOT DETECTED 06/01/21 20:00 Nasal Parainfluen 1 PCR NOT DETECTED 06/01/21 20:00 Nasal Parainfluen 2 PCR NOT DETECTED 06/01/21 20:00 Nasal Parainfluen 3 PCR NOT DETECTED 06/01/21 20:00 Nasal Parainfluen 4 PCR NOT DETECTED 06/01/21 20:00 Nasal RSV (PCR) NOT DETECTED 06/01/21 20:00 Nasal B.pertussis DNA PCR NOT DETECTED 06/01/21 20:00 Nasal C.pneumoniae (PCR) NOT DETECTED 06/01/21 20:00 Tonio Human Metapneumo PCR NOT DETECTED 06/01/21 20:00 Nasal M.pneumoniae (PCR) NOT DETECTED 06/01/21 20:00 Nasal SARS-CoV-2 (PCR) NOT DETECTED 06/01/21 20:00 - Procedures Procedures: Procedures BYPASS ILEUM TO CUTANEOUS, OPEN APPROACH (04/02/20) DILATION OF LARGE INTESTINE, ENDO (10/22/20) DILATION OF RECTUM, ENDO (12/21/20) EXCISION OF ASCENDING COLON, ENDO, DIAGN (12/21/20) EXCISION OF DESCENDING COLON, ENDO, DIAGN (12/21/20) EXCISION OF ILEUM, OPEN APPROACH (10/22/20) EXCISION OF LARGE INTESTINE, ENDO, DIAGN (12/21/20) EXCISION OF SIGMOID COLON, OPEN APPROACH (04/02/20) EXCISION OF SMALL INTESTINE, OPEN APPROACH (05/24/21) INSERTION OF INFUSION DEV INTO SUP VENA CAVA, PERC APPROACH (04/02/20) INSPECTION OF LOWER INTESTINAL TRACT, ENDO (12/21/20) RELEASE PERITONEUM, OPEN APPROACH (04/02/20) REPAIR MESENTERY, OPEN APPROACH (05/24/21) Sepsis Event Note (H) - Evaluation Current Stage of Sepsis: Sepsis Possible source of Sepsis: positive: Pulmonary - Sepsis Criteria Sepsis Criteria: Recorded Temperature greater than 38.3C or Less than 36C, Recorded Heart Rate greater than 90 bpm, Recorded Respiratory Rate greater than 20, Respiratory: Increasing oxygen requirements, WBC count greater than 12,000 or less than 4000 ABX Reporting Has patient been on IV antibiotics over the past 48 hours?: Yes Current Medications - Current Medications Current Medications: Active Medications Acetaminophen (Acetaminophen 325 Mg Tablet) 650 mg PO Q4HR PRN PRN Reason: Pain 1 to 4 Last Admin: 06/03/21 15:35 Dose: 650 mg Documented by: Al Hydroxide/Mg Hydroxide (Mag Hydrox/Al Hydrox/Simeth 30 Ml Udc) 30 ml PO Q4HR PRN PRN Reason: INDIGESTION Last Admin: 06/04/21 14:12 Dose: 30 ml Documented by: Albuterol (Albuterol Neb 2.5 Mg/3 Ml) 2.5 mg INH RTQ4H PRN PRN Reason: Wheezing Last Admin: 06/05/21 09:33 Dose: 2.5 mg Documented by: Albuterol/Ipratropium (Ipratropium/Albuterol 3 Ml Neb) 3 ml INH RTQID YASMEEN Last Admin: 06/05/21 12:47 Dose: 3 ml Documented by: Aspirin (Aspirin Ec 81 Mg Tablet) 81 mg PO DAILY [facility] Last Admin: 06/05/21 08:28 Dose: 81 mg Documented by: Cholecalciferol (Cholecalciferol 25 Mcg Tablet) 50 mcg PO DAILY [facility] Last Admin: 06/05/21 08:29 Dose: 50 mcg Documented by: Doxazosin Mesylate (Doxazosin 1 Mg Tablet) 2 mg PO QPM [facility] Last Admin: 06/04/21 21:09 Dose: 2 mg Documented by: Enoxaparin Sodium (Enoxaparin 40 Mg/0.4 Ml Syringe) 40 mg SUBQ DAILY [facility] Last Admin: 06/05/21 08:34 Dose: 40 mg Documented by: Ferrous Sulfate (Ferrous Sulfate 325 Mg Tablet) 325 mg PO DAILYWM [facility] Last Admin: 06/05/21 08:00 Dose: 325 mg Documented by: Furosemide (Furosemide 20 Mg/2 Ml Vial) 20 mg IVP BID [facility] Last Admin: 06/05/21 09:35 Dose: 20 mg Documented by: Ceftriaxone Sodium 1 gm/ (Sodium Chloride) 100 mls @ 200 mls/hr IV DAILY [facility] Last Infusion: 06/05/21 10:05 Dose: Infused Documented by: Lisinopril (Lisinopril 5 Mg Tablet) 10 mg PO DAILY [facility] Last Admin: 06/05/21 08:30 Dose: 10 mg Documented by: Metoprolol Tartrate (Metoprolol Tartrate 25 Mg Tablet) 25 mg PO BID [facility] Last Admin: 06/05/21 08:31 Dose: 25 mg Documented by: Morphine Sulfate (Morphine 2 Mg/Ml Carpuject) 2 mg IVP Q2HR PRN PRN Reason: Pain 8 to 10 Last Admin: 06/04/21 12:30 Dose: 2 mg Documented by: Multi-Ingredient Mouthwash/Gargle (Gi Cocktail 120 Ml Bottle) 30 ml PO Q4H PRN PRN Reason: Abdominal Pain Multivitamins (Multivitamin Tablet) 1 tab PO DAILYWM [facility] Last Admin: 06/05/21 08:01 Dose: 1 tab Documented by: Ondansetron HCl (Ondansetron Odt 4 Mg Tablet) 4 mg TL Q6HR PRN PRN Reason: Nausea / Vomiting Ondansetron HCl (Ondansetron 4 Mg/2 Ml Vial) 4 mg IVP Q6HR PRN PRN Reason: Nausea / Vomiting Oxycodone HCl (Oxycodone 5 Mg Tablet) 5 mg PO Q4HR PRN PRN Reason: Pain 5 to 7 Last Admin: 06/04/21 14:12 Dose: 5 mg Documented by: Pantoprazole Sodium (Pantoprazole 40 Mg Tablet) 40 mg PO QDAC [facility] Last Admin: 06/05/21 06:27 Dose: 40 mg Documented by: Saccharomyces Boulardii (Saccharomyces Boulardii 250 Mg Capsule) 250 mg PO BIDWM [facility] Last Admin: 06/05/21 08:02 Dose: 250 mg Documented by: Sodium Chloride (Sodium Chloride Flush 0.9% 10 Ml Syringe) 10 ml IVP PRN PRN PRN Reason: NEEDED PER PROVIDER ORDERS Sodium Chloride (Sodium Chloride Flush 0.9% 10 Ml Syringe) 10 ml IVP 0100,0900,1700 [facility] Last Admin: 06/05/21 10:05 Dose: 10 ml Documented by: Aspirin EC [Ecotrin] 81 mg PO DAILY 04/02/20 Ferrous Sulfate 325 mg PO DAILY 04/02/20 Acetaminophen [Tylenol] 650 mg PO Q4HR PRN 11/11/20 Doxazosin Mesylate [Cardura] 2 mg PO QPM 05/24/21 Metoprolol Tartrate [Lopressor] 25 mg PO BID 05/24/21 Umeclidinium [place] [Incruse Ellipta] 1 puffs INH DAILY 05/24/21
[2021-06-05] MEDS: DOXAZOSIN 1 MG TABLET PO SCH (21:56)
[2021-06-06] MEDS: SODIUM CHLORIDE FLUSH 0.9% 10 ML SYRINGE IVP SCH ×4 (00:59→23:44)
[2021-06-06] MEDS: PANTOPRAZOLE 40 MG TABLET PO SCH (05:43)
[2021-06-06 05:53] LABS: BASOPHILS # (AUTO) 0.1 10^3/uL (0.0-0.1); BASOPHILS % (AUTO) 0.7 %; EOSINOPHILS # (AUTO) 0.4 10^3/uL (0.0-0.7); HCT - HEMATOCRIT 29.8 % (37.0-47.0); LYMPHOCYTES # (AUTO) 1.3 10^3/uL (1.5-3.5); LYMPHOCYTES % (AUTO) 14.2 %; MEAN CORPUSCULAR HEMOGLOBIN 29.3 pg (27.0-31.0); MEAN CORPUSCULAR HGB CONC 30.2 g/dL (32.0-36.0); MEAN CORPUSCULAR VOLUME 97.1 fL (81.0-99.0); MEAN PLATELET VOLUME 9.4 fL (7.9-10.8); MONOCYTES # (AUTO) 0.7 10^3/uL (0.0-1.0); MONOCYTES % (AUTO) 7.7 %; NEUTROPHILS # (AUTO) 6.5 10^3/uL (1.5-6.6); NEUTROPHILS % (AUTO) 72.9 %; PLT - PLATELET COUNT 411 10^3/uL (130-450); RED BLOOD COUNT 3.07 10^6/uL (4.20-5.40); RED CELL DISTRIBUTION WIDTH 13.2 % (12.0-15.0); WHITE BLOOD COUNT 8.9 x10^3/uL (4.8-10.8)
[2021-06-06 06:10] LABS: CREATININE 0.9 mg/dL (0.4-1.0); CRP - C-REACTIVE PROTEIN 8.7 mg/dL (0-1.0); MAGNESIUM 1.8 mg/dL (1.7-2.8)
[2021-06-06] MEDS: IPRATROPIUM/ALBUTEROL 3 ML NEB INH SCH ×4 (07:51→18:15)
[2021-06-06] MEDS: ENOXAPARIN 40 MG/0.4 ML SYRINGE SUBQ SCH (10:30)
[2021-06-06] MEDS: CHOLECALCIFEROL 25 MCG TABLET PO SCH (10:31)
[2021-06-06] MEDS: lisinopriL 5 MG TABLET PO SCH (10:32)
[2021-06-06] MEDS: SACCHAROMYCES BOULARDII 250 MG CAPSULE PO SCH ×2 (10:32→17:00)
[2021-06-06] MEDS: FERROUS SULFATE 325 MG TABLET PO SCH (10:33)
[2021-06-06] MEDS: FUROSEMIDE 20 MG/2 ML VIAL IVP SCH ×2 (10:33→20:23)
[2021-06-06] MEDS: MULTIVITAMIN TABLET PO SCH (10:33)
[2021-06-06] MEDS: METOPROLOL TARTRATE 25 MG TABLET PO SCH ×2 (10:33→20:29)
[2021-06-06] MEDS: ASPIRIN EC 81 MG TABLET PO SCH (10:33)
[2021-06-06] MEDS: cefTRIAXone 1 GM in SODIUM CHLORIDE 0.9% MINIBAG 100 ML IV SCH (10:34)
--- NOTE | 2021-06-06 12:16 | PROVIDER PROGRESS NOTE ---
Assessment/Plan - Problem List (1) Shortness of breath Assessment/Plan: 06/06 Patient reported she feel her shortness of breathing is Improved. She had 92% Oxygen saturation on room air. Chest x-ray show patient had mild to moderate pleural effusion at right side of the lung. This is likely to cause patient's SOB. We will continue diuretics, Continue laboratory and vital signs monitor. 06/05 Patient still present shortness breathing. She feels better on yesterday but return worsening SOB at the morning. It is likely caused by patient's fluid overloaded. Increases Lasix dosage to 20mg twice daily intravenous, We will check echo. pt present shortness of breath significantly. She has a history of COPD, Recently develop pneumonia, Mild right-sided pleural effusion, Patient also have history of mild aortic stenosis. Will order chest x-ray, which show Patient development of mild to moderate right pleural effusion With compressive atelectasis in the right lung base, Congestive heart failure exacerbation, large hiatal hernia. Patient had CTA which did not show PE. We will give patient diuretics Lasix, continue antibiotics, Continue supplemental oxygen as needed (2) Sepsis 06/05 Resolved at her acute phase. The concern on admission was for sepsis given her fever, leukocytosis, tachycardia. CT suggested no PE, and suggested possible mild effusion and review of prior imaging suggested a potential pulmonary source of infection from last week when she had her bowel obstruction. We will continue finish the treatment course For pneumonia. Patient WBC is running normal range. Blood cultures negative for bacteremia (3) Pneumonia 1021, CRP is continuing to treaded down, Patient has no fever, WBC is in the normal range. We will continue intravenous antibiotics on today, we will switch p.o. antibiotics on tomorrow 06/05 Continue antibiotics, Add probiotics. CRP is also trended down to the normal range, blood cultures negative for bacteremia, But patient show shortness of breathing, patient still need oxygen support. We will continue the treatment course for pneumonia. (4) Right-sided chest pain/pleurisy This appears to be pleuritic in nature and suspect related to pneumonia/effusion. troponin were 215>> 227>> 255>> 124. Her EKG shows a right bundle branch block without evidence of ischemia. There is low suspicion for ACS. Her gallbladder appears unremarkable on CT of the abdomen pelvis. We will continue pain control, add GI cocktail, mylanta as needed. (5) Status post small bowel resection CT shows postsurgical changes without evidence of infection. Her abdominal exam is benign. We will keep her on a diet and monitor at this time, continue followup with surgeon's recommendation (6) COPD (chronic obstructive pulmonary disease) Conclusion/Plan: This does not appear to be in exacerbation at this time. We will place her on DuoNebs 4 times daily with albuterol as needed. I do not believe there is a role for steroids at this time. (7) Hypertension Conclusion/Plan: She is hypertensive with systolic in the 180s and this is likely due to her not taking her home antihypertensives yet as she normally takes this in the evening. We will resume her home antihypertensives and will increase the dose if necessary. (8) Aortic stenosis Conclusion/Plan: Her last echocardiogram suggested mild aortic stenosis. Continue outpatient follow-up. - Current Meds Current Meds: Current Medications Generic Name Dose Route Start Last Admin Trade Name Freq PRN Reason Stop Dose Admin Acetaminophen 650 mg 06/01/21 23:19 06/03/21 15:35 Acetaminophen 325 Mg Tablet PO 650 mg Q4HR PRN Administration Pain 1 to 4 Al Hydroxide/Mg Hydroxide 30 ml 06/04/21 13:08 06/04/21 14:12 Mag Hydrox/Al Hydrox/Simeth 30 Ml Udc PO 30 ml Q4HR PRN Administration INDIGESTION Albuterol 2.5 mg 06/01/21 23:24 06/05/21 09:33 Albuterol Neb 2.5 Mg/3 Ml INH 2.5 mg RTQ4H PRN Administration Wheezing Albuterol/Ipratropium 3 ml 06/02/21 07:00 06/06/21 11:24 Ipratropium/Albuterol 3 Ml Neb INH 3 ml RTQID YASMEEN Administration Aspirin 81 mg 06/02/21 09:00 06/06/21 10:33 Aspirin Ec 81 Mg Tablet PO 81 mg DAILY YASMEEN Administration Cholecalciferol 100 mcg 06/06/21 09:00 06/06/21 10:31 Cholecalciferol 25 Mcg Tablet PO 100 mcg DAILY YASMEEN Administration Doxazosin Mesylate 2 mg 06/02/21 21:00 06/05/21 21:56 Doxazosin 1 Mg Tablet PO 2 mg QPM YASMEEN Administration Enoxaparin Sodium 40 mg 06/02/21 09:00 06/06/21 10:30 Enoxaparin 40 Mg/0.4 Ml Syringe SUBQ 40 mg DAILY YASMEEN Administration Ferrous Sulfate 325 mg 06/03/21 12:00 06/06/21 10:33 Ferrous Sulfate 325 Mg Tablet PO 325 mg DAILYWM YASMEEN Administration Furosemide 20 mg 06/05/21 09:00 06/06/21 10:33 Furosemide 20 Mg/2 Ml Vial IVP 20 mg BID YASMEEN Administration Ceftriaxone Sodium 1 gm/ 100 mls @ 200 mls/hr 06/02/21 16:00 06/06/21 10:34 Sodium Chloride IV 06/06/21 21:00 200 mls/hr DAILY YASMEEN Administration Lisinopril 10 mg 06/02/21 09:00 06/06/21 10:32 Lisinopril 5 Mg Tablet PO 10 mg DAILY YASMEEN Administration Metoprolol Tartrate 25 mg 06/02/21 01:00 06/06/21 10:33 Metoprolol Tartrate 25 Mg Tablet PO 25 mg BID YASMEEN Administration Morphine Sulfate 2 mg 06/01/21 23:19 06/04/21 12:30 Morphine 2 Mg/Ml Carpuject IVP 2 mg Q2HR PRN Administration Pain 8 to 10 Multivitamins 1 tab 06/04/21 08:00 06/06/21 10:33 Multivitamin Tablet PO 1 tab DAILYWM YASMEEN Administration Oxycodone HCl 5 mg 06/01/21 23:19 06/04/21 14:12 Oxycodone 5 Mg Tablet PO 5 mg Q4HR PRN Administration Pain 5 to 7 Pantoprazole Sodium 40 mg 06/04/21 13:00 06/06/21 05:43 Pantoprazole 40 Mg Tablet PO 40 mg QDAC YASMEEN Administration Saccharomyces Boulardii 250 mg 06/04/21 08:08 06/06/21 10:32 Saccharomyces Boulardii 250 Mg Capsule PO 250 mg BIDWM YASMEEN Administration Sodium Chloride 10 ml 06/02/21 01:00 06/06/21 10:34 Sodium Chloride Flush 0.9% 10 Ml Syringe IVP 10 ml 0100,0900,1700 YASMEEN Administration - Lab Result Fish Bone Diagrams: 06/06/21 05:31 06/06/21 05:31 - Additional Planning My Orders: My Active Orders 06/06/21 09:00 Cholecalciferol [Vitamin D3] 100 mcg PO DAILY 06/07/21 05:00 CRP - C-REACTIVE PROTEIN [CHEM] DAILYLAB 06/08/21 05:00 CRP - C-REACTIVE PROTEIN [CHEM] DAILYLAB Subjective - Subjective Patient Reports: Feeling Better Objective Vital Signs: Vital Signs - 24 hr 06/05/21 06/05/21 06/05/21 12:34 12:47 15:32 Temperature 37.0 C Heart Rate 90 100 Heart Rate [ 91 Brachial] Heart Rate [ Monitoring electrodes] Respiratory 18 12 12 Rate Blood Pressure Blood Pressure 97/59 L [Right Brachial artery] O2 Saturation 96 06/05/21 06/05/21 06/05/21 16:07 20:37 21:00 Temperature 37.2 C 37.4 C Heart Rate 98 Heart Rate [ 59 L 105 H Brachial] Heart Rate [ Monitoring electrodes] Respiratory 16 18 20 Rate Blood Pressure Blood Pressure 120/59 L 121/54 L [Right Brachial artery] O2 Saturation 97 96 06/05/21 06/05/21 06/06/21 21:57 23:20 05:15 Temperature 37.1 C 37.2 C Heart Rate Heart Rate [ 98 88 Brachial] Heart Rate [ Monitoring electrodes] Respiratory 20 18 Rate Blood Pressure 121/54 L Blood Pressure 114/88 H 158/68 H [Right Brachial artery] O2 Saturation 94 94 06/06/21 06/06/21 06/06/21 07:51 08:02 10:33 Temperature 37.1 C Heart Rate 90 Heart Rate [ 83 Brachial] Heart Rate [ 83 Monitoring electrodes] Respiratory 20 19 Rate Blood Pressure 108/60 Blood Pressure 145/67 H [Right Brachial artery] O2 Saturation 97 06/06/21 06/06/21 10:44 11:25 Temperature Heart Rate 89 Heart Rate [ Brachial] Heart Rate [ Monitoring electrodes] Respiratory 18 18 Rate Blood Pressure Blood Pressure [Right Brachial artery] O2 Saturation 92 Oxygen O2 Source Room air Oxygen Flow Rate 2 I&O (Last 24 Hrs): Intake and Output Totals x24h 06/04/21 06/05/21 06/06/21 23:59 23:59 23:59 Intake Total 1210 2510 970 Balance 1210 2510 970 General: Alert, Oriented x3, Cooperative, No acute distress HEENT: Atraumatic Neck: Supple Lymphatic: no adenopathy Neuro: Alert, Non Focal, Oriented Times 3 Cardiovascular: Regular rate, Normal S1, Normal S2 Respiratory: Chest non-tender, No respiratory distress Abdomen: Normal bowel sounds, Soft Extremities: Normal pulses - Results Results: Laboratory Results WBC 8.9 x10^3/uL (4.8-10.8) 06/06/21 05:31 RBC 3.07 10^6/uL (4.20-5.40) L 06/06/21 05:31 Hgb 9.0 g/dL (12.0-16.0) L 06/06/21 05:31 Hct 29.8 % (37.0-47.0) L 06/06/21 05:31 MCV 97.1 fL (81.0-99.0) 06/06/21 05:31 MCH 29.3 pg (27.0-31.0) 06/06/21 05:31 MCHC 30.2 g/dL (32.0-36.0) L 06/06/21 05:31 RDW 13.2 % (12.0-15.0) 06/06/21 05:31 Plt Count 411 10^3/uL (130-450) 06/06/21 05:31 MPV 9.4 fL (7.9-10.8) 06/06/21 05:31 Neut # (Auto) 6.5 10^3/uL (1.5-6.6) 06/06/21 05:31 Lymph # (Auto) 1.3 10^3/uL (1.5-3.5) L 06/06/21 05:31 [place] # (Auto) 0.7 10^3/uL (0.0-1.0) 06/06/21 05:31 Eos # (Auto) 0.4 10^3/uL (0.0-0.7) 06/06/21 05:31 Baso # (Auto) 0.1 10^3/uL (0.0-0.1) 06/06/21 05:31 Absolute Nucleated RBC 0.00 x10^3/uL 06/06/21 05:31 Nucleated RBC % 0.0 /100WBC 06/06/21 05:31 PT 13.4 secs (9.9-12.6) H 06/01/21 20:09 INR 1.2 (0.8-1.2) 06/01/21 20:09 Sodium 140 mmol/L (135-145) 06/06/21 05:31 Potassium 4.0 mmol/L (3.5-5.0) 06/06/21 05:31 Chloride 97 mmol/L (101-111) L 06/06/21 05:31 Carbon Dioxide 33 mmol/L (21-32) H 06/06/21 05:31 Anion Gap 10.0 (6-13) 06/06/21 05:31 BUN 21 mg/dL (6-20) H 06/06/21 05:31 Creatinine 0.9 mg/dL (0.4-1.0) 06/06/21 05:31 Estimated GFR (MDRD) 62 (>89) L 06/06/21 05:31 Glucose 106 mg/dL (70-100) H 06/06/21 05:31 Lactic Acid 0.8 mmol/L (0.5-2.2) 06/01/21 20:09 Calcium 9.0 mg/dL (8.5-10.3) 06/06/21 05:31 Magnesium 1.8 mg/dL (1.7-2.8) 06/06/21 05:31 Iron 9 ug/dL (28-170) L 06/03/21 05:47 TIBC 157 ug/dL (250-450) L 06/03/21 05:47 % Saturation 6 % (20-50) L 06/03/21 05:47 Transferrin 112 mg/dL (192-382) L 06/03/21 05:47 Ferritin 97.2 ng/mL (11.0-306.8) 06/03/21 05:47 Total Bilirubin 0.8 mg/dL (0.2-1.0) 06/01/21 20:09 AST 20 IU/L (10-42) 06/01/21 20:09 ALT 19 IU/L (10-60) 06/01/21 20:09 Alkaline Phosphatase 58 IU/L (42-121) 06/01/21 20:09 Troponin I High Sens 124.6 ng/L (2.3-14.8) H* 06/02/21 19:54 C-Reactive Protein 8.7 mg/dL (0-1.0) H 06/06/21 05:31 B-Natriuretic Peptide 66 pg/mL (5-100) 06/05/21 06:12 Total Protein 6.9 g/dL (6.7-8.2) 06/01/21 20:09 Albumin 3.6 g/dL (3.2-5.5) 06/01/21 20:09 Globulin 3.3 g/dL (2.1-4.2) 06/01/21 20:09 Albumin/Globulin Ratio 1.1 (1.0-2.2) 06/01/21 20:09 Lipase 27 U/L (22-51) 06/01/21 20:09 Vitamin B12 260 pg/mL (180-914) 06/03/21 05:00 25-OH Vitamin D Total 21 ng/mL (30-100) L 06/03/21 05:47 Urine Color YELLOW 06/02/21 11:20 Urine Clarity CLEAR (CLEAR) 06/02/21 11:20 Urine pH 5.5 PH (5.0-7.5) 06/02/21 11:20 Ur Specific [place] 1.015 (1.002-1.030) 06/02/21 11:20 Urine Protein NEGATIVE mg/dL (NEGATIVE) 06/02/21 11:20 Urine Glucose (UA) NEGATIVE mg/dL (NEGATIVE) 06/02/21 11:20 Urine Ketones NEGATIVE mg/dL (NEGATIVE) 06/02/21 11:20 Urine Occult Blood NEGATIVE (NEGATIVE) 06/02/21 11:20 Urine Nitrite NEGATIVE (NEGATIVE) 06/02/21 11:20 Urine Bilirubin NEGATIVE (NEGATIVE) 06/02/21 11:20 Urine Urobilinogen 0.2 (NORMAL) E.U./dL (NORMAL) 06/02/21 11:20 Ur Leukocyte Esterase NEGATIVE (NEGATIVE) 06/02/21 11:20 Ur Microscopic Review NOT INDICATED 06/02/21 11:20 Urine Culture Comments NOT INDICATED 06/02/21 11:20 Nasal Adenovirus (PCR) NOT DETECTED 06/01/21 20:00 Nasal B. parapertussis DNA (PCR) NOT DETECTED 06/01/21 20:00 Nasal Coronavir 229E PCR NOT DETECTED 06/01/21 20:00 Nasal Coronavir HKU1 PCR NOT DETECTED 06/01/21 20:00 Nasal Coronavir NL63 PCR NOT DETECTED 06/01/21 20:00 Nasal Coronavir OC43 PCR NOT DETECTED 06/01/21 20:00 Nasal Enterovir/Rhinovir PCR NOT DETECTED 06/01/21 20:00 Nasal Influenza B PCR NOT DETECTED 06/01/21 20:00 Nasal Influenza A PCR NOT DETECTED 06/01/21 20:00 Nasal Parainfluen 1 PCR NOT DETECTED 06/01/21 20:00 Nasal Parainfluen 2 PCR NOT DETECTED 06/01/21 20:00 Nasal Parainfluen 3 PCR NOT DETECTED 06/01/21 20:00 Nasal Parainfluen 4 PCR NOT DETECTED 06/01/21 20:00 Nasal RSV (PCR) NOT DETECTED 06/01/21 20:00 Nasal B.pertussis DNA PCR NOT DETECTED 06/01/21 20:00 Nasal C.pneumoniae (PCR) NOT DETECTED 06/01/21 20:00 [place]io Human Metapneumo PCR NOT DETECTED 06/01/21 20:00 Nasal M.pneumoniae (PCR) NOT DETECTED 06/01/21 20:00 Nasal SARS-CoV-2 (PCR) NOT DETECTED 06/01/21 20:00 - Procedures Procedures: Procedures BYPASS ILEUM TO CUTANEOUS, OPEN APPROACH (04/02/20) DILATION OF LARGE INTESTINE, ENDO (10/22/20) DILATION OF RECTUM, ENDO (12/21/20) EXCISION OF ASCENDING COLON, ENDO, DIAGN (12/21/20) EXCISION OF DESCENDING COLON, ENDO, DIAGN (12/21/20) EXCISION OF ILEUM, OPEN APPROACH (10/22/20) EXCISION OF LARGE INTESTINE, ENDO, DIAGN (12/21/20) EXCISION OF SIGMOID COLON, OPEN APPROACH (04/02/20) EXCISION OF SMALL INTESTINE, OPEN APPROACH (05/24/21) INSERTION OF INFUSION DEV INTO SUP VENA CAVA, PERC APPROACH (04/02/20) INSPECTION OF LOWER INTESTINAL TRACT, ENDO (12/21/20) RELEASE PERITONEUM, OPEN APPROACH (04/02/20) REPAIR MESENTERY, OPEN APPROACH (05/24/21) Sepsis Event Note (H) - Evaluation Current Stage of Sepsis: Sepsis Possible source of Sepsis: positive: Pulmonary - Sepsis Criteria Sepsis Criteria: Recorded Temperature greater than 38.3C or Less than 36C, Recorded Heart Rate greater than 90 bpm, Recorded Respiratory Rate greater than 20, Respiratory: Increasing oxygen requirements, WBC count greater than 12,000 or less than 4000 ABX Reporting Has patient been on IV antibiotics over the past 48 hours?: Yes Current Medications - Current Medications Current Medications: Active Medications Acetaminophen (Acetaminophen 325 Mg Tablet) 650 mg PO Q4HR PRN PRN Reason: Pain 1 to 4 Last Admin: 06/03/21 15:35 Dose: 650 mg Documented by: Al Hydroxide/Mg Hydroxide (Mag Hydrox/Al Hydrox/Simeth 30 Ml Udc) 30 ml PO Q4HR PRN PRN Reason: INDIGESTION Last Admin: 06/04/21 14:12 Dose: 30 ml Documented by: Albuterol (Albuterol Neb 2.5 Mg/3 Ml) 2.5 mg INH RTQ4H PRN PRN Reason: Wheezing Last Admin: 06/05/21 09:33 Dose: 2.5 mg Documented by: Albuterol/Ipratropium (Ipratropium/Albuterol 3 Ml Neb) 3 ml INH RTQID YASMEEN Last Admin: 06/06/21 11:24 Dose: 3 ml Documented by: Aspirin (Aspirin Ec 81 Mg Tablet) 81 mg PO DAILY [facility] Last Admin: 06/06/21 10:33 Dose: 81 mg Documented by: Cholecalciferol (Cholecalciferol 25 Mcg Tablet) 100 mcg PO DAILY [facility] Last Admin: 06/06/21 10:31 Dose: 100 mcg Documented by: Doxazosin Mesylate (Doxazosin 1 Mg Tablet) 2 mg PO QPM [facility] Last Admin: 06/05/21 21:56 Dose: 2 mg Documented by: Enoxaparin Sodium (Enoxaparin 40 Mg/0.4 Ml Syringe) 40 mg SUBQ DAILY [facility] Last Admin: 06/06/21 10:30 Dose: 40 mg Documented by: Ferrous Sulfate (Ferrous Sulfate 325 Mg Tablet) 325 mg PO DAILYWM [facility] Last Admin: 06/06/21 10:33 Dose: 325 mg Documented by: Furosemide (Furosemide 20 Mg/2 Ml Vial) 20 mg IVP BID [facility] Last Admin: 06/06/21 10:33 Dose: 20 mg Documented by: Ceftriaxone Sodium 1 gm/ (Sodium Chloride) 100 mls @ 200 mls/hr IV DAILY [facility] Stop: 06/06/21 21:00 Last Infusion: 06/06/21 12:17 Dose: Infused Documented by: Lisinopril (Lisinopril 5 Mg Tablet) 10 mg PO DAILY [facility] Last Admin: 06/06/21 10:32 Dose: 10 mg Documented by: Metoprolol Tartrate (Metoprolol Tartrate 25 Mg Tablet) 25 mg PO BID [facility] Last Admin: 06/06/21 10:33 Dose: 25 mg Documented by: Morphine Sulfate (Morphine 2 Mg/Ml Carpuject) 2 mg IVP Q2HR PRN PRN Reason: Pain 8 to 10 Last Admin: 06/04/21 12:30 Dose: 2 mg Documented by: Multi-Ingredient Mouthwash/Gargle (Gi Cocktail 120 Ml Bottle) 30 ml PO Q4H PRN PRN Reason: Abdominal Pain Multivitamins (Multivitamin Tablet) 1 tab PO DAILYWM [facility] Last Admin: 06/06/21 10:33 Dose: 1 tab Documented by: Ondansetron HCl (Ondansetron Odt 4 Mg Tablet) 4 mg TL Q6HR PRN PRN Reason: Nausea / Vomiting Ondansetron HCl (Ondansetron 4 Mg/2 Ml Vial) 4 mg IVP Q6HR PRN PRN Reason: Nausea / Vomiting Oxycodone HCl (Oxycodone 5 Mg Tablet) 5 mg PO Q4HR PRN PRN Reason: Pain 5 to 7 Last Admin: 06/04/21 14:12 Dose: 5 mg Documented by: Pantoprazole Sodium (Pantoprazole 40 Mg Tablet) 40 mg PO QDAC [facility] Last Admin: 06/06/21 05:43 Dose: 40 mg Documented by: Saccharomyces Boulardii (Saccharomyces Boulardii 250 Mg Capsule) 250 mg PO BIDWM [facility] Last Admin: 06/06/21 10:32 Dose: 250 mg Documented by: Sodium Chloride (Sodium Chloride Flush 0.9% 10 Ml Syringe) 10 ml IVP PRN PRN PRN Reason: NEEDED PER PROVIDER ORDERS Sodium Chloride (Sodium Chloride Flush 0.9% 10 Ml Syringe) 10 ml IVP 0100,0900,1700 [facility] Last Admin: 06/06/21 10:34 Dose: 10 ml Documented by: Aspirin EC [Ecotrin] 81 mg PO DAILY 04/02/20 Ferrous Sulfate 325 mg PO DAILY 04/02/20 Acetaminophen [Tylenol] 650 mg PO Q4HR PRN 11/11/20 Doxazosin Mesylate [Cardura] 2 mg PO QPM 05/24/21 Metoprolol Tartrate [Lopressor] 25 mg PO BID 05/24/21 Umeclidinium [place] [Incruse Ellipta] 1 puffs INH DAILY 05/24/21
[2021-06-06] MEDS: DOXAZOSIN 1 MG TABLET PO SCH (20:29)
[2021-06-07] MEDS: PANTOPRAZOLE 40 MG TABLET PO SCH (05:45)
[2021-06-07] MEDS ORDERED: FUROSEMIDE 20 MG/2 ML VIAL IVP SCH (06:00)
[2021-06-07] MEDS: IPRATROPIUM/ALBUTEROL 3 ML NEB INH SCH ×4 (07:58→19:50)
[2021-06-07 08:40] LABS: BASOPHILS # (AUTO) 0.1 10^3/uL (0.0-0.1); BASOPHILS % (AUTO) 0.7 %; EOSINOPHILS # (AUTO) 0.4 10^3/uL (0.0-0.7); EOSINOPHILS % (AUTO) 4.4 %; HCT - HEMATOCRIT 35.6 % (37.0-47.0); HGB - HEMOGLOBIN 10.8 g/dL (12.0-16.0); LYMPHOCYTES # (AUTO) 1.2 10^3/uL (1.5-3.5); LYMPHOCYTES % (AUTO) 13.3 %; MEAN CORPUSCULAR HGB CONC 30.3 g/dL (32.0-36.0); MEAN CORPUSCULAR VOLUME 98.9 fL (81.0-99.0); MEAN PLATELET VOLUME 9.1 fL (7.9-10.8); MONOCYTES # (AUTO) 0.6 10^3/uL (0.0-1.0); MONOCYTES % (AUTO) 6.9 %; NEUTROPHILS # (AUTO) 6.6 10^3/uL (1.5-6.6); NEUTROPHILS % (AUTO) 74.1 %; PLT - PLATELET COUNT 474 10^3/uL (130-450); RED CELL DISTRIBUTION WIDTH 13.4 % (12.0-15.0); WHITE BLOOD COUNT 8.8 x10^3/uL (4.8-10.8)
[2021-06-07 08:55] LABS: CALCIUM 9.6 mg/dL (8.5-10.3); CREATININE 0.8 mg/dL (0.4-1.0); POTASSIUM 3.9 mmol/L (3.5-5.0)
[2021-06-07] MEDS: ALBUTEROL NEB 2.5 MG/3 ML INH PRN (11:25)
[2021-06-07] MEDS: MULTIVITAMIN TABLET PO SCH (11:52)
[2021-06-07] MEDS: SACCHAROMYCES BOULARDII 250 MG CAPSULE PO SCH ×2 (11:52→17:15)
[2021-06-07] MEDS: ASPIRIN EC 81 MG TABLET PO SCH (11:53)
[2021-06-07] MEDS: FERROUS SULFATE 325 MG TABLET PO SCH (11:53)
[2021-06-07] MEDS: CHOLECALCIFEROL 25 MCG TABLET PO SCH (11:54)
[2021-06-07] MEDS: lisinopriL 5 MG TABLET PO SCH (11:55)
[2021-06-07] MEDS: ENOXAPARIN 40 MG/0.4 ML SYRINGE SUBQ SCH (12:03)
[2021-06-07] MEDS: METOPROLOL TARTRATE 25 MG TABLET PO SCH ×2 (12:06→21:30)
[2021-06-07] MEDS: SODIUM CHLORIDE FLUSH 0.9% 10 ML SYRINGE IVP SCH ×2 (12:07→17:15)
--- NOTE | 2021-06-07 13:49 | PROVIDER PROGRESS NOTE ---
Assessment/Plan - Problem List (1) Chest pain Assessment/Plan: 06/07 With RT tried to do oxygen desat study for patient, Patient complain chest pain, Telemetry report patient had un-suspended SVT. Troponin show 15.5. EKG show RBBB SR without Ischemic change. pt is on aspirin and metoprolol, we will add lipitor and check lipid panel. ECHO show normal EF and mild aortic stenosis. pt may have out-pt stress test, we will continue overnight tele monitor, repeat troponin test. (2) Shortness of breath Assessment/Plan: 06/07 pt report she feel better for her SOB. pt may continue to have O2 desat study to see if she qualify to have home O2. pt has hx of COPD, now she had mild to moderate pleural effusion at right lung. switch IV lasix to PO lasix. 06/06 Patient reported she feel her shortness of breathing is Improved. She had 92% Oxygen saturation on room air. Chest x-ray show patient had mild to moderate pleural effusion at right side of the lung. This is likely to cause patient's SOB. We will continue diuretics, Continue laboratory and vital signs monitor. 06/05 Patient still present shortness breathing. She feels better on yesterday but return worsening SOB at the morning. It is likely caused by patient's fluid overloaded. Increases Lasix dosage to 20mg twice daily intravenous, We will check echo. pt present shortness of breath significantly. She has a history of COPD, Recently develop pneumonia, Mild right-sided pleural effusion, Patient also have history of mild aortic stenosis. Will order chest x-ray, which show Patient development of mild to moderate right pleural effusion With compressive atelectasis in the right lung base, Congestive heart failure exacerbation, large hiatal hernia. Patient had CTA which did not show PE. We will give patient diuretics Lasix, continue antibiotics, Continue supplemental oxygen as needed (3) Sepsis 06/05 Resolved at her acute phase. The concern on admission was for sepsis given her fever, leukocytosis, tachycardia. CT suggested no PE, and suggested possible mild effusion and review of prior imaging suggested a potential pulmonary source of infection from last week when she had her bowel obstruction. We will continue finish the treatment course For pneumonia. Patient WBC is running normal range. Blood cultures negative for bacteremia (4) Pneumonia 06-07 pt finished antibiotics treatment, WBC is normal arrange, blood culture is negative for bacteremia, pt has no more fever. 1021, CRP is continuing to treaded down, Patient has no fever, WBC is in the normal range. We will continue intravenous antibiotics on today, we will switch p.o. antibiotics on tomorrow 06/05 Continue antibiotics, Add probiotics. CRP is also trended down to the normal range, blood cultures negative for bacteremia, But patient show shortness of breathing, patient still need oxygen support. We will continue the treatment course for pneumonia. (5) Right-sided chest pain/pleurisy This appears to be pleuritic in nature and suspect related to pneumonia/effusion. troponin were 215>> 227>> 255>> 124. Her EKG shows a right bundle branch block without evidence of ischemia. There is low suspicion for ACS. Her gallbladder appears unremarkable on CT of the abdomen pelvis. We will continue pain control, add GI cocktail, mylanta as needed. (6) Status post small bowel resection 06-07 per surgeon, nurse will remove surgical sundar. it is a clear surgical site, no infection appeared. CT shows postsurgical changes without evidence of infection. Her abdominal exam is benign. We will keep her on a diet and monitor at this time, continue followup with surgeon's recommendation (7) COPD (chronic obstructive pulmonary disease) Conclusion/Plan: This does not appear to be in exacerbation at this time. We will place her on DuoNebs 4 times daily with albuterol as needed. I do not believe there is a role for steroids at this time. (8) Hypertension Conclusion/Plan: She is hypertensive with systolic in the 180s and this is likely due to her not taking her home antihypertensives yet as she normally takes this in the evening. We will resume her home antihypertensives and will increase the dose if necessary. (9) Aortic stenosis Conclusion/Plan: Her last echocardiogram suggested mild aortic stenosis. Continue outpatient follow-up. - Current Meds Current Meds: Current Medications Generic Name Dose Route Start Last Admin Trade Name Freq PRN Reason Stop Dose Admin Acetaminophen 650 mg 06/01/21 23:19 06/03/21 15:35 Acetaminophen 325 Mg Tablet PO 650 mg Q4HR PRN Administration Pain 1 to 4 Al Hydroxide/Mg Hydroxide 30 ml 06/04/21 13:08 06/04/21 14:12 Mag Hydrox/Al Hydrox/Simeth 30 Ml Udc PO 30 ml Q4HR PRN Administration INDIGESTION Albuterol 2.5 mg 06/01/21 23:24 06/07/21 11:25 Albuterol Neb 2.5 Mg/3 Ml INH 2.5 mg RTQ4H PRN Administration Wheezing Albuterol/Ipratropium 3 ml 06/02/21 07:00 06/07/21 11:25 Ipratropium/Albuterol 3 Ml Neb INH Not Given RTQID YASMEEN Aspirin 81 mg 06/02/21 09:00 06/07/21 11:53 Aspirin Ec 81 Mg Tablet PO 81 mg DAILY YASMEEN Administration Cholecalciferol 100 mcg 06/06/21 09:00 06/07/21 11:54 Cholecalciferol 25 Mcg Tablet PO 100 mcg DAILY YASMEEN Administration Doxazosin Mesylate 2 mg 06/02/21 21:00 06/06/21 20:29 Doxazosin 1 Mg Tablet PO 2 mg QPM YASMEEN Administration Enoxaparin Sodium 40 mg 06/02/21 09:00 06/07/21 12:03 Enoxaparin 40 Mg/0.4 Ml Syringe SUBQ 40 mg DAILY YASMEEN Administration Ferrous Sulfate 325 mg 06/03/21 12:00 06/07/21 11:53 Ferrous Sulfate 325 Mg Tablet PO 325 mg DAILYWM YASMEEN Administration Lisinopril 10 mg 06/02/21 09:00 06/07/21 11:55 Lisinopril 5 Mg Tablet PO 10 mg DAILY YASMEEN Administration Metoprolol Tartrate 25 mg 06/02/21 01:00 06/07/21 12:06 Metoprolol Tartrate 25 Mg Tablet PO 25 mg BID YASMEEN Administration Morphine Sulfate 2 mg 06/01/21 23:19 06/04/21 12:30 Morphine 2 Mg/Ml Carpuject IVP 2 mg Q2HR PRN Administration Pain 8 to 10 Multivitamins 1 tab 06/04/21 08:00 06/07/21 11:52 Multivitamin Tablet PO 1 tab DAILYWM YASMEEN Administration Oxycodone HCl 5 mg 06/01/21 23:19 06/04/21 14:12 Oxycodone 5 Mg Tablet PO 5 mg Q4HR PRN Administration Pain 5 to 7 Pantoprazole Sodium 40 mg 06/04/21 13:00 06/07/21 05:45 Pantoprazole 40 Mg Tablet PO 40 mg QDAC YASMEEN Administration Saccharomyces Boulardii 250 mg 06/04/21 08:08 06/07/21 11:52 Saccharomyces Boulardii 250 Mg Capsule PO 250 mg BIDWM YASMEEN Administration Sodium Chloride 10 ml 06/01/21 23:19 06/07/21 05:45 Sodium Chloride Flush 0.9% 10 Ml Syringe IVP 10 ml PRN PRN Administration NEEDED PER PROVIDER ORDERS Sodium Chloride 10 ml 06/02/21 01:00 06/07/21 12:07 Sodium Chloride Flush 0.9% 10 Ml Syringe IVP 10 ml 0100,0900,1700 YASMEEN Administration - Lab Result Fish Bone Diagrams: 06/07/21 08:35 06/07/21 08:35 - Additional Planning My Orders: My Active Orders 06/07/21 09:28 Oxygen Desat. Study w/Exercise [RC] .ONCE 06/07/21 14:00 Furosemide [Lasix] 20 mg PO BIDDIURETIC 06/07/21 19:00 TROPONIN I HIGH SENSITIVITY [IAI] Timed 06/08/21 05:00 BMP - BASIC METABOLIC PANEL [CHEM] DAILYLAB CBC - COMP BLD CT W/AUTO DIFF [HEME] DAILYLAB CRP - C-REACTIVE PROTEIN [CHEM] DAILYLAB 06/09/21 05:00 BMP - BASIC METABOLIC PANEL [CHEM] DAILYLAB CBC - COMP BLD CT W/AUTO DIFF [HEME] DAILYLAB 06/10/21 05:00 BMP - BASIC METABOLIC PANEL [CHEM] DAILYLAB CBC - COMP BLD CT W/AUTO DIFF [HEME] DAILYLAB 06/11/21 05:00 BMP - BASIC METABOLIC PANEL [CHEM] DAILYLAB CBC - COMP BLD CT W/AUTO DIFF [HEME] DAILYLAB Subjective - Subjective Patient Reports: Feeling Better Objective Vital Signs: Vital Signs - 24 hr 06/06/21 06/06/21 06/06/21 15:24 16:47 18:15 Temperature 37.1 C Heart Rate 80 92 Heart Rate [ 86 Brachial] Respiratory 20 18 20 Rate Blood Pressure Blood Pressure 116/56 L [Right Brachial artery] O2 Saturation 98 06/06/21 06/06/21 06/06/21 20:24 20:29 23:43 Temperature 37.1 C 37.1 C Heart Rate Heart Rate [ 94 90 Brachial] Respiratory 19 16 Rate Blood Pressure 124/57 L Blood Pressure 124/57 L 136/58 H [Right Brachial artery] O2 Saturation 95 94 06/07/21 06/07/21 06/07/21 05:16 07:58 08:25 Temperature 37.1 C 36.6 C Heart Rate 92 Heart Rate [ 85 100 Brachial] Respiratory 20 18 18 Rate Blood Pressure Blood Pressure 139/72 H 108/84 H [Right Brachial artery] O2 Saturation 93 97 06/07/21 06/07/21 11:28 13:00 Temperature 36.7 C Heart Rate 91 Heart Rate [ 101 H Brachial] Respiratory 16 18 Rate Blood Pressure Blood Pressure 103/62 [Right Brachial artery] O2 Saturation 97 Oxygen O2 Source Nasal cannula Oxygen Flow Rate 2 I&O (Last 24 Hrs): Intake and Output Totals x24h 06/05/21 06/06/21 06/07/21 23:59 23:59 23:59 Intake Total 2510 2350 920 Output Total 500 Balance 2510 2350 420 General: Alert, Oriented x3, Cooperative, No acute distress HEENT: Atraumatic Neck: Supple Lymphatic: no adenopathy Neuro: Alert, Non Focal, Oriented Times 3 Cardiovascular: Regular rate, Normal S1, Normal S2 Respiratory: Chest non-tender, No respiratory distress Abdomen: Normal bowel sounds, Soft Extremities: Normal pulses - Results Results: Laboratory Results WBC 8.8 x10^3/uL (4.8-10.8) 06/07/21 08:35 RBC 3.60 10^6/uL (4.20-5.40) L 06/07/21 08:35 Hgb 10.8 g/dL (12.0-16.0) L 06/07/21 08:35 Hct 35.6 % (37.0-47.0) L 06/07/21 08:35 MCV 98.9 fL (81.0-99.0) 06/07/21 08:35 MCH 30.0 pg (27.0-31.0) 06/07/21 08:35 MCHC 30.3 g/dL (32.0-36.0) L 06/07/21 08:35 RDW 13.4 % (12.0-15.0) 06/07/21 08:35 Plt Count 474 10^3/uL (130-450) H 06/07/21 08:35 MPV 9.1 fL (7.9-10.8) 06/07/21 08:35 Neut # (Auto) 6.6 10^3/uL (1.5-6.6) 06/07/21 08:35 Lymph # (Auto) 1.2 10^3/uL (1.5-3.5) L 06/07/21 08:35 [place] # (Auto) 0.6 10^3/uL (0.0-1.0) 06/07/21 08:35 Eos # (Auto) 0.4 10^3/uL (0.0-0.7) 06/07/21 08:35 Baso # (Auto) 0.1 10^3/uL (0.0-0.1) 06/07/21 08:35 Absolute Nucleated RBC 0.00 x10^3/uL 06/07/21 08:35 Nucleated RBC % 0.0 /100WBC 06/07/21 08:35 PT 13.4 secs (9.9-12.6) H 06/01/21 20:09 INR 1.2 (0.8-1.2) 06/01/21 20:09 Sodium 141 mmol/L (135-145) 06/07/21 08:35 Potassium 3.9 mmol/L (3.5-5.0) 06/07/21 08:35 Chloride 95 mmol/L (101-111) L 06/07/21 08:35 Carbon Dioxide 33 mmol/L (21-32) H 06/07/21 08:35 Anion Gap 13.0 (6-13) 06/07/21 08:35 BUN 19 mg/dL (6-20) 06/07/21 08:35 Creatinine 0.8 mg/dL (0.4-1.0) 06/07/21 08:35 Estimated GFR (MDRD) 71 (>89) L 06/07/21 08:35 Glucose 108 mg/dL (70-100) H 06/07/21 08:35 Lactic Acid 0.8 mmol/L (0.5-2.2) 06/01/21 20:09 Calcium 9.6 mg/dL (8.5-10.3) 06/07/21 08:35 Magnesium 2.1 mg/dL (1.7-2.8) 06/07/21 05:16 Iron 9 ug/dL (28-170) L 06/03/21 05:47 TIBC 157 ug/dL (250-450) L 06/03/21 05:47 % Saturation 6 % (20-50) L 06/03/21 05:47 Transferrin 112 mg/dL (192-382) L 06/03/21 05:47 Ferritin 97.2 ng/mL (11.0-306.8) 06/03/21 05:47 Total Bilirubin 0.8 mg/dL (0.2-1.0) 06/01/21 20:09 AST 20 IU/L (10-42) 06/01/21 20:09 ALT 19 IU/L (10-60) 06/01/21 20:09 Alkaline Phosphatase 58 IU/L (42-121) 06/01/21 20:09 Troponin I High Sens 15.5 ng/L (2.3-14.8) H* 06/07/21 12:09 C-Reactive Protein 5.7 mg/dL (0-1.0) H 06/07/21 05:16 B-Natriuretic Peptide 66 pg/mL (5-100) 06/05/21 06:12 Total Protein 6.9 g/dL (6.7-8.2) 06/01/21 20:09 Albumin 3.6 g/dL (3.2-5.5) 06/01/21 20:09 Globulin 3.3 g/dL (2.1-4.2) 06/01/21 20:09 Albumin/Globulin Ratio 1.1 (1.0-2.2) 06/01/21 20:09 Lipase 27 U/L (22-51) 06/01/21 20:09 Vitamin B12 260 pg/mL (180-914) 06/03/21 05:00 25-OH Vitamin D Total 21 ng/mL (30-100) L 06/03/21 05:47 Urine Color YELLOW 06/02/21 11:20 Urine Clarity CLEAR (CLEAR) 06/02/21 11:20 Urine pH 5.5 PH (5.0-7.5) 06/02/21 11:20 Ur Specific [place] 1.015 (1.002-1.030) 06/02/21 11:20 Urine Protein NEGATIVE mg/dL (NEGATIVE) 06/02/21 11:20 Urine Glucose (UA) NEGATIVE mg/dL (NEGATIVE) 06/02/21 11:20 Urine Ketones NEGATIVE mg/dL (NEGATIVE) 06/02/21 11:20 Urine Occult Blood NEGATIVE (NEGATIVE) 06/02/21 11:20 Urine Nitrite NEGATIVE (NEGATIVE) 06/02/21 11:20 Urine Bilirubin NEGATIVE (NEGATIVE) 06/02/21 11:20 Urine Urobilinogen 0.2 (NORMAL) E.U./dL (NORMAL) 06/02/21 11:20 Ur Leukocyte Esterase NEGATIVE (NEGATIVE) 06/02/21 11:20 Ur Microscopic Review NOT INDICATED 06/02/21 11:20 Urine Culture Comments NOT INDICATED 06/02/21 11:20 Nasal Adenovirus (PCR) NOT DETECTED 06/01/21 20:00 Nasal B. parapertussis DNA (PCR) NOT DETECTED 06/01/21 20:00 Nasal Coronavir 229E PCR NOT DETECTED 06/01/21 20:00 Nasal Coronavir HKU1 PCR NOT DETECTED 06/01/21 20:00 Nasal Coronavir NL63 PCR NOT DETECTED 06/01/21 20:00 Nasal Coronavir OC43 PCR NOT DETECTED 06/01/21 20:00 Nasal Enterovir/Rhinovir PCR NOT DETECTED 06/01/21 20:00 Nasal Influenza B PCR NOT DETECTED 06/01/21 20:00 Nasal Influenza A PCR NOT DETECTED 06/01/21 20:00 Nasal Parainfluen 1 PCR NOT DETECTED 06/01/21 20:00 Nasal Parainfluen 2 PCR NOT DETECTED 06/01/21 20:00 Nasal Parainfluen 3 PCR NOT DETECTED 06/01/21 20:00 Nasal Parainfluen 4 PCR NOT DETECTED 06/01/21 20:00 Nasal RSV (PCR) NOT DETECTED 06/01/21 20:00 Nasal B.pertussis DNA PCR NOT DETECTED 06/01/21 20:00 Nasal C.pneumoniae (PCR) NOT DETECTED 06/01/21 20:00 [place]io Human Metapneumo PCR NOT DETECTED 06/01/21 20:00 Nasal M.pneumoniae (PCR) NOT DETECTED 06/01/21 20:00 Nasal SARS-CoV-2 (PCR) NOT DETECTED 06/01/21 20:00 - Procedures Procedures: Procedures BYPASS ILEUM TO CUTANEOUS, OPEN APPROACH (04/02/20) DILATION OF LARGE INTESTINE, ENDO (10/22/20) DILATION OF RECTUM, ENDO (12/21/20) EXCISION OF ASCENDING COLON, ENDO, DIAGN (12/21/20) EXCISION OF DESCENDING COLON, ENDO, DIAGN (12/21/20) EXCISION OF ILEUM, OPEN APPROACH (10/22/20) EXCISION OF LARGE INTESTINE, ENDO, DIAGN (12/21/20) EXCISION OF SIGMOID COLON, OPEN APPROACH (04/02/20) EXCISION OF SMALL INTESTINE, OPEN APPROACH (05/24/21) INSERTION OF INFUSION DEV INTO SUP VENA CAVA, PERC APPROACH (04/02/20) INSPECTION OF LOWER INTESTINAL TRACT, ENDO (12/21/20) RELEASE PERITONEUM, OPEN APPROACH (04/02/20) REPAIR MESENTERY, OPEN APPROACH (05/24/21) Sepsis Event Note (H) - Evaluation Current Stage of Sepsis: Sepsis Possible source of Sepsis: positive: Pulmonary - Sepsis Criteria Sepsis Criteria: Recorded Temperature greater than 38.3C or Less than 36C, Recorded Heart Rate greater than 90 bpm, Recorded Respiratory Rate greater than 20, Respiratory: Increasing oxygen requirements, WBC count greater than 12,000 or less than 4000 ABX Reporting Has patient been on IV antibiotics over the past 48 hours?: Yes Current Medications - Current Medications Current Medications: Active Medications Acetaminophen (Acetaminophen 325 Mg Tablet) 650 mg PO Q4HR PRN PRN Reason: Pain 1 to 4 Last Admin: 06/03/21 15:35 Dose: 650 mg Documented by: Al Hydroxide/Mg Hydroxide (Mag Hydrox/Al Hydrox/Simeth 30 Ml Udc) 30 ml PO Q4HR PRN PRN Reason: INDIGESTION Last Admin: 06/04/21 14:12 Dose: 30 ml Documented by: Albuterol (Albuterol Neb 2.5 Mg/3 Ml) 2.5 mg INH RTQ4H PRN PRN Reason: Wheezing Last Admin: 06/07/21 11:25 Dose: 2.5 mg Documented by: Albuterol/Ipratropium (Ipratropium/Albuterol 3 Ml Neb) 3 ml INH RTQID YASMEEN Last Admin: 06/07/21 11:25 Dose: Not Given Documented by: Aspirin (Aspirin Ec 81 Mg Tablet) 81 mg PO DAILY [facility] Last Admin: 06/07/21 11:53 Dose: 81 mg Documented by: Atorvastatin Calcium (Atorvastatin 10 Mg Tablet) 20 mg PO QPM YASMEEN Cholecalciferol (Cholecalciferol 25 Mcg Tablet) 100 mcg PO DAILY [facility] Last Admin: 06/07/21 11:54 Dose: 100 mcg Documented by: Doxazosin Mesylate (Doxazosin 1 Mg Tablet) 2 mg PO QPM [facility] Last Admin: 06/06/21 20:29 Dose: 2 mg Documented by: Enoxaparin Sodium (Enoxaparin 40 Mg/0.4 Ml Syringe) 40 mg SUBQ DAILY [facility] Last Admin: 06/07/21 12:03 Dose: 40 mg Documented by: Ferrous Sulfate (Ferrous Sulfate 325 Mg Tablet) 325 mg PO DAILYWM [facility] Last Admin: 06/07/21 11:53 Dose: 325 mg Documented by: Furosemide (Furosemide 20 Mg Tablet) 20 mg PO BIDDIURETIC [facility] Lisinopril (Lisinopril 5 Mg Tablet) 10 mg PO DAILY [facility] Last Admin: 06/07/21 11:55 Dose: 10 mg Documented by: Metoprolol Tartrate (Metoprolol Tartrate 25 Mg Tablet) 25 mg PO BID [facility] Last Admin: 06/07/21 12:06 Dose: 25 mg Documented by: Morphine Sulfate (Morphine 2 Mg/Ml Carpuject) 2 mg IVP Q2HR PRN PRN Reason: Pain 8 to 10 Last Admin: 06/04/21 12:30 Dose: 2 mg Documented by: Multi-Ingredient Mouthwash/Gargle (Gi Cocktail 120 Ml Bottle) 30 ml PO Q4H PRN PRN Reason: Abdominal Pain Multivitamins (Multivitamin Tablet) 1 tab PO DAILYWM [facility] Last Admin: 06/07/21 11:52 Dose: 1 tab Documented by: Ondansetron HCl (Ondansetron Odt 4 Mg Tablet) 4 mg TL Q6HR PRN PRN Reason: Nausea / Vomiting Ondansetron HCl (Ondansetron 4 Mg/2 Ml Vial) 4 mg IVP Q6HR PRN PRN Reason: Nausea / Vomiting Oxycodone HCl (Oxycodone 5 Mg Tablet) 5 mg PO Q4HR PRN PRN Reason: Pain 5 to 7 Last Admin: 06/04/21 14:12 Dose: 5 mg Documented by: Pantoprazole Sodium (Pantoprazole 40 Mg Tablet) 40 mg PO QDAC [facility] Last Admin: 06/07/21 05:45 Dose: 40 mg Documented by: Saccharomyces Boulardii (Saccharomyces Boulardii 250 Mg Capsule) 250 mg PO BIDWM [facility] Last Admin: 06/07/21 11:52 Dose: 250 mg Documented by: Sodium Chloride (Sodium Chloride Flush 0.9% 10 Ml Syringe) 10 ml IVP PRN PRN PRN Reason: NEEDED PER PROVIDER ORDERS Last Admin: 06/07/21 05:45 Dose: 10 ml Documented by: Sodium Chloride (Sodium Chloride Flush 0.9% 10 Ml Syringe) 10 ml IVP 01 00,0900,1700 [facility] Last Admin: 06/07/21 12:07 Dose: 10 ml Documented by: Aspirin EC [Ecotrin] 81 mg PO DAILY 04/02/20 Ferrous Sulfate 325 mg PO DAILY 04/02/20 Acetaminophen [Tylenol] 650 mg PO Q4HR PRN 11/11/20 Doxazosin Mesylate [Cardura] 2 mg PO QPM 05/24/21 Metoprolol Tartrate [Lopressor] 25 mg PO BID 05/24/21 Umeclidinium [place] [Incruse Ellipta] 1 puffs INH DAILY 05/24/21
[2021-06-07] MEDS: FUROSEMIDE 20 MG TABLET PO SCH (14:57)
[2021-06-07] MEDS ORDERED: ATORVASTATIN 10 MG TABLET PO SCH (21:00)
[2021-06-07] MEDS: DOXAZOSIN 1 MG TABLET PO SCH (21:30)
[2021-06-08] MEDS: SODIUM CHLORIDE FLUSH 0.9% 10 ML SYRINGE IVP SCH ×2 (03:37→08:54)
[2021-06-08] MEDS: FUROSEMIDE 20 MG TABLET PO SCH ×2 (06:17→13:17)
[2021-06-08] MEDS: PANTOPRAZOLE 40 MG TABLET PO SCH (06:17)
[2021-06-08 06:36] LABS: BASOPHILS # (AUTO) 0.1 10^3/uL (0.0-0.1); BASOPHILS % (AUTO) 0.9 %; EOSINOPHILS # (AUTO) 0.4 10^3/uL (0.0-0.7); EOSINOPHILS % (AUTO) 4.6 %; HCT - HEMATOCRIT 31.3 % (37.0-47.0); HGB - HEMOGLOBIN 9.5 g/dL (12.0-16.0); LYMPHOCYTES # (AUTO) 1.2 10^3/uL (1.5-3.5); LYMPHOCYTES % (AUTO) 13.6 %; MEAN CORPUSCULAR HEMOGLOBIN 29.7 pg (27.0-31.0); MEAN CORPUSCULAR HGB CONC 30.4 g/dL (32.0-36.0); MEAN CORPUSCULAR VOLUME 97.8 fL (81.0-99.0); MEAN PLATELET VOLUME 9.1 fL (7.9-10.8); MONOCYTES # (AUTO) 0.5 10^3/uL (0.0-1.0); MONOCYTES % (AUTO) 5.7 %; NEUTROPHILS # (AUTO) 6.6 10^3/uL (1.5-6.6); NEUTROPHILS % (AUTO) 74.2 %; PLT - PLATELET COUNT 452 10^3/uL (130-450); RED CELL DISTRIBUTION WIDTH 13.6 % (12.0-15.0); WHITE BLOOD COUNT 8.9 x10^3/uL (4.8-10.8)
[2021-06-08 06:52] LABS: CALCIUM 9.1 mg/dL (8.5-10.3); CREATININE 0.7 mg/dL (0.4-1.0); CRP - C-REACTIVE PROTEIN 3.5 mg/dL (0-1.0); POTASSIUM 4.5 mmol/L (3.5-5.0)
[2021-06-08] MEDS: IPRATROPIUM/ALBUTEROL 3 ML NEB INH SCH ×2 (07:22→11:29)
[2021-06-08] MEDS: lisinopriL 5 MG TABLET PO SCH (08:51)
[2021-06-08] MEDS: METOPROLOL TARTRATE 25 MG TABLET PO SCH (08:51)
[2021-06-08] MEDS: MULTIVITAMIN TABLET PO SCH (08:52)
[2021-06-08] MEDS: SACCHAROMYCES BOULARDII 250 MG CAPSULE PO SCH (08:52)
[2021-06-08] MEDS: ASPIRIN EC 81 MG TABLET PO SCH (08:52)
[2021-06-08] MEDS: FERROUS SULFATE 325 MG TABLET PO SCH (08:52)
[2021-06-08] MEDS: ENOXAPARIN 40 MG/0.4 ML SYRINGE SUBQ SCH (08:53)
[2021-06-08] MEDS: CHOLECALCIFEROL 25 MCG TABLET PO SCH (08:53)
--- NOTE | 2021-06-08 10:53 | DISCHARGE SUMMARY ---
Discharge Summary Admit Date: 06/01/21 Discharge Date: 06/08/21 Discharging Provider: Stanley Singleton Primary Care Provider: Rachell Seo Code Status: Attempt Resuscitation Condition at Discharge: Stable Discharge Disposition: 01 Home, Self Care - DIAGNOSES Admission Diagnoses: Sepsis Pneumonia Right-sided chest pain Status post small bowel resection COPD Hypertension Aortic stenosis Discharge Diagnoses with Status of Each Condition: Sepsis: Resolved Pneumonia: Resolved. Completed antibiotic. Discharged on Supplenetal Oxygen Right-sided chest pain: Pleuritic. Work up negative for cardiac course. Status post small bowel resection COPD: Chronic. Continue home medication Hypertension: Chronic. Stable. Continue home medication Aortic stenosis: Mild and stable per 2D echo. Continue out patient follow up. - HPI History of Present Illness: Per HPI: This is a pleasant 71-year-old female with a past medical history significant for hypertension, COPD, multiple bowel surgeries who presents today complaining of right-sided chest pain. She was hospitalized on May 24 for abdominal pain and found to have a small bowel obstruction with likely ischemic bowel. She was taken to the OR and underwent an expiratory laparotomy with small bowel resection of approximately 20 cm of ischemic bowel. She was hospitalized for 4 days and discharged on the . She reports doing well since then and woke up this morning in her usual state of health. She states she went to her computer when she started to develop right-sided chest pain that was worse with inspiration. She states it has progressed throughout the day and so she came to the emergency room this evening. She denies any subjective fevers or chills. She does feel more short of breath today. She has a nonproductive cough which is unchanged compared to her usual. She has not noticed any wheezing. She denies any abdominal pain, nausea, vomiting. She believes that she may have pneumonia as this is a similar symptom to what she had in the past when she was diagnosed with pneumonia. She does not believe there are any problems with her abdomen. She reports no dysuria, urgency, frequency. In the emergency department, she was noted to be febrile with a temperature of 38.7 C. She was tachycardic with a heart rate of 107 and hypertensive with a blood pressure 185/91. She was tachypneic and was saturating 92% on room air. This improved to the mid 90s on 2 L of oxygen via nasal cannula. Given her pain and recent surgical intervention, a CT angiogram of the chest was obtained which showed no evidence of a pulmonary embolism. There was evidence of a mild right effusion with dependent changes bilaterally. Labs revealed a white count of 12.6 with a left shift. Her lactic acid was normal. Respiratory PCR panel was unremarkable. She was given ceftriaxone and azithromycin in the emergency department. Medicine was then consulted for admission. I asked the emergency room physician to obtain a CT of the abdomen pelvis prior to admission given her recent surgical intervention and the fact that her CT of the chest was not that impressive and to ensure there was no other obvious source of infection. This CT showed postsurgical changes without any obvious source of infection. Given this, the patient was admitted to the medical service. I did discuss goals of care with the patient and she would like to be a full code. - HOSPITAL COURSE Hospital Course: Blood cultures were drawn and patient was started on Rocephin and azithromycin. She completed a regimen of azithromycin and Rocephin. Blood cultures were no growth to date X5 days by the time of discharge. Patient's white blood cell count was normal throughout her hospital stay. Jones remained afebrile for the rest of her hospital stay. On the last day prior to discharge she had a brief episode of SVT which spontaneously resolved. Work-up included an EKG and troponins which were largely unremarkable. She had an oxygen desaturation study during which it was noted that her oxygen saturation was 83% with ambulation on 1 L of oxygen with a corresponding heart rate of 106 as well as on room air with ambulation. Her oxygen saturation was 90% on 2 L with ambulation. Consequently she was discharged home with supplemental oxygen to use as needed to keep your oxygen at 90% or greater. - ALLERGIES Allergies/Adverse Reactions: Allergies Allergy/AdvReac Type Severity Reaction Status Date / Time Penicillins Allergy Nausea Verified 06/01/21 19:40 - MEDICATIONS Home Medications: Ambulatory Orders Medication Instructions Recorded Confirmed Aspirin EC [Ecotrin] 81 mg PO DAILY 04/02/20 06/02/21 Ferrous Sulfate 325 mg PO DAILY 04/02/20 06/02/21 Cholecalciferol [Vitamin D3] 5,000 unit PO DAILY 11/01/20 06/02/21 Multivitamin W/Minerals [Theragran 1 tab PO DAILYWM tablet 11/01/20 06/02/21 M] Acetaminophen [Tylenol] 650 mg PO Q4HR PRN 11/11/20 06/02/21 lisinopriL [Lisinopril] 10 mg PO DAILY #30 tablet 12/27/20 06/02/21 Albuterol 2.5 mg INH Q4H PRN #30 ml 12/28/20 06/02/21 Doxazosin Mesylate [Cardura] 2 mg PO QPM 05/24/21 06/02/21 Metoprolol Tartrate [Lopressor] 25 mg PO BID 05/24/21 06/02/21 Umeclidinium [place] [Incruse 1 puffs INH DAILY 05/24/21 06/02/21 Ellipta] - PHYSICAL EXAM AT DISCHARGE General Appearance: positive: No acute distress, Alert Eyes Bilateral: positive: PERRL, EOMI ENT: positive: No signs of dehydration Neck: positive: No JVD, Trachea midline Respiratory: positive: Chest non-tender, No respiratory distress, Breath sounds nml. negative: Wheezes, Rales, Rhonchi Cardiovascular: positive: Regular rate & rhythm Abdomen: positive: Non-tender, No distention Back: positive: Nml inspection Skin: positive: Color nml, No rash, Warm, Dry Extremities: positive: Non-tender, Full ROM, Nml appearance, No pedal edema Neurologic/Psychiatric: positive: Oriented x3, Mood/affect nml - LABS Result Diagrams: 06/08/21 06:28 06/08/21 06:28 - SEPSIS Current Stage of Sepsis: Sepsis Possible source of Sepsis: Pulmonary Sepsis Criteria: Recorded Temperature greater than 38.3C or Less than 36C, Recorded Heart Rate greater than 90 bpm, Recorded Respiratory Rate greater than 20, Respiratory: Increasing oxygen requirements, WBC count greater than 12,000 or less than 4000 - TIME SPENT Time Spent in Discharge (Minutes): 25
--- NOTE | 2021-06-08 10:59 | Discharge Plan ---
Discharge Plan Problem Reviewed?: Yes Disposition: Home, Self Care Condition: Stable Diet: Cardiac Activity Restrictions: Activity as Tolerated Health Concerns: Needed on 06/01/2021 weight a fever of 38.7 C, tachycardia and high blood pressure. It was initially suspected that you were septic as a result of a potential pneumonia. Thus you were started on ceftriaxone and azithromycin. You were also administered IV hydration. Your white blood cell count improved from 13.6 down to 8.9. By the time of discharge blood cultures were no growth to date. On the last day before discharge you had a brief episode of SVT which resolved on its own. Work-up included an EKG and troponins which were largely unremarkable. You had an oxygen desaturation study during which it was noted that your oxygen saturation was 83% with ambulation on 1 L of oxygen with a corresponding heart rate of 106. Your oxygen saturation was also 83% on room air with ambulation. Finally your oxygen saturation was 90% on 2 L with ambulation. Consequently you will be discharged home with supplemental oxygen to use as needed to keep your oxygen at 90% or greater. You are being discharged in stable condition. You are advised to follow-up with your primary care physician as needed. The above plan was discussed with you you expressed understanding and are in agreement. No Smoking: If you smoke, Please STOP! Call for help. Follow-up with: Rachell Seo MD [Primary Care Provider] -
[2021-06-08 12:15] VITALS: BP 106/64
== END 2021-06-08 13:38 | disposition home or self-care (01) | DRG 871 ==
LOC: ED 19:32 → MS2 23:19
PROVIDERS: ADMIT Internal Medicine; ATTEND Internal Medicine
DX: A41.9 Sepsis, unspecified organism (principal); J18.9 Pneumonia, unspecified organism; J44.9 Chronic obstructive pulmonary disease, unspecified; R01.1 Cardiac murmur, unspecified; I11.0 Hypertensive heart disease with heart failure; I50.9 Heart failure, unspecified; I35.0 Nonrheumatic aortic (valve) stenosis; R77.8 Other specified abnormalities of plasma proteins; Z20.822 Contact with and (suspected) exposure to COVID-19; K44.9 Diaphragmatic hernia without obstruction or gangrene; J32.9 Chronic sinusitis, unspecified; M40.209 Unspecified kyphosis, site unspecified; H54.7 Unspecified visual loss; H91.90 Unspecified hearing loss, unspecified ear; Z90.49 Acquired absence of other specified parts of digestive tract; I25.2 Old myocardial infarction; Z79.82 Long term (current) use of aspirin; Z79.899 Other long term (current) drug therapy; Z99.81 Dependence on supplemental oxygen; Z87.19 Personal history of other diseases of the digestive system; Z87.891 Personal history of nicotine dependence
CPT/HCPCS: 36415; 71045; 71275; 74177; 80048; 80053; 81003; 82306; 82607; 82728; 83540; 83605; 83690; 83735; 83880; 84466; 84484; 85025; 85610; 86140; 87040; 87631; 93005; 93306; 94640; 96374; 96376; 99285; A9270; J1650; J1750; J7120; Q9967; 0202U; 81001; 87086

== ENCOUNTER 2021-08-27 14:41 | Outpatient (CLI) | payer MEDICARE, MEDICAID ==
--- NOTE | 2021-08-29 07:25 | Mammography Report ---
BILATERAL DIGITAL SCREENING MAMMOGRAM 3D/2D: 08/27/2021 CLINICAL: Routine screening. Comparison is made to exam dated: 02/15/2014 mammogram - [facility]. There are scat tered fibroglandular elements in both breasts. There are benign calcifications in both breasts. No significant masses, calcifications, or other findings are seen in either breast. There has been no significant interval change. IMPRESSION: BENIGN There is no mammographic evidence of malignancy. A 1 year screening mammogram is recommended. This exam was interpreted at Station ID: [id number]. NOTE: For mammograms, a report in lay terms will be sent to the patient. Approximately 15% of breast malignancies will not be visualized mammographically. In the management of a palpable breast mass, a negative mammogram must not discourage biopsy of a clinically suspicious lesion. Electronically Signed By: Oni Taylor M.D. [email or web address]:08/28/2021 09:57:44 ACR BI-RADS Category 2: Benign Finding(s) 3342F PARENCHYMAL PATTERN: (A) - The breast(s) demonstrate(s) scattered fibroglandular densities. BI-RADS CATEGORY: (2) - 2 RECOMMENDATION: (ANNUAL) - Recommend routine annual screening mammography. [id number] 1 year screening LATERALITY: (B)
== END 2021-08-27 14:42 | disposition home or self-care (01) ==
LOC: DI.N 14:41
PROVIDERS: ATTEND Internal Medicine
DX: Z12.31 Encounter for screening mammogram for malignant neoplasm of breast (principal)

== ENCOUNTER 2022-03-15 10:12 | Outpatient (CLI) | payer MEDICARE, MEDICAID ==
[2022-03-15 10:38] LABS: BASOPHILS % (AUTO) 0.7 %; EOSINOPHILS # (AUTO) 0.3 10^3/uL (0.0-0.7); EOSINOPHILS % (AUTO) 5.1 %; HCT - HEMATOCRIT 37.2 % (37.0-47.0); HGB - HEMOGLOBIN 11.4 g/dL (12.0-16.0); LYMPHOCYTES # (AUTO) 1.3 10^3/uL (1.5-3.5); LYMPHOCYTES % (AUTO) 22.6 %; MEAN CORPUSCULAR HEMOGLOBIN 30.2 pg (27.0-31.0); MEAN CORPUSCULAR HGB CONC 30.6 g/dL (32.0-36.0); MEAN CORPUSCULAR VOLUME 98.4 fL (81.0-99.0); MONOCYTES # (AUTO) 0.5 10^3/uL (0.0-1.0); MONOCYTES % (AUTO) 7.9 %; NEUTROPHILS # (AUTO) 3.6 10^3/uL (1.5-6.6); NEUTROPHILS % (AUTO) 63.5 %; PLT - PLATELET COUNT 160 10^3/uL (130-450); RED BLOOD COUNT 3.78 10^6/uL (4.20-5.40); RED CELL DISTRIBUTION WIDTH 12.5 % (12.0-15.0); WHITE BLOOD COUNT 5.7 x10^3/uL (4.8-10.8)
[2022-03-15 10:55] LABS: ALBUMIN 3.8 g/dL (3.2-5.5); ALBUMIN/GLOBULIN RATIO 1.2 (1.0-2.2); BILIRUBIN,TOTAL 0.2 mg/dL (0.2-1.0); CALCIUM 9.2 mg/dL (8.5-10.3); CREATININE 0.6 mg/dL (0.4-1.0); POTASSIUM 4.2 mmol/L (3.5-5.0)
== END 2022-03-15 10:13 | disposition home or self-care (01) ==
LOC: LAB 10:12
PROVIDERS: ATTEND Internal Medicine
DX: D64.9 Anemia, unspecified (principal); R60.9 Edema, unspecified; I35.0 Nonrheumatic aortic (valve) stenosis; I25.10 Atherosclerotic heart disease of native coronary artery without angina pectoris; Z79.899 Other long term (current) drug therapy
CPT/HCPCS: 36415; 80053; 83880; 84443; 85025